=== PATIENT | female | born 1945 | race Caucasian/White ===

== ENCOUNTER 2017-05-01 15:21 | Observation (INO) | payer MEDICARE, OTHER ==
[2017-05-01] MEDS ORDERED: HYDROcodone/APAP 5-325MG 1 EACH TAB PO STA (15:45)
--- NOTE | 2017-05-01 15:50 | ED ---
Lower Extremity Injury HPI <Chito Hughes - Last Filed: 05/01/17 17:52> - General Source: patient, RN notes reviewed Mode of arrival: wheelchair Limitations: physical limitation <Breanna Kaur - Last Filed: 05/01/17 18:40> - General Chief Complaint: Extremity Injury, Lower Stated Complaint: Fall Time Seen by Provider: 05/01/17 15:36 - History of Present Illness Initial Comments: Patient is 72-year-old female presents to the emergency room for evaluation of bilateral ankle pain. Patient states yesterday she was walking outside and her knee gave out and she twisted her right ankle. Patient states he began having pain and swelling of her right ankle and foot. Patient states having 8 out of 10 constant pain. Patient states the pain is worse when she puts weight on her foot. Patient states today while getting ready to come to the emergency room for her right ankle pain, she fell over and twisted her left ankle x 2. Patient states she is now having 8 out of 10 pain in her left ankle as well. Patient states she's also having pain and swelling of her third toe. Patient states she can't walk because of pain in bilateral ankles and feet. Patient denies any numbness or tingling in her feet. Patient states she took a [place] was morning with slight relief of symptoms. Patient denies any other injuries during incident. Patient also states she's been experiencing dysuria for the past 2 days. Patient states she would like to be checked for urinary tract infection. Patient denies any blood in the urine. Denies abdominal pain. Patient denies flank pain. Patient denies nausea or vomiting. Patient denies fevers or chills. (Breanna Kaur) - Related Data Home Medications Medication Instructions Recorded Confirmed Baclofen 10 mg PO TID PRN 05/01/17 05/01/17 DULoxetine HCL [Cymbalta] 60 mg PO DAILY 05/01/17 05/01/17 Famotidine [Pepcid] 20 mg PO BID 05/01/17 05/01/17 Fesoterodine Fumarate [Toviaz] 4 mg PO HS 05/01/17 05/01/17 HYDROcodone/APAP 10-325MG [[place] 1 tab PO QID PRN 05/01/17 05/01/17 10-325] Insulin Aspart [NovoLOG] See Protocol SQ AC-TID 05/01/17 05/01/17 Insulin Detemir [Levemir Flextouch] 40 units SQ HS 05/01/17 05/01/17 Mirabegron [Myrbetriq] 25 mg PO HS 05/01/17 05/01/17 Quinapril HCl 40 mg PO DAILY 05/01/17 05/01/17 Simvastatin [Zocor] 20 mg PO HS 05/01/17 05/01/17 Allergies Allergy/AdvReac Type Severity Reaction Status Date / Time Penicillins Allergy Anaphylaxis Verified 05/01/17 16:00 prochlorperazine AdvReac Seizure Verified 05/01/17 16:00 [From Compazine] Sulfa (Sulfonamide AdvReac Systemic Verified 05/01/17 16:00 Antibiotics) Lupus Flare Review of Systems ROS Other: All systems not noted in ROS Statement are negative. <Chito Hughes - Last Filed: 05/01/17 17:52> ROS Other: All systems not noted in ROS Statement are negative. <Breanna Kaur - Last Filed: 05/01/17 18:40> ROS Statement: Those systems with pertinent positive or pertinent negative responses have been documented in the HPI. Past Medical History Past Medical History: Diabetes Mellitus, Hypertension Additional Past Medical History / Comment(s): Lupus History of Any Multi-Drug Resistant Organisms: None Reported Past Psychological History: No Psychological Hx Reported Smoking Status: Never smoker Past Alcohol Use History: None Reported Past Drug Use History: None Reported <Breanna Kaur - Last Filed: 05/01/17 18:40> General Exam <Chito Hughes - Last Filed: 05/01/17 17:52> Limitations: physical limitation General appearance: alert, in no apparent distress Head exam: Present: atraumatic, normocephalic, normal inspection Eye exam: Present: normal appearance ENT exam: Present: normal exam Neck exam: Present: normal inspection Respiratory exam: Present: normal lung sounds bilaterally. Absent: respiratory distress Cardiovascular Exam: Present: regular rate, normal rhythm, normal heart sounds GI/Abdominal exam: Present: soft, normal bowel sounds. Absent: distended, tenderness, guarding, rebound, rigid Right Lower Leg exam: Present: normal inspection, full ROM. Absent: tenderness Ankle exam: Present: tenderness (Lateral malleolus), swelling. Absent: normal inspection, full ROM Foot/Toe exam: Present: tenderness (Fourth and fifth metatarsal bones), swelling , ecchymosis. Absent: normal inspection Neurovascular tendon exam: Present: no vascular compromise. Absent: pulse deficit (2+ dorsal pedal and posterior tibial pulses), abnormal cap refill ( Capillary refill less than 2 seconds) Left Ankle exam: Present: full ROM, tenderness (Lateral malleolus), swelling ( Lateral malleolus). Absent: normal inspection Foot/Toe exam: Present: tenderness (Third digit), swelling (Third digit) Neurovascular tendon exam: Present: no vascular compromise. Absent: pulse deficit (2+ dorsal pedal and posterior tibial pulses), abnormal cap refill ( Capillary refill less than 2 seconds) Back exam: Present: normal inspection Neurological exam: Present: alert, oriented X3, CN II-XII intact Psychiatric exam: Present: normal affect, normal mood Skin exam: Present: warm, dry, intact, normal color. Absent: rash <Breanna Kaur - Last Filed: 05/01/17 18:40> - General Exam Comments Initial Comments: Laying in exam room, no acute distress. (Breanna Kaur) Procedures - Orthopedic Splinting/Casting Injury #1 Side: left Lower Extremity Injury Location: ankle Lower Extremity Immobilizer: posterior splint (Short leg OCL posterior splint placed. 3 x 35". Neurovascular function assessed and intact.) Injury #2 Side: right Lower Extremity Injury Location: ankle Lower Extremity Immobilizer: posterior splint (Short leg OCL posterior splint placed. 3 x 35". Neurovascular function assessed and intact.) <Breanna Kaur - Last Filed: 05/01/17 18:40> Disposition <Chito Hughes - Last Filed: 05/01/17 17:52> Decision Date: 05/01/17 <Breanna Kaur - Last Filed: 05/01/17 18:40> Clinical Impression: Fracture of right ankle, lateral malleolus, Fracture of left ankle, lateral malleolus, Urinary tract infection Disposition: ADMITTED IP TO THIS [facility] Condition: Stable Referrals: Jordan Tyler MD [STAFF PHYSICIAN] - 1-2 days
--- NOTE | 2017-05-01 16:38 | XR ---
EXAMINATION TYPE: XR ankle complete bilateral DATE OF EXAM: 05/01/2017 COMPARISON: NONE HISTORY: 72-year-old female bilateral pain after fall today TECHNIQUE: 3 views each ankle. FINDINGS: There are oblique fractures of the bilateral distal fibula is. The fracture line at the left lateral malleolus is slightly higher and there is minimal posterior displacement of the distal fracture fragm ent. Associated soft tissue swelling especially laterally on both sides. Talar domes appear intact an d the syndesmoses appear intact. Moderate-sized plantar calcaneal spurs. IMPRESSION: Soft tissue swelling with oblique lateral malleolar fractures on both sides. The fracture on the left is slightly higher and with slight posterior displacement.
--- NOTE | 2017-05-01 16:40 | XR ---
EXAMINATION TYPE: XR foot complete bilateral DATE OF EXAM: 05/01/2017 COMPARISON: NONE HISTORY: 72-year-old female with pain after fall today TECHNIQUE: 3 views each foot FINDINGS: Mild degenerative changes of first MTP joints. Lateral malleolar fractures are redemonstrated on both sides along with moderate-sized plantar calcaneal spurs. No additional acute fracture or dislocation seen. IMPRESSION: Lateral malleolar fractures described in separate report. No additional acute osseous abnormality see n.
[2017-05-01 17:34] LABS: Appearance,Urine Turbid (Clear); Bacteria,Urine Moderate /hpf; Bilirubin,Urine Negative (Negative); Glucose,Urine (UA) 3+ (Negative); Ketones,Urine Negative (Negative); Leukocyte Esterase,Urine Large (Negative); Nitrite,Urine Positive (Negative); Particle Count 62591; Protein,Urine Trace (Negative); RBC,Urine 28 /hpf (0-5); Specific Gravity,Urine 1.016 (1.001-1.035); Squamous Epithelial Cell,Urine 1 /hpf (0-4); UA Billing (MACRO vs. MICRO) MICRO; Urobilinogen,Urine <2.0 mg/dL (<2.0); WBC,Urine >182 /hpf (0-5)
[2017-05-01] MEDS ORDERED: NALOXONE 0.4 MG/ML 1 ML VIAL IV PRN (17:53)
[2017-05-01] MEDS ORDERED: HYDROcodone/APAP 5-325MG 1 EACH TAB PO PRN (17:53)
[2017-05-01] MEDS ORDERED: NITROFURANTOIN MONOHYD/M-CRYST 100 MG CAP PO STA (17:58)
[2017-05-01 18:35] LABS: Glucose,Whole Blood 178 mg/dL (75-99)
[2017-05-01 20:17] VITALS: BMI 30.4
[2017-05-01 20:35] LABS: Glucose,Whole Blood 253 mg/dL (75-99)
[2017-05-01] MEDS ORDERED: NON-FORMULARY DRUG (Mirabegron [Myrbetriq] 25 MG) PO SCH (21:00)
[2017-05-01] MEDS: FAMOTIDINE 20 MG TAB PO SCH (21:47)
[2017-05-01] MEDS: ATORVASTATIN 10 MG TAB PO SCH (21:47)
[2017-05-01] MEDS: DULoxetine HCL 60 MG CAPSULE.DR PO SCH (21:47)
[2017-05-01] MEDS: INSULIN DETEMIR 100 UNIT/ML 10 ML VIAL SQ SCH (21:48)
[2017-05-01] MEDS: INSULIN LISPRO (humaLOG) 300 UNIT/3 ML VIAL SQ SCH (21:49)
[2017-05-01] MEDS: BACLOFEN 10 MG TAB PO PRN (21:51)
[2017-05-01] MEDS: OXYBUTYNIN 10 MG TAB.ER.24 PO SCH (21:51)
[2017-05-01] MEDS: HYDROcodone/APAP 10-325MG 1 EACH TAB PO PRN (21:55)
[2017-05-02 06:55] LABS: Basophils % (A) 0 %; CH 31.6; CHCM 33.8; Eosinophils # (A) 0.2 k/uL (0-0.7); Eosinophils % (A) 2 %; HCT 33.4 % (34.0-46.0); HDW 2.29; HGB 11.1 gm/dL (11.4-16.0); Luc # (Auto) 0.16; Luc % (Auto) 2; Lymphocytes # (A) 1.3 k/uL (1.0-4.8); Lymphocytes % (A) 18 %; MCH 31.1 pg (25.0-35.0); MCHC 33.1 g/dL (31.0-37.0); MCV 93.9 fL (80.0-100.0); Mean Platelet Volume 7.4; Monocytes # (A) 0.6 k/uL (0-1.0); Monocytes % (A) 8 %; Neutrophils # (A) 4.9 k/uL (1.3-7.7); Neutrophils % (A) 70 %; RBC 3.56 m/uL (3.80-5.40); RDW 13.5 % (11.5-15.5); WBC 7.1 k/uL (3.8-10.6); WBC (Perox) 7.88
[2017-05-02 07:15] LABS: Anion Gap 10 mmol/L; Blood Urea Nitrogen 15 mg/dL (7-17); Calcium 9.1 mg/dL (8.4-10.2); Carbon Dioxide 27 mmol/L (22-30); Chloride 102 mmol/L (98-107); Glucose 133 mg/dL (74-99); Non-African American GFR(MDRD) >60 (>60 ml/min/1.73 sqM); Potassium 4.1 mmol/L (3.5-5.1); Sodium 139 mmol/L (137-145)
[2017-05-02 07:19] LABS: Glucose,Whole Blood 134 mg/dL (75-99)
[2017-05-02] MEDS: FAMOTIDINE 20 MG TAB PO SCH ×2 (08:12→21:48)
[2017-05-02] MEDS: HYDROcodone/APAP 10-325MG 1 EACH TAB PO PRN ×2 (08:12→15:03)
[2017-05-02] MEDS: NITROFURANTOIN MONOHYD/M-CRYST 100 MG CAP PO SCH ×2 (08:13→21:43)
[2017-05-02] MEDS: LISINOPRIL 20 MG TAB PO SCH (08:13)
[2017-05-02] MEDS: INSULIN LISPRO (humaLOG) 300 UNIT/3 ML VIAL SQ SCH ×4 (08:14→21:46)
[2017-05-02] MEDS ORDERED: DULoxetine HCL 60 MG CAPSULE.DR PO SCH (09:00)
[2017-05-02 09:52] LABS: Hemoglobin A1C 7.4 % (4.2-6.1)
--- NOTE | 2017-05-02 10:58 | P.HPOR ---
History of Present Illness H&P Date: 05/02/17 Chief Complaint: Bilateral ankle fractures Patient is a 72-year-old female seen at bedside this morning. She was admitted through the ER yesterday 05/01/2017 after x-rays showed bilateral ankle fractures. She states that on Monday, April 29, 2017 she had slipped underneath her daughter's truck and subsequently injured her right ankle with pain and difficulty weightbearing afterwards. She did not present to have it evaluated but was using an old walker for assisting with ambulation. She then again yesterday 05/01/2017 fell and injured her left ankle. After the second ankle injury she then presented to the emergency department where x-rays showed bilateral lateral malleolus fractures. She continues to have bilateral ankle pain this morning. She has no new complaints. She is denying constant numbness or tingling. She has no calf pain. Review of systems is negative for fever, chills, chest pain, shortness breath, nausea, vomiting, dizziness, headaches, slurred speech, facial weakness or other. Review of Systems All systems: negative Constitutional: Denies chills, Denies fever Eyes: denies blurred vision, denies pain Ears, nose, mouth and throat: Denies headache, Denies sore throat Cardiovascular: Denies chest pain, Denies shortness of breath Respiratory: Denies cough Gastrointestinal: Denies abdominal pain, Denies diarrhea, Denies nausea, Denies vomiting Genitourinary: Denies dysuria, Denies hematuria Musculoskeletal: Denies myalgias Integumentary: Denies pruritus, Denies rash Neurological: Denies numbness, Denies weakness Psychiatric: Denies anxiety, Denies depression Endocrine: Denies fatigue, Denies weight change Past Medical History Past Medical History: Diabetes Mellitus, Hypertension Additional Past Medical History / Comment(s): Lupus History of Any Multi-Drug Resistant Organisms: None Reported Past Surgical History: Adenoidectomy, Appendectomy, Back Surgery, Cholecystectomy, Heart Catheterization, Hysterectomy, Tonsillectomy Additional Past Surgical History / Comment(s): 3 left humerous surgery, ryder heal surgery, partial knee right, 7 back surgery, c4-c7 fusion, Lumbar fusion. Past Anesthesia/Blood Transfusion Reactions: No Reported Reaction Past Psychological History: Anxiety, Depression Smoking Status: Never smoker Past Alcohol Use History: None Reported Past Drug Use History: None Reported - Past Family History Father Family Medical History: AICD/Pacemaker, Coronary Artery Disease (CAD) Brother(s) Additional Family Medical History / Comment(s): brain surgery Son(s) Family Medical History: Cancer Additional Family Medical History / Comment(s): brain ca Medications and Allergies Home Medications Medication Instructions Recorded Confirmed Type Baclofen 10 mg PO TID PRN 05/01/17 05/01/17 History DULoxetine HCL [Cymbalta] 60 mg PO DAILY 05/01/17 05/01/17 History Famotidine [Pepcid] 20 mg PO BID 05/01/17 05/01/17 History Fesoterodine Fumarate [Toviaz] 4 mg PO HS 05/01/17 05/01/17 History HYDROcodone/APAP 10-325MG [[place] 1 tab PO QID PRN 05/01/17 05/01/17 History 10-325] Insulin Aspart [NovoLOG] See Protocol SQ AC-TID 05/01/17 05/01/17 History Insulin Detemir [Levemir Flextouch] 40 units SQ HS 05/01/17 05/01/17 History Mirabegron [Myrbetriq] 25 mg PO HS 05/01/17 05/01/17 History Quinapril HCl 40 mg PO DAILY 05/01/17 05/01/17 History Simvastatin [Zocor] 20 mg PO HS 05/01/17 05/01/17 History Allergies Allergy/AdvReac Type Severity Reaction Status Date / Time latex Allergy Anaphylaxis Verified 05/01/17 20:25 Penicillins Allergy Anaphylaxis Verified 05/01/17 20:25 prochlorperazine AdvReac Seizure Verified 05/01/17 20:25 [From Compazine] Sulfa (Sulfonamide AdvReac Systemic Verified 05/01/17 20:25 Antibiotics) Lupus Flare Physical Examination Inspection of the bilateral lower extremities show posterior short leg splints in place. There are no wounds or lacerations to the lower extremities. There is no erythema. There is mild swelling at bilateral ankles. There is tenderness directly over the lateral malleoli. There is no medial malleolus tenderness. There is adequate perfusion with skin warm to touch, 2+ dorsalis pedis pulses and less than 2 second capillary refill. Sensation to light touch is intact throughout the lower extremities. She has active motor at the hip, knee, ankle, foot and toes. Calves are soft and nontender. Results - Labs Labs: Abnormal Lab Results - Last 24 Hours (Table) 05/01/17 05/01/17 05/01/17 Range/Units 16:46 18:33 20:33 RBC (3.80-5.40) m/uL Hgb (11.4-16.0) gm/dL Hct (34.0-46.0) % Glucose (74-99) mg/dL POC Glucose (mg/dL) 178 H 253 H (75-99) mg/dL Hemoglobin A1c (4.2-6.1) % Urine Appearance Turbid H (Clear) Urine Protein Trace H (Negative) Urine Glucose (UA) 3+ H (Negative) Urine Nitrite Positive H (Negative) Ur Leukocyte Esterase Large H (Negative) Urine RBC 28 H (0-5) /hpf Urine WBC >182 H (0-5) /hpf Urine WBC Clumps Few H (None) /hpf Urine Bacteria Moderate H (None) /hpf Urine Yeast (Budding) Many H (None) /hpf 05/02/17 05/02/17 05/02/17 Range/Units 06:26 06:26 06:26 RBC 3.56 L (3.80-5.40) m/uL Hgb 11.1 L (11.4-16.0) gm/dL Hct 33.4 L (34.0-46.0) % Glucose 133 H (74-99) mg/dL POC Glucose (mg/dL) (75-99) mg/dL Hemoglobin A1c 7.4 H (4.2-6.1) % Urine Appearance (Clear) Urine Protein (Negative) Urine Glucose (UA) (Negative) Urine Nitrite (Negative) Ur Leukocyte Esterase (Negative) Urine RBC (0-5) /hpf Urine WBC (0-5) /hpf Urine WBC Clumps (None) /hpf Urine Bacteria (None) /hpf Urine Yeast (Budding) (None) /hpf 05/02/17 Range/Units 07:12 RBC (3.80-5.40) m/uL Hgb (11.4-16.0) gm/dL Hct (34.0-46.0) % Glucose (74-99) mg/dL POC Glucose (mg/dL) 134 H (75-99) mg/dL Hemoglobin A1c (4.2-6.1) % Urine Appearance (Clear) Urine Protein (Negative) Urine Glucose (UA) (Negative) Urine Nitrite (Negative) Ur Leukocyte Esterase (Negative) Urine RBC (0-5) /hpf Urine WBC (0-5) /hpf Urine WBC Clumps (None) /hpf Urine Bacteria (None) /hpf Urine Yeast (Budding) (None) /hpf Microbiology - Last 24 Hours (Table) 05/01/17 16:46 Urine Culture - Preliminary Urine,Voided H & H 05/02/17 Range/Units 06:26 Hgb 11.1 L (11.4-16.0) gm/dL Hct 33.4 L (34.0-46.0) % Result Diagrams: 05/02/17 06:26 05/02/17 06:26 - Diagnostic results Ankle/Foot x-ray: report reviewed, image reviewed (X-rays of bilateral ankles show minimally displaced oblique distal fibula fractures more evident on the left than the right. Both ankle mortises are intact.) Assessment and Plan (1) Fracture of left ankle, lateral malleolus Narrative/Plan: I do not believe the patient require surgical intervention at this time. We will per have her ankles immobilized with either walking boots or casts. She may need placement for extended care and rehab due to an inability or difficulty ambulating. We'll further review with Dr. Tyler and make further recommendations as appropriate. Status: Acute (2) Fracture of right ankle, lateral malleolus Status: Acute Time with Patient: Less than 30
[2017-05-02 11:24] LABS: Glucose,Whole Blood 218 mg/dL (75-99)
[2017-05-02] MEDS: IBUPROFEN 400 MG TAB PO PRN ×2 (12:09→21:45)
[2017-05-02 16:12] LABS: Glucose,Whole Blood 162 mg/dL (75-99)
[2017-05-02 19:58] LABS: Glucose,Whole Blood 254 mg/dL (75-99)
[2017-05-02] MEDS: DULoxetine HCL 60 MG CAPSULE.DR PO SCH (21:42)
[2017-05-02] MEDS: ATORVASTATIN 10 MG TAB PO SCH (21:42)
[2017-05-02] MEDS: OXYBUTYNIN 10 MG TAB.ER.24 PO SCH (21:43)
[2017-05-02] MEDS: INSULIN DETEMIR 100 UNIT/ML 10 ML VIAL SQ SCH (21:43)
[2017-05-03] MEDS: BACLOFEN 10 MG TAB PO PRN (03:51)
[2017-05-03 07:00] LABS: Glucose,Whole Blood 120 mg/dL (75-99)
[2017-05-03 07:18] VITALS: BP 115/70; PULSE 72; RESP 14; TEMP 97.9
[2017-05-03] MEDS: INSULIN LISPRO (humaLOG) 300 UNIT/3 ML VIAL SQ SCH ×2 (07:19→13:13)
[2017-05-03] MEDS: HYDROcodone/APAP 10-325MG 1 EACH TAB PO PRN ×2 (08:11→14:31)
[2017-05-03] MEDS: NITROFURANTOIN MONOHYD/M-CRYST 100 MG CAP PO SCH (08:13)
[2017-05-03] MEDS: FAMOTIDINE 20 MG TAB PO SCH (08:13)
[2017-05-03] MEDS: LISINOPRIL 20 MG TAB PO SCH (08:13)
[2017-05-03] MEDS: IBUPROFEN 400 MG TAB PO PRN (11:30)
[2017-05-03 11:44] LABS: Glucose,Whole Blood 220 mg/dL (75-99)
[2017-05-03] MEDS ORDERED: PANTOPRAZOLE 40 MG TABLET PO SCH (17:30)
[2017-05-03] MEDS ORDERED: ASPIRIN 325 MG TAB PO SCH (21:00)
--- NOTE | 2017-05-04 12:13 | P.DS ---
Providers Date of admission: 05/01/17 18:23 Expected date of discharge: 05/03/17 Attending physician: Jordan Tyler Consults: 05/01/17 17:54 Consult Physician Urgent Consulting Provider: Joel Vasquez Consult Reason/Comments: bilateral lateral malleolus fractures, urinary tract infection Do you want consulting provider notified?: Yes Primary care physician: Physician Nonstaff - Discharge Diagnosis(es) (1) Fracture of left ankle, lateral malleolus Patient is a 72-year-old female that was admitted through the ER 05/01/2017 after x-rays showed bilateral ankle fractures. She states that on Monday, April 29, 2017 she had slipped underneath her daughter's truck and subsequently injured her right ankle with pain and difficulty weightbearing afterwards. She did not present to have it evaluated but was using an old walker for assisting with ambulation. She then again on 05/01/2017 fell and injured her left ankle. After the second ankle injury she then presented to the emergency department where x-rays showed bilateral lateral malleolus fractures. She was admitted for further care and placement. She was fitted for bilateral walking boots and surgical intervention is not required. Her hospital course was without complication. On day of discharge her pain is controlled with oral pain medication, tolerating by mouth meds and diet, denying new complaints, neurovascular status intact, calves soft and nontender, abdomen soft and nontender, afebrile, vital signs stable, labs within acceptable ranges. She is denying constant numbness or tingling. She has no calf pain. Review of systems is negative for fever, chills, chest pain, new numbness or tingling, shortness breath, nausea, vomiting, dizziness, headaches, slurred speech, facial weakness or other. Status: Acute Priority: Medium (2) Fracture of right ankle, lateral malleolus Status: Acute Priority: Medium Patient Condition at Discharge: Good Plan - Discharge Summary New Discharge Prescriptions: New Aspirin 325 mg PO BID #60 tab Continue Simvastatin [Zocor] 20 mg PO HS Quinapril HCl 40 mg PO DAILY Mirabegron [Myrbetriq] 25 mg PO HS Fesoterodine Fumarate [Toviaz] 4 mg PO HS Insulin Detemir [Levemir Flextouch] 40 units SQ HS HYDROcodone/APAP 10-325MG [[place] 10-325] 1 tab PO QID PRN PRN Reason: Pain Famotidine [Pepcid] 20 mg PO BID DULoxetine HCL [Cymbalta] 60 mg PO DAILY Baclofen 10 mg PO TID PRN PRN Reason: Muscle Spasm/Pain Insulin Aspart [NovoLOG] See Protocol SQ AC-TID Discharge Medication List Baclofen 10 mg PO TID PRN 05/01/17 [History] DULoxetine HCL [Cymbalta] 60 mg PO DAILY 05/01/17 [History] Famotidine [Pepcid] 20 mg PO BID 05/01/17 [History] Fesoterodine Fumarate [Toviaz] 4 mg PO HS 05/01/17 [History] HYDROcodone/APAP 10-325MG [[place] 10-325] 1 tab PO QID PRN 05/01/17 [History] Insulin Aspart [NovoLOG] See Protocol SQ AC-TID 05/01/17 [History] Insulin Detemir [Levemir Flextouch] 40 units SQ HS 05/01/17 [History] Mirabegron [Myrbetriq] 25 mg PO HS 05/01/17 [History] Quinapril HCl 40 mg PO DAILY 05/01/17 [History] Simvastatin [Zocor] 20 mg PO HS 05/01/17 [History] Aspirin 325 mg PO BID #60 tab 05/03/17 [Rx] Follow up Appointment(s)/Referral(s): [facility], [NON-STAFF] - 1 Week Jordan Tyler MD [STAFF PHYSICIAN] - 05/04/17 8:30 am Patient Instructions/Handouts: Ankle Fracture (DC) Activity/Diet/Wound Care/Special Instructions: Pivot weightbearing right lower extremity. Weight-bear as tolerated while in walking boots Maintain walking boots while up and ambulating Follow-up with Dr. Tyler in office, [facility]: [phone]. Will deliver walking boots to your room. [facility] : [phone]. Will deliver wheel chair to your home. Discharge Disposition: HOME SELF-CARE
--- NOTE | 2017-05-04 20:14 | CONS ---
REASON FOR CONSULTATION: Advice regarding diabetes mellitus, type 2, and other medical issues, requested by Orthopedic Surgery. HISTORY OF PRESENT ILLNESS: This 72-year-old woman with a past medical history of diabetes mellitus, hypertension, history of lupus, history of adenoidectomy, history of back surgery, history of DJD, cardiac catheterization, being followed by Dr. Faith in the outpatient setting, was admitted with bilateral ankle fractures, which was apparently being treated conservatively. The boot has been provided by Orthopedic Surgery. There is no history of any fever, rigor , chills, no history of headache, loss of consciousness, seizures. PAST MEDICAL HISTORY: 1. Diabetes mellitus, type 2. 2. Hypertension. 3. Lupus. 4. Adenoidectomy. 5. History of appendectomy. 6. History of back surgery. 7. Cholecystectomy. HOME MEDICATIONS: 1. Zocor 20 mg at bedtime. 2. Quinapril 40 mg p.o. daily. 3. Myrbetriq 25 mg at bedtime. 4. Levemir 40 units subcutaneously at bedtime. 5. NovoLog before meals t.i.d. 6. [place] 10 mg q.i.d. p.r.n. 7. Toviaz 4 mg p.o. at bedtime. 8. Pepcid 20 mg p.o. b.i.d. 9. Cymbalta 60 mg p.o. daily. 10. Baclofen 10 mg q.i.d. p.r.n. ALLERGIES: 1. LATEX. 2. PENICILLIN. 3. COMPAZINE. 4. SULFA. FAMILY HISTORY: History of AICD, CAD, brain surgery in the family. SOCIAL HISTORY: No history of smoking. No history of alcohol intake. REVIEW OF SYSTEMS: ENT: No diminished vision. No diminished hearing. CARDIOVASCULAR SYSTEM: No angina, palpitations. RESPIRATORY SYSTEM: As mentioned earlier. GI: No nausea, vomiting. : No dysuria, retention. NERVOUS SYSTEM: No numbness, weakness. ALLERGY/IMMUNOLOGY: No asthma, hayfever. MUSCULOSKELETAL: As mentioned earlier. HEMATOLOGY/ONCOLOGY: No history of anemia. ENDOCRINE: Diabetes mellitus. No hypothyroidism. CONSTITUTIONAL: As mentioned earlier. DERMATOLOGY: Negative. RHEUMATOLOGY: Negative. PSYCHIATRY: As mentioned earlier. PHYSICAL EXAMINATION: Patient is alert and oriented x3. Pulse is 90, blood pressure 143/77, respiratory rate 16, temperature 98.4, pulse ox 94% on room air. HEENT: Conjunctivae normal. NECK: No jugular venous distention. CARDIOVASCULAR: S1, S2 muffled. RESPIRATORY: Breath sounds diminished at the bases. No rhonchi. No crackles. ABDOMEN: Soft, non-tender. LEGS: Status post bilateral ankle fractures. NERVOUS SYSTEM: Higher functions as mentioned earlier. Moves all 4 limbs. No focal motor or sensory deficits. LYMPHATICS: No lymph node palpable in neck, axillae or groin. SKIN: No ulcer, rash, bleeding. LABS: WBC 7.5, hemoglobin 11.1. Glucose 133. ASSESSMENT: 1. Bilateral ankle fractures. 2. Anemia, normocytic; anemia of chronic disease. 3. Diabetes mellitus, type 2. 4. History of hypertension. 5. History of lupus. 6. Appendectomy. 7. History of back surgery. 8. Degenerative joint disease. 9. History of cardiac catheterization. 10. History of tonsillectomy. 11. History of anxiety, depression not otherwise specified. RECOMMENDATIONS AND DISCUSSION: In this 72-year-old woman who presented with multiple complex medical issues, we will monitor the patient closely, continue the current medications, continue symptomatic treatment. Resume the home medications. Monitor blood sugars closely. DVT prophylaxis. Incentive spirometry. Repeat labs. We will follow the patient closely with you. Patient may be asked to follow up with a primary physician in the outpatient setting. Thank you, Dr. Tyler, for letting us participate in the care of this patient. DAE
--- NOTE | 2017-05-06 11:05 | PN ---
DATE OF SERVICE: 05/03/17 This 72 year old woman who was admitted with a fracture bilaterally has got walking boots. No chest pain. No palpitations. No fever. On exam, alert and oriented times three. Pulse 72. Blood pressure 115/77. Respiratory rate 14. Temperature 97.9. Pulse ox 94% on room air. HEENT: Conjunctivae normal. Neck: No JVD. Cardiovascular: S1, S2 muffled. Respiratory: Breath sounds diminished at the bases. No rhonchi. No crackles. ABDOMEN: Soft, nontender. LEGS: Status post ankle fracture. Nervous system: No focal deficits. LABS: Glucose ntd, hemoglobin 11.1. ASSESSMENT: 1. Status post bilateral ankle fractures and walking boot conservative line of treatment. 2. Anemia, normocytic anemia, chronic disease. 3. Diabetes mellitus, type 2. 4. Gait dysfunction. 5. History of hypertension. 7. History of appendectomy. 8. History of cardiac catheterization. 9. History of anxiety, depression. RECOMMENDATIONS AND DISCUSSION: Recommend to continue the current medications. Continue with monitoring, symptomatic treatment. otherwise, closely follow with orthopedic surgery. Follow up with primary care physician in the outpatient setting. DAE
== END 2017-05-03 15:14 | disposition home or self-care (01) ==
LOC: EC 15:21 → INTOOBSV 18:23 → 3SUR 18:23
PROVIDERS: ADMIT Orthopaedic Surgery Sports Medicine; ATTEND Orthopaedic Surgery Sports Medicine
DX: S82.891A Other fracture of right lower leg, initial encounter for closed fracture (principal); S82.892A Other fracture of left lower leg, initial encounter for closed fracture; D63.8 Anemia in other chronic diseases classified elsewhere; R26.9 Unspecified abnormalities of gait and mobility; E11.9 Type 2 diabetes mellitus without complications; I10 Essential (primary) hypertension; F32.9 Major depressive disorder, single episode, unspecified; F41.9 Anxiety disorder, unspecified; M25.571 Pain in right ankle and joints of right foot; M25.572 Pain in left ankle and joints of left foot; M25.471 Effusion, right ankle; R30.0 Dysuria; M19.90 Unspecified osteoarthritis, unspecified site; W10.1XXA Fall (on)(from) sidewalk curb, initial encounter; Y93.01 Activity, walking, marching and hiking; Y92.480 Sidewalk as the place of occurrence of the external cause; Z79.4 Long term (current) use of insulin; Z79.899 Other long term (current) drug therapy; Z90.49 Acquired absence of other specified parts of digestive tract; Z82.49 Family history of ischemic heart disease and other diseases of the circulatory system; Z80.8 Family history of malignant neoplasm of other organs or systems; Z88.0 Allergy status to penicillin; Z88.2 Allergy status to sulfonamides; Z88.8 Allergy status to other drugs, medicaments and biological substances; Z91.040 Latex allergy status
CPT/HCPCS: 29515 ×2; 99284 ×2; 36415; 97161; 80048; 83036; 85025; 81001; 87086; 87077; 87186; 73610; 73630; G0378 ×3

== ENCOUNTER 2017-05-20 20:44 | Emergency (ER) | payer MEDICARE, OTHER ==
[2017-05-20] MEDS ORDERED: ACETAMINOPHEN TAB 325 MG TAB PO STA (20:57)
[2017-05-20 21:20] LABS: Basophils # (A) 0.1 k/uL (0-0.2); Basophils % (A) 2 %; CHCM 33.9; Eosinophils # (A) 0.2 k/uL (0-0.7); Eosinophils % (A) 2 %; HCT 38.9 % (34.0-46.0); HDW 2.57; HGB 13.4 gm/dL (11.4-16.0); Luc # (Auto) 0.16; Luc % (Auto) 2; Lymphocytes # (A) 1.7 k/uL (1.0-4.8); Lymphocytes % (A) 24 %; MCH 31.6 pg (25.0-35.0); MCHC 34.3 g/dL (31.0-37.0); Mean Platelet Volume 8.3; Monocytes # (A) 0.5 k/uL (0-1.0); Monocytes % (A) 8 %; Neutrophils # (A) 4.4 k/uL (1.3-7.7); Neutrophils % (A) 63 %; RBC 4.23 m/uL (3.80-5.40); RDW 13.4 % (11.5-15.5); WBC 7.1 k/uL (3.8-10.6); WBC (Perox) 7.21
[2017-05-20] MEDS ORDERED: ONDANSETRON 4 MG/2 ML VIAL IVP STA (21:20)
--- NOTE | 2017-05-20 21:22 | ED ---
Fever HPI - General Chief Complaint: Fever Stated Complaint: fever,NVD Time Seen by Provider: 05/20/17 20:55 Source: patient Mode of arrival: ambulatory Limitations: no limitations - History of Present Illness Initial Comments: This patient is a 72-year-old woman who states that around noon she started having a number of symptoms which included having a fever, having generalized weakness, noting that her blood sugar has been running high (up to 170s). She also had nausea and has had about 3-4 loose bowel movements today. The patient does note that she had just completed a course of Macrobid. Today she noted she was having urinary frequency and urgency. She denies dysuria. Patient is not having headache or neck stiffness. She is not having chest pain cough, or dyspnea. She denies abdominal pain. She has not noted any blood or dark tarry stools. Patient denies any joint pain or swelling. She denies rash or skin lesions. MD Complaint: fever, weakness Onset/Timin -: hour(s) Temperature Source: subjective Context: recent antibiotic use (Macrobid) Associated Symptoms: chills, nausea, diarrhea Treatments Prior to Arrival: none - Related Data Home Medications Medication Instructions Recorded Confirmed Baclofen 10 mg PO TID PRN 05/01/17 05/20/17 DULoxetine HCL [Cymbalta] 60 mg PO DAILY 05/01/17 05/20/17 Famotidine [Pepcid] 20 mg PO BID 05/01/17 05/20/17 Fesoterodine Fumarate [Toviaz] 4 mg PO HS 05/01/17 05/20/17 HYDROcodone/APAP 10-325MG [[place] 1 tab PO QID PRN 05/01/17 05/20/17 10-325] Insulin Aspart [NovoLOG] See Protocol SQ AC-TID 05/01/17 05/20/17 Insulin Detemir [Levemir Flextouch] 40 units SQ HS 05/01/17 05/20/17 Mirabegron [Myrbetriq] 25 mg PO HS 05/01/17 05/20/17 Quinapril HCl 40 mg PO DAILY 05/01/17 05/20/17 Simvastatin [Zocor] 20 mg PO HS 05/01/17 05/20/17 Previous Rx's Medication Instructions Recorded Aspirin 325 mg PO BID #60 tab 05/03/17 Azithromycin [Zithromax Z-pack] 250 mg PO DIRECTED #6 tab 05/21/17 Ondansetron Odt [Zofran ODT] 4 mg PO Q8HR PRN #10 tab 05/21/17 Allergies Allergy/AdvReac Type Severity Reaction Status Date / Time latex Allergy Anaphylaxis Verified 05/20/17 20:51 Penicillins Allergy Anaphylaxis Verified 05/20/17 20:51 prochlorperazine AdvReac Seizure Verified 05/20/17 20:51 [From Compazine] Sulfa (Sulfonamide AdvReac Systemic Verified 05/20/17 20:51 Antibiotics) Lupus Flare Review of Systems ROS Statement: Those systems with pertinent positive or pertinent negative responses have been documented in the HPI. ROS Other: All systems not noted in ROS Statement are negative. Constitutional: Reports: fever, weakness (Generalized) Eyes: Denies: eye pain, vision change ENT: Denies: throat pain, congestion Respiratory: Denies: cough, dyspnea, wheezes Cardiovascular: Denies: chest pain, palpitations, edema, syncope Gastrointestinal: Reports: nausea, vomiting (Dry heaves), diarrhea. Denies: abdominal pain, melena, hematochezia Genitourinary: Reports: urgency, frequency. Denies: dysuria, hematuria Skin: Denies: rash Neurological: Denies: headache, weakness, numbness, paresthesias Past Medical History Past Medical History: Diabetes Mellitus, Hypertension Additional Past Medical History / Comment(s): Lupus History of Any Multi-Drug Resistant Organisms: None Reported Past Surgical History: Adenoidectomy, Appendectomy, Back Surgery, Cholecystectomy, Heart Catheterization, Hysterectomy, Tonsillectomy Additional Past Surgical History / Comment(s): 3 left humerous surgery, ryder heal surgery, partial knee right, 7 back surgery, c4-c7 fusion, Lumbar fusion. Past Anesthesia/Blood Transfusion Reactions: No Reported Reaction Past Psychological History: Anxiety, Depression Smoking Status: Never smoker Past Alcohol Use History: None Reported Past Drug Use History: None Reported - Past Family History Father Family Medical History: AICD/Pacemaker, Coronary Artery Disease (CAD) Brother(s) Additional Family Medical History / Comment(s): brain surgery Son(s) Family Medical History: Cancer Additional Family Medical History / Comment(s): brain ca General Exam Limitations: no limitations General appearance: alert, in no apparent distress Head exam: Present: atraumatic, normocephalic Eye exam: Present: normal appearance. Absent: scleral icterus, conjunctival injection ENT exam: Present: mucous membranes dry Neck exam: Present: normal inspection, full ROM. Absent: meningismus Respiratory exam: Present: normal lung sounds bilaterally. Absent: respiratory distress, wheezes, rales, rhonchi, stridor Cardiovascular Exam: Present: regular rate, normal rhythm, normal heart sounds. Absent: systolic murmur, diastolic murmur, rubs, gallop GI/Abdominal exam: Present: soft. Absent: distended, tenderness, guarding, rebound, rigid, mass Extremities exam: Present: normal capillary refill, other (Patient is wearing a cast boots bilaterally on the lower extremities.). Absent: pedal edema, calf tenderness Back exam: Present: normal inspection. Absent: CVA tenderness (R), CVA tenderness (L) Neurological exam: Present: alert Skin exam: Present: warm, dry, intact, normal color. Absent: rash Course Vital Signs 05/20/17 05/20/17 05/20/17 20:47 21:17 21:51 Temperature 97.0 F L Pulse Rate 66 Respiratory 18 Rate Blood Pressure 222/105 194/88 191/79 O2 Sat by Pulse 98 Oximetry 05/20/17 05/20/17 05/21/17 22:16 23:38 00:00 Temperature 97.9 F Pulse Rate 88 78 Respiratory 16 20 Rate Blood Pressure 155/108 155/89 184/85 O2 Sat by Pulse 96 Oximetry Medical Decision Making - Lab Data Result diagrams: 05/20/17 21:00 05/20/17 21:00 Lab Results 05/20/17 05/20/17 05/20/17 Range/Units 21:00 21:00 21:00 WBC 7.1 (3.8-10.6) k/uL RBC 4.23 (3.80-5.40) m/uL Hgb 13.4 (11.4-16.0) gm/dL Hct 38.9 (34.0-46.0) % MCV 92.0 (80.0-100.0) fL MCH 31.6 (25.0-35.0) pg MCHC 34.3 (31.0-37.0) g/dL RDW 13.4 (11.5-15.5) % Plt Count 291 (150-450) k/uL Neutrophils % 63 % Lymphocytes % 24 % Monocytes % 8 % Eosinophils % 2 % Basophils % 2 % Neutrophils # 4.4 (1.3-7.7) k/uL Lymphocytes # 1.7 (1.0-4.8) k/uL Monocytes # 0.5 (0-1.0) k/uL Eosinophils # 0.2 (0-0.7) k/uL Basophils # 0.1 (0-0.2) k/uL Sodium 140 (137-145) mmol/L Potassium 4.3 (3.5-5.1) mmol/L Chloride 105 (98-107) mmol/L Carbon Dioxide 24 (22-30) mmol/L Anion Gap 11 mmol/L BUN 19 H (7-17) mg/dL Creatinine 0.87 (0.52-1.04) mg/dL Est GFR (MDRD) Af Amer >60 (>60 ml/min/1.73 sqM) Est GFR (MDRD) Non-Af >60 (>60 ml/min/1.73 sqM) Glucose 160 H (74-99) mg/dL Plasma Lactic Acid Solitario 1.5 (0.7-2.0) mmol/L Calcium 9.8 (8.4-10.2) mg/dL Total Bilirubin 0.6 (0.2-1.3) mg/dL AST 20 (14-36) U/L ALT 35 (9-52) U/L Alkaline Phosphatase 99 (38-126) U/L Total Protein 7.0 (6.3-8.2) g/dL Albumin 4.1 (3.5-5.0) g/dL Urine Color Urine Appearance (Clear) Urine pH (5.0-8.0) Ur Specific [place] (1.001-1.035) Urine Protein (Negative) Urine Glucose (UA) (Negative) Urine Ketones (Negative) Urine Blood (Negative) Urine Nitrite (Negative) Urine Bilirubin (Negative) Urine Urobilinogen (<2.0) mg/dL Ur Leukocyte Esterase (Negative) 05/20/17 Range/Units 22:10 WBC (3.8-10.6) k/uL RBC (3.80-5.40) m/uL Hgb (11.4-16.0) gm/dL Hct (34.0-46.0) % MCV (80.0-100.0) fL MCH (25.0-35.0) pg MCHC (31.0-37.0) g/dL RDW (11.5-15.5) % Plt Count (150-450) k/uL Neutrophils % % Lymphocytes % % Monocytes % % Eosinophils % % Basophils % % Neutrophils # (1.3-7.7) k/uL Lymphocytes # (1.0-4.8) k/uL Monocytes # (0-1.0) k/uL Eosinophils # (0-0.7) k/uL Basophils # (0-0.2) k/uL Sodium (137-145) mmol/L Potassium (3.5-5.1) mmol/L Chloride (98-107) mmol/L Carbon Dioxide (22-30) mmol/L Anion Gap mmol/L BUN (7-17) mg/dL Creatinine (0.52-1.04) mg/dL Est GFR (MDRD) Af Amer (>60 ml/min/1.73 sqM) Est GFR (MDRD) Non-Af (>60 ml/min/1.73 sqM) Glucose (74-99) mg/dL Plasma Lactic Acid Solitario (0.7-2.0) mmol/L Calcium (8.4-10.2) mg/dL Total Bilirubin (0.2-1.3) mg/dL AST (14-36) U/L ALT (9-52) U/L Alkaline Phosphatase (38-126) U/L Total Protein (6.3-8.2) g/dL Albumin (3.5-5.0) g/dL Urine Color Yellow Urine Appearance Clear (Clear) Urine pH 7.0 (5.0-8.0) Ur Specific [place] 1.011 (1.001-1.035) Urine Protein Negative (Negative) Urine Glucose (UA) Negative (Negative) Urine Ketones 2+ H (Negative) Urine Blood Negative (Negative) Urine Nitrite Negative (Negative) Urine Bilirubin Negative (Negative) Urine Urobilinogen <2.0 (<2.0) mg/dL Ur Leukocyte Esterase Negative (Negative) Disposition Clinical Impression: Pneumonia Disposition: HOME SELF-CARE Condition: Good Instructions: Fever in Adults (ED), Pneumonia (ED) Prescriptions: Azithromycin [Zithromax Z-pack] 250 mg PO DIRECTED #6 tab Ondansetron Odt [Zofran ODT] 4 mg PO Q8HR PRN #10 tab PRN Reason: Nausea Referrals: Nonstaff,Physician [Primary Care Provider] - 1-2 days Cb Toribio MD [REFERRING] - 1-2 days
[2017-05-20 21:32] LABS: ALT 35 U/L (9-52); AST 20 U/L (14-36); Alkaline Phosphatase 99 U/L (38-126); Anion Gap 11 mmol/L; Blood Urea Nitrogen 19 mg/dL (7-17); Calcium 9.8 mg/dL (8.4-10.2); Carbon Dioxide 24 mmol/L (22-30); Chloride 105 mmol/L (98-107); Glucose 160 mg/dL (74-99); Non-African American GFR(MDRD) >60 (>60 ml/min/1.73 sqM); Potassium 4.3 mmol/L (3.5-5.1); Sodium 140 mmol/L (137-145); Total Bilirubin 0.6 mg/dL (0.2-1.3)
--- NOTE | 2017-05-20 22:29 | XR ---
EXAM: XR Chest, 2 Views CLINICAL HISTORY: Reason: fever TECHNIQUE: Frontal and lateral views of the chest. COMPARISON: None. FINDINGS: Lungs: Retrocardiac atelectasis and/or infiltrates are noted. Mild hazy prominence of the pulmonary vascular/interstitium, which may represent mild pulmonary interstitial edema. Pleural space: Unremarkable. No pneumothorax. Heart: Unremarkable. No cardiomegaly. Mediastinum: Unremarkable. Bones/joints: Multilevel degenerative changes seen throughout the thoracic spine with evidence suggestive of mild anterior partial compression fractures involving the mid thoracic vertebral bodies. Patient is status post cervical spine surgery. IMPRESSION: 1. Retrocardiac atelectasis and/or infiltrates. Clinical correlation recommended. 2. Suspected mild pulmonary interstitial edema. 3. Osseous findings, as above
[2017-05-20 22:48] LABS: Appearance,Urine Clear (Clear); Bilirubin,Urine Negative (Negative); Glucose,Urine (UA) Negative (Negative); Ketones,Urine 2+ (Negative); Leukocyte Esterase,Urine Negative (Negative); Nitrite,Urine Negative (Negative); Protein,Urine Negative (Negative); Specific Gravity,Urine 1.011 (1.001-1.035); UA Billing (MACRO vs. MICRO) CHEM; Urobilinogen,Urine <2.0 mg/dL (<2.0)
[2017-05-20] MEDS ORDERED: AZITHROMYCIN 500 MG TAB PO STA (23:39)
[2017-05-20 23:40] VITALS: TEMP 97.9
[2017-05-21] MEDS ORDERED: ONDANSETRON 4 MG/2 ML VIAL IVP STA (01:13)
[2017-05-21 01:28] VITALS: BP 184/85; PULSE 78; RESP 20
== END 2017-05-21 01:54 | disposition home or self-care (01) ==
LOC: EC 20:44
DX: J18.9 Pneumonia, unspecified organism (principal); R11.2 Nausea with vomiting, unspecified; R19.7 Diarrhea, unspecified; E11.9 Type 2 diabetes mellitus without complications; I10 Essential (primary) hypertension; Z90.49 Acquired absence of other specified parts of digestive tract; Z88.0 Allergy status to penicillin; Z88.2 Allergy status to sulfonamides; Z88.8 Allergy status to other drugs, medicaments and biological substances; Z91.040 Latex allergy status; Z79.4 Long term (current) use of insulin; Z79.899 Other long term (current) drug therapy
CPT/HCPCS: 99283; 96374; 96376; 36415; 80053; 83605; 85025; 81003; 87040; 87086; 71020; J2405 ×2

== ENCOUNTER 2017-05-21 14:50 | Inpatient (IN) | payer MEDICARE, OTHER ==
[2017-05-21] MEDS ORDERED: METOCLOPRAMIDE 5 MG/ML 2 ML VIAL IVP STA (15:11)
[2017-05-21] MEDS ORDERED: SODIUM CHLORIDE 0.9% 1,000 ML IV ONE (15:11)
--- NOTE | 2017-05-21 15:17 | ED ---
General Adult HPI <Siva Stearns - Last Filed: 05/21/17 18:17> - General Source: patient, EMS, RN notes reviewed Mode of arrival: EMS Limitations: no limitations <Breanna Kaur - Last Filed: 05/21/17 18:59> - General Chief complaint: Shortness of Breath Stated complaint: Difficulty Breathing Time Seen by Provider: 05/21/17 14:54 - History of Present Illness Initial comments: Patient is 72-year-old female presents to the emergency room for evaluation. Patient states yesterday she began with nausea, vomiting, diarrhea and cough. Patient states she came to the emergency room was diagnosed with pneumonia. Patient states she's given a dose of antibiotics and was offered admission. Patient states that she wanted to go home. Patient states she has bilateral ankle fractures. Patient states from diarrhea she is unable to make it to the bathroom at times. Patient states she has not been able to fill her prescriptions today. Patient states today, she is having worsening shortness of breath with cough. Patient denies any fevers. Patient denies smoking. Patient states she is having lower abdominal cramping from diarrhea. Patient states she is still nauseous. Patient denies headache or dizziness. Patient denies chest pain. Patient denies any other symptoms or complaints at this time. (Brenana Kaur) - Related Data Home Medications Medication Instructions Recorded Confirmed Baclofen 10 mg PO TID PRN 05/01/17 05/21/17 DULoxetine HCL [Cymbalta] 60 mg PO DAILY 05/01/17 05/21/17 Famotidine [Pepcid] 20 mg PO BID 05/01/17 05/21/17 Fesoterodine Fumarate [Toviaz] 4 mg PO HS 05/01/17 05/21/17 HYDROcodone/APAP 10-325MG [[place] 1 tab PO QID PRN 05/01/17 05/21/17 10-325] Insulin Aspart [NovoLOG] See Protocol SQ AC-TID 05/01/17 05/21/17 Insulin Detemir [Levemir Flextouch] 40 units SQ HS 05/01/17 05/21/17 Mirabegron [Myrbetriq] 25 mg PO HS 05/01/17 05/21/17 Quinapril HCl 40 mg PO DAILY 05/01/17 05/21/17 Simvastatin [Zocor] 20 mg PO HS 05/01/17 05/21/17 Aspirin 325 mg PO DAILY 05/21/17 05/21/17 Azithromycin [Zithromax Z-pack] See Taper PO DAILY 05/21/17 05/21/17 Previous Rx's Medication Instructions Recorded Ondansetron Odt [Zofran ODT] 4 mg PO Q8HR PRN #10 tab 05/21/17 Allergies Allergy/AdvReac Type Severity Reaction Status Date / Time Iodinated Contrast Media - Allergy Rash/Hives Verified 05/21/17 17:16 Oral and latex Allergy Anaphylaxis Verified 05/21/17 15:19 morphine Allergy Anaphylaxis Verified 05/21/17 15:19 Penicillins Allergy Anaphylaxis Verified 05/21/17 15:19 prochlorperazine AdvReac Seizure Verified 05/21/17 15:19 [From Compazine] Sulfa (Sulfonamide AdvReac Systemic Verified 05/21/17 15:19 Antibiotics) Lupus Flare Review of Systems ROS Other: All systems not noted in ROS Statement are negative. <Siva Stearns - Last Filed: 05/21/17 18:17> ROS Other: All systems not noted in ROS Statement are negative. <Breanna Kaur - Last Filed: 05/21/17 18:59> ROS Statement: Those systems with pertinent positive or pertinent negative responses have been documented in the HPI. Past Medical History Past Medical History: Diabetes Mellitus, Hypertension Additional Past Medical History / Comment(s): Lupus History of Any Multi-Drug Resistant Organisms: None Reported Past Surgical History: Adenoidectomy, Appendectomy, Back Surgery, Cholecystectomy, Heart Catheterization, Hysterectomy, Tonsillectomy Additional Past Surgical History / Comment(s): 3 left humerous surgery, ryder heal surgery, partial knee right, 7 back surgery, c4-c7 fusion, Lumbar fusion. Past Anesthesia/Blood Transfusion Reactions: No Reported Reaction Past Psychological History: Anxiety, Depression Smoking Status: Never smoker Past Alcohol Use History: None Reported Past Drug Use History: None Reported - Past Family History Father Family Medical History: AICD/Pacemaker, Coronary Artery Disease (CAD) Brother(s) Additional Family Medical History / Comment(s): brain surgery Son(s) Family Medical History: Cancer Additional Family Medical History / Comment(s): brain ca <Breanna Kaur - Last Filed: 05/21/17 18:59> General Exam <Siva Stearns - Last Filed: 05/21/17 18:17> Limitations: no limitations General appearance: alert, in no apparent distress Head exam: Present: atraumatic, normocephalic, normal inspection Eye exam: Present: normal appearance ENT exam: Present: normal exam Neck exam: Present: normal inspection Respiratory exam: Present: normal lung sounds bilaterally. Absent: respiratory distress Cardiovascular Exam: Present: regular rate, normal rhythm, normal heart sounds GI/Abdominal exam: Present: soft, normal bowel sounds. Absent: distended, tenderness, guarding, rebound, rigid Extremities exam: Present: normal inspection Back exam: Present: normal inspection Neurological exam: Present: alert, oriented X3, CN II-XII intact, normal gait Psychiatric exam: Present: normal affect, normal mood Skin exam: Present: warm, dry, intact, normal color. Absent: rash <Breanna Kaur - Last Filed: 05/21/17 18:59> - General Exam Comments Initial Comments: Sitting in exam room, no acute distress. (Breanna Kaur) Medical Decision Making - Lab Data Result diagrams: 05/21/17 15:25 05/21/17 15:25 <Siva Stearsn - Last Filed: 05/21/17 18:17> - Lab Data Result diagrams: 05/21/17 15:25 05/21/17 15:25 - Radiology Data Radiology results: report reviewed, image reviewed <Breanna Kaur - Last Filed: 05/21/17 18:59> - Medical Decision Making Patient reevaluated by myself, Dr. Stearns. Patient updated. Case discussed with practitioner Cassy elliott, who will admit for Dr. Garrett. (Siva Stearns) The patient is a 72 female since emergency room for evaluation of worsening shortness of breath. Patient diagnosed with pneumonia yesterday. Patient also vomiting is unable to get her prescriptions filled. D-dimer elevated. CT negative for PE. Patient has bilateral ankle fractures. Patient is in bilateral walking boot. Patient will be admitted and treated with IV antibiotics and nausea control. Case discussed with Dr. Stearns. Dr. Stearns discussed case with Cassy elliott, [facility] who agreed to admit for Dr. Garrett. Breanna Conner) - Lab Data Lab Results 05/21/17 05/21/17 05/21/17 Range/Units 15:25 15:25 15:25 WBC 6.9 (3.8-10.6) k/uL RBC 4.24 (3.80-5.40) m/uL Hgb 13.2 (11.4-16.0) gm/dL Hct 39.6 (34.0-46.0) % MCV 93.4 (80.0-100.0) fL MCH 31.2 (25.0-35.0) pg MCHC 33.4 (31.0-37.0) g/dL RDW 13.4 (11.5-15.5) % Plt Count 302 (150-450) k/uL Neutrophils % 65 % Lymphocytes % 24 % Monocytes % 7 % Eosinophils % 1 % Basophils % 1 % Neutrophils # 4.5 (1.3-7.7) k/uL Lymphocytes # 1.7 (1.0-4.8) k/uL Monocytes # 0.5 (0-1.0) k/uL Eosinophils # 0.1 (0-0.7) k/uL Basophils # 0.1 (0-0.2) k/uL PT (9.0-12.0) sec INR (<1.2) APTT (22.0-30.0) sec D-Dimer 0.80 H (<0.60) mg/L FEU Sodium 142 (137-145) mmol/L Potassium 4.1 (3.5-5.1) mmol/L Chloride 107 (98-107) mmol/L Carbon Dioxide 22 (22-30) mmol/L Anion Gap 13 mmol/L BUN 15 (7-17) mg/dL Creatinine 0.80 (0.52-1.04) mg/dL Est GFR (MDRD) Af Amer >60 (>60 ml/min/1.73 sqM) Est GFR (MDRD) Non-Af >60 (>60 ml/min/1.73 sqM) Glucose 205 H (74-99) mg/dL Calcium 10.1 (8.4-10.2) mg/dL Magnesium 1.9 (1.6-2.3) mg/dL Total Bilirubin 0.8 (0.2-1.3) mg/dL AST 17 (14-36) U/L ALT 25 (9-52) U/L Alkaline Phosphatase 104 (38-126) U/L Total Creatine Kinase (30-135) U/L CK-MB (CK-2) (0.0-2.4) ng/mL CK-MB (CK-2) Rel Index Troponin I (0.000-0.034) ng/mL Total Protein 6.9 (6.3-8.2) g/dL Albumin 4.0 (3.5-5.0) g/dL Urine Color Urine Appearance (Clear) Urine pH (5.0-8.0) Ur Specific [place] (1.001-1.035) Urine Protein (Negative) Urine Glucose (UA) (Negative) Urine Ketones (Negative) Urine Blood (Negative) Urine Nitrite (Negative) Urine Bilirubin (Negative) Urine Urobilinogen (<2.0) mg/dL Ur Leukocyte Esterase (Negative) 05/21/17 05/21/17 05/21/17 Range/Units 15:25 15:25 15:53 WBC (3.8-10.6) k/uL RBC (3.80-5.40) m/uL Hgb (11.4-16.0) gm/dL Hct (34.0-46.0) % MCV (80.0-100.0) fL MCH (25.0-35.0) pg MCHC (31.0-37.0) g/dL RDW (11.5-15.5) % Plt Count (150-450) k/uL Neutrophils % % Lymphocytes % % Monocytes % % Eosinophils % % Basophils % % Neutrophils # (1.3-7.7) k/uL Lymphocytes # (1.0-4.8) k/uL Monocytes # (0-1.0) k/uL Eosinophils # (0-0.7) k/uL Basophils # (0-0.2) k/uL PT 10.7 (9.0-12.0) sec INR 1.1 (<1.2) APTT 22.1 (22.0-30.0) sec D-Dimer (<0.60) mg/L FEU Sodium (137-145) mmol/L Potassium (3.5-5.1) mmol/L Chloride (98-107) mmol/L Carbon Dioxide (22-30) mmol/L Anion Gap mmol/L BUN (7-17) mg/dL Creatinine (0.52-1.04) mg/dL Est GFR (MDRD) Af Amer (>60 ml/min/1.73 sqM) Est GFR (MDRD) Non-Af (>60 ml/min/1.73 sqM) Glucose (74-99) mg/dL Calcium (8.4-10.2) mg/dL Magnesium (1.6-2.3) mg/dL Total Bilirubin (0.2-1.3) mg/dL AST (14-36) U/L ALT (9-52) U/L Alkaline Phosphatase (38-126) U/L Total Creatine Kinase 41 (30-135) U/L CK-MB (CK-2) 0.8 (0.0-2.4) ng/mL CK-MB (CK-2) Rel Index 2.0 Troponin I <0.012 (0.000-0.034) ng/mL Total Protein (6.3-8.2) g/dL Albumin (3.5-5.0) g/dL Urine Color Light Yellow Urine Appearance Clear (Clear) Urine pH 7.5 (5.0-8.0) Ur Specific [place] 1.010 (1.001-1.035) Urine Protein Negative (Negative) Urine Glucose (UA) Negative (Negative) Urine Ketones 3+ H (Negative) Urine Blood Negative (Negative) Urine Nitrite Negative (Negative) Urine Bilirubin Negative (Negative) Urine Urobilinogen <2.0 (<2.0) mg/dL Ur Leukocyte Esterase Negative (Negative) Disposition <Siva Stearns - Last Filed: 05/21/17 18:17> Decision Date: 05/21/17 <Breanna Kaur - Last Filed: 05/21/17 18:59> Clinical Impression: Pneumonia, Vomiting Disposition: ADMITTED IP TO THIS [facility] Condition: Stable
[2017-05-21 15:37] LABS: Basophils # (A) 0.1 k/uL (0-0.2); Basophils % (A) 1 %; CH 31.6; Eosinophils # (A) 0.1 k/uL (0-0.7); Eosinophils % (A) 1 %; HCT 39.6 % (34.0-46.0); HGB 13.2 gm/dL (11.4-16.0); Luc # (Auto) 0.11; Luc % (Auto) 2; Lymphocytes # (A) 1.7 k/uL (1.0-4.8); Lymphocytes % (A) 24 %; MCH 31.2 pg (25.0-35.0); MCHC 33.4 g/dL (31.0-37.0); MCV 93.4 fL (80.0-100.0); Mean Platelet Volume 7.7; Monocytes # (A) 0.5 k/uL (0-1.0); Monocytes % (A) 7 %; Neutrophils # (A) 4.5 k/uL (1.3-7.7); Neutrophils % (A) 65 %; RBC 4.24 m/uL (3.80-5.40); RDW 13.4 % (11.5-15.5); WBC 6.9 k/uL (3.8-10.6); WBC (Perox) 6.74
[2017-05-21 15:47] LABS: ALT 25 U/L (9-52); AST 17 U/L (14-36); Alkaline Phosphatase 104 U/L (38-126); Anion Gap 13 mmol/L; Blood Urea Nitrogen 15 mg/dL (7-17); Calcium 10.1 mg/dL (8.4-10.2); Carbon Dioxide 22 mmol/L (22-30); Chloride 107 mmol/L (98-107); Glucose 205 mg/dL (74-99); Magnesium 1.9 mg/dL (1.6-2.3); Non-African American GFR(MDRD) >60 (>60 ml/min/1.73 sqM); Potassium 4.1 mmol/L (3.5-5.1); Sodium 142 mmol/L (137-145); Total Bilirubin 0.8 mg/dL (0.2-1.3); Total Protein 6.9 g/dL (6.3-8.2)
--- NOTE | 2017-05-21 15:48 | XR ---
EXAMINATION TYPE: XR chest 2V DATE OF EXAM: 05/21/2017 COMPARISON: 05/20/2017 HISTORY: Fever TECHNIQUE: Frontal and lateral views of the chest are obtained. FINDINGS: There is no heart failure nor confluent pneumonic infiltrate. Cervical spine fusion surger y is noted. There is spurring in the thoracic spine. Costophrenic angles are clear. IMPRESSION: No active cardiopulmonary disease. No change.
[2017-05-21 16:06] LABS: Appearance,Urine Clear (Clear); Bilirubin,Urine Negative (Negative); Glucose,Urine (UA) Negative (Negative); Ketones,Urine 3+ (Negative); Leukocyte Esterase,Urine Negative (Negative); Nitrite,Urine Negative (Negative); PH, Urine 7.5 (5.0-8.0); Protein,Urine Negative (Negative); UA Billing (MACRO vs. MICRO) CHEM; Urobilinogen,Urine <2.0 mg/dL (<2.0)
[2017-05-21 16:08] LABS: INR 1.1 (<1.2); Partial Thromboplastin Time 22.1 sec (22.0-30.0); Prothrombin Time 10.7 sec (9.0-12.0)
[2017-05-21] MEDS ORDERED: RX INFO: IV CONTRAST WAS GIVEN 1 EACH MISC MISCELLANE PRN (16:16)
[2017-05-21 16:18] LABS: Creatine Kinase 41 U/L (30-135)
[2017-05-21 16:31] LABS: Creatine Kinase MB 0.8 ng/mL (0.0-2.4); Troponin I <0.012 ng/mL (0.000-0.034)
[2017-05-21] MEDS ORDERED: methylPREDNISolone SOD SUCCI 125 MG/2 ML VIAL IV ONE (16:54)
[2017-05-21] MEDS ORDERED: diphenhydrAMINE 50 MG/ML 1 ML VIAL IVP ONE (16:54)
[2017-05-21] MEDS ORDERED: FAMOTIDINE 20 MG/2 ML VIAL IV ONE (16:54)
[2017-05-21] MEDS ORDERED: LISINOPRIL 20 MG TAB PO STA (17:15)
--- NOTE | 2017-05-21 17:48 | CT ---
EXAMINATION TYPE: CT angio chest DATE OF EXAM: 05/21/2017 5:35 PM COMPARISON: 04/12/2011 HISTORY: Chest pain and SOB. CT DLP: 470.6 mGycm Automated exposure control for dose reduction was used. CONTRAST: CTA scan of the thorax is performed with IV Contrast, patient injected with 50 mL of Omnipaque 350, p ulmonary embolism protocol. There are 3-D post processed images.. FINDINGS: There is some patchy fibrosis and atelectasis at the lung bases. There is no sign of a pulmonary mass . There is no evidence of a pneumothorax. There is no evidence of aortic aneurysm or dissection. Ther e is no pericardial effusion. I see no filling defects in the pulmonary arteries. There is spurring i n the thoracic spine. IMPRESSION: NO EVIDENCE OF PULMONARY EMBOLISM. PATCHY INTERSTITIAL INFILTRATE AND ATELECTASIS AT THE LUNG BASES. THIS APPEARS NEW COMPARED TO OLD CT SCAN.
[2017-05-21] MEDS ORDERED: PNEUMONIA PROTOCOL UTILIZED 1 EACH MISC PO PRN (18:19)
[2017-05-21] MEDS ORDERED: LEVOFLOXACIN 750MG-D5W PMX 750 MG in DEXTROSE/WATER 1 150ML.BAG IVPB STA (18:19)
[2017-05-21] MEDS ORDERED: IPRATROPIUM-ALBUTEROL 3 ML NEB INHALATION PRN (18:19)
[2017-05-21] MEDS: SODIUM CHLORIDE 0.9% 1,000 ML IV SCH (19:06)
[2017-05-21 19:54] LABS: Glucose,Whole Blood 239 mg/dL (75-99)
[2017-05-21] MEDS ORDERED: hydrALAZINE HCL 20 MG/ML 1 ML VIAL IVP PRN (20:12)
[2017-05-21] MEDS: amLODIPine 5 MG TAB PO SCH (20:32)
[2017-05-21] MEDS: BACLOFEN 10 MG TAB PO PRN (20:47)
[2017-05-21] MEDS: INSULIN LISPRO (humaLOG) 300 UNIT/3 ML VIAL SQ SCH (20:57)
[2017-05-21] MEDS: HYDROcodone/APAP 10-325MG 1 EACH TAB PO PRN (20:58)
[2017-05-21] MEDS ORDERED: NON-FORMULARY DRUG (Mirabegron [Myrbetriq] 25 MG) PO SCH (21:00)
[2017-05-21] MEDS ORDERED: ATORVASTATIN 10 MG TAB PO SCH (21:00)
[2017-05-21] MEDS ORDERED: OXYBUTYNIN XL 5 MG TAB.ER.24 PO SCH (21:00)
[2017-05-21] MEDS ORDERED: INSULIN DETEMIR 100 UNIT/ML 10 ML VIAL SQ SCH (21:00)
[2017-05-21] MEDS ORDERED: DULoxetine HCL 60 MG CAPSULE.DR PO SCH (21:00)
[2017-05-21 22:22] VITALS: BMI 30.4
[2017-05-21] MEDS: ACETAMINOPHEN TAB 325 MG TAB PO PRN (22:26)
[2017-05-22] MEDS: ONDANSETRON 4 MG/2 ML VIAL IVP SCH ×4 (01:42→16:33)
[2017-05-22] MEDS: HYDROcodone/APAP 10-325MG 1 EACH TAB PO PRN ×3 (02:37→14:15)
[2017-05-22] MEDS: ACETAMINOPHEN TAB 325 MG TAB PO PRN (05:39)
[2017-05-22] MEDS: SODIUM CHLORIDE 0.9% 1,000 ML IV SCH ×2 (05:40→15:12)
[2017-05-22] MEDS: amLODIPine 5 MG TAB PO SCH (07:46)
[2017-05-22 07:47] LABS: Glucose,Whole Blood 287 mg/dL (75-99)
--- NOTE | 2017-05-22 07:49 | XR ---
EXAMINATION TYPE: XR chest 2V DATE OF EXAM: 05/22/2017 COMPARISON: Chest x-ray and CTA chest from yesterday. HISTORY: Shortness of breath for a few days. TECHNIQUE: Frontal and lateral views of the chest are obtained. FINDINGS: There is background chronic emphysematous change. There is no focal air space opacity, pleu ral effusion, or pneumothorax seen. The cardiac silhouette size remains enlarged. The osseous stru ctures are demineralized. Surgical changes left humerus are partially imaged. Long segment fixating p late cervical spine is partially imaged IMPRESSION: Chronic emphysematous change and cardiomegaly without acute pulmonary process. No signif icant change from one day earlier
[2017-05-22] MEDS: INSULIN LISPRO (humaLOG) 300 UNIT/3 ML VIAL SQ SCH ×2 (07:50→12:51)
[2017-05-22 08:00] VITALS: RESP 16
[2017-05-22] MEDS ORDERED: LISINOPRIL 20 MG TAB PO SCH (09:00)
[2017-05-22] MEDS ORDERED: FAMOTIDINE 20 MG TAB PO SCH (09:00)
[2017-05-22 12:05] LABS: Glucose,Whole Blood 245 mg/dL (75-99)
[2017-05-22] MEDS: BACLOFEN 10 MG TAB PO PRN (12:51)
--- NOTE | 2017-05-22 15:42 | P.HPIM ---
History of Present Illness Patient is 72-year-old female presents to the emergency room for evaluation. Patient states yesterday she began with nausea, vomiting, diarrhea and cough. Patient states she came to the emergency room was diagnosed with pneumonia. He had a CT of the chest here which is not significant for any pneumonia, images were reviewed by me. Patient states she's given a dose of antibiotics and was offered admission. Patient states that she wanted to go home. Patient states she has bilateral ankle fractures. Has a home care. Patient was evaluated by PT and OT and they cleared her for discharge. She is very nausea vomiting resolved. Patient states she has not been able to fill her prescriptions today. Patient states today, she is having worsening shortness of breath with cough. Patient denies any fevers. Patient denies smoking. Patient states she is having lower abdominal cramping from diarrhea. Patient states she is still nauseous. Patient denies headache or dizziness. Patient denies chest pain. Patient denies any other symptoms or complaints at this time. She was complaining of generalized body aches but denied any fever or chills. Patient does not have any leukocytosis. Review of Systems REVIEW OF SYSTEMS: CONSTITUTIONAL: No fever, no malaise, no fatigue. HEENT: No recent visual problems or hearing problems. Denied any sore throat. CARDIOVASCULAR: No chest pain, orthopnea, PND, no palpitations, no syncope. PULMONARY: No shortness of breath, no cough, no hemoptysis. GASTROINTESTINAL: As per HPI NEUROLOGICAL: No headaches, no weakness, no numbness. HEMATOLOGICAL: Denies any bleeding or petechiae. GENITOURINARY: Denies any burning micturition, frequency, or urgency. MUSCULOSKELETAL/RHEUMATOLOGICAL: Denies any joint pain, swelling, or any muscle pain. ENDOCRINE: Denies any polyuria or polydipsia. The rest of the 14-point review of systems is negative. Past Medical History Past Medical History: Diabetes Mellitus, Hypertension Additional Past Medical History / Comment(s): Lupus History of Any Multi-Drug Resistant Organisms: None Reported Past Surgical History: Adenoidectomy, Appendectomy, Back Surgery, Cholecystectomy, Heart Catheterization, Hysterectomy, Tonsillectomy Additional Past Surgical History / Comment(s): 3 left humerous surgery, ryder heal surgery, partial knee right, 7 back surgery, c4-c7 fusion, Lumbar fusion. Past Anesthesia/Blood Transfusion Reactions: No Reported Reaction Past Psychological History: Anxiety, Depression Smoking Status: Never smoker Past Alcohol Use History: None Reported Past Drug Use History: None Reported - Past Family History Father Family Medical History: AICD/Pacemaker, Coronary Artery Disease (CAD) Brother(s) Additional Family Medical History / Comment(s): brain surgery Son(s) Family Medical History: Cancer Additional Family Medical History / Comment(s): brain ca Medications and Allergies Home Medications Medication Instructions Recorded Confirmed Type Baclofen 10 mg PO TID PRN 05/01/17 05/21/17 History DULoxetine HCL [Cymbalta] 60 mg PO DAILY 05/01/17 05/21/17 History Famotidine [Pepcid] 20 mg PO BID 05/01/17 05/21/17 History Fesoterodine Fumarate [Toviaz] 4 mg PO HS 05/01/17 05/21/17 History HYDROcodone/APAP 10-325MG [[place] 1 tab PO QID PRN 05/01/17 05/21/17 History 10-325] Insulin Aspart [NovoLOG] See Protocol SQ AC-TID 05/01/17 05/21/17 History Insulin Detemir [Levemir Flextouch] 40 units SQ HS 05/01/17 05/21/17 History Mirabegron [Myrbetriq] 25 mg PO HS 05/01/17 05/21/17 History Quinapril HCl 40 mg PO DAILY 05/01/17 05/21/17 History Simvastatin [Zocor] 20 mg PO HS 05/01/17 05/21/17 History Aspirin 325 mg PO DAILY 05/21/17 05/21/17 History Azithromycin [Zithromax Z-pack] See Taper PO DAILY 05/21/17 05/21/17 History Allergies Allergy/AdvReac Type Severity Reaction Status Date / Time Iodinated Contrast- Oral and Allergy Rash/Hives Verified 05/21/17 17:16 IV Dye latex Allergy Anaphylaxis Verified 05/21/17 15:19 morphine Allergy Anaphylaxis Verified 05/21/17 15:19 Penicillins Allergy Anaphylaxis Verified 05/21/17 15:19 prochlorperazine AdvReac Seizure Verified 05/21/17 15:19 [From Compazine] Sulfa (Sulfonamide AdvReac Systemic Verified 05/21/17 15:19 Antibiotics) Lupus Flare Physical Exam Vitals: Vital Signs Temp Pulse Pulse Resp BP BP BP 05/22/17 11:56 84 05/22/17 11:45 76 05/22/17 07:53 05/22/17 07:00 97.7 F 75 16 125/66 05/21/17 21:35 84 151/83 05/21/17 20:15 98.8 F 181/92 05/21/17 19:11 99.3 F 93 18 185/85 05/21/17 18:34 97.7 F 95 17 180/77 05/21/17 16:26 71 189/81 Pulse Ox 05/22/17 11:56 05/22/17 11:45 05/22/17 07:53 98 05/22/17 07:00 97 05/21/17 21:35 05/21/17 20:15 98 05/21/17 19:11 95 05/21/17 18:34 96 05/21/17 16:26 96 Intake and Output 05/22/17 05/22/17 05/22/17 06:59 14:59 22:59 Other: Voiding Method Toilet Bedside Commode Diaper # Voids 1 1 PHYSICAL EXAMINATION: GENERAL: The patient is alert and oriented x3, not in any acute distress. Well developed, well nourished. HEENT: Pupils are round and equally reacting to light. EOMI. No scleral icterus. No conjunctival pallor. Normocephalic, atraumatic. No pharyngeal erythema. No thyromegaly. CARDIOVASCULAR: S1 and S2 present. No murmurs, rubs, or gallops. PULMONARY: Chest is clear to auscultation, no wheezing or crackles. ABDOMEN: Soft, nontender, nondistended, normoactive bowel sounds. No palpable organomegaly. MUSCULOSKELETAL: No joint swelling or deformity. EXTREMITIES: No cyanosis, clubbing, or pedal edema. NEUROLOGICAL: Gross neurological examination did not reveal any focal deficits. SKIN: No rashes. Results CBC & Chem 7: 05/21/17 15:25 05/21/17 15:25 Labs: Abnormal Lab Results - Last 24 Hours (Table) 05/21/17 05/21/17 05/21/17 Range/Units 15:25 15:25 15:53 D-Dimer 0.80 H (<0.60) mg/L FEU Glucose 205 H (74-99) mg/dL POC Glucose (mg/dL) (75-99) mg/dL Urine Ketones 3+ H (Negative) 05/21/17 05/22/17 05/22/17 Range/Units 19:52 07:28 12:04 D-Dimer (<0.60) mg/L FEU Glucose (74-99) mg/dL POC Glucose (mg/dL) 239 H 287 H 245 H (75-99) mg/dL Urine Ketones (Negative) Thrombosis Risk Factor Assmnt - Choose All That Apply Each Factor Represents 1 point: Obesity (BMI >25) Other Risk Factors: Yes Each Risk Factor Represents 2 Points: Age 61-74 years Each Risk Factor Represents 3 Points: Positive Lupus Anticoagulant Other congenital or acquired thrombophilia - If yes, enter type in comment: No Thrombosis Risk Factor Assessment Total Risk Factor Score: 6 Thrombosis Risk Factor Assessment Level: High Risk Assessment and Plan Plan: #1 nausea vomiting diarrhea probably related to antibiotic use R while gastroenteritis symptoms improved. Patient will be discharged today. I do not believe patient has pneumonia at this point of time. #2 type 2 diabetes mellitus fairly controlled blood sugars: Patient will continue her home regimen and follow with primary care physician. 3 hypertension 4 lupus 5 depression 6 bilateral ankle fractures which was evaluated by arthritic surgery as an outpatient and patient has [facility] for that and home care upon discharge.
--- NOTE | 2017-05-22 15:43 | P.DS ---
Providers Date of admission: 05/21/17 18:43 Attending physician: Meghann Garrett Primary care physician: Physician Nonsta Hospital Course: Please refer to HPI Patient Condition at Discharge: Stable Plan - Discharge Summary New Discharge Prescriptions: Discontinued Azithromycin [Zithromax Z-pack] See Taper PO DAILY No Action Simvastatin [Zocor] 20 mg PO HS Quinapril HCl 40 mg PO DAILY Mirabegron [Myrbetriq] 25 mg PO HS Fesoterodine Fumarate [Toviaz] 4 mg PO HS Insulin Detemir [Levemir Flextouch] 40 units SQ HS HYDROcodone/APAP 10-325MG [[place] 10-325] 1 tab PO QID PRN PRN Reason: Pain Famotidine [Pepcid] 20 mg PO BID DULoxetine HCL [Cymbalta] 60 mg PO DAILY Baclofen 10 mg PO TID PRN PRN Reason: Muscle Spasm/Pain Insulin Aspart [NovoLOG] See Protocol SQ AC-TID Ondansetron Odt [Zofran ODT] 4 mg PO Q8HR PRN #10 tab PRN Reason: Nausea Aspirin 325 mg PO DAILY Discharge Medication List Baclofen 10 mg PO TID PRN 05/01/17 [History] DULoxetine HCL [Cymbalta] 60 mg PO DAILY 05/01/17 [History] Famotidine [Pepcid] 20 mg PO BID 05/01/17 [History] Fesoterodine Fumarate [Toviaz] 4 mg PO HS 05/01/17 [History] HYDROcodone/APAP 10-325MG [[place] 10-325] 1 tab PO QID PRN 05/01/17 [History] Insulin Aspart [NovoLOG] See Protocol SQ AC-TID 05/01/17 [History] Insulin Detemir [Levemir Flextouch] 40 units SQ HS 05/01/17 [History] Mirabegron [Myrbetriq] 25 mg PO HS 05/01/17 [History] Quinapril HCl 40 mg PO DAILY 05/01/17 [History] Simvastatin [Zocor] 20 mg PO HS 05/01/17 [History] Aspirin 325 mg PO DAILY 05/21/17 [History] Ondansetron Odt [Zofran ODT] 4 mg PO Q8HR PRN #10 tab 05/21/17 [Rx] Follow up Appointment(s)/Referral(s): Nonstaff,Physician [Primary Care Provider] - 1-2 days
[2017-05-22 16:08] VITALS: BP 107/54; PULSE 81; TEMP 98.4
== END 2017-05-22 17:00 | disposition home or self-care (01) | DRG 392 ==
LOC: EC 14:50 → 5MS5E 18:43
PROVIDERS: ADMIT Hospitalist; ATTEND Hospitalist
DX: R11.2 Nausea with vomiting, unspecified (principal); K52.1 Toxic gastroenteritis and colitis; E11.9 Type 2 diabetes mellitus without complications; I10 Essential (primary) hypertension; F41.9 Anxiety disorder, unspecified; T36.95XA Adverse effect of unspecified systemic antibiotic, initial encounter; F32.9 Major depressive disorder, single episode, unspecified; Z79.82 Long term (current) use of aspirin; Z79.4 Long term (current) use of insulin; Z79.899 Other long term (current) drug therapy; Y92.009 Unspecified place in unspecified non-institutional (private) residence as the place of occurrence of the external cause; Z90.49 Acquired absence of other specified parts of digestive tract; Z90.710 Acquired absence of both cervix and uterus
CPT/HCPCS: 36415; 71020; 71275; 80053; 81003; 82550; 82553; 83735; 84484; 85025; 85379; 85610; 85730; 87040; 94640; 94760; 96361; 96374; 96375; 99285

== ENCOUNTER 2017-07-14 10:06 | Inpatient (IN) | payer MEDICARE, OTHER ==
[2017-07-14] MEDS ORDERED: SODIUM CHLORIDE 0.9% 500 ML IV STA (10:32)
[2017-07-14] MEDS ORDERED: SODIUM CHLORIDE 0.9% 1,000 ML IV STA (10:32)
[2017-07-14] MEDS ORDERED: KETOROLAC 30 MG/ML 1 ML VIAL IVP STA (10:33)
[2017-07-14 11:06] LABS: Appearance,Urine Clear (Clear); Bacteria,Urine Many /hpf; Bilirubin,Urine Negative (Negative); Glucose,Urine (UA) Negative (Negative); Ketones,Urine Negative (Negative); Leukocyte Esterase,Urine Large (Negative); Nitrite,Urine Positive (Negative); PH, Urine 6.5 (5.0-8.0); Particle Count 40120; Protein,Urine Trace (Negative); RBC,Urine 2 /hpf (0-5); Specific Gravity,Urine 1.007 (1.001-1.035); Squamous Epithelial Cell,Urine <1 /hpf (0-4); UA Billing (MACRO vs. MICRO) MICRO; Urobilinogen,Urine <2.0 mg/dL (<2.0); WBC,Urine 55 /hpf (0-5)
[2017-07-14 11:40] LABS: ALT 35 U/L (9-52); AST 22 U/L (14-36); Alkaline Phosphatase 91 U/L (38-126); Anion Gap 9 mmol/L; Blood Urea Nitrogen 16 mg/dL (7-17); Calcium 9.7 mg/dL (8.4-10.2); Carbon Dioxide 28 mmol/L (22-30); Chloride 104 mmol/L (98-107); Glucose 170 mg/dL (74-99); Magnesium 1.9 mg/dL (1.6-2.3); Non-African American GFR(MDRD) >60 (>60 ml/min/1.73 sqM); Phosphorus 3.6 mg/dL (2.5-4.5); Potassium 4.4 mmol/L (3.5-5.1); Sodium 141 mmol/L (137-145); Total Bilirubin 0.6 mg/dL (0.2-1.3); Total Protein 6.9 g/dL (6.3-8.2)
[2017-07-14 11:41] LABS: Partial Thromboplastin Time 22.5 sec (22.0-30.0); Prothrombin Time 10.1 sec (9.0-12.0)
[2017-07-14 11:42] LABS: Basophils % (A) 0 %; CH 32.6; CHCM 35.1; Eosinophils # (A) 0.2 k/uL (0-0.7); Eosinophils % (A) 2 %; HCT 39.7 % (34.0-46.0); HDW 2.29; HGB 13.4 gm/dL (11.4-16.0); Luc # (Auto) 0.15; Luc % (Auto) 2; Lymphocytes # (A) 1.2 k/uL (1.0-4.8); Lymphocytes % (A) 15 %; MCH 31.3 pg (25.0-35.0); MCHC 33.6 g/dL (31.0-37.0); MCV 93.1 fL (80.0-100.0); Mean Platelet Volume 8.1; Monocytes # (A) 0.4 k/uL (0-1.0); Monocytes % (A) 5 %; Neutrophils # (A) 5.9 k/uL (1.3-7.7); Neutrophils % (A) 75 %; RBC 4.26 m/uL (3.80-5.40); RDW 13.3 % (11.5-15.5); WBC 7.9 k/uL (3.8-10.6)
[2017-07-14] MEDS ORDERED: LEVOFLOXACIN 750MG-D5W PMX 750 MG in DEXTROSE/WATER 1 150ML.BAG IVPB STA (12:25)
--- NOTE | 2017-07-14 12:34 | ED ---
General Adult HPI - General Chief complaint: Fall Stated complaint: Fall Time Seen by Provider: 07/14/17 10:20 Source: patient, EMS Mode of arrival: EMS Limitations: no limitations - History of Present Illness Initial comments: This 72-year-old white female presents with the complaint of weakness. She states that she was feeling very weak and her legs early this morning. She then tried to walk when she woke up and she fell to the ground. She denies any actual injuries with this fall. She does have chronic pain and 8 previous back surgeries. She is having some pain in her right lower back that radiates down her right leg which is unchanged. She also has a history of recent ankle fractures in April of this year but these apparently have been healing well and she has been ambulatory since without difficulties. She complains of some pain to her lower extremities which are unchanged from previous. She apparently may have slightly hit her head but she states that it was very minimal. She is not on any blood thinners and did not have any loss of consciousness nausea or vomiting. She also complains of some frequency, urgency and dysuria. She denies any fevers. She is prone to urinary tract infections. No other complaints or modifying factors. - Related Data Home Medications Medication Instructions Recorded Confirmed Baclofen 10 mg PO TID PRN 05/01/17 07/14/17 DULoxetine HCL [Cymbalta] 60 mg PO DAILY 05/01/17 07/14/17 Famotidine [Pepcid] 20 mg PO BID 05/01/17 07/14/17 Fesoterodine Fumarate [Toviaz] 4 mg PO HS 05/01/17 07/14/17 HYDROcodone/APAP 10-325MG [[place] 1 tab PO QID PRN 05/01/17 07/14/17 10-325] Insulin Aspart [NovoLOG] See Protocol SQ AC-TID 05/01/17 07/14/17 Insulin Detemir [Levemir Flextouch] 40 units SQ HS 05/01/17 07/14/17 Mirabegron [Myrbetriq] 25 mg PO HS 05/01/17 07/14/17 Quinapril HCl 40 mg PO DAILY 05/01/17 07/14/17 Simvastatin [Zocor] 20 mg PO HS 05/01/17 07/14/17 Aspirin 325 mg PO DAILY 05/21/17 07/14/17 Allergies Allergy/AdvReac Type Severity Reaction Status Date / Time Iodinated Contrast- Oral and Allergy Rash/Hives Verified 07/14/17 10:39 IV Dye latex Allergy Anaphylaxis Verified 07/14/17 10:39 morphine Allergy Anaphylaxis Verified 07/14/17 10:39 Penicillins Allergy Anaphylaxis Verified 07/14/17 10:39 prochlorperazine AdvReac Seizure Verified 07/14/17 10:39 [From Compazine] Sulfa (Sulfonamide AdvReac Systemic Verified 07/14/17 10:39 Antibiotics) Lupus Flare Review of Systems ROS Statement: Those systems with pertinent positive or pertinent negative responses have been documented in the HPI. ROS Other: All systems not noted in ROS Statement are negative. Past Medical History Past Medical History: Diabetes Mellitus, Hypertension Additional Past Medical History / Comment(s): Lupus, History of Any Multi-Drug Resistant Organisms: None Reported Past Surgical History: Adenoidectomy, Appendectomy, Back Surgery, Cholecystectomy, Heart Catheterization, Hysterectomy, Tonsillectomy Additional Past Surgical History / Comment(s): 3 left humerous surgery, ryder heal surgery, partial knee right, 7 back surgery, c4-c7 fusion, Lumbar fusion. Past Anesthesia/Blood Transfusion Reactions: No Reported Reaction Past Psychological History: Anxiety, Depression Smoking Status: Never smoker Past Alcohol Use History: None Reported Past Drug Use History: None Reported - Past Family History Father Family Medical History: AICD/Pacemaker, Coronary Artery Disease (CAD) Brother(s) Additional Family Medical History / Comment(s): brain surgery Son(s) Family Medical History: Cancer Additional Family Medical History / Comment(s): brain ca General Exam - General Exam Comments Initial Comments: GENERAL: The patient is well nourished and well hydrated. VITAL SIGNS: Heart rate, blood pressure, respiratory rate reviewed as recorded in nurse's notes. EYES: Pupils are round and reactive. Extraocular movements are intact. No conjunctival / lid redness or swelling. ENT: No external evidence of injury, swelling, or ecchymosis. Airway is patent. Throat is clear. NECK: Nontender. No swelling or evidence of injury. No subcutaneous emphysema. Trachea is midline. No thyroid mass. HEART: Regular rate and rhythm. Good peripheral pulses. LUNGS/CHEST: Breath sounds clear and equal bilaterally. No rales, rhonchi, or wheezes. No ecchymosis, subcutaneous emphysema, or tenderness. ABDOMEN: Abdomen soft without tenderness. No palpable masses or organomegaly. No peritoneal signs. No abdominal wall swelling or ecchymosis. EXTREMITIES: There is mild diffuse tenderness to the lumbar region as well as the lower extremities. There is no joint swelling or significant tenderness or evidence of fracture. Normal muscle tone and function. NEUROLOGIC: Sensation is grossly intact. Cranial nerve exam reveals face is symmetrical, tongue is midline, speech is clear. SKIN: No abrasions or ecchymosis is noted. No induration or masses noted. PSYCHIATRIC: Alert and oriented. Appropriate behavior and judgment. Limitations: no limitations Course Vital Signs 07/14/17 07/14/17 07/14/17 10:07 11:45 11:47 Temperature 98.6 F Pulse Rate 86 87 Respiratory 18 24 Rate Blood Pressure 177/86 161/73 Blood Pressure 161/73 [Right Arm Sitting] Blood Pressure 172/81 [Right Arm Supine] O2 Sat by Pulse 98 99 Oximetry Medical Decision Making - Medical Decision Making The patient was seen and examined. All diagnostics were reviewed. An IV was established and she is mildly hydrated. The EKG shows a normal sinus rhythm at a rate of 80. There is a left axis deviation. There is no acute ST-T wave changes other than some T-wave inversions in lead 1 and aVL. The OK interval is 144, the QRS duration is 102, and the QTc interval is 475. The urinalysis does show significant evidence of infection. The laboratory overall is unremarkable. There is no evidence of any significant traumatic injuries from her fall. Is not felt as though she needs a computed tomography scan of her brain. She appears to be weak and unable to ambulate due to her urinary tract infection. IV Levaquin is started. Orthostatics for lying and sitting are negative but she is unable to complete this standing orthostatics due to weakness. She is agreeable to admission. Case will be discussed with internal medicine shortly. - Lab Data Result diagrams: 07/14/17 11:15 07/14/17 11:15 Lab Results 07/14/17 07/14/17 07/14/17 Range/Units 10:27 11:15 11:15 WBC 7.9 (3.8-10.6) k/uL RBC 4.26 (3.80-5.40) m/uL Hgb 13.4 (11.4-16.0) gm/dL Hct 39.7 (34.0-46.0) % MCV 93.1 (80.0-100.0) fL MCH 31.3 (25.0-35.0) pg MCHC 33.6 (31.0-37.0) g/dL RDW 13.3 (11.5-15.5) % Plt Count 210 (150-450) k/uL Neutrophils % 75 % Lymphocytes % 15 % Monocytes % 5 % Eosinophils % 2 % Basophils % 0 % Neutrophils # 5.9 (1.3-7.7) k/uL Lymphocytes # 1.2 (1.0-4.8) k/uL Monocytes # 0.4 (0-1.0) k/uL Eosinophils # 0.2 (0-0.7) k/uL Basophils # 0.0 (0-0.2) k/uL PT (9.0-12.0) sec INR (<1.2) APTT (22.0-30.0) sec Sodium 141 (137-145) mmol/L Potassium 4.4 (3.5-5.1) mmol/L Chloride 104 (98-107) mmol/L Carbon Dioxide 28 (22-30) mmol/L Anion Gap 9 mmol/L BUN 16 (7-17) mg/dL Creatinine 0.84 (0.52-1.04) mg/dL Est GFR (MDRD) Af Amer >60 (>60 ml/min/1.73 sqM) Est GFR (MDRD) Non-Af >60 (>60 ml/min/1.73 sqM) Glucose 170 H (74-99) mg/dL Calcium 9.7 (8.4-10.2) mg/dL Phosphorus 3.6 (2.5-4.5) mg/dL Magnesium 1.9 (1.6-2.3) mg/dL Total Bilirubin 0.6 (0.2-1.3) mg/dL AST 22 (14-36) U/L ALT 35 (9-52) U/L Alkaline Phosphatase 91 (38-126) U/L Total Protein 6.9 (6.3-8.2) g/dL Albumin 4.1 (3.5-5.0) g/dL TSH 1.140 (0.465-4.680) mIU/L Urine Color Light Yellow Urine Appearance Clear (Clear) Urine pH 6.5 (5.0-8.0) Ur Specific [place] 1.007 (1.001-1.035) Urine Protein Trace H (Negative) Urine Glucose (UA) Negative (Negative) Urine Ketones Negative (Negative) Urine Blood Trace H (Negative) Urine Nitrite Positive H (Negative) Urine Bilirubin Negative (Negative) Urine Urobilinogen <2.0 (<2.0) mg/dL Ur Leukocyte Esterase Large H (Negative) Urine RBC 2 (0-5) /hpf Urine WBC 55 H (0-5) /hpf Ur Squamous Epith Cells <1 (0-4) /hpf Urine Bacteria Many H (None) /hpf 07/14/17 Range/Units 11:15 WBC (3.8-10.6) k/uL RBC (3.80-5.40) m/uL Hgb (11.4-16.0) gm/dL Hct (34.0-46.0) % MCV (80.0-100.0) fL MCH (25.0-35.0) pg MCHC (31.0-37.0) g/dL RDW (11.5-15.5) % Plt Count (150-450) k/uL Neutrophils % % Lymphocytes % % Monocytes % % Eosinophils % % Basophils % % Neutrophils # (1.3-7.7) k/uL Lymphocytes # (1.0-4.8) k/uL Monocytes # (0-1.0) k/uL Eosinophils # (0-0.7) k/uL Basophils # (0-0.2) k/uL PT 10.1 (9.0-12.0) sec INR 1.0 (<1.2) APTT 22.5 (22.0-30.0) sec Sodium (137-145) mmol/L Potassium (3.5-5.1) mmol/L Chloride (98-107) mmol/L Carbon Dioxide (22-30) mmol/L Anion Gap mmol/L BUN (7-17) mg/dL Creatinine (0.52-1.04) mg/dL Est GFR (MDRD) Af Amer (>60 ml/min/1.73 sqM) Est GFR (MDRD) Non-Af (>60 ml/min/1.73 sqM) Glucose (74-99) mg/dL Calcium (8.4-10.2) mg/dL Phosphorus (2.5-4.5) mg/dL Magnesium (1.6-2.3) mg/dL Total Bilirubin (0.2-1.3) mg/dL AST (14-36) U/L ALT (9-52) U/L Alkaline Phosphatase (38-126) U/L Total Protein (6.3-8.2) g/dL Albumin (3.5-5.0) g/dL TSH (0.465-4.680) mIU/L Urine Color Urine Appearance (Clear) Urine pH (5.0-8.0) Ur Specific [place] (1.001-1.035) Urine Protein (Negative) Urine Glucose (UA) (Negative) Urine Ketones (Negative) Urine Blood (Negative) Urine Nitrite (Negative) Urine Bilirubin (Negative) Urine Urobilinogen (<2.0) mg/dL Ur Leukocyte Esterase (Negative) Urine RBC (0-5) /hpf Urine WBC (0-5) /hpf Ur Squamous Epith Cells (0-4) /hpf Urine Bacteria (None) /hpf Disposition Clinical Impression: Weakness, Urinary tract infection, Hypertension Disposition: ADMITTED IP TO THIS [facility] Condition: Fair Referrals: Nonstaff,Physician [Primary Care Provider] - 1-2 days Time of Disposition: 12:36 Decision Date: 07/14/17 Decision Time: 12:36
[2017-07-14] MEDS ORDERED: NALOXONE 0.4 MG/ML 1 ML VIAL IV PRN (12:46)
[2017-07-14] MEDS ORDERED: ONDANSETRON 4 MG/2 ML VIAL IVP PRN (12:46)
[2017-07-14 14:05] LABS: Hemoglobin A1C 6.8 % (4.2-6.1)
[2017-07-14] MEDS: HYDROcodone/APAP 10-325MG 1 EACH TAB PO PRN ×2 (15:33→22:32)
[2017-07-14] MEDS ORDERED: LISINOPRIL 20 MG TAB PO STA (16:07)
[2017-07-14 16:59] LABS: Glucose,Whole Blood 137 mg/dL (75-99)
[2017-07-14] MEDS: INSULIN LISPRO (humaLOG) 300 UNIT/3 ML VIAL SQ SCH ×2 (18:45→21:16)
[2017-07-14] MEDS: amLODIPine 5 MG TAB PO SCH (18:57)
[2017-07-14] MEDS: OXYBUTYNIN XL 5 MG TAB.ER.24 PO SCH (19:48)
[2017-07-14] MEDS: FAMOTIDINE 20 MG TAB PO SCH (19:48)
[2017-07-14] MEDS: ATORVASTATIN 10 MG TAB PO SCH (19:48)
[2017-07-14 20:25] LABS: Glucose,Whole Blood 173 mg/dL (75-99)
[2017-07-14] MEDS ORDERED: NON-FORMULARY DRUG (Mirabegron [Myrbetriq] 25 MG) PO SCH (21:00)
[2017-07-14] MEDS: INSULIN DETEMIR 100 UNIT/ML 10 ML VIAL SQ SCH (21:11)
[2017-07-14] MEDS: BACLOFEN 10 MG TAB PO PRN (21:11)
[2017-07-14] MEDS: DULoxetine HCL 60 MG CAPSULE.DR PO SCH (21:11)
[2017-07-15] MEDS: ACETAMINOPHEN TAB 325 MG TAB PO PRN (03:26)
[2017-07-15 06:58] LABS: Glucose,Whole Blood 176 mg/dL (75-99)
[2017-07-15] MEDS: ENOXAPARIN 40 MG/0.4 ML SYRINGE SQ SCH (08:36)
[2017-07-15] MEDS: INSULIN LISPRO (humaLOG) 300 UNIT/3 ML VIAL SQ SCH ×4 (08:37→21:42)
[2017-07-15] MEDS: FAMOTIDINE 20 MG TAB PO SCH ×2 (08:37→21:50)
[2017-07-15] MEDS: ASPIRIN 325 MG TAB PO SCH (08:37)
[2017-07-15] MEDS: HYDROcodone/APAP 10-325MG 1 EACH TAB PO PRN ×3 (08:47→23:10)
[2017-07-15] MEDS ORDERED: DULoxetine HCL 60 MG CAPSULE.DR PO SCH (09:00)
--- NOTE | 2017-07-15 09:58 | P.CNOR ---
History of Present Illness - [facility] Consult date: 07/15/17 Consult reason: joint pain (Right knee pain, bilateral ankle pain) History of present illness: This is a 72-year-old female with history of bilateral distal fibular fractures which has been treated by Dr. Tyler. She states that her last visit was at the end of June and she was released from care with healed fractures. She states that she continues to have some soreness about both ankles. She also is having some pain and instability to the right knee. She has history of unicompartmental knee replacement in the past by a physician down near [place]. She also has low back problems. She states that most recently her right knee has been buckling on her when she ambulates. She has had no recent falls since the ankle fractures. We're consulted for orthopedic evaluation. Past Medical History Past Medical History: Diabetes Mellitus, GERD/Reflux, Hypertension, Pneumonia Additional Past Medical History / Comment(s): Lupus, HEARTBURN, ryder ankle fx-no sx wore medi boots. pt stated lt ankle and rt knee gives out on her at times-hx falls. uti-ecoli 04-29-17. pt stated takes cholesterol med as preventtive because of her diabetes", upper bridge. History of Any Multi-Drug Resistant Organisms: None Reported Past Surgical History: Adenoidectomy, Appendectomy, Back Surgery, Cholecystectomy, Heart Catheterization, Hysterectomy, Tonsillectomy Additional Past Surgical History / Comment(s): 3 left humerous surgery, ryder heal surgery, partial knee right, 7 back surgery, c4-c7 fusion, Lumbar fusion. Past Anesthesia/Blood Transfusion Reactions: No Reported Reaction Smoking Status: Never smoker - Past Family History Father Family Medical History: AICD/Pacemaker, Coronary Artery Disease (CAD) Brother(s) Additional Family Medical History / Comment(s): brain surgery Son(s) Family Medical History: Cancer Additional Family Medical History / Comment(s): brain ca Medications and Allergies Home Medications Medication Instructions Recorded Confirmed Type Baclofen 10 mg PO TID PRN 05/01/17 07/14/17 History DULoxetine HCL [Cymbalta] 60 mg PO DAILY 05/01/17 07/14/17 History Famotidine [Pepcid] 20 mg PO BID 05/01/17 07/14/17 History Fesoterodine Fumarate [Toviaz] 4 mg PO HS 05/01/17 07/14/17 History HYDROcodone/APAP 10-325MG [Sunflower 1 tab PO QID PRN 05/01/17 07/14/17 History 10-325] Insulin Aspart [NovoLOG] See Protocol SQ AC-TID 05/01/17 07/14/17 History Insulin Detemir [Levemir Flextouch] 40 units SQ HS 05/01/17 07/14/17 History Mirabegron [Myrbetriq] 25 mg PO HS 05/01/17 07/14/17 History Quinapril HCl 40 mg PO DAILY 05/01/17 07/14/17 History Simvastatin [Zocor] 20 mg PO HS 05/01/17 07/14/17 History Aspirin 325 mg PO DAILY 05/21/17 07/14/17 History Allergies Allergy/AdvReac Type Severity Reaction Status Date / Time Iodinated Contrast- Oral and Allergy Rash/Hives Verified 07/14/17 10:39 IV Dye latex Allergy Anaphylaxis Verified 07/14/17 10:39 morphine Allergy Anaphylaxis Verified 07/14/17 10:39 Penicillins Allergy Anaphylaxis Verified 07/14/17 10:39 prochlorperazine AdvReac Seizure Verified 07/14/17 10:39 [From Compazine] Sulfa (Sulfonamide AdvReac Systemic Verified 07/14/17 10:39 Antibiotics) Lupus Flare Physical Examination This is a pleasant 72-year-old female in no acute distress. She is alert and oriented 3. Exam of the lower extremities reveals a scar about the right knee. She has flexion to about 100 with hyperextension of the knee. There is no pain with palpation about the medial or lateral joint line. There is a +1 effusion noted. There is no erythema or ecchymosis. There is no ligament instability noted on exam Exam of bilateral ankles reveals minimal soft tissue swelling. There is no erythema or ecchymosis. There is no pain with palpation about the distal fibula bilaterally. She has full foot and ankle motion bilaterally without difficulty or pain. Neurovascular status to the lower extremities is intact. Results There are no current x-rays of the knee or ankles. X-rays of both ankles from 05/01/2017 reveal nondisplaced distal fibular fractures. - Labs Labs: Abnormal Lab Results - Last 24 Hours (Table) 07/14/17 07/14/17 07/14/17 Range/Units 10:27 11:15 11:15 Glucose 170 H (74-99) mg/dL POC Glucose (mg/dL) (75-99) mg/dL Hemoglobin A1c 6.8 H (4.2-6.1) % Urine Protein Trace H (Negative) Urine Blood Trace H (Negative) Urine Nitrite Positive H (Negative) Ur Leukocyte Esterase Large H (Negative) Urine WBC 55 H (0-5) /hpf Urine Bacteria Many H (None) /hpf 07/14/17 07/14/17 07/15/17 Range/Units 16:47 20:21 06:57 Glucose (74-99) mg/dL POC Glucose (mg/dL) 137 H 173 H 176 H (75-99) mg/dL Hemoglobin A1c (4.2-6.1) % Urine Protein (Negative) Urine Blood (Negative) Urine Nitrite (Negative) Ur Leukocyte Esterase (Negative) Urine WBC (0-5) /hpf Urine Bacteria (None) /hpf H & H 07/14/17 Range/Units 11:15 Hgb 13.4 (11.4-16.0) gm/dL Hct 39.7 (34.0-46.0) % Coagulation 07/14/17 Range/Units 11:15 INR 1.0 (<1.2) Result Diagrams: 07/14/17 11:15 07/14/17 11:15 Assessment and Plan (1) Fracture of distal end of right fibula with routine healing Status: Acute (2) Fracture of distal end of left fibula with routine healing Status: Acute (3) Right knee pain Status: Acute (4) Status post right partial knee replacement Status: Acute (5) Urinary tract infection Status: Acute Plan: The clinical findings are discussed with the patient. It is recommended that she continue with physical therapy for her ankle pain. I will order x-rays of the right knee and plan aspiration with cortisone injection tomorrow. I will order a hinged to wraparound knee brace for support with ambulation.
--- NOTE | 2017-07-15 11:09 | HP ---
HISTORY AND PHYSICAL DATE OF ADMISSION: 07/14/17 CHIEF COMPLAINT: Weakness and pain. HISTORY: 72-year-old woman with a past medical history of diabetes and hypertension, history of pneumonia, history of lupus, heartburn, being followed by Dr. Jimenez in [facility], has had bilateral ankle fractures a few weeks ago. Dr. Tyler is following the patient closely. Patient just of the boots according to her. The patient is complaining of weakness and difficulty walking and pain over both ankles and the right leg where the patient had a partial knee joint arthroplasty and the patient because of similar symptoms patient came to [facility] and was admitted for further evaluation and treatment. Patient was found to have evidence of UTI. Patient started on broad-spectrum IV antibiotics. There is no history of fever. No rigors or chills. There is no history of headache, loss of consciousness or seizures. PAST MEDICAL HISTORY: GERD, diabetes, hypertension, history of pneumonia, history of heartburn, history of recent fracture, anxiety and gait dysfunction. MEDICATIONS: Prior to admission: 1. Cosmos 10 mg q.i.d. p.r.n. 2. Baclofen 10 mg t.i.d. p.r.n. 3. Zocor 20 mg q.h.s. 4. Quinapril 40 mg p.o. daily. 5. Myrbetriq 25 mg q.h.s. 6. Levemir 40 mg subcu daily. 7. NovoLog a.c. t.i.d. 8. Toviaz 4 mg q.h.s. 9. Pepcid 20 mg b.i.d. 10.Cymbalta 60 mg daily. 11.Aspirin 320 mg daily. ALLERGIES: IODINATED CONTRAST, LATEX, MORPHINE, PENICILLIN, COMPAZINE AND SULFA. FAMILY HISTORY: History AICD, CAD and brain surgery in the family. SOCIAL HISTORY: No history of smoking, no history of alcohol. REVIEW OF SYSTEMS: ENT: No diminished vision. No diminished hearing. Cardiovascular system: No angina or palpitations. Otherwise as mentioned earlier. Respiration: No cough, no hemoptysis, GI no nausea. no dysuria. Nervous system: Mentioned earlier. Allergies/Immunology: No asthma or hayfever. Musculoskeletal as mentioned earlier. Hematology/Oncology: No history of anemia. Endocrine: Diabetes mellitus type 2. Rheumatology as mentioned earlier. Psychiatric as mentioned earlier. Dermatology: Negative. Neurology As mentioned earlier. PHYSICAL EXAMINATION: Alert and oriented times three. Pulse 82, blood pressure 160/81, respiration 18, temperature 98.3, pulse ox 98% on room air. HEENT: Conjunctivae normal. Neck no jugular venous distention. Cardiovascular is S1, S2. No S3, no S4. Respiratory: Breath sounds diminished at the bases. No rhonchi and no crackles. ABDOMEN: Soft, nontender. No mass palpable. Legs: No edema. No swelling. Status post right knee arthroplasty. Otherwise movements slightly painful in the ankles. Otherwise no edema, no swelling. Pulses felt normally. Nervous system: Higher functions as mentioned earlier. Moves all four limbs. No focal deficits. Lymphatics: No lymph nodes palpable in the neck, axillae or groin. Skin: No ulcer, rashes or bleeding. LAB: CBC within normal limits. Glucose 170. UA noted. ASSESSMENT: 1. Bilateral leg pain and weakness for evaluation. 2. Possible degenerative joint disease. 3. Recent bilateral ankle fracture. 4. Urinary tract infection present on admission. 5. Diabetes type 2. 6. Hypertension. 7. History of lupus. 8. History of gastroesophageal reflux disease. 9. Anxiety and depression. RECOMMENDATION AND DISCUSSION: In this 72-year-old woman who presented with multiple complex medical issues, we will monitor the patient closely. Continue the current management. Symptomatic treatment. We will initiate broad-spectrum IV antibiotics. Otherwise, pain medications. Resume the home medications. DVT prophylaxis. I would also recommend PT/OT evaluation and as well as evaluation by Orthopedic surgery Dr. Tyler also. The patient is on lisinopril 40 mg daily. We will continue to monitor blood pressure. We will add Norvasc to the current regimen. Further recommendations to follow. MMODL / IJN: [id number] /
[2017-07-15 12:02] LABS: Glucose,Whole Blood 124 mg/dL (75-99)
[2017-07-15] MEDS: LEVOFLOXACIN 750MG-D5W PMX 750 MG in DEXTROSE/WATER 1 150ML.BAG IVPB SCH (12:13)
[2017-07-15] MEDS: LISINOPRIL 20 MG TAB PO SCH (12:50)
[2017-07-15] MEDS: amLODIPine 5 MG TAB PO SCH (12:50)
[2017-07-15] MEDS: BACLOFEN 10 MG TAB PO PRN (14:40)
--- NOTE | 2017-07-15 15:52 | XR ---
Right knee HISTORY: Right knee pain and instability 3 views of the right knee correlated to prior exam 07/05/2012 Postop changes show a similar appearance at the distal right femur. Bone mineralization is reduced. J oint space loss with marginal spurring present especially in the lateral compartment greater than med ial compartment. Alignment is maintained. There is a joint effusion. The patella is mildly high ridin g as on prior. There are probable vascular calcifications present. IMPRESSION: Osteopenia, osteoarthritis, postop changes, some findings above
[2017-07-15 16:36] LABS: Glucose,Whole Blood 125 mg/dL (75-99)
[2017-07-15] MEDS: methylPREDNISolone SOD SUCCI 40 MG/ML 1 ML VIAL IV SCH ×2 (16:49→23:11)
[2017-07-15 21:03] LABS: Glucose,Whole Blood 350 mg/dL (75-99)
[2017-07-15] MEDS: INSULIN DETEMIR 100 UNIT/ML 10 ML VIAL SQ SCH (21:46)
[2017-07-15] MEDS: OXYBUTYNIN XL 5 MG TAB.ER.24 PO SCH (21:50)
[2017-07-15] MEDS: ATORVASTATIN 10 MG TAB PO SCH (21:51)
[2017-07-15] MEDS: DULoxetine HCL 60 MG CAPSULE.DR PO SCH (21:51)
[2017-07-16] MEDS: BACLOFEN 10 MG TAB PO PRN (00:30)
[2017-07-16] MEDS: methylPREDNISolone SOD SUCCI 40 MG/ML 1 ML VIAL IV SCH ×3 (05:33→18:02)
[2017-07-16] MEDS: HYDROcodone/APAP 10-325MG 1 EACH TAB PO PRN ×3 (05:38→18:20)
[2017-07-16 07:19] LABS: Glucose,Whole Blood 296 mg/dL (75-99)
[2017-07-16] MEDS: INSULIN LISPRO (humaLOG) 300 UNIT/3 ML VIAL SQ SCH ×3 (07:22→18:13)
[2017-07-16] MEDS: ASPIRIN 325 MG TAB PO SCH (07:25)
[2017-07-16] MEDS: ENOXAPARIN 40 MG/0.4 ML SYRINGE SQ SCH (07:25)
[2017-07-16] MEDS: FAMOTIDINE 20 MG TAB PO SCH ×2 (07:25→21:49)
[2017-07-16] MEDS: amLODIPine 5 MG TAB PO SCH (07:25)
[2017-07-16] MEDS: LISINOPRIL 20 MG TAB PO SCH (07:26)
--- NOTE | 2017-07-16 07:52 | PN ---
PROGRESS NOTE DATE OF SERVICE: 07/15/2017 This is a progress note. INTERVAL HISTORY: This is a 72-year-old woman who was admitted with bilateral leg pain and weakness is being closely monitored. The patient also had lupus also. Orthopedic surgery has seen the patient and recommended continued physical therapy for ankle pain. Fracture was thought to be routine healing. No fever. No cough. PHYSICAL EXAM: On exam, alert and oriented times three. Pulse 65, blood pressure 117/69, respirations 16, temperature 98.1, pulse ox 98% room air. HEENT: Conjunctivae normal. Neck no jugular venous distention. Cardiovascular S1, S2 muffled. Respiratory: Breath sounds diminished in the bases. A few rhonchi, no crackles. ABDOMEN: Soft, nontender, no mass palpable. Legs: No edema. No swelling. Central nervous system: No focal deficits. LABS: CBC within normal limits. Glucose 124. C-reactive protein 66.4, UA noted. ASSESSMENT: 1. Bilateral leg pain and weakness for evaluation. 2. Possible degenerative joint disease. 3. Recent bilateral ankle fractures. 4. Urinary tract infection present on admission. 5. Diabetes mellitus type 2. 6. Hypertension. 7. History of lupus. 8. History of gastroesophageal reflux disease. 9. Anxiety, depression. DISCUSSION AND RECOMMENDATIONS: Continue current medications, continue medical management, symptomatic treatment. Otherwise, continue antibiotics. Cultures are negative at this time. I also recommend sed rate, and uric acid also. Also would recommend a short course of Solu- Medrol, I would recommend Accu-Cheks a.c. and q.h.s. also. The prognosis is guarded. Further recommendations to follow. See orders for details. Right knee cortisone injection is being planned by Debbie from Orthopedics. MMODL / IJN: [id number] / MTDTequila
[2017-07-16] MEDS ORDERED: methylPREDNISolone ACETATE 40 MG/ML 1 ML VIAL INTRAARTIC ONE (08:00)
[2017-07-16] MEDS ORDERED: LIDOCAINE 2% INJ 20 MG/ML (20 ML MDV) SQ ONE (08:00)
--- NOTE | 2017-07-16 09:29 | P.PN ---
Subjective Principal diagnosis: History of Bilateral ankle fractures. Degenerative arthritis right knee. This is a 72-year-old female with complaint of right knee pain and instability. She has recent history of bilateral ankle fractures which have healed. She also has history of lumbar stenosis and radiculopathy. She complains of no new problems or concerns today. She consents to right knee aspiration and cortisone injection. X-rays of the right knee reveal a patellofemoral unicompartmental arthroplasty. There is mild to moderate degenerative arthritis noted to the medial and lateral compartments. No acute fracture identified. Objective - Vital Signs Vital signs: Vital Signs Temp 97.8 F 07/16/17 07:00 Pulse 79 07/16/17 07:00 Resp 16 07/16/17 07:00 BP 175/84 07/16/17 07:00 Pulse Ox 99 07/16/17 07:00 Intake & Output 07/15/17 07/16/17 07/16/17 18:59 06:59 18:59 Intake Total 100 1620 Output Total 200 Balance -100 1620 Intake: IV 120 .9 @ 20 (KVO) 120 Intake, IV Titration 100 Amount Levofloxacin 750Mg-D5w 100 Pmx 750 mg In Dextrose/ Water 1 150ml.bag @ 100 mls/hr IVPB Q24H [facility] Rx#: [id number] Oral 100 1400 Output: Urine 200 Other: Voiding Method Bedside Commode Bedside Commode Incontinent # Voids 1 4 - Exam This is a pleasant 72-year-old female in no acute distress. She is alert and oriented 3. Exam of the lower extremities reveals 1-2+ effusion of the right knee. There is no erythema or ecchymosis. She has mild pain with motion of the knee but can achieve flexion to 100 and full extension. She has full foot and ankle motion bilaterally. Minimal swelling to the ankles. Pedal pulses are +2/4. Capillary refill is less than 3 seconds. Neurovascular status of lower extremities is intact. - Labs CBC & Chem 7: 07/14/17 11:15 07/14/17 11:15 Labs: Abnormal Lab Results - Last 24 Hours (Table) 07/15/17 07/15/17 07/15/17 Range/Units 12:01 14:45 14:45 ESR 32 H (0-20) mm/hr POC Glucose (mg/dL) 124 H (75-99) mg/dL C-Reactive Protein 66.4 H (<10.0) mg/L 07/15/17 07/15/17 07/16/17 Range/Units 16:34 21:01 07:04 ESR (0-20) mm/hr POC Glucose (mg/dL) 125 H 350 H 296 H (75-99) mg/dL C-Reactive Protein (<10.0) mg/L Assessment and Plan (1) Fracture of distal end of right fibula with routine healing Status: Acute (2) Fracture of distal end of left fibula with routine healing Status: Acute (3) Right knee pain Status: Acute (4) Status post right partial knee replacement Status: Acute (5) Urinary tract infection Status: Acute Plan: The clinical and x-ray findings are discussed with the patient. It is recommended that she continue with physical therapy for her ankle pain. Procedure: The right knee is aspirated and injected with 40 mg of Depo-Medrol using sterile technique. I obtained approximately 30 mL of bright yellow/green, slightly cloudy fluid. The fluid is sent for crystal identification and cell count. There is very low suspicion that this is infectious in nature. The Depo -Medrol is injected. The patient tolerated the procedure well. We'll continue to follow throughout her stay. I have ordered a hinged knee brace.
[2017-07-16 10:50] LABS: RBC, Body Fluid 160 /uL
[2017-07-16 10:54] LABS: Synovial Crystal Source Right Knee
[2017-07-16 11:35] LABS: Glucose,Whole Blood 360 mg/dL (75-99)
[2017-07-16] MEDS: LEVOFLOXACIN 750MG-D5W PMX 750 MG in DEXTROSE/WATER 1 150ML.BAG IVPB SCH (12:48)
[2017-07-16] MEDS: ACETAMINOPHEN TAB 325 MG TAB PO PRN (14:41)
[2017-07-16 16:47] LABS: Glucose,Whole Blood 341 mg/dL (75-99)
[2017-07-16] MEDS ORDERED: INSULIN REGULAR BOLUS (FROM DRIP BAG) IV ONE (17:09)
[2017-07-16] MEDS: PANTOPRAZOLE 40 MG TABLET PO SCH (18:01)
[2017-07-16] MEDS: INSULIN REGULAR 100 UNIT in SODIUM CHLORIDE 0.9% 100 ML IV SCH (18:06)
[2017-07-16 18:18] LABS: Glucose,Whole Blood 306 mg/dL (75-99)
[2017-07-16 18:46] LABS: Glucose,Whole Blood 311 mg/dL (75-99)
[2017-07-16 19:13] LABS: Glucose,Whole Blood 271 mg/dL (75-99)
--- NOTE | 2017-07-16 19:21 | PN ---
PROGRESS NOTE DATE OF SERVICE: 07/16/2017 This is a progress note. INTERVAL HISTORY: This 72-year-old woman who was admitted with bilateral leg pain and weakness also had elevated ESR and CRP. Patient was treated with empiric steroids. Orthopedic surgery also had a right knee aspiration as well as steroid injection also. No chest pain. No palpitations. No fever. The patient was evaluated by Dr. Ferrer and by Dr. Schreiber in the outpatient setting. EXAM: Alert and oriented times three. Pulse 74, blood pressure 151/78, respiration 17, temperature 98.1, pulse ox 94% on room air. HEENT is conjunctivae normal. Neck no jugular venous distention. Cardiovascular: S1, S2 muffled. Respiratory: Breath sounds diminished in the bases. No rhonchi. No crackles. Abdomen is soft, nontender. Legs are no edema. No swelling. Joints are slightly painful. LABS: Noted. Accu-Cheks 341. ASSESSMENT: 1. Bilateral leg pain and weakness for evaluation possibly degenerative joint disease acute exacerbation on empiric IV steroids. 2. Right knee pain status post steroid injection. 3. Recent bilateral ankle fractures. 4. Urinary tract infection, present on admission. 5. Diabetes type 2. 6. Hypertension. 7. History of lupus. 8. History of gastroesophageal reflux disease. 9. Anxiety and depression. RECOMMENDATIONS AND DISCUSSION: 1. Recommend to continue current medications. 2. Continue with management and symptomatic treatment. 3. Continue to monitoring. 4. Otherwise at this time I recommend continue with the current medications. 5. Continue with IV steroids and taper the steroids. The sugars are persistently high, I would recommend insulin drip. Otherwise orthopedic recommendations noted. Increase ambulation. Guarded prognosis because of multiple complex medical issues. Further recommendations to follow. MMODL / IJN: [id number] /
[2017-07-16 19:53] LABS: Glucose,Whole Blood 238 mg/dL (75-99)
[2017-07-16 21:44] LABS: Glucose,Whole Blood 202 mg/dL (75-99)
[2017-07-16] MEDS: ATORVASTATIN 10 MG TAB PO SCH (21:49)
[2017-07-16] MEDS: OXYBUTYNIN XL 5 MG TAB.ER.24 PO SCH (21:49)
[2017-07-16] MEDS: DULoxetine HCL 60 MG CAPSULE.DR PO SCH (21:50)
[2017-07-16 22:33] VITALS: RESP 16
[2017-07-16 23:35] LABS: Glucose,Whole Blood 197 mg/dL (75-99)
[2017-07-17] MEDS: methylPREDNISolone SOD SUCCI 40 MG/ML 1 ML VIAL IV SCH ×3 (00:01→16:12)
[2017-07-17] MEDS: BACLOFEN 10 MG TAB PO PRN (00:23)
[2017-07-17 01:42] LABS: Glucose,Whole Blood 301 mg/dL (75-99)
[2017-07-17 03:39] LABS: Glucose,Whole Blood 175 mg/dL (75-99)
[2017-07-17 05:37] LABS: Glucose,Whole Blood 158 mg/dL (75-99)
[2017-07-17] MEDS: HYDROcodone/APAP 10-325MG 1 EACH TAB PO PRN ×3 (05:51→12:44)
[2017-07-17 07:35] LABS: Glucose,Whole Blood 188 mg/dL (75-99)
[2017-07-17] MEDS: INSULIN LISPRO (humaLOG) 300 UNIT/3 ML VIAL SQ SCH ×2 (07:46→12:45)
[2017-07-17] MEDS: LISINOPRIL 20 MG TAB PO SCH (07:47)
[2017-07-17] MEDS: ENOXAPARIN 40 MG/0.4 ML SYRINGE SQ SCH (07:47)
[2017-07-17] MEDS: ASPIRIN 325 MG TAB PO SCH (07:47)
[2017-07-17] MEDS: PANTOPRAZOLE 40 MG TABLET PO SCH (07:47)
[2017-07-17] MEDS: FAMOTIDINE 20 MG TAB PO SCH (07:49)
[2017-07-17] MEDS: amLODIPine 5 MG TAB PO SCH (07:50)
--- NOTE | 2017-07-17 08:03 | P.PN ---
Subjective Principal diagnosis: History of Bilateral ankle fractures. Degenerative arthritis right knee. This is a 72-year-old female with complaint of right knee pain and instability. She has recent history of bilateral ankle fractures which have healed. She also has history of lumbar stenosis and radiculopathy. She complains of no new problems or concerns today. She states that her knee is slightly improved from yesterday after the aspiration and injection. X-rays of the right knee reveal a patellofemoral unicompartmental arthroplasty. There is mild to moderate degenerative arthritis noted to the medial and lateral compartments. No acute fracture identified. Objective - Vital Signs Vital signs: Vital Signs Temp 97.3 F L 07/17/17 07:00 Pulse 83 07/17/17 07:00 Resp 16 07/17/17 07:00 BP 155/72 07/17/17 07:00 Pulse Ox 95 07/17/17 07:00 Intake & Output 07/16/17 07/17/17 07/17/17 18:59 06:59 18:59 Intake Total 410.767 262.358 5.167 Output Total 300 Balance 110.767 262.358 5.167 Intake: Intake, IV Titration 10.767 62.358 5.167 Amount Insulin Regular 100 unit 10.767 62.358 5.167 In Sodium Chloride 0.9% 100 ml @ Titrate IV .Q0M [facility] Rx#:[id number] Oral 400 200 Output: Urine 300 Other: # Voids 1 - Exam This is a pleasant 72-year-old female in no acute distress. She is alert and oriented 3. Exam of the lower extremities reveals minimal effusion of the right knee. There is no erythema or ecchymosis. She has mild pain with motion of the knee but can achieve flexion to 100 and full extension. She has full foot and ankle motion bilaterally. Minimal swelling to the ankles. Pedal pulses are +2/4. Capillary refill is less than 3 seconds. Neurovascular status of lower extremities is intact. - Labs CBC & Chem 7: 07/14/17 11:15 07/14/17 11:15 Labs: Abnormal Lab Results - Last 24 Hours (Table) 07/16/17 07/16/17 07/16/17 Range/Units 11:34 16:46 18:00 POC Glucose (mg/dL) 360 H 341 H 306 H (75-99) mg/dL 07/16/17 07/16/17 07/16/17 Range/Units 18:42 19:11 19:46 POC Glucose (mg/dL) 311 H 271 H 238 H (75-99) mg/dL 07/16/17 07/16/17 07/17/17 Range/Units 21:42 23:33 01:38 POC Glucose (mg/dL) 202 H 197 H 301 H (75-99) mg/dL 07/17/17 07/17/17 07/17/17 Range/Units 03:37 05:35 07:32 POC Glucose (mg/dL) 175 H 158 H 188 H (75-99) mg/dL Assessment and Plan (1) Fracture of distal end of right fibula with routine healing Status: Acute (2) Fracture of distal end of left fibula with routine healing Status: Acute (3) Right knee pain Status: Acute (4) Status post right partial knee replacement Status: Acute (5) Urinary tract infection Status: Acute Plan: The clinical findings are discussed with the patient. It is recommended that she continue with physical therapy for her knee and ankle pain. She may be discharged from an orthopedic standpoint. She is to follow-up with her back Dr. at [place] regarding her back pain. She is to follow-up with Dr. Tyler regarding her knee and ankle pain. I have ordered a hinged knee brace.
[2017-07-17 09:45] LABS: Glucose,Whole Blood 228 mg/dL (75-99)
[2017-07-17 11:39] LABS: Glucose,Whole Blood 155 mg/dL (75-99)
[2017-07-17] MEDS: INSULIN REGULAR 100 UNIT in SODIUM CHLORIDE 0.9% 100 ML IV SCH (11:59)
[2017-07-17] MEDS ORDERED: LEVOFLOXACIN 750 MG TAB PO SCH (12:00)
[2017-07-17 14:02] LABS: Glucose,Whole Blood 215 mg/dL (75-99)
[2017-07-17 15:15] VITALS: BP 139/76; PULSE 64; TEMP 98.1
[2017-07-17] MEDS ORDERED: INSULIN LISPRO (humaLOG) 300 UNIT/3 ML VIAL SQ ONE (15:30)
[2017-07-17 15:31] LABS: Glucose,Whole Blood 172 mg/dL (75-99)
--- NOTE | 2017-07-17 17:19 | P.DS ---
Providers Date of admission: 07/15/17 11:14 Attending physician: Joel Vasquez MD Consults: 07/14/17 17:27 Consult Physician Routine Consulting Provider: Jordan Tyler Consult Reason/Comments: bilateral heal fractures/pt known to him Do you want consulting provider notified?: Yes Primary care physician: Physician Nonstaff Hospital Course: This 72-year-old woman with a past medical history of multiple medical problems was admitted with a bilateral leg pain and weakness. Patient was treated symptomatically. Orthopedic surgery saw the patient. Right knee aspiration as well as steroid injection was done. Patient improved significantly. Patient had elevated ESR and CRP. Treated medically with IV steroids. Sugars are monitored. Patient improved significantly. 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 I will have recommended the patient to follow up closely with Dr. diaz as well as orthopedic surgery in the outpatient setting. On exam vitals stable. Cardio S1 and S2 normal. Abdomen soft nontender. Chest clear to auscultation. Joints minimal pain on movement. I recommended tapering dose of steroid and close monitoring of monitoring of the blood sugars with the primary physician. The patient understands and agrees. Final diagnosis 1. Bilateral leg pain and weakness and evaluation possibly secondary to DJD acute exacerbation status post empiric IV steroids. 2. Right knee pain status post steroid injection. 3. Recent bilateral ankle fractures. 4. UTI present on admission. 5. Diabetes was type II. 6. Hypertension. 7. History of lupus. 8. History of GERD. 9. Anxiety depression. Patient Condition at Discharge: Fair Plan - Discharge Summary New Discharge Prescriptions: New amLODIPine [Norvasc] 5 mg PO DAILY #30 tab Levofloxacin [Levaquin] 750 mg PO Q24H #5 tab predniSONE 10 mg PO DIRECTED #30 tab Continue Simvastatin [Zocor] 20 mg PO HS Quinapril HCl 40 mg PO DAILY Mirabegron [Myrbetriq] 25 mg PO HS Fesoterodine Fumarate [Toviaz] 4 mg PO HS HYDROcodone/APAP 10-325MG [Storden 10-325] 1 tab PO QID PRN PRN Reason: Pain Famotidine [Pepcid] 20 mg PO BID DULoxetine HCL [Cymbalta] 60 mg PO DAILY Baclofen 10 mg PO TID PRN PRN Reason: Muscle Spasm/Pain Insulin Aspart [NovoLOG] See Protocol SQ AC-TID Aspirin 325 mg PO DAILY Changed Insulin Detemir [Levemir Flextouch] 50 units SQ HS #0 Discharge Medication List Baclofen 10 mg PO TID PRN 05/01/17 [History] DULoxetine HCL [Cymbalta] 60 mg PO DAILY 05/01/17 [History] Famotidine [Pepcid] 20 mg PO BID 05/01/17 [History] Fesoterodine Fumarate [Toviaz] 4 mg PO HS 05/01/17 [History] HYDROcodone/APAP 10-325MG [Storden 10-325] 1 tab PO QID PRN 05/01/17 [History] Insulin Aspart [NovoLOG] See Protocol SQ AC-TID 05/01/17 [History] Mirabegron [Myrbetriq] 25 mg PO HS 05/01/17 [History] Quinapril HCl 40 mg PO DAILY 05/01/17 [History] Simvastatin [Zocor] 20 mg PO HS 05/01/17 [History] Aspirin 325 mg PO DAILY 05/21/17 [History] Insulin Detemir [Levemir Flextouch] 50 units SQ HS #0 07/17/17 [Rx] Levofloxacin [Levaquin] 750 mg PO Q24H #5 tab 07/17/17 [Rx] amLODIPine [Norvasc] 5 mg PO DAILY #30 tab 07/17/17 [Rx] predniSONE 10 mg PO DIRECTED #30 tab 07/17/17 [Rx] Follow up Appointment(s)/Referral(s): Dr. estella PCP Nabil Rai [Other] - 3 Days (Patient requesting to make own appt) [facility], [NON-STAFF] - Jordan Tyler MD [STAFF PHYSICIAN] - 07/31/17 2:05 pm (In order to see pt, pt must make a payment in order to be seen. ) Ambulatory/Diagnostic Orders: Complete Blood Count w/diff [LAB.AMB] Time Frame: 3 Days, Location: Determined By Patient Patient Instructions/Handouts: Swollen Knee Joint (GEN) Activity/Diet/Wound Care/Special Instructions: Diet: consist. Carb. accu cheks achs Discharge Disposition: HOME WITH HOME HEALTH SERVICES
== END 2017-07-17 17:45 | disposition home health service (06) | DRG 554 ==
LOC: EC 10:06 → 3OBS 12:46 → OBSVTOIN 07-15 11:14 → 3SUR 07-15 13:02
PROVIDERS: ADMIT Internal Medicine; ATTEND Internal Medicine
PROC: 0S9C3ZX Drainage of Right Knee Joint, Percutaneous Approach, Diagnostic (ICD-10-PCS; principal; 2017-07-16)
PROC: 3E0U33Z Introduction of Anti-inflammatory into Joints, Percutaneous Approach (ICD-10-PCS; 2017-07-16)
DX: M17.11 Unilateral primary osteoarthritis, right knee (principal); M32.9 Systemic lupus erythematosus, unspecified; N39.0 Urinary tract infection, site not specified; E11.9 Type 2 diabetes mellitus without complications; I10 Essential (primary) hypertension; K21.9 Gastro-esophageal reflux disease without esophagitis; F41.9 Anxiety disorder, unspecified; F32.9 Major depressive disorder, single episode, unspecified; M48.06 Spinal stenosis, lumbar region; M54.16 Radiculopathy, lumbar region; Z96.651 Presence of right artificial knee joint; Z79.4 Long term (current) use of insulin; Z79.82 Long term (current) use of aspirin; Z79.899 Other long term (current) drug therapy; Z82.49 Family history of ischemic heart disease and other diseases of the circulatory system; Z80.8 Family history of malignant neoplasm of other organs or systems; Z88.0 Allergy status to penicillin; Z88.2 Allergy status to sulfonamides; Z88.6 Allergy status to analgesic agent; Z91.041 Radiographic dye allergy status; Z91.040 Latex allergy status; Z87.01 Personal history of pneumonia (recurrent); Z79.891 Long term (current) use of opiate analgesic; S82.892D Other fracture of left lower leg, subsequent encounter for closed fracture with routine healing; S82.891D Other fracture of right lower leg, subsequent encounter for closed fracture with routine healing; Z91.81 History of falling; Z90.49 Acquired absence of other specified parts of digestive tract; Z90.710 Acquired absence of both cervix and uterus; Z98.1 Arthrodesis status
CPT/HCPCS: 36415; 80053; 81001; 83036; 83735; 84100; 84443; 84550; 85025; 85610; 85652; 85730; 86140; 89050; 89060; 93005; 96360; 96361; 96365; 96372; 96375; 99284

== ENCOUNTER 2017-08-01 18:28 | Inpatient (IN) | payer MEDICARE, OTHER ==
[2017-08-01] MEDS ORDERED: SODIUM CHLORIDE 0.9% 1,000 ML IV STA (18:52)
[2017-08-01] MEDS ORDERED: ONDANSETRON 4 MG/2 ML VIAL IM STA (18:52)
--- NOTE | 2017-08-01 19:01 | ED ---
General Adult HPI - General Chief complaint: Weakness Stated complaint: Weakness Time Seen by Provider: 08/01/17 18:51 Source: patient, EMS, RN notes reviewed Mode of arrival: EMS Limitations: no limitations - History of Present Illness Initial comments: 72-year-old female presents for evaluation of generalized weakness and states "she is unable to take care of herself any longer". Patient states she's had mild headache, nausea and abdominal pain. She's been unable to eat for the past 3 days. Denies vomiting. Denies diarrhea. States she's been constipated for the past several days. Patient was recently treated for a urinary tract infection. She completed antibiotics. She continues to have dysuria. Denies fever. Denies chest pain. States she has shortness of breath with ambulation. - Related Data Home Medications Medication Instructions Recorded Confirmed Baclofen 10 mg PO TID PRN 05/01/17 08/01/17 DULoxetine HCL [Cymbalta] 60 mg PO HS 05/01/17 08/01/17 Famotidine [Pepcid] 20 mg PO BID 05/01/17 08/01/17 Fesoterodine Fumarate [Toviaz] 4 mg PO HS 05/01/17 08/01/17 HYDROcodone/APAP 10-325MG [[place] 1 tab PO QID PRN 05/01/17 08/01/17 10-325] Insulin Aspart [NovoLOG] See Protocol SQ AC-TID 05/01/17 08/01/17 Mirabegron [Myrbetriq] 25 mg PO HS 05/01/17 08/01/17 Quinapril HCl 40 mg PO DAILY 05/01/17 08/01/17 Simvastatin [Zocor] 20 mg PO HS 05/01/17 08/01/17 Aspirin EC [Ecotrin] 325 mg PO HS 08/01/17 08/01/17 Insulin Detemir [Levemir Flextouch] 40 units SQ HS 08/01/17 08/01/17 Previous Rx's Medication Instructions Recorded amLODIPine [Norvasc] 5 mg PO DAILY #30 tab 07/17/17 Allergies Allergy/AdvReac Type Severity Reaction Status Date / Time Iodinated Contrast- Oral and Allergy Rash/Hives Verified 08/01/17 19:50 IV Dye latex Allergy Anaphylaxis Verified 08/01/17 19:50 morphine Allergy Anaphylaxis Verified 08/01/17 19:50 Penicillins Allergy Anaphylaxis Verified 08/01/17 19:50 prochlorperazine AdvReac Seizure Verified 08/01/17 19:50 [From Compazine] Sulfa (Sulfonamide AdvReac Systemic Verified 08/01/17 19:50 Antibiotics) Lupus Flare Review of Systems ROS Statement: Those systems with pertinent positive or pertinent negative responses have been documented in the HPI. ROS Other: All systems not noted in ROS Statement are negative. Past Medical History Past Medical History: Diabetes Mellitus, GERD/Reflux, Hypertension, Pneumonia Additional Past Medical History / Comment(s): Lupus, HEARTBURN, ryder ankle fx-no sx wore medi boots. pt stated lt ankle and rt knee gives out on her at times-hx falls. uti-ecoli 04-29-17. pt stated takes cholesterol med as preventtive because of her diabetes", upper bridge. History of Any Multi-Drug Resistant Organisms: None Reported Past Surgical History: Adenoidectomy, Appendectomy, Back Surgery, Cholecystectomy, Heart Catheterization, Hysterectomy, Tonsillectomy Additional Past Surgical History / Comment(s): 3 left humerous surgery, ryder heal surgery, partial knee right, 7 back surgery, c4-c7 fusion, Lumbar fusion. Past Anesthesia/Blood Transfusion Reactions: No Reported Reaction Past Psychological History: Anxiety, Depression Smoking Status: Never smoker Past Alcohol Use History: None Reported Past Drug Use History: None Reported - Past Family History Father Family Medical History: AICD/Pacemaker, Coronary Artery Disease (CAD) Brother(s) Additional Family Medical History / Comment(s): brain surgery Son(s) Family Medical History: Cancer Additional Family Medical History / Comment(s): brain ca General Exam Limitations: no limitations General appearance: alert, in no apparent distress Head exam: Present: atraumatic, normocephalic Eye exam: Present: normal appearance, PERRL ENT exam: Present: mucous membranes moist Neck exam: Present: normal inspection. Absent: tenderness, meningismus Respiratory exam: Present: normal lung sounds bilaterally. Absent: respiratory distress, wheezes Cardiovascular Exam: Present: regular rate, normal rhythm GI/Abdominal exam: Present: soft, tenderness (Mild generalized tenderness). Absent: distended, guarding, rebound External exam: Present: normal external exam Extremities exam: Present: normal inspection, full ROM. Absent: normal capillary refill, pedal edema Neurological exam: Present: alert, oriented X3, CN II-XII intact. Absent: motor sensory deficit Psychiatric exam: Present: normal affect, normal mood Skin exam: Present: warm, dry, intact. Absent: cyanosis, diaphoretic Course Vital Signs 08/01/17 08/01/17 18:51 20:39 Temperature 100.1 F H 99.1 F Pulse Rate 95 92 Respiratory 18 18 Rate Blood Pressure 141/69 103/60 O2 Sat by Pulse 97 97 Oximetry EKG Findings - EKG Comments: EKG Findings:: EKG shows sinus rhythm with ventricular rate 92, AK interval 126 , QRS ratio 80, QTc 447, there is T-wave inversion in the precordial leads V1 through V6 no ST segment elevation or depression Medical Decision Making - Medical Decision Making 72-year-old female presenting with generalized weakness, fatigue, poor appetite. On examination patient does appear dehydrated, dry mucous members, blood pressure on the low side of normal. Laboratory studies are obtained, significant for lactic acidosis to 0.8, urinalysis shows ketones and I Marlena consistent with dehydration. Chest x-ray shows no focal pneumonia, abdominal x- ray is negative for acute finding. 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 Patient has no focal weakness or focal neurological findings on examination. Patient will be admitted for rehydration and further evaluation. Diagnosis: Dehydration, lactic acidosis, generalized weakness - Lab Data Result diagrams: 08/01/17 18:55 08/01/17 18:55 Lab Results 08/01/17 08/01/17 08/01/17 Range/Units 18:55 18:55 18:55 WBC 10.4 (3.8-10.6) k/uL RBC 4.34 (3.80-5.40) m/uL Hgb 13.4 (11.4-16.0) gm/dL Hct 41.4 (34.0-46.0) % MCV 95.5 (80.0-100.0) fL MCH 30.9 (25.0-35.0) pg MCHC 32.3 (31.0-37.0) g/dL RDW 14.1 (11.5-15.5) % Plt Count 308 (150-450) k/uL Neutrophils % 69 % Lymphocytes % 16 % Monocytes % 12 % Eosinophils % 1 % Basophils % 1 % Neutrophils # 7.2 (1.3-7.7) k/uL Lymphocytes # 1.7 (1.0-4.8) k/uL Monocytes # 1.2 H (0-1.0) k/uL Eosinophils # 0.1 (0-0.7) k/uL Basophils # 0.1 (0-0.2) k/uL PT (9.0-12.0) sec INR (<1.2) APTT (22.0-30.0) sec Sodium 137 (137-145) mmol/L Potassium 4.3 (3.5-5.1) mmol/L Chloride 106 (98-107) mmol/L Carbon Dioxide 19 L (22-30) mmol/L Anion Gap 12 mmol/L BUN 19 H (7-17) mg/dL Creatinine 1.00 (0.52-1.04) mg/dL Est GFR (MDRD) Af Amer >60 (>60 ml/min/1.73 sqM) Est GFR (MDRD) Non-Af 54 (>60 ml/min/1.73 sqM) Glucose 113 H (74-99) mg/dL Plasma Lactic Acid Solitario (0.7-2.0) mmol/L Calcium 9.5 (8.4-10.2) mg/dL Magnesium 2.0 (1.6-2.3) mg/dL Total Bilirubin 1.1 (0.2-1.3) mg/dL AST 16 (14-36) U/L ALT 32 (9-52) U/L Alkaline Phosphatase 93 (38-126) U/L Total Creatine Kinase 37 (30-135) U/L CK-MB (CK-2) 0.7 (0.0-2.4) ng/mL CK-MB (CK-2) Rel Index 1.9 Troponin I <0.012 (0.000-0.034) ng/mL NT-Pro-B Natriuret Pep pg/mL Total Protein 6.1 L (6.3-8.2) g/dL Albumin 3.4 L (3.5-5.0) g/dL Lipase 87 (23-300) U/L TSH 1.590 (0.465-4.680) mIU/L Urine Color Urine Appearance (Clear) Urine pH (5.0-8.0) Ur Specific [place] (1.001-1.035) Urine Protein (Negative) Urine Glucose (UA) (Negative) Urine Ketones (Negative) Urine Blood (Negative) Urine Nitrite (Negative) Urine Bilirubin (Negative) Urine Urobilinogen (<2.0) mg/dL Ur Leukocyte Esterase (Negative) Urine RBC (0-5) /hpf Urine WBC (0-5) /hpf Ur Squamous Epith Cells (0-4) /hpf Hyaline Casts (0-2) /lpf Urine Mucus (None) /hpf Blood Type Blood Type Recheck Antibody Screen Spec Expiration Date 08/01/17 08/01/17 08/01/17 Range/Units 18:55 18:55 18:55 WBC (3.8-10.6) k/uL RBC (3.80-5.40) m/uL Hgb (11.4-16.0) gm/dL Hct (34.0-46.0) % MCV (80.0-100.0) fL MCH (25.0-35.0) pg MCHC (31.0-37.0) g/dL RDW (11.5-15.5) % Plt Count (150-450) k/uL Neutrophils % % Lymphocytes % % Monocytes % % Eosinophils % % Basophils % % Neutrophils # (1.3-7.7) k/uL Lymphocytes # (1.0-4.8) k/uL Monocytes # (0-1.0) k/uL Eosinophils # (0-0.7) k/uL Basophils # (0-0.2) k/uL PT 10.7 (9.0-12.0) sec INR 1.1 (<1.2) APTT 20.9 L (22.0-30.0) sec Sodium (137-145) mmol/L Potassium (3.5-5.1) mmol/L Chloride (98-107) mmol/L Carbon Dioxide (22-30) mmol/L Anion Gap mmol/L BUN (7-17) mg/dL Creatinine (0.52-1.04) mg/dL Est GFR (MDRD) Af Amer (>60 ml/min/1.73 sqM) Est GFR (MDRD) Non-Af (>60 ml/min/1.73 sqM) Glucose (74-99) mg/dL Plasma Lactic Acid Solitario 2.8 H* (0.7-2.0) mmol/L Calcium (8.4-10.2) mg/dL Magnesium (1.6-2.3) mg/dL Total Bilirubin (0.2-1.3) mg/dL AST (14-36) U/L ALT (9-52) U/L Alkaline Phosphatase (38-126) U/L Total Creatine Kinase (30-135) U/L CK-MB (CK-2) (0.0-2.4) ng/mL CK-MB (CK-2) Rel Index Troponin I (0.000-0.034) ng/mL NT-Pro-B Natriuret Pep 228 pg/mL Total Protein (6.3-8.2) g/dL Albumin (3.5-5.0) g/dL Lipase (23-300) U/L TSH (0.465-4.680) mIU/L Urine Color Urine Appearance (Clear) Urine pH (5.0-8.0) Ur Specific [place] (1.001-1.035) Urine Protein (Negative) Urine Glucose (UA) (Negative) Urine Ketones (Negative) Urine Blood (Negative) Urine Nitrite (Negative) Urine Bilirubin (Negative) Urine Urobilinogen (<2.0) mg/dL Ur Leukocyte Esterase (Negative) Urine RBC (0-5) /hpf Urine WBC (0-5) /hpf Ur Squamous Epith Cells (0-4) /hpf Hyaline Casts (0-2) /lpf Urine Mucus (None) /hpf Blood Type Blood Type Recheck Antibody Screen Spec Expiration Date 08/01/17 08/01/17 Range/Units 18:55 18:55 WBC (3.8-10.6) k/uL RBC (3.80-5.40) m/uL Hgb (11.4-16.0) gm/dL Hct (34.0-46.0) % MCV (80.0-100.0) fL MCH (25.0-35.0) pg MCHC (31.0-37.0) g/dL RDW (11.5-15.5) % Plt Count (150-450) k/uL Neutrophils % % Lymphocytes % % Monocytes % % Eosinophils % % Basophils % % Neutrophils # (1.3-7.7) k/uL Lymphocytes # (1.0-4.8) k/uL Monocytes # (0-1.0) k/uL Eosinophils # (0-0.7) k/uL Basophils # (0-0.2) k/uL PT (9.0-12.0) sec INR (<1.2) APTT (22.0-30.0) sec Sodium (137-145) mmol/L Potassium (3.5-5.1) mmol/L Chloride (98-107) mmol/L Carbon Dioxide (22-30) mmol/L Anion Gap mmol/L BUN (7-17) mg/dL Creatinine (0.52-1.04) mg/dL Est GFR (MDRD) Af Amer (>60 ml/min/1.73 sqM) Est GFR (MDRD) Non-Af (>60 ml/min/1.73 sqM) Glucose (74-99) mg/dL Plasma Lactic Acid Solitario (0.7-2.0) mmol/L Calcium (8.4-10.2) mg/dL Magnesium (1.6-2.3) mg/dL Total Bilirubin (0.2-1.3) mg/dL AST (14-36) U/L ALT (9-52) U/L Alkaline Phosphatase (38-126) U/L Total Creatine Kinase (30-135) U/L CK-MB (CK-2) (0.0-2.4) ng/mL CK-MB (CK-2) Rel Index Troponin I (0.000-0.034) ng/mL NT-Pro-B Natriuret Pep pg/mL Total Protein (6.3-8.2) g/dL Albumin (3.5-5.0) g/dL Lipase (23-300) U/L TSH (0.465-4.680) mIU/L Urine Color Yellow Urine Appearance Clear (Clear) Urine pH 7.0 (5.0-8.0) Ur Specific [place] 1.011 (1.001-1.035) Urine Protein 1+ H (Negative) Urine Glucose (UA) 2+ H (Negative) Urine Ketones 1+ H (Negative) Urine Blood Negative (Negative) Urine Nitrite Negative (Negative) Urine Bilirubin Negative (Negative) Urine Urobilinogen <2.0 (<2.0) mg/dL Ur Leukocyte Esterase Negative (Negative) Urine RBC <1 (0-5) /hpf Urine WBC <1 (0-5) /hpf Ur Squamous Epith Cells <1 (0-4) /hpf Hyaline Casts 6 H (0-2) /lpf Urine Mucus Rare H (None) /hpf Blood Type O Positive Blood Type Recheck No Antibody Screen NEGATIVE Spec Expiration Date 08/04/2017 - 2352 Disposition Clinical Impression: Dehydration, Lactic acidosis Disposition: ADMITTED IP TO THIS [facility] Condition: Stable Referrals: Nonstaff,Physician [Primary Care Provider] - 1-2 days Decision to Admit Reason: Admit from EC Decision Date: 08/01/17 Decision Time: 21:04
[2017-08-01] MEDS ORDERED: ONDANSETRON 4 MG/2 ML VIAL IVP STA (19:13)
[2017-08-01 19:19] LABS: Appearance,Urine Clear (Clear); Bilirubin,Urine Negative (Negative); Glucose,Urine (UA) 2+ (Negative); Ketones,Urine 1+ (Negative); Leukocyte Esterase,Urine Negative (Negative); Mucus,Urine Rare /hpf; Nitrite,Urine Negative (Negative); Particle Count 4028; Protein,Urine 1+ (Negative); RBC,Urine <1 /hpf (0-5); Specific Gravity,Urine 1.011 (1.001-1.035); Squamous Epithelial Cell,Urine <1 /hpf (0-4); UA Billing (MACRO vs. MICRO) MICRO; Urobilinogen,Urine <2.0 mg/dL (<2.0); WBC,Urine <1 /hpf (0-5)
[2017-08-01 19:20] LABS: Basophils # (A) 0.1 k/uL (0-0.2); Basophils % (A) 1 %; CH 32.3; CHCM 33.9; Eosinophils # (A) 0.1 k/uL (0-0.7); Eosinophils % (A) 1 %; HCT 41.4 % (34.0-46.0); HDW 2.02; HGB 13.4 gm/dL (11.4-16.0); Luc # (Auto) 0.16; Luc % (Auto) 2; Lymphocytes # (A) 1.7 k/uL (1.0-4.8); Lymphocytes % (A) 16 %; MCH 30.9 pg (25.0-35.0); MCHC 32.3 g/dL (31.0-37.0); MCV 95.5 fL (80.0-100.0); Mean Platelet Volume 8.2; Monocytes # (A) 1.2 k/uL (0-1.0); Monocytes % (A) 12 %; Neutrophils # (A) 7.2 k/uL (1.3-7.7); Neutrophils % (A) 69 %; RBC 4.34 m/uL (3.80-5.40); RDW 14.1 % (11.5-15.5); WBC 10.4 k/uL (3.8-10.6); WBC (Perox) 10.79
[2017-08-01 19:28] LABS: ALT 32 U/L (9-52); AST 16 U/L (14-36); Alkaline Phosphatase 93 U/L (38-126); Anion Gap 12 mmol/L; Blood Urea Nitrogen 19 mg/dL (7-17); Calcium 9.5 mg/dL (8.4-10.2); Carbon Dioxide 19 mmol/L (22-30); Chloride 106 mmol/L (98-107); Glucose 113 mg/dL (74-99); Non-African American GFR(MDRD) 54 (>60 ml/min/1.73 sqM); Potassium 4.3 mmol/L (3.5-5.1); Sodium 137 mmol/L (137-145); Total Bilirubin 1.1 mg/dL (0.2-1.3); Total Protein 6.1 g/dL (6.3-8.2)
[2017-08-01 19:33] LABS: INR 1.1 (<1.2); Prothrombin Time 10.7 sec (9.0-12.0)
[2017-08-01 19:41] LABS: Partial Thromboplastin Time 20.9 sec (22.0-30.0)
--- NOTE | 2017-08-01 19:44 | XR ---
EXAMINATION TYPE: XR abdomen complete w decub DATE OF EXAM: 08/01/2017 COMPARISON: NONE HISTORY: Weakness TECHNIQUE: Supine, upright, and left side down lateral decubitus views of the abdomen are obtained. FINDINGS: There is no sign of intestinal obstruction or pneumoperitoneum. Fecal pattern is normal. There are no pathologic calcifications over the kidneys. There are clips probably from cholecystectomy. There is probably some fibrosis or calcified pleural plaque in the left lower lobe. CONCLUSION: Nonacute abdomen.
--- NOTE | 2017-08-01 19:45 | XR ---
EXAMINATION TYPE: XR chest 2V DATE OF EXAM: 08/01/2017 COMPARISON: 05/22/2017 HISTORY: Weakness TECHNIQUE: Frontal and lateral views of the chest are obtained. FINDINGS: There is no heart failure nor confluent pneumonic infiltrate. There is mild calcified pleu ral plaque in the left lower lobe. There is no pleural effusion. Cervical spine fusion surgery is not ed. There are chest leads. There is spurring in thoracic spine. IMPRESSION: No active cardiopulmonary disease. No change.
[2017-08-01 19:52] LABS: Creatine Kinase 37 U/L (30-135)
--- NOTE | 2017-08-01 19:56 | CT ---
EXAMINATION TYPE: CT brain wo con DATE OF EXAM: 08/01/2017 COMPARISON: NONE HISTORY: Weakness and headaches. No known injury CT DLP: 995.5 mGycm Automated exposure control for dose reduction was used. FINDINGS: There is cerebral cortical atrophy. There is no mass effect nor midline shift. There is no sign of in tracranial hemorrhage. There is a rounded 1 cm area of fluid density in the left posterior parietal l obe white matter adjacent to the lateral ventricle. The calvarium is intact. 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 NO ACUTE INTRACRANIAL ABNORMALITY.
[2017-08-01 20:05] LABS: Creatine Kinase MB 0.7 ng/mL (0.0-2.4); Troponin I <0.012 ng/mL (0.000-0.034)
[2017-08-01] MEDS ORDERED: NALOXONE 0.4 MG/ML 1 ML VIAL IV PRN (20:59)
[2017-08-01] MEDS ORDERED: ACETAMINOPHEN TAB 325 MG TAB PO PRN (21:23)
[2017-08-01] MEDS ORDERED: SODIUM CHLORIDE 0.45% 1,000 ML IV SCH (21:30)
[2017-08-01] MEDS ORDERED: OXYBUTYNIN 10 MG TAB.ER.24 PO SCH (22:00)
[2017-08-01] MEDS: FAMOTIDINE 20 MG TAB PO SCH (23:20)
[2017-08-01] MEDS: ASPIRIN 325 MG TAB PO SCH (23:20)
[2017-08-01] MEDS: ATORVASTATIN 10 MG TAB PO SCH (23:20)
[2017-08-01] MEDS: SODIUM CHLORIDE 0.9% 1,000 ML IV SCH (23:21)
[2017-08-01] MEDS: OXYBUTYNIN 10 MG TAB.ER.24 PO SCH (23:21)
[2017-08-01] MEDS: DULoxetine HCL 60 MG CAPSULE.DR PO SCH (23:21)
[2017-08-01 23:30] LABS: Glucose,Whole Blood 177 mg/dL (75-99)
[2017-08-01] MEDS: INSULIN GLARGINE 100 UNIT/ML 10 ML VIAL SQ SCH (23:30)
[2017-08-01] MEDS ORDERED: ONDANSETRON 4 MG/2 ML VIAL IVP PRN (23:37)
[2017-08-02] MEDS: POLYETHYLENE GLYCOL 3350 17 GM POWD.PACK PO SCH ×2 (00:25→21:22)
[2017-08-02] MEDS: BACLOFEN 10 MG TAB PO PRN (02:20)
[2017-08-02 07:44] LABS: Glucose,Whole Blood 139 mg/dL (75-99)
--- NOTE | 2017-08-02 08:23 | CT ---
EXAMINATION TYPE: CT abdomen pelvis wo con DATE OF EXAM: 08/02/2017 COMPARISON: NONE HISTORY: Abdominal pain, dehydration CT DLP: 982 mGycm Examination of the solid and hollow viscera is limited given the lack of contrast. FINDINGS: LUNG BASES: No evidence for nodule. No evidence for infiltrate. Mild basilar subpleural fibrosis. LIVER/GB: Cholecystectomy clips are in place. No space-occupying hepatic lesion. PANCREAS: No pancreatic mass identified. No inflammatory process seen. SPLEEN: No evidence for splenomegaly. No intrasplenic lesions seen. ADRENALS: No adrenal nodules identified. No evidence for thickening. KIDNEYS: No evidence for renal mass. No nephrolithiasis. No hydronephrosis. BOWEL: Appendix has a normal appearance. No evidence of bowel obstruction. No inflammatory process. S igmoid diverticulosis without diverticulitis. Lymph nodes: No evidence for adenopathy greater than 1 cm. Abdominal aorta: Atheromatous changes seen. No evidence for aneurysm. Genital organs: No significant abnormality. Other: Small fat-containing umbilical hernia. Postoperative changes of lumbar laminectomy. Degenerati ve changes noted. IMPRESSION: 1. NO SIGNIFICANT ABNORMALITY TO ACCOUNT FOR THE PATIENT'S SYMPTOMS.
[2017-08-02 09:25] LABS: Basophils # (A) 0.1 k/uL (0-0.2); Basophils % (A) 1 %; CHCM 32.9; Eosinophils # (A) 0.2 k/uL (0-0.7); Eosinophils % (A) 3 %; HCT 42.9 % (34.0-46.0); HDW 2.04; HGB 13.5 gm/dL (11.4-16.0); Luc # (Auto) 0.16; Luc % (Auto) 3; Lymphocytes # (A) 1.5 k/uL (1.0-4.8); Lymphocytes % (A) 25 %; MCH 30.9 pg (25.0-35.0); MCHC 31.5 g/dL (31.0-37.0); MCV 97.9 fL (80.0-100.0); Monocytes # (A) 0.8 k/uL (0-1.0); Monocytes % (A) 14 %; Neutrophils # (A) 3.1 k/uL (1.3-7.7); Neutrophils % (A) 54 %; RBC 4.38 m/uL (3.80-5.40); WBC 5.8 k/uL (3.8-10.6); WBC (Perox) 5.58
[2017-08-02] MEDS: FAMOTIDINE 20 MG TAB PO SCH ×2 (10:02→21:22)
[2017-08-02] MEDS: SODIUM CHLORIDE 0.9% 1,000 ML IV SCH ×2 (10:02→17:08)
[2017-08-02] MEDS: ENOXAPARIN 40 MG/0.4 ML SYRINGE SQ SCH (10:02)
[2017-08-02] MEDS: amLODIPine 5 MG TAB PO SCH (10:02)
[2017-08-02] MEDS: LISINOPRIL 20 MG TAB PO SCH (10:02)
[2017-08-02 10:05] LABS: ALT 26 U/L (9-52); AST 14 U/L (14-36); Alkaline Phosphatase 80 U/L (38-126); Anion Gap 9 mmol/L; Blood Urea Nitrogen 18 mg/dL (7-17); Calcium 9.3 mg/dL (8.4-10.2); Carbon Dioxide 22 mmol/L (22-30); Chloride 108 mmol/L (98-107); Glucose 178 mg/dL (74-99); Non-African American GFR(MDRD) 54 (>60 ml/min/1.73 sqM); Potassium 4.4 mmol/L (3.5-5.1); Sodium 139 mmol/L (137-145); Total Bilirubin 0.6 mg/dL (0.2-1.3); Total Protein 6.1 g/dL (6.3-8.2)
[2017-08-02 12:16] LABS: Glucose,Whole Blood 191 mg/dL (75-99)
[2017-08-02] MEDS: HYDROcodone/APAP 10-325MG 1 EACH TAB PO PRN ×2 (16:24→21:37)
[2017-08-02 17:05] LABS: Glucose,Whole Blood 164 mg/dL (75-99)
--- NOTE | 2017-08-02 19:57 | P.PN ---
Subjective Principal diagnosis: dehydration, weakness and UTI 72-year-old white female who was readmitted 10 days ago she was treated for UTI. The patient presented with severe dehydration and generalized weakness and lactic acidosis with poor oral intake abdominal pain diffusely and nausea urinalysis showed UTI urine culture still pending patient complained of constipation and weight loss and abdominal pain and will consult GI doctor for ruling out any chronic pathology or malignancy further GI workup. Urine and urine culture still pending blood culture is positive for gram-positive cocci and I started him on Rocephin chest were ordered to assure there is no contamination of other complaints offered today in general she's feeling better we'll continue IV fluid hydration. Objective - Vital Signs Vital signs: Vital Signs Temp 97.4 F L 08/02/17 15:00 Pulse 79 08/02/17 15:00 Resp 16 08/02/17 15:00 BP 100/59 08/02/17 15:00 Pulse Ox 95 08/02/17 15:00 Intake & Output 08/02/17 08/02/17 08/03/17 06:59 18:59 06:59 Intake Total 200 Balance 200 Weight 79.379 kg Intake: Oral 200 Other: # Voids 1 3 # Bowel Movements 0 - Constitutional General appearance: Present: cooperative, no acute distress - EENT Eyes: Present: anicteric sclerae, EOMI, PERRLA. Absent: abnormal pupil, disc margins sharp, edentulous, fundus normal, photophobia, dentition normal, poor dentition, ptosis, scleral icterus, normal appearance ENT: Present: NA/AT, normal oropharynx Ears: bilateral: normal - Neck Neck: Present: normal ROM. Absent: lymphadenopathy, rigidity, stridor, thyromegaly Carotids: bilateral: upstroke normal, bruit absent Thyroid: negative: normal size, enlarged, firm, nodule - Respiratory Respiratory: bilateral: CTA, negative: diminished, dullness, rales, rhonchi, wheezing, prolonged expiration - Cardiovascular Rhythm: regular Heart sounds: normal: S1, S2 Abnormal Heart Sounds: Absent: systolic murmur, diastolic murmur, rub, S3 Gallop , S4 Gallop, click, other - Gastrointestinal General gastrointestinal: Present: normal bowel sounds, soft. Absent: absent bowel sounds, decreased bowel sounds, distended, hepatomegaly, hyperactive bowel sounds, organomegaly, rigid, scaphoid, splenomegaly, tenderness, umbilical hernia, ventral hernia - Integumentary Integumentary: Absent: calor, cellulitis, cyanotic, decreased turgor, flushed, jaundiced, normal, normal turgor, pale, rash, ulcer - Neurologic Neurologic: Present: CNII-XII intact, focal deficits - Musculoskeletal Musculoskeletal: Present: gait normal, strength equal bilaterally. Absent: generalized weakness, right sided weakness, left sided weakness - Psychiatric Psychiatric: Present: A&O x's 3, appropriate affect, intact judgment & insight - Allied health notes Allied health notes reviewed: case management - Labs CBC & Chem 7: 08/02/17 08:33 08/02/17 08:33 Labs: Abnormal Lab Results - Last 24 Hours (Table) 08/01/17 08/02/17 08/02/17 Range/Units 23:28 07:29 08:33 Chloride 108 H (98-107) mmol/L BUN 18 H (7-17) mg/dL Glucose 178 H (74-99) mg/dL POC Glucose (mg/dL) 177 H 139 H (75-99) mg/dL Total Protein 6.1 L (6.3-8.2) g/dL Albumin 3.2 L (3.5-5.0) g/dL Vitamin D 25-Hydroxy (30.0-100.0) ng/mL 08/02/17 08/02/17 08/02/17 Range/Units 08:33 12:06 16:52 Chloride (98-107) mmol/L BUN (7-17) mg/dL Glucose (74-99) mg/dL POC Glucose (mg/dL) 191 H 164 H (75-99) mg/dL Total Protein (6.3-8.2) g/dL Albumin (3.5-5.0) g/dL Vitamin D 25-Hydroxy 16.2 L (30.0-100.0) ng/mL Microbiology - Last 24 Hours (Table) 08/01/17 19:05 Blood Culture Gram Stain - Preliminary Blood 08/01/17 19:05 Blood Culture - Final Blood 08/01/17 18:55 Urine Culture - Preliminary Urine,Catheterized Assessment and Plan (1) Constipation Narrative/Plan: GI consult With abd pain and wt loss , need gi malignancy w/u Status: Chronic (2) Dehydration Status: Acute (3) Lactic acidosis Status: Resolved (4) Weakness Status: Acute (5) Urinary tract infection Narrative/Plan: f/u urine c/s Blood culture was positive for G +ve satrt Rocephin Repeat c/s Status: Acute Plan: Gi Consult f/u blood and urine c/s Lactate normalized Time with Patient: Less than 30
[2017-08-02 20:59] LABS: Glucose,Whole Blood 187 mg/dL (75-99)
[2017-08-02] MEDS ORDERED: NON-FORMULARY DRUG (Mirabegron [Myrbetriq] 25 MG) PO SCH (21:00)
[2017-08-02] MEDS: DULoxetine HCL 60 MG CAPSULE.DR PO SCH (21:22)
[2017-08-02] MEDS: ASPIRIN 325 MG TAB PO SCH (21:22)
[2017-08-02] MEDS: ATORVASTATIN 10 MG TAB PO SCH (21:22)
[2017-08-02] MEDS: OXYBUTYNIN 10 MG TAB.ER.24 PO SCH (21:22)
[2017-08-02] MEDS: INSULIN GLARGINE 100 UNIT/ML 10 ML VIAL SQ SCH (21:37)
[2017-08-03] MEDS: SODIUM CHLORIDE 0.9% 1,000 ML IV SCH ×2 (00:13→14:42)
[2017-08-03] MEDS: HYDROcodone/APAP 10-325MG 1 EACH TAB PO PRN ×4 (03:44→23:03)
[2017-08-03 07:01] LABS: Glucose,Whole Blood 67 mg/dL (75-99)
[2017-08-03 07:24] LABS: Glucose,Whole Blood 85 mg/dL (75-99)
[2017-08-03] MEDS: FAMOTIDINE 20 MG TAB PO SCH (08:44)
[2017-08-03] MEDS: ENOXAPARIN 40 MG/0.4 ML SYRINGE SQ SCH (08:44)
[2017-08-03] MEDS: LISINOPRIL 20 MG TAB PO SCH (09:08)
[2017-08-03] MEDS: amLODIPine 5 MG TAB PO SCH (09:08)
[2017-08-03] MEDS: BACLOFEN 10 MG TAB PO PRN (09:09)
[2017-08-03 09:12] LABS: Anion Gap 9 mmol/L; Blood Urea Nitrogen 15 mg/dL (7-17); Calcium 9.1 mg/dL (8.4-10.2); Carbon Dioxide 24 mmol/L (22-30); Chloride 110 mmol/L (98-107); Glucose 140 mg/dL (74-99); Non-African American GFR(MDRD) 55 (>60 ml/min/1.73 sqM); Potassium 4.1 mmol/L (3.5-5.1); Sodium 143 mmol/L (137-145)
--- NOTE | 2017-08-03 11:02 | P.CONS ---
History of Present Illness - Reason for Consult Consult date: 08/03/17 Abdominal pain constipation weight loss Requesting physician: Chris Clark - History of Present Illness 72-year-old female history of lupus admitted with generalized weakness with reports of unable to take care of herself. Decreased appetite mild headache nausea. Denies hematemesis hematochezia melena vomiting diarrhea. Constipated for several days prior to admission took a laxative with good response followed by looser bowel movements. Consultation requested for constipation and abdominal pain and weight loss. Patient fractured both her ankles at the end of April since then she has been on pain medications and has had difficulty with ambulating. Her overall experience with her bilateral fractured ankles has changed her appetite and because of limited mobility she's noticed more constipation. She has no history of chronic constipation. Last colonoscopy to her memory was about 7 years ago and considered normal with recommendations at that time to have a repeat exam in 10 years. She takes Colace on as needed for constipation usually has a bowel movement within 24 hours. Denies hematemesis hematochezia melena. Her weight loss is somewhat intentional as well as with decreased appetite secondary to the pain medications and generalized weakness since the end of April. Denies abdominal pain. Presently reporting right lower extremity numbness from chronic back pain and disc issues. Upon review of medical records 4 kg weight change since April 2017. CT abdomen and pelvis unremarkable. CT of brain cerebral atrophy left parietal lobe lacunar infarct no acute intracranial abnormality. Review of Systems Constitutional: Denies fever, chills, sweats, weight gain, or loss. HEENT: Negative for migraines, blurred vision or loss, earaches, drainage, tinnitus, oral mucosal lesions, dysphagia, or odynophagia. CARDIAC: Hypertension. Negative for chest pain, arrhythmias, or palpitation. RESPIRATORY: Negative for shortness of breath, hemoptysis, cough, or sputum production. GI: See HPI for pertinent findings. : Negative for hematuria, urgency, frequency, polyuria, or dysuria. GYNc: Denies possibility of . Negative vaginal discharge. MUSCULOSKELETAL: Lupus. Negative for muscle aches, swelling, arthritis, and arthralgias. NEUROLOGIC: Negative for stroke or TIA. ENDOCRINE: Diabetes. Negative for thyroid problems. SKIN: Negative for rash or itching. PSYCHIATRIC: Anxiety. Depression. All systems: negative (See HPI) Past Medical History Past Medical History: Diabetes Mellitus, GERD/Reflux, Hypertension, Pneumonia Additional Past Medical History / Comment(s): Lupus, HEARTBURN, ryder ankle fx-no sx wore medi boots. pt stated lt ankle and rt knee gives out on her at times-hx falls. uti-ecoli 04-29-17. pt stated takes cholesterol med as preventtive because of her diabetes", upper bridge. History of Any Multi-Drug Resistant Organisms: None Reported Past Surgical History: Adenoidectomy, Appendectomy, Back Surgery, Cholecystectomy, Heart Catheterization, Hysterectomy, Tonsillectomy Additional Past Surgical History / Comment(s): 3 left humerous surgery, ryder heal surgery, partial knee right, 7 back surgery, c4-c7 fusion, Lumbar fusion. Past Anesthesia/Blood Transfusion Reactions: No Reported Reaction Past Psychological History: Anxiety, Depression Smoking Status: Never smoker Past Alcohol Use History: None Reported Past Drug Use History: None Reported - Past Family History Father Family Medical History: AICD/Pacemaker, Coronary Artery Disease (CAD) Brother(s) Additional Family Medical History / Comment(s): brain surgery Son(s) Family Medical History: Cancer Additional Family Medical History / Comment(s): brain ca Medications and Allergies Home Medications Medication Instructions Recorded Confirmed Type Baclofen 10 mg PO TID PRN 05/01/17 08/01/17 History DULoxetine HCL [Cymbalta] 60 mg PO HS 05/01/17 08/01/17 History Famotidine [Pepcid] 20 mg PO BID 05/01/17 08/01/17 History Fesoterodine Fumarate [Toviaz] 4 mg PO HS 05/01/17 08/01/17 History HYDROcodone/APAP 10-325MG [Tigrett 1 tab PO QID PRN 05/01/17 08/01/17 History 10-325] Insulin Aspart [NovoLOG] See Protocol SQ AC-TID 05/01/17 08/01/17 History Mirabegron [Myrbetriq] 25 mg PO HS 05/01/17 08/01/17 History Quinapril HCl 40 mg PO DAILY 05/01/17 08/01/17 History Simvastatin [Zocor] 20 mg PO HS 05/01/17 08/01/17 History amLODIPine [Norvasc] 5 mg PO DAILY #30 tab 07/17/17 08/01/17 Rx Aspirin EC [Ecotrin] 325 mg PO HS 08/01/17 08/01/17 History Insulin Detemir [Levemir Flextouch] 40 units SQ HS 08/01/17 08/01/17 History Allergies Allergy/AdvReac Type Severity Reaction Status Date / Time Iodinated Contrast- Oral and Allergy Rash/Hives Verified 08/01/17 19:50 IV Dye latex Allergy Anaphylaxis Verified 08/01/17 19:50 morphine Allergy Anaphylaxis Verified 08/01/17 19:50 Penicillins Allergy Anaphylaxis Verified 08/01/17 19:50 prochlorperazine AdvReac Seizure Verified 08/01/17 19:50 [From Compazine] Sulfa (Sulfonamide AdvReac Systemic Verified 08/01/17 19:50 Antibiotics) Lupus Flare Physical Exam Vitals: Vital Signs Temp Pulse Resp BP Pulse Ox 08/03/17 07:00 96.8 F L 68 16 95/49 97 08/02/17 23:00 97.8 F 67 16 96/56 96 08/02/17 15:00 97.4 F L 79 16 100/59 95 Intake and Output 08/02/17 08/03/17 08/03/17 22:59 06:59 14:59 Other: # Voids 1 3 Weight 79.9 kg General appearance: The patient is alert, oriented, in no acute distress. HET: Head is normocephalic and atraumatic. Pupils are equal and reactive. Oropharynx is clear without lesions. Neck: Supple without lymphadenopathy. Trachea midline. Heart: S1 S2. Regular rate and rhythm. Lungs: No crackles or wheezes are heard. Abdomen: Soft, nontender, nondistended with bowel sounds. No peritoneal signs. No palpable organomegaly or masses. Extremities: Normal skin color and turgor. No cyanosis, rash, ulceration, clubbing, or edema. Radial and pedal pulses are 2/4 bilaterally. Neurological: No focal deficits. Strength and sensation are grossly intact. Results CBC & Chem 7: 08/02/17 08:33 08/03/17 08:15 Labs: Abnormal Lab Results - Last 24 Hours (Table) 08/02/17 08/02/17 08/02/17 Range/Units 08:33 08:33 12:06 Chloride 108 H (98-107) mmol/L BUN 18 H (7-17) mg/dL Glucose 178 H (74-99) mg/dL POC Glucose (mg/dL) 191 H (75-99) mg/dL Total Protein 6.1 L (6.3-8.2) g/dL Albumin 3.2 L (3.5-5.0) g/dL Vitamin D 25-Hydroxy 16.2 L (30.0-100.0) ng/mL 08/02/17 08/02/17 08/03/17 Range/Units 16:52 20:45 06:59 Chloride (98-107) mmol/L BUN (7-17) mg/dL Glucose (74-99) mg/dL POC Glucose (mg/dL) 164 H 187 H 67 L (75-99) mg/dL Total Protein (6.3-8.2) g/dL Albumin (3.5-5.0) g/dL Vitamin D 25-Hydroxy (30.0-100.0) ng/mL Microbiology - Last 24 Hours (Table) 08/01/17 18:55 Urine Culture - Final Urine,Catheterized 08/01/17 19:05 Blood Culture Gram Stain - Preliminary Blood 08/01/17 19:05 Blood Culture - Final Blood CT scan - abdomen: report reviewed (Dr. Coffman) Assessment and Plan (1) Constipation Narrative/Plan: Suspect exacerbated by opioid usage secondary to her bilateral ankle fracture limited mobility April 2017 improves with [id number] stool softeners. Colonoscopy screening 7 years ago reported as normal with repeat exam in 10 years. Status: Chronic Plan: 1. Presently without constipation or abdominal complaints. Daily/twice daily [id number] stool softeners were discussed. As long as she continues with opioid usage she should be on a daily stool softener. Follow up in GI office in 2-3 weeks for reevaluation and discussion of timing outpatient colonoscopy. Thank you for this kind referral and the opportunity to participate in the care of your patient. This consultation was discussed with Dr. Coffman. The impression and plan of care have been directed as dictated.
[2017-08-03 11:56] LABS: Glucose,Whole Blood 112 mg/dL (75-99)
[2017-08-03 17:24] LABS: Glucose,Whole Blood 124 mg/dL (75-99)
--- NOTE | 2017-08-03 19:21 | P.PN ---
Subjective Principal diagnosis: dehydration, weakness and UTI 72-year-old white female who was readmitted 10 days ago she was treated for UTI. The patient presented with severe dehydration and generalized weakness and lactic acidosis with poor oral intake abdominal pain diffusely and nausea urinalysis showed UTI urine culture still pending patient complained of constipation and weight loss and abdominal pain and will consult GI doctor for ruling out any chronic pathology or malignancy further GI workup. Urine and urine culture still pending blood culture is positive for gram-positive cocci and I started him on Rocephin chest were ordered to assure there is no contamination of other complaints offered today in general she's feeling better we'll continue IV fluid hydration. she feels better today Blood c/s was positive for staph epidermidis ? contamination Repeat c/s : Pending , started on rocephin planned for ip rehab tomorrow Objective - Vital Signs Vital signs: Vital Signs Temp 97.6 F 08/03/17 14:59 Pulse 67 08/03/17 14:59 Resp 16 08/03/17 14:59 BP 104/52 08/03/17 14:59 Pulse Ox 96 08/03/17 14:59 Intake & Output 08/03/17 08/03/17 08/04/17 06:59 18:59 06:59 Weight 79.9 kg Other: Voiding Method Bedside Commode # Voids 3 3 - Constitutional General appearance: Present: cooperative - EENT Eyes: Present: anicteric sclerae, EOMI, PERRLA ENT: Present: NA/AT, normal oropharynx Ears: bilateral: normal - Neck Neck: Present: normal ROM. Absent: lymphadenopathy, other, rigidity, stridor, thyromegaly Carotids: bilateral: upstroke normal, bruit absent Thyroid: negative: normal size, enlarged, firm, nodule - Respiratory Respiratory: bilateral: CTA, negative: diminished, dullness, rales, rhonchi, wheezing, prolonged expiration - Cardiovascular Rhythm: regular Heart sounds: normal: S1, S2 Abnormal Heart Sounds: Absent: systolic murmur, diastolic murmur, rub, S3 Gallop , S4 Gallop, click, other - Gastrointestinal General gastrointestinal: Present: normal bowel sounds, scaphoid, soft. Absent : absent bowel sounds, decreased bowel sounds, distended, hepatomegaly, hyperactive bowel sounds, organomegaly, rigid, splenomegaly, tenderness, umbilical hernia, ventral hernia - Integumentary Integumentary: Absent: calor, cellulitis, cyanotic, decreased turgor, flushed, jaundiced, normal, normal turgor, pale, rash, ulcer - Neurologic Neurologic: Present: CNII-XII intact, focal deficits - Musculoskeletal Musculoskeletal: Present: gait normal, strength equal bilaterally - Psychiatric Psychiatric: Present: A&O x's 3, appropriate affect, intact judgment & insight - Allied health notes Allied health notes reviewed: PT - Labs CBC & Chem 7: 08/02/17 08:33 08/03/17 08:15 Labs: Abnormal Lab Results - Last 24 Hours (Table) 08/02/17 08/03/17 08/03/17 Range/Units 20:45 06:59 08:15 Chloride 110 H (98-107) mmol/L Glucose 140 H (74-99) mg/dL POC Glucose (mg/dL) 187 H 67 L (75-99) mg/dL 08/03/17 08/03/17 Range/Units 11:51 17:16 Chloride (98-107) mmol/L Glucose (74-99) mg/dL POC Glucose (mg/dL) 112 H 124 H (75-99) mg/dL Microbiology - Last 24 Hours (Table) 08/02/17 15:40 Blood Culture - Preliminary Blood No Growth after 24 hours 08/01/17 19:05 Blood Culture Gram Stain - Preliminary Blood Blood Culture - Preliminary Coagulase Negative Staph 08/01/17 18:55 Urine Culture - Final Urine,Catheterized Assessment and Plan (1) Constipation Narrative/Plan: GI consult With abd pain and wt loss , need gi malignancy w/u gi consult : no scopes needed f/u as op Status: Chronic (2) Dehydration Narrative/Plan: resolved Status: Acute (3) Lactic acidosis Narrative/Plan: resolved Status: Resolved (4) Weakness Narrative/Plan: improved but chr LBP limits her ambulation for IP{ rehab plan d/c in am, Status: Acute (5) Urinary tract infection Narrative/Plan: f/u urine c/s Blood culture was positive for G +ve satrt Rocephin Repeat c/s Status: Acute Plan: Gi Consult appreciated and cleared to d/c home f/u blood and urine c/s Lactate normalized continue antibiotics plan d/c in am Time with Patient: Less than 30
[2017-08-03] MEDS: ASPIRIN 325 MG TAB PO SCH (20:21)
[2017-08-03] MEDS: DULoxetine HCL 60 MG CAPSULE.DR PO SCH (20:22)
[2017-08-03] MEDS: OXYBUTYNIN 10 MG TAB.ER.24 PO SCH (20:22)
[2017-08-03] MEDS: POLYETHYLENE GLYCOL 3350 17 GM POWD.PACK PO SCH (20:22)
[2017-08-03] MEDS: ATORVASTATIN 10 MG TAB PO SCH (20:22)
[2017-08-03 20:49] LABS: Glucose,Whole Blood 200 mg/dL (75-99)
[2017-08-03] MEDS: INSULIN GLARGINE 100 UNIT/ML 10 ML VIAL SQ SCH (21:35)
[2017-08-04 06:18] VITALS: TEMP 97
[2017-08-04] MEDS: HYDROcodone/APAP 10-325MG 1 EACH TAB PO PRN ×2 (06:21→12:27)
[2017-08-04 07:03] LABS: Glucose,Whole Blood 52 mg/dL (75-99)
[2017-08-04 07:30] LABS: Glucose,Whole Blood 74 mg/dL (75-99)
[2017-08-04] MEDS: ENOXAPARIN 40 MG/0.4 ML SYRINGE SQ SCH (08:11)
[2017-08-04] MEDS: amLODIPine 5 MG TAB PO SCH (08:11)
[2017-08-04] MEDS: LISINOPRIL 20 MG TAB PO SCH (08:11)
[2017-08-04] MEDS ORDERED: FAMOTIDINE 20 MG TAB PO SCH (09:00)
[2017-08-04 09:18] LABS: CH 31.8; CHCM 32.8; HCT 33.5 % (34.0-46.0); HDW 2.22; MCH 31.9 pg (25.0-35.0); MCHC 32.8 g/dL (31.0-37.0); MCV 97.3 fL (80.0-100.0); Mean Platelet Volume 7.8; RBC 3.44 m/uL (3.80-5.40); RDW 13.8 % (11.5-15.5)
[2017-08-04 09:52] LABS: Anion Gap 7 mmol/L; Blood Urea Nitrogen 11 mg/dL (7-17); Calcium 8.9 mg/dL (8.4-10.2); Carbon Dioxide 23 mmol/L (22-30); Chloride 111 mmol/L (98-107); Glucose 130 mg/dL (74-99); Non-African American GFR(MDRD) >60 (>60 ml/min/1.73 sqM); Potassium 4.2 mmol/L (3.5-5.1); Sodium 141 mmol/L (137-145)
[2017-08-04] MEDS: BACLOFEN 10 MG TAB PO PRN ×2 (11:02)
[2017-08-04] MEDS: SODIUM CHLORIDE 0.9% 1,000 ML IV SCH ×2 (11:02)
[2017-08-04 12:33] LABS: Glucose,Whole Blood 72 mg/dL (75-99)
[2017-08-04 14:55] VITALS: BP 114/70; PULSE 73; RESP 20
--- NOTE | 2017-08-04 15:38 | P.DS ---
Providers Date of admission: 08/01/17 20:59 Expected date of discharge: 08/04/17 Attending physician: Arnaldo Boyle MD Consults: 08/02/17 14:38 Consult Physician Routine Consulting Provider: Josi Trammell Consult Reason/Comments: abd pain , constipation , wt loss, nausea Do you want consulting provider notified?: Yes Primary care physician: Physician Nonstaff - Discharge Diagnosis(es) (1) Weakness Current Visit: Yes Status: Acute Priority: High Onset Date: ~07/29/17 (2) Hypoglycemia Current Visit: Yes Status: Acute (3) Dehydration Current Visit: Yes Status: Acute Priority: High Onset Date: ~07/31/17 (4) Metabolic acidosis Current Visit: Yes Status: Acute (5) Type 2 diabetes mellitus Current Visit: Yes Status: Acute (6) Constipation Current Visit: Yes Status: Chronic Priority: Medium Onset Date: Unknown (7) Lactic acidosis Current Visit: Yes Status: Resolved Priority: High Onset Date: ~07/31/17 Hospital Course: Patient is a 72-year-old female with a past medical history of chronic low back pain requiring 7 surgeries, GERD, and diabetes mellitus who presented with recurrent falls and inability to care for herself. She had a multiple falls at home. She developed nausea, vomiting, abdominal pain, and constipation. She had been unable to eat at home for the last 3 days. She was admitted for further evaluation of her abdominal pain and dehydration. She was found to have an elevated lactic acid. She was started on IV fluids, antibiotics for possible urinary tract infection, and pain control. She was seen by physical therapy who recommended [facility]. Her urine culture ultimately came back negative and antibiotics were discontinued. She was seen by GI who felt that she needed daily stool softener. They also recommended outpatient evaluation in 2-3 weeks with possible need for colonoscopy. She continued do well throughout her hospitalization. She was having daily bowel movements. She was eating. She did have some low blood sugars and she states she normally takes 36 units of Levemir when she is not eating much. She was determined stable for discharge. She was also having some abnormal muscle movements in her legs at sleep. She is concerned this might be related to her prior back surgeries. We will try a muscle relaxer at night for the next 1 week if she does not have improvement in her abnormal muscle movements then she will seek consultation with her neurosurgeon. Patient seen and examined at bedside. Pain is better today. Feeling better than yesterday. Having bowel movements. Is concerned about having movement of her leg and knee when laying to sleep or rest at night. She has no history of restless leg syndrome. She does have a history of prior back surgeries. Willing to try a benzodiazepine for the next week if no improvement I had suggested that she will need to follow with her neurosurgeon for possible EMG and further evaluation with MRI. Vital signs reviewed and stable. General: non toxic, no distress, appears at stated age Derm: no rashes, no lesions Head: atraumatic, normocephalic, symmetric Eyes: EOMI, no lid lag, anicteric sclera ENT: no post nasal drip, no thrush Mouth: no lip lesion, mucus membranes moist Cardiovascular: S1S2 reg, no murmur, positive posterior tibial pulse bilateral, Lungs: CTA bilateral, no rhonchi, no rales , no accessory muscle use Abdominal: soft, nontender to palpation, no guarding, no appreciable organomegaly Ext: no gross muscle atrophy, no edema, no contractures Neuro: CN II-XI grossly intact, no focal neuro deficits Psych: Alert, oriented, appropriate affect A total of 35 minutes of time were spent preparing this complex discharge summary . Pertinent Studies: CT abdomen and pelvis no acute process CT brain cerebral atrophy, left parietal lobe lacunar infarct, no acute intracranial abnormality Procedures: None Patient Condition at Discharge: Stable Plan - Discharge Summary New Discharge Prescriptions: New Acetaminophen Tab [Tylenol] 650 mg PO Q6HR PRN tab PRN Reason: Mild Pain Or Fever > 100.5 Diazepam [Valium] 5 mg PO HS #30 tab Polyethylene Glycol 3350 [Miralax] 17 gm PO HS PRN #30 pack PRN Reason: Constipation Continue Simvastatin [Zocor] 20 mg PO HS Quinapril HCl 40 mg PO DAILY Mirabegron [Myrbetriq] 25 mg PO HS Fesoterodine Fumarate [Toviaz] 4 mg PO HS Famotidine [Pepcid] 20 mg PO BID DULoxetine HCL [Cymbalta] 60 mg PO HS Baclofen 10 mg PO TID PRN PRN Reason: Muscle Spasm/Pain Insulin Aspart [NovoLOG] See Protocol SQ AC-TID amLODIPine [Norvasc] 5 mg PO DAILY #30 tab Aspirin EC [Ecotrin] 325 mg PO HS HYDROcodone/APAP 10-325MG [Crockett 10-325] 1 tab PO QID PRN #30 PRN Reason: Pain Changed Insulin Detemir [Levemir Flextouch] 34 units SQ HS #0 Discharge Medication List Baclofen 10 mg PO TID PRN 05/01/17 [History] DULoxetine HCL [Cymbalta] 60 mg PO HS 05/01/17 [History] Famotidine [Pepcid] 20 mg PO BID 05/01/17 [History] Fesoterodine Fumarate [Toviaz] 4 mg PO HS 05/01/17 [History] Insulin Aspart [NovoLOG] See Protocol SQ AC-TID 05/01/17 [History] Mirabegron [Myrbetriq] 25 mg PO HS 05/01/17 [History] Quinapril HCl 40 mg PO DAILY 05/01/17 [History] Simvastatin [Zocor] 20 mg PO HS 05/01/17 [History] amLODIPine [Norvasc] 5 mg PO DAILY #30 tab 07/17/17 [Rx] Aspirin EC [Ecotrin] 325 mg PO HS 08/01/17 [History] Acetaminophen Tab [Tylenol] 650 mg PO Q6HR PRN tab 08/04/17 [Rx] Diazepam [Valium] 5 mg PO HS #30 tab 08/04/17 [Rx] HYDROcodone/APAP 10-325MG [Crockett 10-325] 1 tab PO QID PRN #30 08/04/17 [Rx] Insulin Detemir [Levemir Flextouch] 34 units SQ HS #0 08/04/17 [Rx] Polyethylene Glycol 3350 [Miralax] 17 gm PO HS PRN #30 pack 08/04/17 [Rx] Follow up Appointment(s)/Referral(s): Chauncey Coffman MD [STAFF PHYSICIAN] - 2 Weeks Nonstaff,Physician [Primary Care Provider] - 1-2 days Activity/Diet/Wound Care/Special Instructions: Up with walker, fall precautions. Must wear hinged knee brace when ambulating. Cardiac, diabetic diet. If the movement in your legs does not get better in the next 1-2 weeks then make an appointment with your neuro surgeon Discharge Disposition: TRANSFER TO SNF/ECF
[2017-08-04 17:00] LABS: Glucose,Whole Blood 75 mg/dL (75-99)
--- NOTE | 2017-08-14 12:01 | P.HPIM ---
History of Present Illness H&P Date: 08/01/17 Chief Complaint: Weakness and fatigue The patient is a 72-year-old obese female with a past medical history of SLE, type 2 diabetes which she reports is steroid-induced, essential hypertension and chronic pain presents to the ER via EMS with chief complaint of generalized weakness and fatigue progressive over the last several weeks but worsening over the last 2 days, the patient reports that she is unable to care for herself and is unable to prepare her meals secondary to profound weakness and decreased ability to ambulate. She reports some nausea and decreased oral intake over the last 2 days, with some associated vague abdominal pain she does report some issues with constipation during this time, describes impaction and having to dig out stool. She denies any bright blood per rectum or dark melanotic stools or diarrhea. She denies any focal weakness slurred speech or facial droop. She reports that her diabetes is relatively well controlled and reports her last A1c is 6.5. She denies any chest pain she does report some shortness of air with ambulation but denies any lower extremity swelling. The patient denies any cognitive impairment and is awake alert and oriented 3, she does report a family history of Alzheimer's dementia and she denies any history of stroke. She reports a history of chronic pain and has had several lumbar back surgeries In the ER as part of her walk workup she received a CT of the head which was negative for any acute intracranial pathology did show old parietal lacunar infarct and cerebral atrophy. X-rays of the abdomen are otherwise negative for an acute abdomen. Patient was noted to have lactated acidosis, and urine ketones And the serum bicarb of 19 Review of Systems All other 14 point review of systems are negative except per HPI Past Medical History Past Medical History: Diabetes Mellitus, GERD/Reflux, Hypertension, Pneumonia Additional Past Medical History / Comment(s): Lupus, HEARTBURN, ryder ankle fx-no sx wore medi boots. pt stated lt ankle and rt knee gives out on her at times-hx falls. uti-ecoli 04-29-17. pt stated takes cholesterol med as preventtive because of her diabetes", upper bridge. History of Any Multi-Drug Resistant Organisms: None Reported Past Surgical History: Adenoidectomy, Appendectomy, Back Surgery, Cholecystectomy, Heart Catheterization, Hysterectomy, Tonsillectomy Additional Past Surgical History / Comment(s): 3 left humerous surgery, ryder heal surgery, partial knee right, 7 back surgery, c4-c7 fusion, Lumbar fusion. Past Anesthesia/Blood Transfusion Reactions: No Reported Reaction Past Psychological History: Anxiety, Depression Smoking Status: Never smoker Past Alcohol Use History: None Reported Past Drug Use History: None Reported - Past Family History Father Family Medical History: AICD/Pacemaker, Coronary Artery Disease (CAD) Brother(s) Additional Family Medical History / Comment(s): brain surgery Son(s) Family Medical History: Cancer Additional Family Medical History / Comment(s): brain ca Medications and Allergies Home Medications Medication Instructions Recorded Confirmed Type Baclofen 10 mg PO TID PRN 05/01/17 08/01/17 History DULoxetine HCL [Cymbalta] 60 mg PO HS 05/01/17 08/01/17 History Famotidine [Pepcid] 20 mg PO BID 05/01/17 08/01/17 History Fesoterodine Fumarate [Toviaz] 4 mg PO HS 05/01/17 08/01/17 History Insulin Aspart [NovoLOG] See Protocol SQ AC-TID 05/01/17 08/01/17 History Mirabegron [Myrbetriq] 25 mg PO HS 05/01/17 08/01/17 History Quinapril HCl 40 mg PO DAILY 05/01/17 08/01/17 History Simvastatin [Zocor] 20 mg PO HS 05/01/17 08/01/17 History amLODIPine [Norvasc] 5 mg PO DAILY #30 tab 07/17/17 08/01/17 Rx Aspirin EC [Ecotrin] 325 mg PO HS 08/01/17 08/01/17 History Acetaminophen Tab [Tylenol] 650 mg PO Q6HR PRN tab 08/04/17 Rx Diazepam [Valium] 5 mg PO HS #30 tab 08/04/17 Rx Docusate [Colace] 100 mg PO DAILY #30 capsule 08/04/17 Rx HYDROcodone/APAP 10-325MG [Nancy 1 tab PO QID PRN #30 08/04/17 Rx 10-325] Insulin Detemir [Levemir Flextouch] 34 units SQ HS #0 08/04/17 08/01/17 Rx Polyethylene Glycol 3350 [Miralax] 17 gm PO HS PRN #30 pack 08/04/17 Rx Allergies Allergy/AdvReac Type Severity Reaction Status Date / Time Iodinated Contrast- Oral and Allergy Rash/Hives Verified 08/01/17 19:50 IV Dye latex Allergy Anaphylaxis Verified 08/01/17 19:50 morphine Allergy Anaphylaxis Verified 08/01/17 19:50 Penicillins Allergy Anaphylaxis Verified 08/01/17 19:50 prochlorperazine AdvReac Seizure Verified 08/01/17 19:50 [From Compazine] Sulfa (Sulfonamide AdvReac Systemic Verified 08/01/17 19:50 Antibiotics) Lupus Flare Physical Exam Vitals: Vital Signs Temp Pulse Resp BP Pulse Ox 08/01/17 21:23 98.7 F 92 16 118/59 96 08/01/17 20:39 99.1 F 92 18 103/60 97 08/01/17 18:51 100.1 F H 95 18 141/69 97 Intake and Output 08/01/17 08/01/17 08/01/17 06:59 14:59 22:59 Other: Weight 79.379 kg Patient Weight 08/02/17 06:59 Weight 79.379 kg Constitutional: No acute distress, conversant, pleasant Eyes: Anicteric sclerae, moist conjunctiva, no lid-lag, PERRLA ENMT: NC/AT,Oropharynx clear, no erythema, exudates Neck:Supple, FROM, no masses, or JVD, No carotid bruits; No thyromegaly Lungs: Clear to auscultation, Clear to percussion, Normal respiratory effort, no accessory muscle use Cardiovascular: Heart regular in rate and rhythm, No murmurs, gallops, or rubs no peripheral edema Abdominal: Soft Nontender, nom distended, no guarding, no rebound or rigidity, Normoactive bowel sounds No hepatomegaly, No splenomegaly, No palpable mass No abdominal wall hernia noted Skin: Normal temperature, tone, texture, turgor, No induration No subcutaneous nodules, No rash, lesions, No ulcers Extremities:No digital cyanosis No clubbing, Pedal pulses intact and symmetrical Radial pulses intact and symmetrical Normal gait and station, No calf tenderness Psychiatric: Alert and oriented to person, place and time, Appropriate affect Intact judgement Neuro: Muscles Strength 5/5 in all 4 extremities, Sensation to light touch grossly present throughout, Cranial nerves II-XII grossly intact. No focal sensory deficits Results CBC & Chem 7: 08/04/17 08:04 08/04/17 08:04 Labs: Abnormal Lab Results - Last 24 Hours (Table) 08/01/17 08/01/17 08/01/17 Range/Units 18:55 18:55 18:55 Monocytes # 1.2 H (0-1.0) k/uL APTT (22.0-30.0) sec Carbon Dioxide 19 L (22-30) mmol/L BUN 19 H (7-17) mg/dL Glucose 113 H (74-99) mg/dL Plasma Lactic Acid Solitario 2.8 H* (0.7-2.0) mmol/L Total Protein 6.1 L (6.3-8.2) g/dL Albumin 3.4 L (3.5-5.0) g/dL Urine Protein (Negative) Urine Glucose (UA) (Negative) Urine Ketones (Negative) Hyaline Casts (0-2) /lpf Urine Mucus (None) /hpf 08/01/17 08/01/17 Range/Units 18:55 18:55 Monocytes # (0-1.0) k/uL APTT 20.9 L (22.0-30.0) sec Carbon Dioxide (22-30) mmol/L BUN (7-17) mg/dL Glucose (74-99) mg/dL Plasma Lactic Acid Solitario (0.7-2.0) mmol/L Total Protein (6.3-8.2) g/dL Albumin (3.5-5.0) g/dL Urine Protein 1+ H (Negative) Urine Glucose (UA) 2+ H (Negative) Urine Ketones 1+ H (Negative) Hyaline Casts 6 H (0-2) /lpf Urine Mucus Rare H (None) /hpf Assessment and Plan (1) Weakness Status: Acute (2) Constipation Status: Chronic (3) Metabolic acidosis Status: Acute (4) Dehydration Status: Acute (5) Lactic acidosis Status: Resolved (6) Hypertension Status: Acute (7) Type 2 diabetes mellitus Status: Acute Plan: The patient is placed on observation anticipated less than 2 midnights stay after presenting with weakness and dehydration with a metabolic acidosis and lactic acidemia presumably secondary to dehydration. She was started on IV fluids we'll recheck her labs in the morning. The patient's CT of the head was consistent with some cerebral atrophy and old parietal lacunar infarct, complain of memory impairment and family history of Alzheimer's will order vitamin B12 and folate. TSH is normal. check CT abdomen /pelvis re :abdominal pain and constipation. Consult PT consider placement in rehab for debility. Continue to follow her clinical course
== END 2017-08-04 17:19 | DRG 641 ==
LOC: EC 18:28 → 4MS4W 20:59
PROVIDERS: ADMIT Family Medicine; ATTEND Family Medicine
DX: E86.0 Dehydration (principal); G25.9 Extrapyramidal and movement disorder, unspecified; E87.2 Acidosis; R53.1 Weakness; K59.00 Constipation, unspecified; E11.649 Type 2 diabetes mellitus with hypoglycemia without coma; G89.29 Other chronic pain; I10 Essential (primary) hypertension; K21.9 Gastro-esophageal reflux disease without esophagitis; R29.6 Repeated falls; F32.9 Major depressive disorder, single episode, unspecified; F41.9 Anxiety disorder, unspecified; M54.5 Low back pain; Z79.4 Long term (current) use of insulin; Z79.82 Long term (current) use of aspirin; Z79.899 Other long term (current) drug therapy; Z88.5 Allergy status to narcotic agent; Z88.0 Allergy status to penicillin; Z88.2 Allergy status to sulfonamides; Z88.8 Allergy status to other drugs, medicaments and biological substances; Z91.040 Latex allergy status
CPT/HCPCS: 36415; 70450; 71020; 74020; 74176; 80048; 80053; 81001; 82306; 82550; 82553; 82607; 82746; 83605; 83690; 83735; 83880; 84443; 84484; 85025; 85027; 85610; 85730; 86850; 86900; 86901; 87040; 87077; 87086; 87186; 93005; 96361; 96374; 99285

== ENCOUNTER → 2017-09-13 | Outpatient (CLI) | payer MEDICARE, OTHER ==
--- NOTE | 2017-09-13 21:40 | MR ---
EXAMINATION TYPE: MR rolanda/lspine wo/w con DATE OF EXAM: 09/13/2017 COMPARISON: MRI cervical spine July 21, 2010. CT abdomen and pelvis August 02, 2017 HISTORY: Paraplegia, unspecified, per order. Headaches with difficulty walking and neck pain increasi ng in severity over last year with pain or weakness in both arms and fingers per patient. Low back pa in radiating into bilateral buttocks and right thigh per patient. History of prior neck surgery and l ow back surgery 6 times last being 2 years ago. TECHNIQUE: Multiplanar, multisequence images of the cervical and lumbar spine are performed without and with IV contrast, utilizing 7.5 mL intravenous Gadavist FINDINGS: C-SPINE: FINDINGS: Sagittal images of the cervical spine show the craniocervical junction to appear within nor mal limits. The cervical and upper thoracic spinal cord is normal in course, caliber, and signal. V ertebral alignment is stable and satisfactory. There is artifact from anterior fusion plate C4-C7 lev els. There is mild disc space narrowing with mild to moderate spurring C3-C4 level. Posterior disc he rniation is present on sagittal images. There are small posterior disc herniation C7-T1 and T1-T2 lev els on sagittal images effacing anterior thecal sac The bone marrow signal intensity is within normal limits above and below surgical levels. No suspicious enhancement is seen. Axial images show the C2-C3 level to remain within normal limits. Axial images at C3-C4 level show uncovertebral facet degenerative changes bilaterally. There is broad -based posterior disc protrusion effacing anterior thecal sac up to ventral surface of spinal cord. T here is moderate to severe bilateral neural foraminal narrowing at this level identified. Axial images at C4-C5, C5-C6, C6-C7, and C7-T1 levels are degraded by artifact from surgical change. There is some effacement of the spinal canal due to posterior bone formation or osteophytes at severa l levels, most prominent near inferior C5 level on axial image 28 left paracentral location. There is mild to moderate left greater than right neural foraminal narrowing C4-C5 level on axial image 36. T here is mild bilateral neural foraminal narrowing C6-C7 level on axial image 24. Some exaggerated cer vical curvature is redemonstrated. No suspicious enhancement is seen. IMPRESSION: Long segment anterior fusion C4-C7 levels. Stable and satisfactory alignment noted. New significant degenerative change C3-C4 level is seen as detailed above. L-SPINE: Sagittal images of the lumbar spine show vertebral body heights to remain satisfactory. There is exte nsive postsurgical change L3-L5 levels with ossific fusion or arthrodesis redemonstrated. Posterior s car tissue is seen as there are bilateral laminectomy defects and spinous process resection L5 level. There is multilevel disc desiccation. There is advanced disc space narrowing L1-L2 level with large spur disc complex effacing anterior thecal sac. There is mild to moderate disc space narrowing with m oderate to severe spurring in the posterior disc herniation effacing anterior thecal sac at L2-L3 lev el. There is mild to moderate disc space narrowing with vacuum disc phenomenon and heterogeneous incr eased T1 and T2 signal consistent with Modic type I degenerative change at L5-S1 level. Posterior dis c herniation is present at this level. The conus medullaris is somewhat low in positioning ending at mid L2 level. There is no suspicious suspicious abnormal signal or clumping of lumbosacral nerve iris ts. No suspicious enhancement is seen. There is some heterogeneous spurring and endplate changes with enhancement anterior T11-T12 level noted. Axial images at the T12-L1 level shows mild broad disc bulge mildly effacing anterior sac. There are mild facet degenerative changes bilaterally. Bilateral neural foramina are patent. Axial images at L1-L2 level show prominent posterior spur disc complex effacing anterior thecal sac o n axial image 33. There are bilateral laminectomy defects and spinous process resection. Bilateral ne ural foramina are patent. Axial images at L2-L3 level show moderate to severe broad disc bulge effacing anterior thecal sac. Th ere is spinous process resection. There is moderate facet degenerative change effacing bilateral post erior lateral thecal sac. There is mild to moderate bilateral anterior inferior neural foraminal narr owing at this level identified. Axial images at L3-L4 level show ossific fusion. There is spinous process resection. There is heterot opic ossification at facet joints. There is moderate left and mild right-sided neural foraminal narro wing due to bony reformation. Axial images at L4-L5 level show bilateral laminectomy defects and spinous process resection. There i s moderate facet degenerative changes and heterotopic ossification. Spinal canal is grossly preserved . Scar tissue is present posteriorly. There is mild left greater than right neural foraminal narrowin g noted at this level. Axial images at L5-S1 level show spinal canal to appear preserved. There is moderate to severe right greater than left facet degenerative changes. There is posterior disc protrusion seen but spinal veronica l is preserved. There is moderate right-sided neural foraminal narrowing due to foraminal disc hernia tion component. Left-sided neural foramen is patent. No suspicious retroperitoneal findings are seen. No suspicious postcontrast enhancement is noted. IMPRESSION: Extensive postsurgical and multilevel degenerative changes in the lumbar spine as detaile d above.
== END | disposition home or self-care (01) ==
LOC: RADMRIMAIN 16:51
PROVIDERS: ATTEND Family Medicine
DX: M47.812 Spondylosis without myelopathy or radiculopathy, cervical region (principal); M47.816 Spondylosis without myelopathy or radiculopathy, lumbar region; Z98.1 Arthrodesis status; G82.20 Paraplegia, unspecified
CPT/HCPCS: 72156; 72158; A9581

== ENCOUNTER → 2017-09-14 | Outpatient (CLI) | payer MEDICARE, OTHER ==
--- NOTE | 2017-09-14 18:15 | MR ---
MR thoracic spine with and without contrast HISTORY: Paraplegia, back pain Multiplanar multisequence and postcontrast images obtained through the thoracic spine following 7.5 c c Gadavist IV. Correlation to cervical and lumbar spine MRI 09/13/2017 There is a scoliotic curvature to the thoracic spine. There is multilevel spondylosis, there is loss of disc height at the intervertebral levels, kyphosis centered at T6. Multilevel facet arthropathy is present. Thoracic vertebral bodies show preserved height. There is endplate discogenic marrow signal change, multilevel spondylosis. Multilevel facet arthropathy is noted. Posterior extension of endpla te disc complex causes mild multilevel anterior mass effect on the thecal sac. Probable hemangioma pr esent at the posterior aspect of the T8 vertebral body. T11-12 shows posterior extension of endplate disc complex, there is marked facet arthropathy present. There is resulting moderate to severe central canal stenosis. Disc material extends posterior to the T11 vertebral body. Bilateral foraminal encroachment is present. T10-11: Posterior extension of endplate disc complex results in mild central canal stenosis, there is facet arthropathy. Circumferential extension of endplate disc complex results in foraminal encroachm ent greater on the left than on the right. T9-T10, T8-9 show mild anterior mass effect on the thecal sac due to circumferential posterior extens ion of endplate disc complex, associated facet arthropathy. Cystic foci associated with the right kidney. Peripheral enhancement present at the level of the sequ estered disc or extension of disc from the disc space posterior to the T11 vertebral body. IMPRESSION: Marked spinal stenosis T11-12. Multilevel degenerative disc disease, facet arthropathy, f oraminal encroachment. Scoliosis.
== END | disposition home or self-care (01) ==
LOC: RADMRIMAIN 16:08
PROVIDERS: ATTEND Family Medicine
DX: M48.04 Spinal stenosis, thoracic region (principal); M51.34 Other intervertebral disc degeneration, thoracic region; M41.87 Other forms of scoliosis, lumbosacral region; M12.88 Other specific arthropathies, not elsewhere classified, other specified site; G82.20 Paraplegia, unspecified; Z01.812 Encounter for preprocedural laboratory examination
CPT/HCPCS: 72157; A9581; 80053; 82607; 83880; 85025; 85610

== ENCOUNTER → 2017-11-07 | Outpatient (CLI) | payer MEDICARE, OTHER ==
--- NOTE | 2017-11-07 09:08 | CT ---
EXAMINATION TYPE: CT ankle RT wo con DATE OF EXAM: 11/07/2017 COMPARISON: NONE HISTORY: Right ankle pain CT DLP: 194.[address] of the right ankle with reconstruction imaging. TECHNIQUE: Unenhanced CT of the right ankle was performed with bone and soft tissue window settings s ubmitted in the axial coronal and sagittal planes. At a separate workstation [id number] TR imaging was obta ined. FINDINGS: There is mildly comminuted mildly displaced lateral malleolar fracture. Displacement estima haider at 2 mm. Surrounding soft tissue swelling identified. Small avulsion fractures noted to involve t he anterior aspect of the medial malleolus with surrounding soft tissue swelling. No additional fract ures appreciated. The ankle mortise is intact. Talus, calcaneus and visualized osseous structures of the midfoot are all intact. Mild vascular calcifications noted. No bony destructive process identifie d. IMPRESSION: 1. Lateral and medial malleolar fractures as noted with surrounding soft tissue edema.
== END ==
LOC: RADCTMAIN 07:57
PROVIDERS: ATTEND Family Medicine
DX: S82.61XA Displaced fracture of lateral malleolus of right fibula, initial encounter for closed fracture (principal); S82.51XA Displaced fracture of medial malleolus of right tibia, initial encounter for closed fracture

== ENCOUNTER 2018-04-10 00:45 | Inpatient (IN) | payer MEDICARE, OTHER ==
[2018-04-10] MEDS ORDERED: ACETAMINOPHEN TAB 325 MG TAB PO STA (01:26)
--- NOTE | 2018-04-10 01:31 | ED ---
Fever HPI - General Chief Complaint: Fever Stated Complaint: Possible Sepsis Time Seen by Provider: 04/10/18 00:51 Source: patient Mode of arrival: EMS Limitations: no limitations - History of Present Illness Initial Comments: This patient is a 73-year-old woman who comes in to be evaluated for what she suspects his urinary tract infection. The patient states that for the past 2 days or so she has been having some low back discomfort, all across the low back , that she states she has previously had when she is had urinary tract infection. She also was having a fever earlier today. The patient also had 2 episodes of vomiting prior to coming in. She denies seeing any blood or coffee- ground material she denies any change in bowel movements. She has not noted any hematuria, but does state she has a little bit of discomfort with urination. MD Complaint: fever, other (Low back pain) Onset/Timin -: days(s) Temperature Source: subjective Associated Symptoms: nausea, vomiting Treatments Prior to Arrival: Acetaminophen - Related Data Home Medications Medication Instructions Recorded Confirmed Baclofen 10 mg PO TID PRN 05/01/17 04/10/18 DULoxetine HCL [Cymbalta] 60 mg PO HS 05/01/17 04/10/18 Famotidine [Pepcid] 20 mg PO BID 05/01/17 04/10/18 Insulin Aspart [NovoLOG See Protocol SQ AC-TID 05/01/17 04/10/18 (formulary)] Mirabegron [Myrbetriq] 25 mg PO HS 05/01/17 04/10/18 Artificial Tears-Hypromellose 1 drops LEFT EYE Q6H 04/10/18 04/10/18 [Artificial Tear Drops] Atorvastatin [Lipitor] 10 mg PO HS 04/10/18 04/10/18 Dextran/Hypromellose/Glycerin 1 drop BOTH EYES Q8H PRN 04/10/18 04/10/18 [Genteal Tears 0.1%-0.2%-0.3%] Docusate [Colace] 200 mg PO DAILY 04/10/18 04/10/18 Erythromycin Ophth Oint [Romycin 0.25 inch OPHTHALMIC Q6HR 04/10/18 04/10/18 Ophth Oint] Heparin Sodium,Porcine [Heparin 5,000 unit SQ Q12H 04/10/18 04/10/18 Sodium] Insulin Detemir [Levemir Flextouch] 40 units SQ HS 04/10/18 04/10/18 Lisinopril [Lisinopril] 40 mg PO DAILY 04/10/18 04/10/18 Magnesium Hydroxide [Milk of 30 ml PO DAILY PRN 04/10/18 04/10/18 Magnesia] Magnesium Oxide [Mag-Ox] 400 mg PO BID 04/10/18 04/10/18 Metoprolol Tartrate 12.5 mg PO Q12H 04/10/18 04/10/18 Gresham-3 Fatty Acids [Gresham-3] 1 tab PO DAILY 04/10/18 04/10/18 Pregabalin [Lyrica] 1 cap PO BID 04/10/18 04/10/18 oxyCODONE-APAP 10-325MG [Percocet 1 tab PO Q6HR PRN 04/10/18 04/10/18 10-325 mg] Previous Rx's Medication Instructions Recorded amLODIPine [Norvasc] 5 mg PO DAILY #30 tab 07/17/17 Polyethylene Glycol 3350 [Miralax] 17 gm PO HS PRN #30 pack 08/04/17 Allergies Allergy/AdvReac Type Severity Reaction Status Date / Time Iodinated Contrast- Oral and Allergy Rash/Hives Verified 04/10/18 01:01 IV Dye latex Allergy Anaphylaxis Verified 04/10/18 01:01 morphine Allergy Anaphylaxis Verified 04/10/18 01:01 Penicillins Allergy Anaphylaxis Verified 04/10/18 01:01 prochlorperazine AdvReac Seizure Verified 04/10/18 01:01 [From Compazine] Sulfa (Sulfonamide AdvReac Systemic Verified 04/10/18 01:01 Antibiotics) Lupus Flare Review of Systems ROS Statement: Those systems with pertinent positive or pertinent negative responses have been documented in the HPI. ROS Other: All systems not noted in ROS Statement are negative. Constitutional: Reports: fever. Denies: chills, weakness Respiratory: Denies: cough, dyspnea Cardiovascular: Denies: chest pain, palpitations, edema, syncope Gastrointestinal: Reports: nausea, vomiting. Denies: abdominal pain, diarrhea, constipation, hematemesis, melena, hematochezia Genitourinary: Reports: as per HPI, dysuria, frequency. Denies: hematuria Musculoskeletal: Reports: as per HPI, back pain Skin: Denies: rash Neurological: Denies: headache, weakness, numbness Past Medical History Past Medical History: Diabetes Mellitus, GERD/Reflux, Hypertension, Pneumonia Additional Past Medical History / Comment(s): Lupus, HEARTBURN, ryder ankle fx-no sx wore medi boots. pt stated lt ankle and rt knee gives out on her at times-hx falls. uti-ecoli 04-29-17. pt stated takes cholesterol med as preventtive because of her diabetes", upper bridge. History of Any Multi-Drug Resistant Organisms: None Reported Past Surgical History: Adenoidectomy, Appendectomy, Back Surgery, Cholecystectomy, Heart Catheterization, Hysterectomy, Tonsillectomy Additional Past Surgical History / Comment(s): 3 left humerous surgery, ryder heal surgery, partial knee right, 7 back surgery, c4-c7 fusion, Lumbar fusion. Past Anesthesia/Blood Transfusion Reactions: No Reported Reaction Past Psychological History: Anxiety, Depression Smoking Status: Never smoker Past Alcohol Use History: None Reported Past Drug Use History: None Reported - Past Family History Father Family Medical History: AICD/Pacemaker, Coronary Artery Disease (CAD) Brother(s) Additional Family Medical History / Comment(s): brain surgery Son(s) Family Medical History: Cancer Additional Family Medical History / Comment(s): brain ca General Exam Limitations: no limitations General appearance: alert, in no apparent distress Head exam: Present: atraumatic, normocephalic ENT exam: Present: normal oropharynx Neck exam: Present: normal inspection Respiratory exam: Present: normal lung sounds bilaterally. Absent: respiratory distress, wheezes, rales, rhonchi, stridor Cardiovascular Exam: Present: regular rate, normal rhythm, normal heart sounds. Absent: systolic murmur, diastolic murmur, rubs, gallop GI/Abdominal exam: Present: soft. Absent: distended, tenderness, guarding, rebound, mass Extremities exam: Present: normal inspection, normal capillary refill. Absent: pedal edema, calf tenderness Back exam: Present: normal inspection, paraspinal tenderness. Absent: CVA tenderness (R), CVA tenderness (L) Neurological exam: Present: alert Skin exam: Present: warm, dry, intact, normal color. Absent: rash Course Vital Signs 04/10/18 04/10/18 04/10/18 00:51 02:40 03:46 Temperature 99.4 F 99.1 F Pulse Rate 79 62 69 Respiratory 18 18 16 Rate Blood Pressure 125/64 127/59 128/63 O2 Sat by Pulse 94 L 94 L 99 Oximetry Medical Decision Making - Lab Data Result diagrams: 04/10/18 02:00 04/10/18 02:00 Lab Results 04/10/18 04/10/18 04/10/18 Range/Units 02:00 02:00 02:00 WBC 11.0 H (3.8-10.6) k/uL RBC 3.70 L (3.80-5.40) m/uL Hgb 12.0 (11.4-16.0) gm/dL Hct 35.3 (34.0-46.0) % MCV 95.5 (80.0-100.0) fL MCH 32.3 (25.0-35.0) pg MCHC 33.9 (31.0-37.0) g/dL RDW 12.8 (11.5-15.5) % Plt Count 143 L (150-450) k/uL Neutrophils % 81 % Lymphocytes % 8 % Monocytes % 8 % Eosinophils % 1 % Basophils % 0 % Neutrophils # 8.9 H (1.3-7.7) k/uL Lymphocytes # 0.9 L (1.0-4.8) k/uL Monocytes # 0.9 (0-1.0) k/uL Eosinophils # 0.1 (0-0.7) k/uL Basophils # 0.0 (0-0.2) k/uL PT (9.0-12.0) sec INR (<1.2) APTT (22.0-30.0) sec Sodium 138 (137-145) mmol/L Potassium 5.0 (3.5-5.1) mmol/L Chloride 103 (98-107) mmol/L Carbon Dioxide 24 (22-30) mmol/L Anion Gap 11 mmol/L BUN 22 H (7-17) mg/dL Creatinine 0.90 (0.52-1.04) mg/dL Est GFR (CKD-EPI)AfAm 73 (>60 ml/min/1.73 sqM) Est GFR (CKD-EPI)NonAf 63 (>60 ml/min/1.73 sqM) Glucose 308 H (74-99) mg/dL POC Glucose (mg/dL) (75-99) mg/dL POC Glu Stringed Instrument Repairer ID Plasma Lactic Acid Solitario 1.5 (0.7-2.0) mmol/L Calcium 9.3 (8.4-10.2) mg/dL Total Bilirubin 0.6 (0.2-1.3) mg/dL AST 29 (14-36) U/L ALT 49 (9-52) U/L Alkaline Phosphatase 116 (38-126) U/L Troponin I (0.000-0.034) ng/mL Total Protein 6.1 L (6.3-8.2) g/dL Albumin 3.6 (3.5-5.0) g/dL Urine Color Urine Appearance (Clear) Urine pH (5.0-8.0) Ur Specific [place] (1.001-1.035) Urine Protein (Negative) Urine Glucose (UA) (Negative) Urine Ketones (Negative) Urine Blood (Negative) Urine Nitrite (Negative) Urine Bilirubin (Negative) Urine Urobilinogen (<2.0) mg/dL Ur Leukocyte Esterase (Negative) Urine RBC (0-5) /hpf Urine WBC (0-5) /hpf Urine WBC Clumps (None) /hpf Ur Squamous Epith Cells (0-4) /hpf Urine Bacteria (None) /hpf Urine Mucus (None) /hpf 04/10/18 04/10/18 04/10/18 Range/Units 02:00 02:00 02:00 WBC (3.8-10.6) k/uL RBC (3.80-5.40) m/uL Hgb (11.4-16.0) gm/dL Hct (34.0-46.0) % MCV (80.0-100.0) fL MCH (25.0-35.0) pg MCHC (31.0-37.0) g/dL RDW (11.5-15.5) % Plt Count (150-450) k/uL Neutrophils % % Lymphocytes % % Monocytes % % Eosinophils % % Basophils % % Neutrophils # (1.3-7.7) k/uL Lymphocytes # (1.0-4.8) k/uL Monocytes # (0-1.0) k/uL Eosinophils # (0-0.7) k/uL Basophils # (0-0.2) k/uL PT 9.6 (9.0-12.0) sec INR 1.0 (<1.2) APTT 22.4 (22.0-30.0) sec Sodium (137-145) mmol/L Potassium (3.5-5.1) mmol/L Chloride (98-107) mmol/L Carbon Dioxide (22-30) mmol/L Anion Gap mmol/L BUN (7-17) mg/dL Creatinine (0.52-1.04) mg/dL Est GFR (CKD-EPI)AfAm (>60 ml/min/1.73 sqM) Est GFR (CKD-EPI)NonAf (>60 ml/min/1.73 sqM) Glucose (74-99) mg/dL POC Glucose (mg/dL) (75-99) mg/dL POC Glu Stringed Instrument Repairer ID Plasma Lactic Acid Solitario (0.7-2.0) mmol/L Calcium (8.4-10.2) mg/dL Total Bilirubin (0.2-1.3) mg/dL AST (14-36) U/L ALT (9-52) U/L Alkaline Phosphatase (38-126) U/L Troponin I 0.112 H* (0.000-0.034) ng/mL Total Protein (6.3-8.2) g/dL Albumin (3.5-5.0) g/dL Urine Color Light Yellow Urine Appearance Clear (Clear) Urine pH 6.5 (5.0-8.0) Ur Specific [place] 1.009 (1.001-1.035) Urine Protein Trace H (Negative) Urine Glucose (UA) 1+ H (Negative) Urine Ketones Negative (Negative) Urine Blood Negative (Negative) Urine Nitrite Positive H (Negative) Urine Bilirubin Negative (Negative) Urine Urobilinogen <2.0 (<2.0) mg/dL Ur Leukocyte Esterase Large H (Negative) Urine RBC 6 H (0-5) /hpf Urine WBC 110 H (0-5) /hpf Urine WBC Clumps Few H (None) /hpf Ur Squamous Epith Cells 1 (0-4) /hpf Urine Bacteria Rare H (None) /hpf Urine Mucus Rare H (None) /hpf 04/10/ Range/Units 03:39 WBC (3.8-10.6) k/uL RBC (3.80-5.40) m/uL Hgb (11.4-16.0) gm/dL Hct (34.0-46.0) % MCV (80.0-100.0) fL MCH (25.0-35.0) pg MCHC (31.0-37.0) g/dL RDW (11.5-15.5) % Plt Count (150-450) k/uL Neutrophils % % Lymphocytes % % Monocytes % % Eosinophils % % Basophils % % Neutrophils # (1.3-7.7) k/uL Lymphocytes # (1.0-4.8) k/uL Monocytes # (0-1.0) k/uL Eosinophils # (0-0.7) k/uL Basophils # (0-0.2) k/uL PT (9.0-12.0) sec INR (<1.2) APTT (22.0-30.0) sec Sodium (137-145) mmol/L Potassium (3.5-5.1) mmol/L Chloride (98-107) mmol/L Carbon Dioxide (22-30) mmol/L Anion Gap mmol/L BUN (7-17) mg/dL Creatinine (0.52-1.04) mg/dL Est GFR (CKD-EPI)AfAm (>60 ml/min/1.73 sqM) Est GFR (CKD-EPI)NonAf (>60 ml/min/1.73 sqM) Glucose (74-99) mg/dL POC Glucose (mg/dL) 343 H (75-99) mg/dL POC Glu Stringed Instrument Repairer ID Mil Arriaga Plasma Lactic Acid Solitario (0.7-2.0) mmol/L Calcium (8.4-10.2) mg/dL Total Bilirubin (0.2-1.3) mg/dL AST (14-36) U/L ALT (9-52) U/L Alkaline Phosphatase (38-126) U/L Troponin I (0.000-0.034) ng/mL Total Protein (6.3-8.2) g/dL Albumin (3.5-5.0) g/dL Urine Color Urine Appearance (Clear) Urine pH (5.0-8.0) Ur Specific [place] (1.001-1.035) Urine Protein (Negative) Urine Glucose (UA) (Negative) Urine Ketones (Negative) Urine Blood (Negative) Urine Nitrite (Negative) Urine Bilirubin (Negative) Urine Urobilinogen (<2.0) mg/dL Ur Leukocyte Esterase (Negative) Urine RBC (0-5) /hpf Urine WBC (0-5) /hpf Urine WBC Clumps (None) /hpf Ur Squamous Epith Cells (0-4) /hpf Urine Bacteria (None) /hpf Urine Mucus (None) /hpf - EKG Data -: EKG Interpreted by Me EKG shows normal: sinus rhythm, axis (Normal), intervals (Normal), QRS complexes (Low-voltage QRS complexes), ST-T waves (Normal) Rate: normal (Rate approximate 66 bpm) Disposition Clinical Impression: Urinary tract infection, Elevated troponin I level Disposition: ADMITTED IP TO THIS HOSP Condition: Fair Is patient prescribed a controlled substance at d/c from ED?: No Referrals: Kelsy Silver MD [Primary Care Provider] - 1-2 days
--- NOTE | 2018-04-10 02:00 | XR ---
EXAMINATION TYPE: XR chest 1V portable DATE OF EXAM: 04/10/2018 COMPARISON: 08/01/2017 HISTORY: Fever TECHNIQUE: Single frontal view of the chest is obtained. FINDINGS: There is no heart failure nor confluent pneumonic infiltrate. Costophrenic angles are radha r. There are chest leads. There is cervical spine fusion surgery. IMPRESSION: No active cardiopulmonary disease. No change.
[2018-04-10 02:19] LABS: Basophils % (A) 0 %; Eosinophils # (A) 0.1 k/uL (0-0.7); Eosinophils % (A) 1 %; HCT 35.3 % (34.0-46.0); Lymphocytes # (A) 0.9 k/uL (1.0-4.8); Lymphocytes % (A) 8 %; MCH 32.3 pg (25.0-35.0); MCHC 33.9 g/dL (31.0-37.0); MCV 95.5 fL (80.0-100.0); Mean Platelet Volume 8.4; Monocytes # (A) 0.9 k/uL (0-1.0); Monocytes % (A) 8 %; Neutrophils # (A) 8.9 k/uL (1.3-7.7); Neutrophils % (A) 81 %; Platelet Count 143 k/uL (150-450); RDW 12.8 % (11.5-15.5)
[2018-04-10 02:37] LABS: Albumin 3.6 g/dL (3.5-5.0); Calcium 9.3 mg/dL (8.4-10.2); Total Bilirubin 0.6 mg/dL (0.2-1.3); Total Protein 6.1 g/dL (6.3-8.2)
[2018-04-10 02:41] LABS: Partial Thromboplastin Time 22.4 sec (22.0-30.0); Prothrombin Time 9.6 sec (9.0-12.0)
[2018-04-10 02:43] LABS: Appearance,Urine Clear (Clear); Bacteria,Urine Rare /hpf; Bilirubin,Urine Negative (Negative); Blood,Urine Negative (Negative); Color,Urine Light Yellow; Glucose,Urine (UA) 1+ (Negative); Ketones,Urine Negative (Negative); Leukocyte Esterase,Urine Large (Negative); Mucus,Urine Rare /hpf; Nitrite,Urine Positive (Negative); PH, Urine 6.5 (5.0-8.0); Protein,Urine Trace (Negative); RBC,Urine 6 /hpf (0-5); Specific Gravity,Urine 1.009 (1.001-1.035); Squamous Epithelial Cell,Urine 1 /hpf (0-4); Urobilinogen,Urine <2.0 mg/dL (<2.0); WBC,Urine 110 /hpf (0-5)
[2018-04-10] MEDS ORDERED: LEVOFLOXACIN 750MG-D5W PMX 750 MG in DEXTROSE/WATER 1 150ML.BAG IVPB STA (03:05)
[2018-04-10] MEDS ORDERED: INSULIN REGULAR 100 UNIT/ML VIAL SQ STA (03:06)
[2018-04-10] MEDS ORDERED: NALOXONE 0.4 MG/ML 1 ML VIAL IV PRN (03:51)
[2018-04-10] MEDS ORDERED: ACETAMINOPHEN TAB 325 MG TAB PO PRN ×2 (03:51→14:21)
[2018-04-10] MEDS ORDERED: POLYETHYLENE GLYCOL 3350 17 GM POWD.PACK PO PRN (03:55)
[2018-04-10] MEDS ORDERED: BACLOFEN 10 MG TAB PO PRN (03:55)
[2018-04-10] MEDS ORDERED: oxyCODONE-APAP 10-325MG 1 EACH TAB PO PRN (03:55)
[2018-04-10] MEDS ORDERED: MAGNESIUM HYDROXIDE 2,400 MG/10 ML CUP PO PRN (03:55)
[2018-04-10 03:59] LABS: Glucose,Whole Blood 343 mg/dL (75-99)
[2018-04-10 05:02] VITALS: BMI 33.7
[2018-04-10 06:07] LABS: Glucose,Whole Blood 285 mg/dL (75-99)
[2018-04-10] MEDS: INSULIN ASPART 100 UNIT/ML 1 ML 10 ML VIAL SQ SCH ×5 (06:29→21:51)
[2018-04-10] MEDS: SODIUM CHLORIDE 0.9% 1,000 ML IV SCH (06:30)
[2018-04-10] MEDS: DOCUSATE 100 MG CAP PO SCH (08:39)
[2018-04-10] MEDS: LISINOPRIL 20 MG TAB PO SCH (08:41)
[2018-04-10] MEDS: MAGNESIUM OXIDE 400 MG TAB PO SCH ×2 (08:42→20:44)
[2018-04-10] MEDS: METOPROLOL TARTRATE 12.5 MG TAB PO SCH ×2 (08:42→20:42)
[2018-04-10] MEDS: amLODIPine 5 MG TAB PO SCH (08:42)
[2018-04-10] MEDS: PREGABALIN 100 MG CAP PO SCH ×2 (08:45→20:44)
[2018-04-10] MEDS: ONDANSETRON 4 MG/2 ML VIAL IVP PRN (08:46)
[2018-04-10] MEDS ORDERED: FAMOTIDINE 20 MG TAB PO SCH (09:00)
[2018-04-10] MEDS ORDERED: HEPARIN SODIUM,PORCINE 5,000 UNIT/ML 1 ML VIAL SQ SCH ×2 (09:00→14:30)
[2018-04-10 12:02] LABS: Glucose,Whole Blood 234 mg/dL (75-99)
--- NOTE | 2018-04-10 13:34 | US ---
EXAMINATION TYPE: US kidneys/renal and bladder DATE OF EXAM: 04/10/2018 COMPARISON: CT 08/02/2017, ultrasound 07/01/2011 CLINICAL HISTORY: pyelonephritis. UTI per patient. History of bladder suspension "a while ago" EXAM MEASUREMENTS: Right Kidney: 10.3 x 4.6 x 4.3 cm Left Kidney: 10.0 x 4.2 x 4.1 cm Right Kidney: No hydronephrosis or masses seen Left Kidney: No hydronephrosis or masses seen Bladder: wnl Bilateral Jets seen: No IMPRESSION: Unremarkable retroperitoneal ultrasound as visualized.
[2018-04-10] MEDS ORDERED: GLYCERIN BOTH EYES PRN (14:21)
[2018-04-10] MEDS ORDERED: DEXTRAN BOTH EYES PRN (14:21)
[2018-04-10] MEDS ORDERED: [UNRECOGNIZED DRUG - OTHER] BOTH EYES PRN (14:21)
[2018-04-10] MEDS ORDERED: HYPROMELLOSE BOTH EYES PRN (14:21)
--- NOTE | 2018-04-10 14:42 | P.HPIM ---
History of Present Illness H&P Date: 04/10/18 Chief Complaint: pyuria back pain fever this 73-year-old pleasant lady who I follow at [facility] [place]. She has underlying history of hypertension, diabetes mellitus type 2, hyperlipidemia, lumbar disc disease, HSV ophthalmicus left side, lumbar disc disease with thoracic spinal stenosis, admitted to the hospital secondary to fever a few R duration 104, as well as low back pain of 2 days' duration, and chills. She has a history of recurrent falls for which she stays at [facility] in the [place], anticipating her thoracic spine surgery by on 05/17/2018. She recent had dental surgeryuprequiring dental extraction with no implants, Dr. Levin, chronic herpetic neuralgia at the ophthalmic, left side location. The emergency room she was evaluated for the fever and was found to haveurinary tract infection suspicious of pyelonephritis,, nitrite positive, troponin also was elevated at 0.112, and 0.103., patient would be seen by cardiology, to elevated troponin,blood cultures and urine cultures will be sent, ER labs include WBC count of 11.0, creatinine of0.9, blood sugar of 308patient was started on IV Levaquin, Review of Systems Constitutional: Reports as per HPI, Reports chills, Reports fever, Reports malaise Cardiovascular: Reports as per HPI, Denies chest pain, Denies claudication, Denies decreased exercise tolerance, Denies dyspnea on exertion, Denies edema, Denies high blood pressure, Denies irregular heart beat, Denies leg edema, Denies lightheadedness, Denies orthopnea, Denies palpitations, Denies paroxysmal nocturnal dyspnea, Denies phlebitis, Denies rapid heart beat, Denies shortness of breath, Denies syncope Respiratory: Reports as per HPI, Denies congestion, Denies cough, Denies cough with sputum, Denies dyspnea, Denies excessive sputum, Denies hemoptysis, Denies home oxygen, Denies pain, Denies pain on inspiration, Denies pleurisy, Denies respiratory infections, Denies sleep apnea, Denies snoring, Denies wheezing Gastrointestinal: Reports as per HPI, Reports nausea, Reports vomiting, Denies abdominal pain, Denies belching, Denies bloating, Denies BRBPR, Denies change in bowel habits, Denies coffee ground emesis, Denies constipation, Denies diarrhea, Denies dyspepsia, Denies early satiety, Denies excessive gas, Denies heartburn, Denies hematemesis, Denies hematochezia, Denies indigestion, Denies jaundice, Denies lactose intolerance, Denies loss of appetite, Denies melena Genitourinary: Reports as per HPI, Reports dysuria, Reports urge incontinence, Denies abnormal vaginal bleeding, Denies decreased libido, Denies difficulty conceiving, Denies difficulty voiding, Denies dysmenorrhea, Denies dyspareunia, Denies flank pain, Denies genital sores, Denies hematuria, Denies hot flashes, Denies incomplete emptying, Denies kidney stones, Denies menorrhagia, Denies mixed incontinence, Denies nocturia, Denies pelvic pain, Denies post void dribbling, Denies , Denies prolapse symptoms, Denies stress incontinence , Denies urgency, Denies urinary frequency, Denies vaginal discharge, Denies vaginal dryness, Denies vaginal itching, Denies vaginal odor Menstruation: Reports as per HPI, Denies amenorrhea, Denies amenorrhea on BC, Denies currently menstrual, Denies cycle < 21 days, Denies cycle > 35 days, Denies cycle variable, Denies menses 1-7 days, Denies menses 8 or > days, Denies menses variable, Denies period heavy, Denies period light, Denies period normal, Denies period spotting, Denies post hysterectomy, Denies postmenopausal , Denies premenarcheal Musculoskeletal: Reports as per HPI, Denies arm numbness/tingling, Denies atrophy, Denies fractures, Denies frequent falls, Denies gait dysfunction, Denies hot joints, Denies leg numbness/tingling, Denies limitation of motion, Denies loss of height, Denies low back pain, Denies morning stiffness, Denies muscle cramps, Denies muscle weakness, Denies myalgias, Denies neck pain, Denies neck stiffness, Denies prior amputations, Denies redness of joints, Denies shooting arm pain, Denies shooting leg pain Integumentary: Reports as per HPI, Denies acne, Denies boils, Denies brittle nails, Denies change in hair/nails, Denies color changes, Denies darkening of skin, Denies depigmentation, Denies dryness, Denies foot/leg ulcers, Denies growths, Denies hirsutism, Denies lesions, Denies onychomycosis, Denies pruritus , Denies rash, Denies sores, Denies striae, Denies unusual bruising, Denies wounds Neurological: Reports as per HPI, Reports gait dysfunction, Denies aphasia, Denies ataxia, Denies balance difficulties, Denies burning pain, Denies change in mentation, Denies change in smell/taste, Denies change in speech, Denies confusion, Denies convulsions, Denies double vision, Denies head injury, Denies headaches, Denies hearing difficulties, Denies lack of coordination, Denies loss of vision, Denies memory loss, Denies migraines, Denies motor disturbance, Denies numbness, Denies paralysis, Denies paresthesias, Denies seizures, Denies sensory deficit, Denies spasticity, Denies syncope, Denies tic, Denies tingling , Denies transient paralysis, Denies tremors, Denies vertigo, Denies weakness, Denies visual changes Psychiatric: Reports as per HPI, Reports sleep disturbances Endocrine: Reports as per HPI, Denies cold intolerance, Denies deepening of the voice, Denies excessive sweating, Denies excessive thirst, Denies fatigue, Denies flushing, Denies heat intolerance, Denies high blood sugars, Denies increase in ring/shoe/hat size, Denies low blood sugars, Denies nocturia, Denies palpitations, Denies polydipsia, Denies polyphagia, Denies polyuria, Denies proptosis, Denies recent glucocorticoid use, Denies thyroid mass, Denies weight change Hematologic/Lymphatic: Reports as per HPI Allergic/Immunologic: Reports as per HPI, Denies allergic rhinitis, Denies anaphylaxis, Denies angioedema, Denies gluten intolerance, Denies persistent infections, Denies seasonal allergies, Denies urticaria, Denies wheezing Past Medical History Past Medical History: Diabetes Mellitus, GERD/Reflux, Hypertension, Pneumonia Additional Past Medical History / Comment(s): Lupus, HEARTBURN, ryder ankle fx-no sx wore medi boots. pt stated lt ankle and rt knee gives out on her at times-hx falls. uti-ecoli 04-29-17. pt stated takes cholesterol med as preventtive because of her diabetes", upper bridge. History of Any Multi-Drug Resistant Organisms: None Reported Past Surgical History: Adenoidectomy, Appendectomy, Back Surgery, Cholecystectomy, Heart Catheterization, Hysterectomy, Tonsillectomy Additional Past Surgical History / Comment(s): 3 left humerous surgery, ryder heal surgery, partial knee right, 7 back surgery, c4-c7 fusion, Lumbar fusion. Past Anesthesia/Blood Transfusion Reactions: No Reported Reaction Past Psychological History: Anxiety, Depression Smoking Status: Never smoker Past Alcohol Use History: None Reported Past Drug Use History: None Reported - Past Family History Father Family Medical History: AICD/Pacemaker, Coronary Artery Disease (CAD) Brother(s) Additional Family Medical History / Comment(s): brain surgery Son(s) Family Medical History: Cancer Additional Family Medical History / Comment(s): brain ca Daughter(s) Family Medical History: No Reported History Mother Family Medical History: AICD/Pacemaker Medications and Allergies Home Medications Medication Instructions Recorded Confirmed Type Baclofen 10 mg PO Q8H PRN 05/01/17 04/10/18 History DULoxetine HCL [Cymbalta] 60 mg PO HS 05/01/17 04/10/18 History Famotidine [Pepcid] 20 mg PO BID@0900,1700 05/01/17 04/10/18 History Insulin Aspart [NovoLOG 12 unit SQ AC-LUNCH@1100 05/01/17 04/10/18 History (formulary)] Mirabegron [Myrbetriq] 25 mg PO HS 05/01/17 04/10/18 History amLODIPine [Norvasc] 5 mg PO DAILY #30 tab 07/17/17 04/10/18 Rx Acetaminophen Tab [Tylenol Tab] 650 mg PO Q6H PRN 04/10/18 04/10/18 History Artificial Tears-Hypromellose 1 drops LEFT EYE QID@09,13,17,21 04/10/18 History [Artificial Tear Drops] Atorvastatin [Lipitor] 10 mg PO HS 04/10/18 04/10/18 History Dextran/Hypromellose/Glycerin 1 drop BOTH EYES Q8H PRN 04/10/18 04/10/18 History [Genteal Tears 0.1%-0.2%-0.3%] Dimethicone/Zinc Oxide [Inzo Zinc 1 applic TOPICAL BID 04/10/18 04/10/18 History Oxide Barrier Cream] Docusate [Colace] 200 mg PO DAILY 04/10/18 04/10/18 History Erythromycin Ophth Oint [Romycin 0.25 inch OPHTHALMIC 04/10/18 04/10/18 History Ophth Oint] QID@00,,, Heparin Sodium,Porcine [Heparin 5,000 unit SQ Q12H 04/10/18 04/10/18 History Sodium] Insulin Aspart [NovoLOG 8 unit SQ AC-BID@0800,1730 04/10/18 04/10/18 History (formulary)] Insulin Detemir [Levemir Flextouch] 40 units SQ HS 04/10/18 04/10/18 History Lidocaine Hcl 2% Injection 1 injection IM DAILY PRN 04/10/18 04/10/18 History Lisinopril [Lisinopril] 40 mg PO DAILY 04/10/18 04/10/18 History Lysine [l-Lysine] 500 mg PO DAILY 04/10/18 04/10/18 History Magnesium Hydroxide [Milk of 2,400 mg PO DAILY PRN 04/10/18 04/10/18 History Magnesia] Magnesium Oxide [Mag-Ox] 400 mg PO BID@0900,1700 04/10/18 04/10/18 History Metoprolol Tartrate 12.5 mg PO Q12H 04/10/18 04/10/18 History Mercer-3 Fatty Acids [Mercer-3] 1 tab PO DAILY 04/10/18 04/10/18 History Polyethylene Glycol 3350 [Miralax] 17 gm PO DAILY PRN 04/10/18 04/10/18 History Pregabalin [Lyrica] 100 mg PO BID 04/10/18 04/10/18 History oxyCODONE HCL/ACETAMINOPHEN 1 tab PO QID@00,,,18 04/10/18 04/10/18 History [Percocet 10-325 mg] oxyCODONE-APAP 10-325MG [Percocet 1 tab PO Q4H PRN MDD 5 TABS 04/10/18 04/10/18 History 10-325 mg] Allergies Allergy/AdvReac Type Severity Reaction Status Date / Time Iodinated Contrast- Oral and Allergy Rash/Hives Verified 04/10/18 08:10 IV Dye latex Allergy Anaphylaxis Verified 04/10/18 08:10 morphine Allergy Anaphylaxis Verified 04/10/18 08:10 Penicillins Allergy Anaphylaxis Verified 04/10/18 08:10 prochlorperazine AdvReac Seizure Verified 04/10/18 08:10 [From Compazine] Sulfa (Sulfonamide AdvReac Systemic Verified 04/10/18 08:10 Antibiotics) Lupus Flare Physical Exam Vitals: Vital Signs Temp Pulse Pulse Resp BP BP Pulse Ox 04/10/18 12:00 100.9 F H 90 18 131/58 95 04/10/18 08:00 99.8 F H 87 18 147/70 97 04/10/18 04:40 99.1 F 75 16 123/72 99 04/10/18 04:30 75 18 04/10/18 04:09 98.2 F 72 19 148/69 95 04/10/18 03:46 99.1 F 69 16 128/63 99 04/10/18 02:40 62 18 127/59 94 L 04/10/18 00:51 99.4 F 79 18 125/64 94 L Intake and Output 04/09/18 04/10/18 04/10/18 22:59 06:59 14:59 Intake Total 190 Output Total 75 Balance 115 Intake: Intake, IV Titration 190 Amount Levofloxacin 750Mg-D5w 150 Pmx 750 mg In Dextrose/ Water 1 150ml.bag @ 100 mls/hr IVPB ONCE STA Rx#: [id number] Sodium Chloride 0.9% 1, 40 000 ml @ 20 mls/hr IV . Q24H [facility] Rx#:[id number] Output: Urine 75 Other: Voiding Method Bedpan Bedpan Diaper Diaper Incontinent Incontinent # Voids 2 1 Weight 92 kg - Constitutional General appearance: cooperative, no acute distress - EENT Eyes: anicteric sclerae, EOMI, PERRLA, dentition normal ENT: NA/AT, normal oropharynx - Neck Neck: normal ROM - Respiratory Respiratory: bilateral: CTA, negative: diminished, dullness - Cardiovascular Rhythm: regular Heart sounds: normal: S1, S2 Abnormal Heart Sounds: no systolic murmur, no diastolic murmur, no rub, no S3 Gallop, no S4 Gallop, no click, no other - Gastrointestinal General gastrointestinal: normal bowel sounds, soft - Integumentary Integumentary: decreased turgor, normal - Neurologic Neurologic: CNII-XII intact - Musculoskeletal Musculoskeletal: strength equal bilaterally - Psychiatric Psychiatric: A&O x's 3, appropriate affect, intact judgment & insight Results CBC & Chem 7: 04/10/18 02:00 04/10/18 02:00 Labs: Abnormal Lab Results - Last 24 Hours (Table) 04/10/18 04/10/18 04/10/18 Range/Units 02:00 02:00 02:00 WBC 11.0 H (3.8-10.6) k/uL RBC 3.70 L (3.80-5.40) m/uL Plt Count 143 L (150-450) k/uL Neutrophils # 8.9 H (1.3-7.7) k/uL Lymphocytes # 0.9 L (1.0-4.8) k/uL BUN 22 H (7-17) mg/dL Glucose 308 H (74-99) mg/dL POC Glucose (mg/dL) (75-99) mg/dL Troponin I 0.112 H* (0.000-0.034) ng/mL Total Protein 6.1 L (6.3-8.2) g/dL Urine Protein (Negative) Urine Glucose (UA) (Negative) Urine Nitrite (Negative) Ur Leukocyte Esterase (Negative) Urine RBC (0-5) /hpf Urine WBC (0-5) /hpf Urine WBC Clumps (None) /hpf Urine Bacteria (None) /hpf Urine Mucus (None) /hpf 04/10/18 04/10/18 04/10/18 Range/Units 02:00 03:39 06:05 WBC (3.8-10.6) k/uL RBC (3.80-5.40) m/uL Plt Count (150-450) k/uL Neutrophils # (1.3-7.7) k/uL Lymphocytes # (1.0-4.8) k/uL BUN (7-17) mg/dL Glucose (74-99) mg/dL POC Glucose (mg/dL) 343 H 285 H (75-99) mg/dL Troponin I (0.000-0.034) ng/mL Total Protein (6.3-8.2) g/dL Urine Protein Trace H (Negative) Urine Glucose (UA) 1+ H (Negative) Urine Nitrite Positive H (Negative) Ur Leukocyte Esterase Large H (Negative) Urine RBC 6 H (0-5) /hpf Urine WBC 110 H (0-5) /hpf Urine WBC Clumps Few H (None) /hpf Urine Bacteria Rare H (None) /hpf Urine Mucus Rare H (None) /hpf 04/10/18 04/10/18 Range/Units 07:32 11:51 WBC (3.8-10.6) k/uL RBC (3.80-5.40) m/uL Plt Count (150-450) k/uL Neutrophils # (1.3-7.7) k/uL Lymphocytes # (1.0-4.8) k/uL BUN (7-17) mg/dL Glucose (74-99) mg/dL POC Glucose (mg/dL) 234 H (75-99) mg/dL Troponin I 0.103 H* (0.000-0.034) ng/mL Total Protein (6.3-8.2) g/dL Urine Protein (Negative) Urine Glucose (UA) (Negative) Urine Nitrite (Negative) Ur Leukocyte Esterase (Negative) Urine RBC (0-5) /hpf Urine WBC (0-5) /hpf Urine WBC Clumps (None) /hpf Urine Bacteria (None) /hpf Urine Mucus (None) /hpf Microbiology - Last 24 Hours (Table) 04/10/18 02:00 Urine Culture - Preliminary Urine,Voided Laboratory Results WBC 11.0 k/uL (3.8-10.6) H 04/10/18 02:00 RBC 3.70 m/uL (3.80-5.40) L 04/10/18 02:00 Hgb 12.0 gm/dL (11.4-16.0) 04/10/18 02:00 Hct 35.3 % (34.0-46.0) 04/10/18 02:00 MCV 95.5 fL (80.0-100.0) 04/10/18 02:00 MCH 32.3 pg (25.0-35.0) 04/10/18 02:00 MCHC 33.9 g/dL (31.0-37.0) 04/10/18 02:00 RDW 12.8 % (11.5-15.5) 04/10/18 02:00 Plt Count 143 k/uL (150-450) L 04/10/18 02:00 Neutrophils % 81 % 04/10/18 02:00 Lymphocytes % 8 % 04/10/18 02:00 Monocytes % 8 % 04/10/18 02:00 Eosinophils % 1 % 04/10/18 02:00 Basophils % 0 % 04/10/18 02:00 Neutrophils # 8.9 k/uL (1.3-7.7) H 04/10/18 02:00 Lymphocytes # 0.9 k/uL (1.0-4.8) L 04/10/18 02:00 Monocytes # 0.9 k/uL (0-1.0) 04/10/18 02:00 Eosinophils # 0.1 k/uL (0-0.7) 04/10/18 02:00 Basophils # 0.0 k/uL (0-0.2) 04/10/18 02:00 PT 9.6 sec (9.0-12.0) 04/10/18 02:00 INR 1.0 (<1.2) 04/10/18 02:00 APTT 22.4 sec (22.0-30.0) 04/10/18 02:00 Sodium 138 mmol/L (137-145) 04/10/18 02:00 Potassium 5.0 mmol/L (3.5-5.1) 04/10/18 02:00 Chloride 103 mmol/L (98-107) 04/10/18 02:00 Carbon Dioxide 24 mmol/L (22-30) 04/10/18 02:00 Anion Gap 11 mmol/L 04/10/18 02:00 BUN 22 mg/dL (7-17) H 04/10/18 02:00 Creatinine 0.90 mg/dL (0.52-1.04) 04/10/18 02:00 Est GFR (CKD-EPI)AfAm 73 (>60 ml/min/1.73 sqM) 04/10/18 02:00 Est GFR (CKD-EPI)NonAf 63 (>60 ml/min/1.73 sqM) 04/10/18 02:00 Glucose 308 mg/dL (74-99) H 04/10/18 02:00 POC Glucose (mg/dL) 234 mg/dL (75-99) H 04/10/18 11:51 POC Glu Animal Keeper Venita Pepe 04/10/18 11:51 Plasma Lactic Acid Solitario 1.5 mmol/L (0.7-2.0) 04/10/18 02:00 Calcium 9.3 mg/dL (8.4-10.2) 04/10/18 02:00 Total Bilirubin 0.6 mg/dL (0.2-1.3) 04/10/18 02:00 AST 29 U/L (14-36) 04/10/18 02:00 ALT 49 U/L (9-52) 04/10/18 02:00 Alkaline Phosphatase 116 U/L (38-126) 04/10/18 02:00 Troponin I 0.103 ng/mL (0.000-0.034) H* 04/10/18 07:32 Total Protein 6.1 g/dL (6.3-8.2) L 04/10/18 02:00 Albumin 3.6 g/dL (3.5-5.0) 04/10/18 02:00 Urine Color Light Yellow 04/10/18 02:00 Urine Appearance Clear (Clear) 04/10/18 02:00 Urine pH 6.5 (5.0-8.0) 04/10/18 02:00 Ur Specific [place] 1.009 (1.001-1.035) 04/10/18 02:00 Urine Protein Trace (Negative) H 04/10/18 02:00 Urine Glucose (UA) 1+ (Negative) H 04/10/18 02:00 Urine Ketones Negative (Negative) 04/10/18 02:00 Urine Blood Negative (Negative) 04/10/18 02:00 Urine Nitrite Positive (Negative) H 04/10/18 02:00 Urine Bilirubin Negative (Negative) 04/10/18 02:00 Urine Urobilinogen <2.0 mg/dL (<2.0) 04/10/18 02:00 Ur Leukocyte Esterase Large (Negative) H 04/10/18 02:00 Urine RBC 6 /hpf (0-5) H 04/10/18 02:00 Urine WBC 110 /hpf (0-5) H 04/10/18 02:00 Urine WBC Clumps Few /hpf (None) H 04/10/18 02:00 Ur Squamous Epith Cells 1 /hpf (0-4) 04/10/18 02:00 Urine Bacteria Rare /hpf (None) H 04/10/18 02:00 Urine Mucus Rare /hpf (None) H 04/10/18 02:00 Influenza Type A RNA Not Detected (Not Detectd) 04/10/18 09:00 Influenza Type B (PCR) Not Detected (Not Detectd) 04/10/18 09:00 Thrombosis Risk Factor Assmnt - DVT/VTE Prophylaxis DVT/VTE Prophylaxis: Pharmacologic Prophylaxis ordered - Choose All That Apply Any of the Below Risk Factors Present?: Yes Each Factor Represents 1 point: Obesity (BMI >25) Other Risk Factors: Yes Each Risk Factor Represents 3 Points: Age 75 years or older Other congenital or acquired thrombophilia - If yes, enter type in comment: No Thrombosis Risk Factor Assessment Total Risk Factor Score: 4 Thrombosis Risk Factor Assessment Level: Moderate Risk Assessment and Plan Plan: 1. Acute urinary tract infection withpyelonephritis suspected, right side patient would be on Levaquin IV, and cultures are pending for blood in urine, clean ultrasound to be done to evaluate for any loculated fluid nd stones, 2. Diabetes mellitus type 2, hemoglobin A1c will be seen, on Levemir 14 units every daily along with NovoLogbreakfast and dinner, and 12 units at lunch, 3. Herpetic neuralgia left eye, no active lesions, on maintenance pericolic, Dr. Sheppard ophthalmology, has eyedrops 4 Chronic pain, chronic opiate use awaiting thoracic spine surgery on 2017 for spinal stenosison Percocet 10and [id number] mg twice a dayand baclofenin Cymbalta 60 mg at bedtime 5.hypertensive cardiovascular disease, on Norvasc 5 mg daily, lisinopril 40 mg daily [id number] mg daily 6. Elevated troponin most likely secondary to sepsis, however cardiac event cannot be ruled out, consult cardiology 6. Overactive bladder, diabetic would be on hold secondary to UTI 7. Impaired balance and gait, ongoing physical therapy at [facility] 8. GI prophylaxis with PPI 9 DVT prophylaxis heparin subcu 10discharge planing, expected length of stay 2 night pending cultures and cardiac consultations .
[2018-04-10] MEDS: ARTIFICIAL TEARS-HYPROMELLOSE DROPS 15 ML BTL LEFT EYE SCH ×2 (15:43→20:44)
[2018-04-10 16:32] LABS: Glucose,Whole Blood 251 mg/dL (75-99)
[2018-04-10] MEDS: oxyCODONE-APAP 10-325MG 1 EACH TAB PO SCH ×2 (17:50→23:39)
--- NOTE | 2018-04-10 20:00 | CONS ---
CONSULTATION Bradford Condon is a 73-year-old lady who came into the hospital because she felt she had a urinary tract infection. She was having difficulty voiding, having burning sensation and also had some feverish feeling, nausea and vomiting prior to arrival. After coming into the hospital while she was here, she also complained of nondescript sharp pains in the left upper extremity and troponins were ordered which were abnormal; therefore I was asked to see her. Her main complaint appears to be only feverishness, feeling weak and also having some burning when she urinates. PAST MEDICAL HISTORY: 1. Hypertension. 2. Type 2 diabetes. 3. Hyperlipidemia. 4. Gastroesophageal reflux disease. 5. She is status post appendectomy. 6. Back surgery. 7. Cholecystectomy. MEDICATIONS AT HOME: 1. Oxycodone. 2. Metoprolol tartrate 12.5 mg b.i.d. 3. Magnesium oxide. 4. Lisinopril 40 mg daily. 5. Levemir and NovoLog insulin. 6. Pepcid. 7. Atorvastatin 10 mg at bedtime. ALLERGIES: 1. PENICILLIN. 2. MORPHINE. 3. COMPAZINE. 4. SULFA. PHYSICAL EXAMINATION: Blood pressure is 130/70, pulse rate about 80 per minute, regular. HEENT: Unremarkable. Fundus was not examined by me. Neck is supple. There is JVD of 1 cm. No carotid bruit. Heart exam reveals S1, S2 heard normally with a short systolic murmur along left sternal border. Lungs reveal diminished air entry, both bases. Overall air entry is okay. Abdomen is soft, nontender. Lower extremities reveal diminished pulses. Central nervous system is grossly within normal limits with generalized weakness but no focal deficits. LABORATORY DATA: Initial troponin on arrival point was 1.112. Subsequently it was 0.10 and then it is 0.4. Patient does not voice any complaints and EKG revealed sinus mechanism with poor R-wave progression. Her white count is slightly elevated. Her urinalysis suggests that leukocyte esterase is positive. She is negative for influenza serology testing. IMPRESSION: 1. Elevated troponin, probably not related to cardiac etiology. The patient has underlying UTI and sepsis and this could be a contributing factor. 2. Hypertension. 3. Type 2 diabetes mellitus. 4. History of hypertensive cardiovascular disease. RECOMMENDATIONS: I will recommend an echocardiogram to be performed. We will review the echo and until then I will give 80 mg of Lovenox, and based on how she does I will make further recommendations. I will also recommend an additional troponin level as well. She is already on antibiotics for her UTI, which is being addressed by Dr. Silver. Based on the findings on echocardiogram and her clinical course, I will make further recommendations but will check an additional troponin as well. Thank you very much for the consult. CAROLYNE / SANTYN: [id number] /
[2018-04-10] MEDS: DULoxetine HCL 60 MG CAPSULE.DR PO SCH (20:44)
[2018-04-10] MEDS: ATORVASTATIN 10 MG TAB PO SCH (20:44)
[2018-04-10] MEDS: Mirabegron [Myrbetriq] 25 MG PO SCH (20:44)
[2018-04-10] MEDS: ENOXAPARIN 80 MG/0.8 ML SYRINGE SQ SCH (20:45)
[2018-04-10] MEDS ORDERED: INSULIN DETEMIR 100 UNIT/ML 10 ML VIAL SQ SCH (21:00)
[2018-04-10 21:39] LABS: Glucose,Whole Blood 157 mg/dL (75-99)
[2018-04-11 05:57] LABS: Glucose,Whole Blood 138 mg/dL (75-99)
[2018-04-11] MEDS: SODIUM CHLORIDE 0.9% 1,000 ML IV SCH (06:05)
[2018-04-11] MEDS: oxyCODONE-APAP 10-325MG 1 EACH TAB PO SCH ×3 (06:05→21:23)
[2018-04-11] MEDS: INSULIN ASPART 100 UNIT/ML 1 ML 10 ML VIAL SQ SCH ×7 (06:06→21:21)
[2018-04-11 06:47] LABS: Basophils % (A) 0 %; Eosinophils # (A) 0.1 k/uL (0-0.7); Eosinophils % (A) 1 %; HCT 32.4 % (34.0-46.0); HGB 10.7 gm/dL (11.4-16.0); Lymphocytes # (A) 1.1 k/uL (1.0-4.8); Lymphocytes % (A) 16 %; MCH 31.5 pg (25.0-35.0); MCHC 33.1 g/dL (31.0-37.0); MCV 95.2 fL (80.0-100.0); Mean Platelet Volume 7.9; Monocytes # (A) 0.8 k/uL (0-1.0); Monocytes % (A) 11 %; Neutrophils % (A) 69 %; Platelet Count 131 k/uL (150-450); WBC 7.4 k/uL (3.8-10.6)
[2018-04-11 07:05] LABS: Calcium 9.3 mg/dL (8.4-10.2); Potassium 4.2 mmol/L (3.5-5.1)
[2018-04-11] MEDS: ARTIFICIAL TEARS-HYPROMELLOSE DROPS 15 ML BTL LEFT EYE SCH ×4 (08:10→20:12)
--- NOTE | 2018-04-11 08:10 | ECHOF ---
Referral Reason:elevated troponin. back pain MEASUREMENTS -------- HEIGHT: 165.1 cm WEIGHT: 91.6 kg BP: 131/58 RVIDd: 3.4 cm (< 3.3) IVSd: 1.3 cm (0.6 - 1.1) LVIDd: 3.5 cm (3.9 - 5.3) LVPWd: 1.2 cm (0.6 - 1.1) IVSs: 1.2 cm LVIDs: 2.3 cm LVPWs: 1.2 cm LAESV Index (A-L): 27.84 ml/m Ao Diam: 3.2 cm (2.0 - 3.7) AV Cusp: 2.0 cm (1.5 - 2.6) LA Diam: 3.5 cm (2.7 - 3.8) MV E Félix: 0.98 m/s MV DecT: 240 ms MV A Félix: 0.82 m/s MV E/A Ratio: 1.19 AV maxP.07 mmHg AV meanP.91 mmHg RAP: 5.00 mmHg RVSP: 39.30 mmHg FINDINGS -------- Sinus rhythm. This was a technically adequate study. The left ventricular size is normal. There is mild concentric left ventricular hypertrophy. Overa ll left ventricular systolic function is normal with, an EF between 55 - 60 %. The right ventricle is mildly enlarged. Normal LA size by volume 22+/-6 ml/m2. The right atrium is normal in size. Aortic valve is trileaflet and is mildly thickened. The mitral valve leaflets are mildly thickened. Mild mitral regurgitation is present. [id number] tricuspid regurgitation present. There is mild pulmonary hypertension. The right ventricular systolic pressure, as measured by Doppler, is 39.30mmHg. The pulmonic valve was not well visualized. There is no pulmonic regurgitation present. The aortic root size is normal. Normal inferior vena cava with normal inspiratory collapse consistent with estimated right atrial pre ssure of 5 mmHg. There is no pericardial effusion. CONCLUSIONS -------- 1. Sinus rhythm. 2. This was a technically adequate study. 3. The left ventricular size is normal. 4. There is mild concentric left ventricular hypertrophy. 5. Overall left ventricular systolic function is normal with, an EF between 55 - 60 %. 6. The right ventricle is mildly enlarged. 7. Normal LA size by volume 22+/-6 ml/m2. 8. Aortic valve is trileaflet and is mildly thickened. 9. The mitral valve leaflets are mildly thickened. 10. Mild mitral regurgitation is present. 11. [id number] tricuspid regurgitation present. 12. There is mild pulmonary hypertension. 13. The pulmonic valve was not well visualized. 14. There is no pulmonic regurgitation present. 15. The aortic root size is normal. 16. There is no pericardial effusion. CONDUCTOR/ENGINEER: Grayson Jenkins RDCS
[2018-04-11] MEDS: LEVOFLOXACIN 500MG-D5W PMX 500 MG in DEXTROSE/WATER 1 100ML.BAG IVPB SCH (08:11)
[2018-04-11] MEDS: LISINOPRIL 20 MG TAB PO SCH (08:11)
[2018-04-11] MEDS: amLODIPine 5 MG TAB PO SCH (08:12)
[2018-04-11] MEDS: ENOXAPARIN 80 MG/0.8 ML SYRINGE SQ SCH ×2 (08:12→20:13)
[2018-04-11] MEDS: MAGNESIUM OXIDE 400 MG TAB PO SCH ×2 (08:12→21:23)
[2018-04-11] MEDS: FAMOTIDINE 20 MG TAB PO SCH (08:12)
[2018-04-11] MEDS: DOCUSATE 100 MG CAP PO SCH (08:12)
[2018-04-11] MEDS: METOPROLOL TARTRATE 12.5 MG TAB PO SCH ×2 (08:13→21:23)
[2018-04-11] MEDS: PREGABALIN 100 MG CAP PO SCH ×2 (08:15→21:23)
[2018-04-11 11:06] LABS: Hemoglobin A1C 7.5 % (4.0-6.0)
[2018-04-11 11:44] LABS: Glucose,Whole Blood 110 mg/dL (75-99)
--- NOTE | 2018-04-11 13:08 | P.PN ---
Subjective Progress Note Date: 04/11/18 This 73-year-old pleasant lady who I follow at [facility] [place]. She has underlying history of hypertension, diabetes mellitus type 2, hyperlipidemia, lumbar disc disease, HSV ophthalmicus left side, lumbar disc disease with thoracic spinal stenosis, admitted to the hospital secondary to fever a few R duration 104, as well as low back pain of 2 days' duration, and chills. She has a history of recurrent falls for which she stays at [facility] in the [place], anticipating her thoracic spine surgery by on 05/17/2018. She recent had dental surgeryuprequiring dental extraction with no implants, Dr. Levin, chronic herpetic neuralgia at the ophthalmic, left side location. The emergency room she was evaluated for the fever and was found to haveurinary tract infection suspicious of pyelonephritis,, nitrite positive, troponin also was elevated at 0.112, and 0.103., patient would be seen by cardiology, to elevated troponin,blood cultures and urine cultures will be sent, ER labs include WBC count of 11.0, creatinine of0.9, blood sugar of 308patient was started on IV Levaquin, 04/11: Patient states that she is feeling better today. Breathing status is improving. Echocardiogram reveals EF of 55-60%, mild concentric left ventricle hypertrophy, mild mitral regurgitation, moderate tricuspid regurgitation, mild pulmonary hypertension. Recommended to patient that she needs to have an outpatient sleep study done sooner than her scheduled appointment on May 17. Retroperitoneal ultrasound was unremarkable. Patient has been seen by cardiology. She does continue to have chest pain on the left mid area. Urine culture is in progress and blood cultures showing no growth after 24 hours. Objective - Vital Signs Vital signs: Vital Signs Temp 98.4 F 04/11/18 08:00 Pulse 78 04/11/18 08:00 Resp 16 04/11/18 08:00 BP 113/56 04/11/18 08:00 Pulse Ox 94 L 04/11/18 08:00 Intake & Output 04/10/18 04/11/18 04/11/18 18:59 06:59 18:59 Intake Total 600 160 360 Output Total 450 Balance 600 -290 360 Weight 90 kg Intake: Intake, IV Titration 160 Amount Sodium Chloride 0.9% 1, 160 000 ml @ 20 mls/hr IV . Q24H [facility] Rx#:[id number] Oral 600 360 Output: Urine 450 Other: Voiding Method Bedpan Bedpan Bedpan Diaper Diaper Diaper Incontinent Incontinent Incontinent # Voids 2 1 # Bowel Movements 1 - Exam General appearance: cooperative, no acute distress - EENT Eyes: anicteric sclerae, EOMI, PERRLA, dentition normal ENT: NA/AT, normal oropharynx - Neck Neck: normal ROM - Respiratory Respiratory: bilateral: CTA, negative: diminished, dullness - Cardiovascular Rhythm: regular Heart sounds: normal: S1, S2 Abnormal Heart Sounds: no systolic murmur, no diastolic murmur, no rub, no S3 Gallop, no S4 Gallop, no click, no other - Gastrointestinal General gastrointestinal: normal bowel sounds, soft - Integumentary Integumentary: decreased turgor, normal - Neurologic Neurologic: CNII-XII intact - Musculoskeletal Musculoskeletal: strength equal bilaterally - Psychiatric Psychiatric: A&O x's 3, appropriate affect, intact judgment & insight - Labs CBC & Chem 7: 04/11/18 05:46 04/11/18 05:46 Labs: Abnormal Lab Results - Last 24 Hours (Table) 04/10/18 04/10/18 04/10/18 Range/Units 11:51 14:07 16:11 RBC (3.80-5.40) m/uL Hgb (11.4-16.0) gm/dL Hct (34.0-46.0) % Plt Count (150-450) k/uL BUN (7-17) mg/dL Glucose (74-99) mg/dL POC Glucose (mg/dL) 234 H 251 H (75-99) mg/dL Troponin I 0.459 H* (0.000-0.034) ng/mL 04/10/18 04/11/18 04/11/18 Range/Units 21:38 05:46 05:46 RBC 3.40 L (3.80-5.40) m/uL Hgb 10.7 L (11.4-16.0) gm/dL Hct 32.4 L (34.0-46.0) % Plt Count 131 L (150-450) k/uL BUN 22 H (7-17) mg/dL Glucose 138 H (74-99) mg/dL POC Glucose (mg/dL) 157 H (75-99) mg/dL Troponin I (0.000-0.034) ng/mL 04/11/18 04/11/18 Range/Units 05:46 05:56 RBC (3.80-5.40) m/uL Hgb (11.4-16.0) gm/dL Hct (34.0-46.0) % Plt Count (150-450) k/uL BUN (7-17) mg/dL Glucose (74-99) mg/dL POC Glucose (mg/dL) 138 H (75-99) mg/dL Troponin I 0.140 H* (0.000-0.034) ng/mL Microbiology - Last 24 Hours (Table) 04/10/18 02:00 Blood Culture - Preliminary Blood No Growth after 24 hours 04/10/18 02:00 Urine Culture - Preliminary Urine,Voided Assessment and Plan Plan: 1. Acute urinary tract infection with pyelonephritis suspected, right side patient would be on Levaquin IV, and cultures are pending for blood in urine, ultrasound as above. 2. Diabetes mellitus type 2, hemoglobin A1c 7.5, on Levemir 40 units every daily along with NovoLog 8 units withbreakfast and dinner, and 12 units at lunch , 3. Herpetic neuralgia left eye, no active lesions, on maintenance pericolic, Dr. Sheppard ophthalmology, has eyedrops 4 Chronic pain, chronic opiate use awaiting thoracic spine surgery on 2017 for spinal stenosison Percocet 10and [id number] mg twice a dayand baclofenin Cymbalta 60 mg at bedtime 5. Hypertensive cardiovascular disease, on Norvasc 5 mg daily, lisinopril 40 mg daily [id number] mg daily 6. Elevated troponin most likely secondary to sepsis, however cardiac event cannot be ruled out, cardiology consult is appreciated. Echocardiogram as above. 7. Overactive bladder, diabetic would be on hold secondary to UTI 8. Impaired balance and gait, ongoing physical therapy at [facility] [place] 9. GI prophylaxis with PPI 10. DVT prophylaxis lovenox 11. Possible obstructive sleep apnea. Patient to have sleep study currently scheduled for May 17. Discharge plan: Return to [facility] Impression and plan of care have been directed as dictated by the signing physician. Beatriz Barrera nurse practitioner acting as scribe for signing physician.
[2018-04-11 16:30] LABS: Glucose,Whole Blood 75 mg/dL (75-99)
--- NOTE | 2018-04-11 18:13 | PN ---
PROGRESS NOTE Mrs. Condon is doing well today. Her troponin profile does not suggest any myocardial injury. Her UTI is also improving. Vital signs are stable. S1, S2 heard normally. Lungs are clear. Abdomen and lower extremity exam unchanged. Plan is to continue current medications, and I will see her as needed. LV function is normal by echocardiogram. MMODL / IJN: [id number] /
[2018-04-11] MEDS: ONDANSETRON 4 MG/2 ML VIAL IVP PRN (20:08)
[2018-04-11 20:25] LABS: Glucose,Whole Blood 213 mg/dL (75-99)
[2018-04-11] MEDS: DULoxetine HCL 60 MG CAPSULE.DR PO SCH (21:23)
[2018-04-11] MEDS: ATORVASTATIN 10 MG TAB PO SCH (21:23)
[2018-04-11] MEDS: INSULIN DETEMIR 100 UNIT/ML 10 ML VIAL SQ SCH (21:23)
[2018-04-11] MEDS: Mirabegron [Myrbetriq] 25 MG PO SCH (21:35)
[2018-04-12 06:01] LABS: Glucose,Whole Blood 154 mg/dL (75-99)
[2018-04-12 06:32] LABS: Calcium 8.8 mg/dL (8.4-10.2); Potassium 4.3 mmol/L (3.5-5.1)
[2018-04-12] MEDS: oxyCODONE-APAP 10-325MG 1 EACH TAB PO SCH ×5 (06:41→23:29)
[2018-04-12] MEDS: SODIUM CHLORIDE 0.9% 1,000 ML IV SCH (07:01)
[2018-04-12] MEDS: INSULIN ASPART 100 UNIT/ML 1 ML 10 ML VIAL SQ SCH ×7 (08:05→21:20)
[2018-04-12] MEDS: ARTIFICIAL TEARS-HYPROMELLOSE DROPS 15 ML BTL LEFT EYE SCH ×4 (08:06→21:19)
[2018-04-12] MEDS: DOCUSATE 100 MG CAP PO SCH (08:07)
[2018-04-12] MEDS: amLODIPine 5 MG TAB PO SCH (08:07)
[2018-04-12] MEDS: FAMOTIDINE 20 MG TAB PO SCH (08:07)
[2018-04-12] MEDS: MAGNESIUM OXIDE 400 MG TAB PO SCH ×2 (08:07→21:21)
[2018-04-12] MEDS: LISINOPRIL 20 MG TAB PO SCH (08:07)
[2018-04-12] MEDS: ENOXAPARIN 80 MG/0.8 ML SYRINGE SQ SCH ×2 (08:07→21:20)
[2018-04-12] MEDS: PREGABALIN 100 MG CAP PO SCH ×2 (08:08→21:21)
[2018-04-12] MEDS: METOPROLOL TARTRATE 12.5 MG TAB PO SCH ×2 (08:08→21:21)
[2018-04-12] MEDS: LEVOFLOXACIN 500MG-D5W PMX 500 MG in DEXTROSE/WATER 1 100ML.BAG IVPB SCH (08:11)
[2018-04-12 09:45] LABS: Glucose,Whole Blood 228 mg/dL (75-99)
[2018-04-12 11:37] LABS: Glucose,Whole Blood 141 mg/dL (75-99)
[2018-04-12 17:07] LABS: Glucose,Whole Blood 73 mg/dL (75-99)
[2018-04-12 20:48] LABS: Glucose,Whole Blood 157 mg/dL (75-99)
[2018-04-12] MEDS: Mirabegron [Myrbetriq] 25 MG PO SCH (21:18)
[2018-04-12] MEDS: ATORVASTATIN 10 MG TAB PO SCH (21:20)
[2018-04-12] MEDS: DULoxetine HCL 60 MG CAPSULE.DR PO SCH (21:20)
[2018-04-12] MEDS: INSULIN DETEMIR 100 UNIT/ML 10 ML VIAL SQ SCH (21:21)
[2018-04-12 23:13] VITALS: RESP 18
[2018-04-13 06:02] VITALS: BP 127/79; PULSE 80; TEMP 98.4
[2018-04-13] MEDS: oxyCODONE-APAP 10-325MG 1 EACH TAB PO SCH (06:18)
[2018-04-13] MEDS: SODIUM CHLORIDE 0.9% 1,000 ML IV SCH (06:20)
[2018-04-13] MEDS: INSULIN ASPART 100 UNIT/ML 1 ML 10 ML VIAL SQ SCH ×2 (07:17→07:44)
[2018-04-13 07:20] LABS: Glucose,Whole Blood 113 mg/dL (75-99)
[2018-04-13] MEDS: ENOXAPARIN 80 MG/0.8 ML SYRINGE SQ SCH (07:44)
[2018-04-13] MEDS: METOPROLOL TARTRATE 12.5 MG TAB PO SCH (07:45)
[2018-04-13] MEDS: ARTIFICIAL TEARS-HYPROMELLOSE DROPS 15 ML BTL LEFT EYE SCH (07:45)
[2018-04-13] MEDS: LISINOPRIL 20 MG TAB PO SCH (07:45)
[2018-04-13] MEDS: DOCUSATE 100 MG CAP PO SCH (07:45)
[2018-04-13] MEDS: amLODIPine 5 MG TAB PO SCH (07:45)
[2018-04-13] MEDS: FAMOTIDINE 20 MG TAB PO SCH (07:45)
[2018-04-13] MEDS: MAGNESIUM OXIDE 400 MG TAB PO SCH (07:46)
[2018-04-13] MEDS: PREGABALIN 100 MG CAP PO SCH (07:46)
[2018-04-13] MEDS ORDERED: LEVOFLOXACIN 250 MG TAB PO SCH (09:00)
--- NOTE | 2018-04-13 10:18 | P.DS ---
Providers Date of admission: 04/10/18 03:51 Expected date of discharge: 04/12/18 Attending physician: Kelsy Silver Consults: 04/10/18 03:52 Consult Physician Routine Consulting Provider: Keesha Hammer Consult Reason/Comments: Elevated troponin. Do you want consulting provider notified?: Yes 04/10/18 18:53 Consult Physician Routine Consulting Provider: Keesha Hammer Consult Reason/Comments: ELEVATED TROP Do you want consulting provider notified?: Already Contacted Primary care physician: [facility] Course: This 73-year-old pleasant lady who I follow at [facility]. She has underlying history of hypertension, diabetes mellitus type 2, hyperlipidemia, lumbar disc disease, HSV ophthalmicus left side, lumbar disc disease with thoracic spinal stenosis, admitted to the hospital secondary to fever a few R duration 104, as well as low back pain of 2 days' duration, and chills. She has a history of recurrent falls for which she stays at [facility] in [facility], anticipating her thoracic spine surgery by on 05/17/2018. She recent had dental surgeryuprequiring dental extraction with no implants, Dr. Levin, chronic herpetic neuralgia at the ophthalmic, left side location. The emergency room she was evaluated for the fever and was found to haveurinary tract infection suspicious of pyelonephritis,, nitrite positive, troponin also was elevated at 0.112, and 0.103., patient would be seen by cardiology, to elevated troponin,blood cultures and urine cultures will be sent, ER labs include WBC count of 11.0, creatinine of0.9, blood sugar of 308patient was started on IV Levaquin, 04/11: Patient states that she is feeling better today. Breathing status is improving. Echocardiogram reveals EF of 55-60%, mild concentric left ventricle hypertrophy, mild mitral regurgitation, moderate tricuspid regurgitation, mild pulmonary hypertension. Recommended to patient that she needs to have an outpatient sleep study done sooner than her scheduled appointment on May 17. Retroperitoneal ultrasound was unremarkable. Patient has been seen by cardiology. She does continue to have chest pain on the left mid area. Urine culture is in progress and blood cultures showing no growth after 24 hours. 04/12: Urine culture is E. coli only resistant to ampicillin and Unasyn. Patient is currently on Levaquin 500 mg daily. Cardiology has ruled out acute coronary syndrome. Plan is to monitor patient overnight and plan for discharge tomorrow morning. 04/13: Patient will be discharged back to [facility] once all arrangements are completed. Discharge diagnoses: 1. Acute E. coli urinary tract infection with pyelonephritis suspected, right side 2. Diabetes mellitus type 2, hemoglobin A1c 7.5 3. Herpetic neuralgia left eye, no active lesions 4 Chronic pain, chronic opiate use awaiting thoracic spine surgery on 2017 for spinal stenosis 5. Hypertensive cardiovascular disease 6. Elevated troponin most likely secondary to sepsis 7. Overactive bladder 8. Impaired balance and gait 9. Possible obstructive sleep apnea. Patient to have sleep study currently scheduled for May 17. Discharge plan: Return to [facility] Impression and plan of care have been directed as dictated by the signing physician. Beatriz Barrera nurse practitioner acting as scribe for signing physician. Patient Condition at Discharge: Good Plan - Discharge Summary Discharge Rx Participant: No New Discharge Prescriptions: New Cefuroxime Axetil [Cefuroxime] 500 mg PO BID #14 tab Polyethylene Glycol 3350 [Miralax] 17 gm PO HS PRN powd.pack PRN Reason: Constipation Continue Mirabegron [Myrbetriq] 25 mg PO HS Famotidine [Pepcid] 20 mg PO BID@0900,1700 DULoxetine HCL [Cymbalta] 60 mg PO HS Baclofen 10 mg PO Q8H PRN PRN Reason: Muscle Spasm Insulin Aspart [NovoLOG (formulary)] 12 unit SQ AC-LUNCH@1100 amLODIPine [Norvasc] 5 mg PO DAILY #30 tab Dextran/Hypromellose/Glycerin [Genteal Tears 0.1%-0.2%-0.3%] 1 drop BOTH EYES Q8H PRN PRN Reason: Pain Erythromycin Ophth Oint [Romycin Ophth Oint] 0.25 inch OPHTHALMIC QID@00,06, 12,18 Artificial Tears-Hypromellose [Artificial Tear Drops] 1 drops LEFT EYE QID@09 ,13,17,21 Metoprolol Tartrate 12.5 mg PO Q12H Pregabalin [Lyrica] 100 mg PO BID Magnesium Oxide [Mag-Ox] 400 mg PO BID@0900,1700 [place]-3 Fatty Acids [[place]-3] 1 tab PO DAILY Lisinopril 40 mg PO DAILY Insulin Detemir [Levemir Flextouch] 40 units SQ HS Docusate [Colace] 200 mg PO DAILY Atorvastatin [Lipitor] 10 mg PO HS Magnesium Hydroxide [Milk of Magnesia] 2,400 mg PO DAILY PRN PRN Reason: Constipation Polyethylene Glycol 3350 [Miralax] 17 gm PO DAILY PRN PRN Reason: Constipation Lysine [l-Lysine] 500 mg PO DAILY Lidocaine Hcl 2% Injection 1 injection IM DAILY PRN PRN Reason: Pain Insulin Aspart [NovoLOG (formulary)] 8 unit SQ AC-BID@0800,1730 Dimethicone/Zinc Oxide [Inzo Zinc Oxide Barrier Cream] 1 applic TOPICAL BID Acetaminophen Tab [Tylenol] 650 mg PO Q6H PRN PRN Reason: Fever And/ Or Pain oxyCODONE HCL/ACETAMINOPHEN [Percocet 10-325 mg] 1 tab PO QID@00,06,12,18 # 12 tablet oxyCODONE-APAP 10-325MG [Percocet 10-325 mg] 1 tab PO Q4H PRN #3 tab MDD 5 TABS PRN Reason: Pain Discontinued Heparin Sodium,Porcine [Heparin Sodium] 5,000 unit SQ Q12H Discharge Medication List Baclofen 10 mg PO Q8H PRN 05/01/17 [History] DULoxetine HCL [Cymbalta] 60 mg PO HS 05/01/17 [History] Famotidine [Pepcid] 20 mg PO BID@0900,1700 05/01/17 [History] Insulin Aspart [NovoLOG (formulary)] 12 unit SQ AC-LUNCH@1100 05/01/17 [History] Mirabegron [Myrbetriq] 25 mg PO HS 05/01/17 [History] amLODIPine [Norvasc] 5 mg PO DAILY #30 tab 07/17/17 [Rx] Acetaminophen Tab [Tylenol] 650 mg PO Q6H PRN 04/10/18 [History] Artificial Tears-Hypromellose [Artificial Tear Drops] 1 drops LEFT EYE QID@09,13 ,17,21 04/10/18 [History] Atorvastatin [Lipitor] 10 mg PO HS 04/10/18 [History] Dextran/Hypromellose/Glycerin [Genteal Tears 0.1%-0.2%-0.3%] 1 drop BOTH EYES Q8H PRN 04/10/18 [History] Dimethicone/Zinc Oxide [Inzo Zinc Oxide Barrier Cream] 1 applic TOPICAL BID 03/23 [History] Docusate [Colace] 200 mg PO DAILY 04/10/18 [History] Erythromycin Ophth Oint [Romycin Ophth Oint] 0.25 inch OPHTHALMIC QID@00,06,, 18 04/10/18 [History] Insulin Aspart [NovoLOG (formulary)] 8 unit SQ AC-BID@0800,1730 04/10/18 [ History] Insulin Detemir [Levemir Flextouch] 40 units SQ HS 04/10/18 [History] Lidocaine Hcl 2% Injection 1 injection IM DAILY PRN 04/10/18 [History] Lisinopril 40 mg PO DAILY 04/10/18 [History] Lysine [l-Lysine] 500 mg PO DAILY 04/10/18 [History] Magnesium Hydroxide [Milk of Magnesia] 2,400 mg PO DAILY PRN 04/10/18 [History] Magnesium Oxide [Mag-Ox] 400 mg PO BID@0900,1700 04/10/18 [History] Metoprolol Tartrate 12.5 mg PO Q12H 04/10/18 [History] [place]-3 Fatty Acids [[place]-3] 1 tab PO DAILY 04/10/18 [History] Polyethylene Glycol 3350 [Miralax] 17 gm PO DAILY PRN 04/10/18 [History] Pregabalin [Lyrica] 100 mg PO BID 04/10/18 [History] Cefuroxime Axetil [Cefuroxime] 500 mg PO BID #14 tab 04/12/18 [Rx] Polyethylene Glycol 3350 [Miralax] 17 gm PO HS PRN powd.pack 04/12/18 [Rx] oxyCODONE HCL/ACETAMINOPHEN [Percocet 10-325 mg] 1 tab PO QID@00,,,18 #12 tablet 04/12/18 [Rx] oxyCODONE-APAP 10-325MG [Percocet 10-325 mg] 1 tab PO Q4H PRN #3 tab MDD 5 TABS 04/12/18 [Rx] Follow up Appointment(s)/Referral(s): Kelsy Silver MD [Primary Care Provider] - 1 Week (at [facility]) Discharge Disposition: TRANSFER TO SNF/ECF
--- NOTE | 2018-04-13 14:57 | P.PN ---
Subjective Progress Note Date: 04/12/18 This 73-year-old pleasant lady who I follow at [facility] [place]. She has underlying history of hypertension, diabetes mellitus type 2, hyperlipidemia, lumbar disc disease, HSV ophthalmicus left side, lumbar disc disease with thoracic spinal stenosis, admitted to the hospital secondary to fever a few R duration 104, as well as low back pain of 2 days' duration, and chills. She has a history of recurrent falls for which she stays at [facility] in the [place], anticipating her thoracic spine surgery by on 05/17/2018. She recent had dental surgeryuprequiring dental extraction with no implants, Dr. Levin, chronic herpetic neuralgia at the ophthalmic, left side location. The emergency room she was evaluated for the fever and was found to haveurinary tract infection suspicious of pyelonephritis,, nitrite positive, troponin also was elevated at 0.112, and 0.103., patient would be seen by cardiology, to elevated troponin,blood cultures and urine cultures will be sent, ER labs include WBC count of 11.0, creatinine of0.9, blood sugar of 308patient was started on IV Levaquin, 04/11: Patient states that she is feeling better today. Breathing status is improving. Echocardiogram reveals EF of 55-60%, mild concentric left ventricle hypertrophy, mild mitral regurgitation, moderate tricuspid regurgitation, mild pulmonary hypertension. Recommended to patient that she needs to have an outpatient sleep study done sooner than her scheduled appointment on May 17. Retroperitoneal ultrasound was unremarkable. Patient has been seen by cardiology. She does continue to have chest pain on the left mid area. Urine culture is in progress and blood cultures showing no growth after 24 hours. 04/12: Urine culture is E. coli only resistant to ampicillin and Unasyn. Patient is currently on Levaquin 500 mg daily which will be switched to cefuroxime. Cardiology has ruled out acute coronary syndrome. Plan is to monitor patient overnight and plan for discharge tomorrow morning. Patient will be transferred to [facility] floor. Hemoglobin A1c is 7.5. Objective - Vital Signs Vital signs: Vital Signs Temp 97.2 F L 04/12/18 11:17 Pulse 60 04/12/18 11:17 Resp 16 04/12/18 11:17 BP 107/56 04/12/18 11:17 Pulse Ox 98 04/12/18 11:17 Intake & Output 04/11/18 04/12/18 04/12/18 18:59 06:59 18:59 Intake Total 1040 960 298 Balance 1040 960 298 Weight 91.9 kg Intake: IV 100 240 Sodium Chloride 0.9% 1, 100 240 000 ml @ 20 mls/hr IV . Q24H [facility] Rx#:[id number] Intake, IV Titration 100 Amount Levofloxacin 500Mg-D5w 100 Pmx 500 mg In Dextrose/ Water 1 100ml.bag @ 100 mls/hr IVPB Q24HR [facility] Rx# :[id number] Oral 840 720 298 Other: Voiding Method Bedpan Bedside Commode Bedside Commode Diaper Diaper Diaper Incontinent Incontinent Incontinent # Voids 4 - Exam General appearance: cooperative, no acute distress - EENT Eyes: anicteric sclerae, EOMI, PERRLA, dentition normal ENT: NA/AT, normal oropharynx - Neck Neck: normal ROM - Respiratory Respiratory: bilateral: CTA, negative: diminished, dullness - Cardiovascular Rhythm: regular Heart sounds: normal: S1, S2 Abnormal Heart Sounds: no systolic murmur, no diastolic murmur, no rub, no S3 Gallop, no S4 Gallop, no click, no other - Gastrointestinal General gastrointestinal: normal bowel sounds, soft - Integumentary Integumentary: decreased turgor, normal - Neurologic Neurologic: CNII-XII intact - Musculoskeletal Musculoskeletal: strength equal bilaterally - Psychiatric Psychiatric: A&O x's 3, appropriate affect, intact judgment & insight - Labs CBC & Chem 7: 04/11/18 05:46 04/12/18 05:57 Labs: Abnormal Lab Results - Last 24 Hours (Table) 04/11/18 04/11/18 04/12/18 Range/Units 11:41 20:24 05:57 BUN 25 H (7-17) mg/dL Glucose 142 H (74-99) mg/dL POC Glucose (mg/dL) 110 H 213 H (75-99) mg/dL 04/12/18 04/12/18 Range/Units 06:00 09:35 BUN (7-17) mg/dL Glucose (74-99) mg/dL POC Glucose (mg/dL) 154 H 228 H (75-99) mg/dL Microbiology - Last 24 Hours (Table) 04/10/18 02:00 Urine Culture - Final Urine,Voided Escherichia coli 04/10/18 02:00 Blood Culture - Preliminary Blood No Growth after 48 hours Assessment and Plan Plan: 1. Acute E. coli urinary tract infection with pyelonephritis suspected, right side patient would be on Levaquin IV. Transitioned to cefuroxime. 2. Diabetes mellitus type 2, hemoglobin A1c 7.5, on Levemir 40 units every daily along with NovoLog 8 units withbreakfast and dinner, and 12 units at lunch , 3. Herpetic neuralgia left eye, no active lesions, on maintenance pericolic, Dr. Sheppard ophthalmology, has eyedrops 4 Chronic pain, chronic opiate use awaiting thoracic spine surgery on 2017 for spinal stenosison Percocet 10and [id number] mg twice a dayand baclofenin Cymbalta 60 mg at bedtime 5. Hypertensive cardiovascular disease, on Norvasc 5 mg daily, lisinopril 40 mg daily [id number] mg daily 6. Elevated troponin most likely secondary to sepsis, however cardiac event cannot be ruled out, cardiology consult is appreciated. Echocardiogram as above. 7. Overactive bladder, diabetic would be on hold secondary to UTI 8. Impaired balance and gait, ongoing physical therapy at [facility] [place] 9. GI prophylaxis with PPI 10. DVT prophylaxis lovenox 11. Possible obstructive sleep apnea. Patient to have sleep study currently scheduled for May 17. Discharge plan: Return to [facility] on Monday Impression and plan of care have been directed as dictated by the signing physician. Beatriz Barrera nurse practitioner acting as scribe for signing physician.
== END 2018-04-13 12:33 | DRG 872 ==
LOC: EC 00:45 → 6SEL 03:51 → 4MS4W 04-12 17:19
PROVIDERS: ADMIT Family Medicine; ATTEND Family Medicine
DX: A41.9 Sepsis, unspecified organism (principal); B02.29 Other postherpetic nervous system involvement; N10 Acute pyelonephritis; N39.0 Urinary tract infection, site not specified; B96.20 Unspecified Escherichia coli [E. coli] as the cause of diseases classified elsewhere; E11.9 Type 2 diabetes mellitus without complications; E78.5 Hyperlipidemia, unspecified; F32.9 Major depressive disorder, single episode, unspecified; F41.9 Anxiety disorder, unspecified; I08.1 Rheumatic disorders of both mitral and tricuspid valves; I11.9 Hypertensive heart disease without heart failure; I27.20 Pulmonary hypertension, unspecified; K21.9 Gastro-esophageal reflux disease without esophagitis; M79.2 Neuralgia and neuritis, unspecified; N32.81 Overactive bladder; Z16.11 Resistance to penicillins; Z79.4 Long term (current) use of insulin; Z79.891 Long term (current) use of opiate analgesic; Z79.899 Other long term (current) drug therapy; Z80.8 Family history of malignant neoplasm of other organs or systems; Z82.49 Family history of ischemic heart disease and other diseases of the circulatory system; Z90.49 Acquired absence of other specified parts of digestive tract; Z90.710 Acquired absence of both cervix and uterus; Z88.5 Allergy status to narcotic agent; Z88.0 Allergy status to penicillin; Z88.2 Allergy status to sulfonamides; Z91.041 Radiographic dye allergy status; Z91.040 Latex allergy status; Z98.1 Arthrodesis status; G47.33 Obstructive sleep apnea (adult) (pediatric); M48.04 Spinal stenosis, thoracic region; G89.29 Other chronic pain
CPT/HCPCS: 36415; 71045; 76770; 80048; 80053; 81001; 82550; 83036; 83605; 83690; 84443; 84484; 85025; 85610; 85730; 87040; 87077; 87086; 87186; 87502; 93005; 93306; 96365; 99285

== ENCOUNTER → 2019-01-17 | Outpatient (CLI) | payer MEDICARE, OTHER ==
--- NOTE | 2019-01-18 14:01 | MR ---
EXAMINATION TYPE: MR brain/cspine wo/w DATE OF EXAM: 01/17/2019 COMPARISON: Prior MR 09/13/2017 HISTORY: r/O ms / Radiculopathy TECHNIQUE: Multiplanar, multisequence images of the brain and brainstem, cervical spine is performed without and with IV contrast, utilizing 10 mL intravenous Gadavist . FINDINGS: Cervical spine MRI: There is motion on the exam. Postop changes are stable. Posterior extension endpl ate disc complex at C3-4 again shows resulting spinal stenosis, anterior mass effect on the thecal sa c with possible cord contact, there is bilateral foraminal encroachment. Multilevel foraminal encroachment present at the C4-5, C5-6 and C6-7 levels. Mild anterior mass effec t on the thecal sac at multiple levels due to the bony osteophytes as noted on prior exam. No abnorma l enhancement following contrast administration. IMPRESSION: Stable cervical spine MRI. Exam is limited by artifact, motion. Brain MRI: Diffusion weighted images demonstrate no evidence of a recent infarct or other diffusion a bnormality. There is no extra-axial fluid collection. Focal encephalomalacia present within the lef t parietal periventricular white matter measuring approximately 13 mm. Periventricular, subcortical, juxtacortical scattered and confluent hyperintensities are present on inversion recovery T2-weighted sequences, approximately 30 lesions are present. Largest lesion in the right frontal lobe on axial im age 15 measures 4 to 5 mm. The ventricular system and cisternal spaces are normal in size and appeara nce. The brain volume is age appropriate. Midline structures demonstrate normal morphology. The craniocervical junction appears within normal limits. Post contrast images demonstrate no abnormal enhancement. The dural venous sinuses appear pa tent. The visualized sinuses are clear and the globes are intact. IMPRESSION: Nonspecific white matter demyelination, differential includes chronic small vessel ischem ia, hypertension, multiple sclerosis felt to be unlikely.
== END | disposition home or self-care (01) ==
LOC: RADMRIMAIN 07:08
PROVIDERS: ATTEND Family Medicine
DX: R90.89 Other abnormal findings on diagnostic imaging of central nervous system (principal); M54.12 Radiculopathy, cervical region
CPT/HCPCS: 70553; 72156; A9585

== ENCOUNTER → 2019-06-03 | Outpatient (CLI) | payer MEDICARE, OTHER ==
--- NOTE | 2019-06-03 23:52 | MR ---
EXAMINATION TYPE: MR ankle RT wo con DATE OF EXAM: 06/03/2019 COMPARISON: None HISTORY: Pain and swelling, rt ankle Standard multiplanar, multisequence MRI departmental protocol Multiplanar, multisequence images of the right ankle were acquired. FINDINGS: The Achilles tendon appears intact. There is some edema in the soft tissues anterior to the Achilles tendon. There is mild ankle joint effusion. There is mild subtalar joint effusion. The medi al and lateral flexor tendons of the ankle appear intact. The plantar fascia appears intact. There is plantar calcaneal spurring. There is some soft tissue edema on the plantar aspect of the forefoot. T here is hypertrophic spurring of the posterior malleolus. There is narrowing of the ankle joint space. There is some sclerosis and cartilage loss involving the medial dome of the talus. The collateral ligaments appear intact. 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 Calcaneal spurring. No evidence of ligament tear. Soft tissue edema noted in the f orefoot and also around the lower leg. Ankle joint effusion.
== END | disposition home or self-care (01) ==
LOC: RADMRIMAIN 09:59
PROVIDERS: ATTEND Family Medicine
DX: M19.071 Primary osteoarthritis, right ankle and foot (principal)

== ENCOUNTER 2020-09-24 17:35 | Inpatient (IN) | payer MEDICARE, OTHER ==
[2020-09-24 18:33] LABS: Albumin 3.8 g/dL (3.5-5.0); Potassium 4.6 mmol/L (3.5-5.1); Total Bilirubin 0.6 mg/dL (0.2-1.3); Total Protein 7.1 g/dL (6.3-8.2)
[2020-09-24 18:34] LABS: Basophils # (A) 0.1 k/uL (0-0.2); Basophils % (A) 1 %; Eosinophils % (A) 1 %; HCT 42.4 % (34.0-46.0); Lymphocytes # (A) 0.8 k/uL (1.0-4.8); Lymphocytes % (A) 14 %; MCH 29.8 pg (25.0-35.0); Mean Platelet Volume 9.2; Monocytes # (A) 0.5 k/uL (0-1.0); Monocytes % (A) 8 %; Neutrophils # (A) 4.5 k/uL (1.3-7.7); Neutrophils % (A) 75 %; Platelet Count 183 k/uL (150-450); RBC 4.68 m/uL (3.80-5.40); RDW 14.3 % (11.5-15.5); WBC 6.1 k/uL (3.8-10.6)
--- NOTE | 2020-09-24 18:36 | ED ---
General Adult HPI - General Stated complaint: Poss CVA Source: patient, EMS, RN notes reviewed, old records reviewed Mode of arrival: EMS Limitations: no limitations - History of Present Illness Initial comments: This is a 75-year-old female comes from [facility]. They stated that at the [facility] the patient started having expressive aphasia which started approximately an hour prior to arrival. Patient in route started to improve according to EMS. Currently patient has no symptoms she is speaking clearly and in complete sentences. Patient has no slurred speech. Patient has no facial droop patient has no weakness or numbness according to her. Patient denies any chest pain difficult breathing shortness of breath. Patient denies any recent fever chills or cough however the patient does have a low-grade fever in the emergency department. - Related Data Home Medications Medication Instructions Recorded Confirmed Baclofen 10 mg PO TID@0900,1300,209905/01/17 09/24/20 DULoxetine HCL [Cymbalta] 60 mg PO BID@899,209905/01/17 09/24/20 Famotidine [Pepcid] 20 mg PO DAILY@89905/01/17 09/24/20 Acetaminophen Tab [Tylenol] 650 mg PO Q6H PRN 04/10/18 09/24/20 Atorvastatin [Lipitor] 10 mg PO HS@209904/10/18 09/24/20 Docusate [Colace] 200 mg PO DAILY@89904/10/18 09/24/20 Insulin Detemir [Levemir Flextouch] 12 units SQ HS@209904/10/18 09/24/20 Magnesium Oxide [Mag-Ox] 400 mg PO DAILY@89904/10/18 09/24/20 Metoprolol Tartrate 25 mg PO DAILY@89904/10/18 09/24/20 Butalb/APAP/Caff 50-325-40Mg 1 tab PO Q6H PRN 09/24/20 09/24/20 [Fioricet 50-325-40] Diclofenac Sodium Gel [Voltaren 1 applic TOPICAL TID@0900,1300,209909/24/20 09/24/20 Gel] Difluprednate [Durezol] 1 drop RIGHT EYE HS@209909/24/20 09/24/20 Docusate [Colace] 100 mg PO BID PRN 09/24/20 09/24/20 Ergocalciferol [Vitamin D2 50,000 unit PO Q14D@0909/24/20 09/24/20 (DRISDOL)] Fluticasone Nasal [place] [Flonase 1 spray EA NOSTRIL DAILY PRN 09/24/20 09/24/20 Nasal [place]] Furosemide [Lasix] 40 mg PO DAILY@0600 09/24/20 09/24/20 Insulin Aspart [NovoLOG Flexpen] 5 unit SQ AC-BRKFST@0800 09/24/20 09/24/20 Insulin Aspart [NovoLOG Flexpen] 6 unit SQ AC-LUNCH@1200 09/24/20 09/24/20 Insulin Aspart [NovoLOG Flexpen] 8 unit SQ AC-SUPPER@1800 09/24/20 09/24/20 Loperamide [Imodium] 2 mg PO QID PRN 09/24/20 09/24/20 Melatonin 6 mg PO HS@209909/24/20 09/24/20 Mirabegron [Myrbetriq] 25 mg PO HS@209909/24/20 09/24/20 Mirabegron [Myrbetriq] 50 mg PO DAILY@0609/24/20 09/24/20 Oxymetazoline 0.05% Nasl [place] 1 spray EA NOSTRIL Q12HR PRN 09/24/20 09/24/20 [Afrin 0.05% Nasal [place]] Potassium Citrate [Potassium 10 meq PO HS@209909/24/20 09/24/20 Citrate ER] Pregabalin [Lyrica] 100 mg PO BID@0900,209909/24/20 09/24/20 Semaglutide [Ozempic] 1 mg SQ WE@0900 09/24/20 09/24/20 hydrALAZINE HCL [Apresoline] 50 mg PO TID@0600,1300,209909/24/20 09/24/20 oxyCODONE HCL 5 mg PO Q4H PRN 09/24/20 09/24/20 oxyCODONE HCL [OxyCONTIN] 20 mg PO Q12HR@0900,209909/24/20 09/24/20 prednisoLONE ACETATE [Pred Forte 1 drop LEFT EYE DAILY@0900 09/24/20 09/24/20 1%] Allergies Allergy/AdvReac Type Severity Reaction Status Date / Time Iodinated Contrast Media Allergy Rash/Hives Verified 09/24/20 18:19 latex Allergy Anaphylaxis Verified 09/24/20 18:19 morphine Allergy Anaphylaxis Verified 09/24/20 18:19 Penicillins Allergy Anaphylaxis Verified 09/24/20 18:19 prochlorperazine AdvReac Seizure Verified 09/24/20 18:19 [From Compazine] Sulfa (Sulfonamide AdvReac Systemic Verified 09/24/20 18:19 Antibiotics) Lupus Flare Review of Systems ROS Statement: Those systems with pertinent positive or pertinent negative responses have been documented in the HPI. ROS Other: All systems not noted in ROS Statement are negative. Past Medical History Past Medical History: Diabetes Mellitus, GERD/Reflux, Hypertension, Pneumonia Additional Past Medical History / Comment(s): Lupus, HEARTBURN, ryder ankle fx-no sx wore medi boots. pt stated lt ankle and rt knee gives out on her at times-hx falls. uti-ecoli 04-29-17. pt stated takes cholesterol med as preventtive because of her diabetes", [place]. History of Any Multi-Drug Resistant Organisms: ESBL Date of last positivie culture/infection: 08/07/20 ESBL-E.coli MDRO Source:: URINE ESBL Past Surgical History: Adenoidectomy, Appendectomy, Back Surgery, Cholecystec brianna, Heart Catheterization, Hysterectomy, Tonsillectomy Additional Past Surgical History / Comment(s): 3 left humerous surgery, ryder heal surgery, partial knee right, 7 back surgery, c4-c7 fusion, Lumbar fusion. Past Anesthesia/Blood Transfusion Reactions: No Reported Reaction Past Psychological History: Anxiety, Depression Past Alcohol Use History: None Reported Past Drug Use History: None Reported - Past Family History Father Family Medical History: AICD/Pacemaker, Coronary Artery Disease (CAD) Brother(s) Additional Family Medical History / Comment(s): brain surgery Son(s) Family Medical History: Cancer Additional Family Medical History / Comment(s): brain ca Daughter(s) Family Medical History: No Reported History Mother Family Medical History: AICD/Pacemaker General Exam - General Exam Comments Initial Comments: GENERAL: Patient is well-developed and well-nourished. Patient is nontoxic and well- hydrated and is in no acute distress. ENT: Neck is soft and supple. No significant lymphadenopathy is noted. Oropharynx is clear. Moist mucous membranes. Neck has full range of motion without eliciting any pain. EYES: The sclera were anicteric and conjunctiva were pink and moist. Extraocular movements were intact and pupils were equal round and reactive to light. Eyelids were unremarkable. PULMONARY: Unlabored respirations. Good breath sounds bilaterally. No audible rales r honchi or wheezing was noted. CARDIOVASCULAR: There is a regular rate and rhythm without any murmurs gallops or rubs. ABDOMEN: Soft and nontender with normal bowel sounds. SKIN: Skin is clear with no lesions or rashes and otherwise unremarkable. NEUROLOGIC: Patient is alert and oriented 2. Cranial nerves II through XII are grossly intact. Motor and sensory are also intact. Normal speech, volume and content. Symmetrical smile. MUSCULOSKELETAL: Normal extremities with adequate strength and full range of motion. No lower extremity swelling or edema. No calf tenderness. LYMPHATICS: No significant lymphadenopathy is noted PSYCHIATRIC: Normal psychiatric evaluation. Limitations: no limitations Course Vital Signs 09/24/20 09/24/20 18:10 20:30 Temperature 100.4 F H 98.7 F Pulse Rate 96 88 Respiratory 18 18 Rate Blood Pressure 148/70 122/75 O2 Sat by Pulse 94 L 95 Oximetry Medical Decision Making - Medical Decision Making EKG shows normal sinus rhythm at 90 bpm IN interval 150 QRS 104 QT interval 370 QTC is 452. Patient's EKG shows inverted T waves in precordial leads V3 through V6 as well as leads [address] of the brain shows no acute abnormality. X-ray of the chest shows no acute abnormality. Patient was COVID Positive. I spoke with Dr. Silver he agreed to admit the patient admitted the patient wrote admitting orders - Lab Data Result diagrams: 09/24/20 18:15 09/24/20 18:15 Lab Results 09/24/20 09/24/20 09/24/20 Range/Units 18:15 18:15 18:15 WBC 6.1 (3.8-10.6) k/uL RBC 4.68 (3.80-5.40) m/uL Hgb 14.0 (11.4-16.0) gm/dL Hct 42.4 (34.0-46.0) % MCV 90.5 D (80.0-100.0) fL MCH 29.8 (25.0-35.0) pg MCHC 33.0 (31.0-37.0) g/dL RDW 14.3 (11.5-15.5) % Plt Count 183 (150-450) k/uL MPV 9.2 Neutrophils % 75 % Lymphocytes % 14 % Monocytes % 8 % Eosinophils % 1 % Basophils % 1 % Neutrophils # 4.5 (1.3-7.7) k/uL Lymphocytes # 0.8 L (1.0-4.8) k/uL Monocytes # 0.5 (0-1.0) k/uL Eosinophils # 0.0 (0-0.7) k/uL Basophils # 0.1 (0-0.2) k/uL PT 9.6 (9.0-12.0) sec INR 0.9 (<1.2) APTT 21.1 L (22.0-30.0) sec Sodium (137-145) mmol/L Potassium (3.5-5.1) mmol/L Chloride (98-107) mmol/L Carbon Dioxide (22-30) mmol/L Anion Gap mmol/L BUN (7-17) mg/dL Creatinine (0.52-1.04) mg/dL Est GFR (CKD-EPI)AfAm (>60 ml/min/1.73 sqM) Est GFR (CKD-EPI)NonAf (>60 ml/min/1.73 sqM) Glucose (74-99) mg/dL Calcium (8.4-10.2) mg/dL Total Bilirubin (0.2-1.3) mg/dL AST (14-36) U/L ALT (4-34) U/L Alkaline Phosphatase (38-126) U/L Troponin I (0.000-0.034) ng/mL Total Protein (6.3-8.2) g/dL Albumin (3.5-5.0) g/dL Urine Color Yellow Urine Appearance Clear (Clear) Urine pH 5.5 (5.0-8.0) Ur Specific [place] 1.017 (1.001-1.035) Urine Protein 1+ H (Negative) Urine Glucose (UA) Negative (Negative) Urine Ketones 1+ H (Negative) Urine Blood Negative (Negative) Urine Nitrite Negative (Negative) Urine Bilirubin Negative (Negative) Urine Urobilinogen <2.0 (<2.0) mg/dL Ur Leukocyte Esterase Negative (Negative) Urine RBC <1 (0-5) /hpf Urine WBC <1 (0-5) /hpf Hyaline Casts 1 (0-2) /lpf Urine Mucus Rare H (None) /hpf Coronavirus (PCR) (Not Detectd) 09/24/20 09/24/20 09/24/20 Range/Units 18:15 18:15 18:15 WBC (3.8-10.6) k/uL RBC (3.80-5.40) m/uL Hgb (11.4-16.0) gm/dL Hct (34.0-46.0) % MCV (80.0-100.0) fL MCH (25.0-35.0) pg MCHC (31.0-37.0) g/dL RDW (11.5-15.5) % Plt Count (150-450) k/uL MPV Neutrophils % % Lymphocytes % % Monocytes % % Eosinophils % % Basophils % % Neutrophils # (1.3-7.7) k/uL Lymphocytes # (1.0-4.8) k/uL Monocytes # (0-1.0) k/uL Eosinophils # (0-0.7) k/uL Basophils # (0-0.2) k/uL PT (9.0-12.0) sec INR (<1.2) APTT (22.0-30.0) sec Sodium 135 L (137-145) mmol/L Potassium 4.6 (3.5-5.1) mmol/L Chloride 98 (98-107) mmol/L Carbon Dioxide 27 (22-30) mmol/L Anion Gap 10 mmol/L BUN 18 H (7-17) mg/dL Creatinine 0.93 (0.52-1.04) mg/dL Est GFR (CKD-EPI)AfAm 69 (>60 ml/min/1.73 sqM) Est GFR (CKD-EPI)NonAf 60 (>60 ml/min/1.73 sqM) Glucose 183 H (74-99) mg/dL Calcium 9.0 (8.4-10.2) mg/dL Total Bilirubin 0.6 (0.2-1.3) mg/dL AST 37 H (14-36) U/L ALT 30 (4-34) U/L Alkaline Phosphatase 85 (38-126) U/L Troponin I <0.012 (0.000-0.034) ng/mL Total Protein 7.1 (6.3-8.2) g/dL Albumin 3.8 (3.5-5.0) g/dL Urine Color Urine Appearance (Clear) Urine pH (5.0-8.0) Ur Specific [place] (1.001-1.035) Urine Protein (Negative) Urine Glucose (UA) (Negative) Urine Ketones (Negative) Urine Blood (Negative) Urine Nitrite (Negative) Urine Bilirubin (Negative) Urine Urobilinogen (<2.0) mg/dL Ur Leukocyte Esterase (Negative) Urine RBC (0-5) /hpf Urine WBC (0-5) /hpf Hyaline Casts (0-2) /lpf Urine Mucus (None) /hpf Coronavirus (PCR) Detected A (Not Detectd) Disposition Clinical Impression: COVID-19, TIA (transient ischemic attack) Disposition: ADMITTED IP TO THIS HOSP Referrals: Kelsy Silver MD [Primary Care Provider] - 1-2 days Time of Disposition: 20:45
[2020-09-24 18:39] LABS: MCV 90.5 fL (80.0-100.0)
[2020-09-24 18:45] LABS: INR 0.9 (<1.2); Prothrombin Time 9.6 sec (9.0-12.0)
[2020-09-24 18:46] LABS: Partial Thromboplastin Time 21.1 sec (22.0-30.0)
--- NOTE | 2020-09-24 19:02 | CT ---
EXAMINATION TYPE: CT brain wo con for TPA DATE OF EXAM: 09/24/2020 COMPARISON: None HISTORY: Altered mental status. CT DLP: 1099.4 mGycm Automated exposure control for dose reduction was used. There is cerebral cortical atrophy. There is no mass effect nor midline shift. There is no sign of in tracranial hemorrhage. There is 1.4 cm rounded fluid density in the left posterior parietal lobe whit e matter consistent with old lacunar infarct. The calvarium is intact. New graft impression Cerebral atrophy. Old lacunar infarct left parietal lobe. No acute intracranial abnormality.
--- NOTE | 2020-09-24 19:21 | XR ---
EXAMINATION TYPE: XR chest 2V DATE OF EXAM: 09/24/2020 COMPARISON: 04/10/2018 HISTORY: Fever and weakness TECHNIQUE: 2 views FINDINGS: There is no heart failure nor confluent pneumonic infiltrate. Costophrenic angles are fairl y clear. There is some small linear density right lung base. There are no hilar masses. Bony thorax i s intact. IMPRESSION: Mild subsegmental atelectasis right lung base is new compared to old exam. No heart failu re.
[2020-09-24 20:12] LABS: Appearance,Urine Clear (Clear); Bilirubin,Urine Negative (Negative); Blood,Urine Negative (Negative); Color,Urine Yellow; Glucose,Urine (UA) Negative (Negative); Hyaline Casts,Urine 1 /lpf (0-2); Ketones,Urine 1+ (Negative); Leukocyte Esterase,Urine Negative (Negative); Mucus,Urine Rare /hpf; Nitrite,Urine Negative (Negative); PH, Urine 5.5 (5.0-8.0); Protein,Urine 1+ (Negative); RBC,Urine <1 /hpf (0-5); Specific Gravity,Urine 1.017 (1.001-1.035); Urobilinogen,Urine <2.0 mg/dL (<2.0); WBC,Urine <1 /hpf (0-5)
[2020-09-24] MEDS ORDERED: ACETAMINOPHEN TAB 500 MG TAB PO STA (20:43)
[2020-09-24] MEDS ORDERED: ASPIRIN 325 MG TAB PO STA (20:46)
[2020-09-24 21:31] LABS: C Reactive Protein 84.9 mg/L (<10.0)
[2020-09-24] MEDS ORDERED: DOCUSATE 100 MG CAP PO PRN (22:25)
[2020-09-24] MEDS ORDERED: FLUTICASONE 50MCG/SPRAY NASAL 16GM EA NOSTRIL PRN (22:25)
[2020-09-24] MEDS ORDERED: LOPERAMIDE 2 MG CAP PO PRN (22:25)
[2020-09-24 22:34] LABS: Glucose,Whole Blood 137 mg/dL (75-99)
[2020-09-24] MEDS: INSULIN DETEMIR (LEVEMIR) 100 UNIT/ML SYR SQ SCH (22:41)
[2020-09-24] MEDS: DULoxetine HCL 60 MG CAPSULE.DR PO SCH (23:47)
[2020-09-24] MEDS: BACLOFEN 10 MG TAB PO SCH (23:47)
[2020-09-25] MEDS ORDERED: hydrALAZINE HCL 50 MG TAB PO SCH (06:00)
[2020-09-25] MEDS: Mirabegron [Myrbetriq] 50 MG Tab.Er.24h PO SCH (06:22)
[2020-09-25] MEDS: FUROSEMIDE 40 MG TAB PO SCH (06:23)
[2020-09-25 07:46] LABS: Glucose,Whole Blood 135 mg/dL (75-99)
[2020-09-25] MEDS ORDERED: ASPIRIN 325 MG TAB PO SCH (09:00)
[2020-09-25] MEDS: METOPROLOL TARTRATE 25 MG TAB PO SCH (09:10)
[2020-09-25] MEDS: PREGABALIN 100 MG CAP PO SCH ×2 (09:10→20:42)
[2020-09-25] MEDS: FAMOTIDINE 20 MG TAB PO SCH (09:10)
[2020-09-25] MEDS: BACLOFEN 10 MG TAB PO SCH ×3 (09:10→20:42)
[2020-09-25] MEDS: MAGNESIUM OXIDE 400 MG TAB PO SCH (09:10)
[2020-09-25] MEDS: oxyCODONE ER 20 MG TAB.ER.12H PO SCH (09:10)
[2020-09-25] MEDS: DULoxetine HCL 60 MG CAPSULE.DR PO SCH ×2 (09:12→20:41)
[2020-09-25] MEDS: DOCUSATE 100 MG CAP PO SCH (09:12)
[2020-09-25] MEDS: DICLOFENAC SODIUM GEL 100 GM TUBE TOPICAL SCH ×3 (09:13→20:43)
[2020-09-25] MEDS: INSULIN ASPART (NovoLOG) 100 UNIT/ML VIAL SQ SCH ×3 (09:14→17:47)
[2020-09-25] MEDS: prednisoLONE ACETATE 1% OPHTH DROPS 5 ML BTL LEFT EYE SCH (09:14)
[2020-09-25 10:36] LABS: Basophils % (A) 1 %; Eosinophils % (A) 0 %; HCT 42.7 % (34.0-46.0); HGB 13.4 gm/dL (11.4-16.0); Lymphocytes # (A) 0.5 k/uL (1.0-4.8); Lymphocytes % (A) 14 %; MCH 29.4 pg (25.0-35.0); MCHC 31.4 g/dL (31.0-37.0); MCV 93.6 fL (80.0-100.0); Monocytes # (A) 0.4 k/uL (0-1.0); Monocytes % (A) 10 %; Neutrophils # (A) 2.7 k/uL (1.3-7.7); Neutrophils % (A) 72 %; Platelet Count 142 k/uL (150-450); RBC 4.57 m/uL (3.80-5.40); RDW 14.2 % (11.5-15.5); WBC 3.8 k/uL (3.8-10.6)
[2020-09-25 10:38] LABS: Albumin 3.5 g/dL (3.5-5.0); Calcium 8.5 mg/dL (8.4-10.2); Potassium 3.8 mmol/L (3.5-5.1); Total Bilirubin 0.7 mg/dL (0.2-1.3); Total Protein 6.5 g/dL (6.3-8.2)
--- NOTE | 2020-09-25 11:00 | ECHOF ---
Referral Reason:TIA MEASUREMENTS -------- HEIGHT: 165.1 cm WEIGHT: 86.2 kg BP: 119/68 IVSd: 1.5 cm (0.6 - 1.1) LVIDd: 2.7 cm (3.9 - 5.3) LVPWd: 1.2 cm (0.6 - 1.1) IVSs: 1.9 cm LVIDs: 1.6 cm LVPWs: 1.5 cm Ao Diam: 3.1 cm (2.0 - 3.7) AV Cusp: 2.1 cm (1.5 - 2.6) LA Diam: 3.7 cm (2.7 - 3.8) MV EXCURSION: 12.777 mm (> 18.000) MV EF SLOPE: 122 mm/s (70 - 150) EPSS: 0.9 cm MV E Félix: 0.77 m/s MV DecT: 279 ms MV A Félix: 0.88 m/s MV E/A Ratio: 0.88 RAP: 5.00 mmHg RVSP: 23.81 mmHg FINDINGS -------- This was a technically difficult study with suboptimal views. The left ventricular size is normal. There is mild concentric left ventricular hypertrophy. Overa ll left ventricular systolic function is normal with, an EF between 55 - 60 %. The RV was not well visualized. The left atrial size is normal. The right atrium was not well visualized. Lumason used The aortic valve was not well visualized. The mitral valve is normal. Mild mitral regurgitation is present. The tricuspid valve was not well visualized. Mild tricuspid regurgitation present. Right ventricu lar systolic pressure is normal at < 35 mmHg. There is no pulmonic regurgitation present. The aortic root size is normal. IVC Not well visulized. There is no pericardial effusion. CONCLUSIONS -------- 1. The left ventricular size is normal. 2. There is mild concentric left ventricular hypertrophy. 3. Overall left ventricular systolic function is normal with, an EF between 55 - 60 %. 4. Mild mitral regurgitation is present. 5. Mild tricuspid regurgitation present. 6. There is no pulmonic regurgitation present. 7. There is no pericardial effusion. [employer] REPLACER: Debbie Ramos RDCS
--- NOTE | 2020-09-25 11:34 | US ---
EXAMINATION TYPE: US carotid duplex BILAT DATE OF EXAM: 09/25/2020 COMPARISON: NONE CLINICAL HISTORY: TIA. EXAM MEASUREMENTS: RIGHT: Peak Systolic Velocity (PSV) cm/sec ----- Right CCA: 76.2 ----- Right ICA: 104.1 ----- Right ECA: 91.9 ICA/CCA ratio: 1.4 RIGHT: End Diastole cm/sec ----- Right CCA: 15.9 ----- Right ICA: 30.5 ----- Right ECA: 14.4 LEFT: Peak Systolic Velocity (PSV) cm/sec ----- Left CCA: 55.7 ----- Left ICA: 143.0 ----- Left ECA: 117.6 ICA/CCA ratio: 2.6 LEFT: End Diastole cm/sec ----- Left CCA: 21.6 ----- Left ICA: 42.6 ----- Left ECA: 12.1 VERTEBRALS (direction of flow): Right Vertebral: Antegrade Left Vertebral: Antegrade Rhythm: Normal IMPRESSION: Technically difficult, patient unable to move her neck. Velocity increase seen on right ICA, moderate plaque. Criteria for Assigning % of Stenosis / Diameter reduction (Estimation based on the indirect measurements of the internal carotid artery velocities (ICA PSV). 1. Normal (no stenosis)=ICA PSV < 125 cm/s: ratio < 2.0: ICA EDV<40 cm/s. 2. Less than 50% stenosis=ICA PSV < 125 cm/s: ratio < 2.0: ICA EDV<40 cm/s. 3. 50 to 69% stenosis=ICA PSV of 125 to 230 cm/s: ration 2.0 ? 4.0: ICA EDV 40-100 cm/s. 4. Greater than 70% stenosis to near occlusion= ICA PSV > 230 cm/s: ratio > 4.0: ICA EDV > 100 cm/s. 5. Near occlusion= ICA PSV velocities may be low or undetectable: variable ratio and ICA EDV. 6. Total occlusion=unable to detect flow.
[2020-09-25] MEDS: hydrALAZINE HCL 25 MG TAB PO SCH ×2 (11:49→20:42)
[2020-09-25] MEDS: APIXABAN 5 MG TAB PO SCH ×2 (11:50→20:41)
[2020-09-25 11:54] LABS: Glucose,Whole Blood 103 mg/dL (75-99)
--- NOTE | 2020-09-25 12:39 | P.CRDCN ---
History of Present Illness Consult date: 09/25/20 History of present illness: CHIEF COMPLAINT: History of A. fib HISTORY OF PRESENT ILLNESS: This is a 75 -year old female with a past medical history significant for diabetes mellitus, hypertension, hyperlipidemia, GERD, and paroxysmal atrial fibrillation. Patient states she does not follow with a rn home health. We have been asked to see the patient in consultation for history of A. fib. Patient examined at the bedside. Patient lives at [facility] and yesterday she began having some expressive aphasia and was transferred to the hospital for further evaluation. Patient states her expressive aphasia resolved within an hour. She denies any weakness of her extremities. It is noted that the patient underwent surgery on 09/16/2020 at [place], and had a revision of anterior cervical discectomy C3-C7 and removal of hardware. She is currently wearing a c-collar. Patient was previously taking Eliquis but this was placed on hold secondary to her surgery. She denies chest pain or pressure. Denies shortness of breath. Denies dizziness or lightheadedness. Denies palpitations. No episodes of atrial fibrillation seen on telemetry. DIAGNOSTICS: EKG reveals sinus rhythm with T-wave inversions in precordial leads and lead 1 and aVL. These were not present on her EKG in 2018 however they were present on her EKG on 08/01/2017. Chest xray negative for an acute process Laboratory data: WBC 3.8. Hemoglobin 13.4. Platelet count 142. Sodium 137. Potassium 3.8. BUN 20. Creatinine 0.98. Magnesium 2.0. Lactic acid 1.2. Troponin negative 1. Current home cardiac medications include metoprolol 25 mg daily, hydralazine 50 mg 3 times a day, Lasix 40 mg daily, and Lipitor 10 mg daily REVIEW OF SYSTEMS: At the time of my exam: CONSTITUTIONAL: Denies fever or chills. HEENT: Denies blurred vision, vision changes, or eye pain. Denies hemoptysis CARDIOVASCULAR: Denies chest pain, orthopnea, PND or palpitations RESPIRATORY: No shortness of breath. GASTROINTESTINAL: Denies abdominal pain. Denies nausea or vomiting. HEMATOLOGIC: Denies bleeding disorders. GENITOURINARY: Denies any blood in urine. SKIN: Denies pruitis. Denies rash. PHYSICAL EXAM: VITAL SIGNS: Reviewed. GENERAL: Well-developed in no acute distress. HEENT: Head is normocephalic. Pupils are equal, round. Sclerae anicteric. Mucous membranes of the mouth are moist. Neck supple. No JVD or thyromegaly. Cervical collar noted. LUNGS: Respirations even and unlabored. Lungs essentially clear to auscultation bilaterally. HEART: Regular rate and rhythm. S1 and S2 heard. ABDOMEN: Soft. Nondistended. Nontender. EXTREMITIES: Normal range of motion. No clubbing or cyanosis. Peripheral pulses intact. No lower extremity edema NEUROLOGIC: Awake and alert. Oriented x 3. ASSESSMENT: Acute covid 19 Expressive aphasia, possible TIA Recent revision of anterior cervical discectomy C3-C7 and removal of hardware, 09/16/2020 Paroxysmal atrial fibrillation, on long-term anticoagulation with Eliquis Hypertension Hyperlipidemia Diabetes mellitus, type II PLAN: Obtain 2-D echo to assess cardiac structure and function Resume Eliquis 5 mg twice a day. Discontinue aspirin Increase Lipitor to 40 mg daily Decrease hydralazine to 25 mg 3 times a day Further recommendations pending patient's course Nurse practitioner note has been reviewed by physician. Signing provider agrees with the documented findings, assessment, and plan of care. Past Medical History Past Medical History: Diabetes Mellitus, GERD/Reflux, Hypertension, Pneumonia Additional Past Medical History / Comment(s): Lupus, HEARTBURN, ryder ankle fx-no sx wore medi boots. pt stated lt ankle and rt knee gives out on her at times-hx falls. uti-ecoli 04-29-17. pt stated takes cholesterol med as preventtive because of her diabetes", upper bridge. History of Any Multi-Drug Resistant Organisms: ESBL Date of last positivie culture/infection: 08/07/20 ESBL-E.coli MDRO Source:: URINE ESBL Past Surgical History: Adenoidectomy, Appendectomy, Back Surgery, Cholecystectomy, Heart Catheterization, Hysterectomy, Tonsillectomy Additional Past Surgical History / Comment(s): 3 left humerous surgery, ryder heal surgery, partial knee right, 7 back surgery, c4-c7 fusion, Lumbar fusion. Past Anesthesia/Blood Transfusion Reactions: No Reported Reaction Past Psychological History: Anxiety, Depression Smoking Status: Never smoker Past Alcohol Use History: None Reported Past Drug Use History: None Reported - Past Family History Father Family Medical History: AICD/Pacemaker, Coronary Artery Disease (CAD) Brother(s) Additional Family Medical History / Comment(s): brain surgery Son(s) Family Medical History: Cancer Additional Family Medical History / Comment(s): brain ca Daughter(s) Family Medical History: No Reported History Mother Family Medical History: AICD/Pacemaker Medications and Allergies Home Medications Medication Instructions Recorded Confirmed Type Baclofen 10 mg PO TID@0900,1300,209905/01/17 09/24/20 History DULoxetine HCL [Cymbalta] 60 mg PO BID@0900,209905/01/17 09/24/20 History Famotidine [Pepcid] 20 mg PO DAILY@89905/01/17 09/24/20 History Acetaminophen Tab [Tylenol] 650 mg PO Q6H PRN 04/10/18 09/24/20 History Atorvastatin [Lipitor] 10 mg PO HS@209904/10/18 09/24/20 History Docusate [Colace] 200 mg PO DAILY@89904/10/18 09/24/20 History Insulin Detemir [Levemir Flextouch] 12 units SQ HS@209904/10/18 09/24/20 History Magnesium Oxide [Mag-Ox] 400 mg PO DAILY@89904/10/18 09/24/20 History Metoprolol Tartrate 25 mg PO DAILY@89904/10/18 09/24/20 History Butalb/APAP/Caff 50-325-40Mg 1 tab PO Q6H PRN 09/24/20 09/24/20 History [Fioricet 50-325-40] Diclofenac Sodium Gel [Voltaren 1 applic TOPICAL TID@0900,1300,209909/24/20 09/24/20 History Gel] Difluprednate [Durezol] 1 drop RIGHT EYE HS@209909/24/20 09/24/20 History Docusate [Colace] 100 mg PO BID PRN 09/24/20 09/24/20 History Ergocalciferol [Vitamin D2 50,000 unit PO Q14D@89909/24/20 09/24/20 History (DRISDOL)] Fluticasone Nasal [place] [Flonase 1 spray EA NOSTRIL DAILY PRN 09/24/20 09/24/20 History Nasal [place]] Furosemide [Lasix] 40 mg PO DAILY@0600 09/24/20 09/24/20 History Insulin Aspart [NovoLOG Flexpen] 5 unit SQ AC-BRKFST@0800 09/24/20 09/24/20 History Insulin Aspart [NovoLOG Flexpen] 6 unit SQ AC-LUNCH@1200 09/24/20 09/24/20 Hist ory Insulin Aspart [NovoLOG Flexpen] 8 unit SQ AC-SUPPER@1800 09/24/20 09/24/20 History Loperamide [Imodium] 2 mg PO QID PRN 09/24/20 09/24/20 History Melatonin 6 mg PO HS@209909/24/20 09/24/20 History Mirabegron [Myrbetriq] 25 mg PO HS@209909/24/20 09/24/20 History Mirabegron [Myrbetriq] 50 mg PO DAILY@0600 09/24/20 09/24/20 History Oxymetazoline 0.05% Nasl [place] 1 spray EA NOSTRIL Q12HR PRN 09/24/20 09/24/20 History [Afrin 0.05% Nasal [place]] Potassium Citrate [Potassium 10 meq PO HS@209909/24/20 09/24/20 History Citrate ER] Pregabalin [Lyrica] 100 mg PO BID@0900,209909/24/20 09/24/20 History Semaglutide [Ozempic] 1 mg SQ WE@0900 09/24/20 09/24/20 History hydrALAZINE HCL [Apresoline] 50 mg PO TID@0600,1300,209909/24/20 09/24/20 History oxyCODONE HCL 5 mg PO Q4H PRN 09/24/20 09/24/20 History oxyCODONE HCL [OxyCONTIN] 20 mg PO Q12HR@0900,209909/24/20 09/24/20 History prednisoLONE ACETATE [Pred Forte 1 drop LEFT EYE DAILY@0900 09/24/20 09/24/20 H istory 1%] Allergies Allergy/AdvReac Type Severity Reaction Status Date / Time Iodinated Contrast Media Allergy Rash/Hives Verified 09/24/20 18:19 latex Allergy Anaphylaxis Verified 09/24/20 18:19 morphine Allergy Anaphylaxis Verified 09/24/20 18:19 Penicillins Allergy Anaphylaxis Verified 09/24/20 18:19 prochlorperazine AdvReac Seizure Verified 09/24/20 18:19 [From Compazine] Sulfa (Sulfonamide AdvReac Systemic Verified 09/24/20 18:19 Antibiotics) Lupus Flare Physical Exam Vitals: Vital Signs Temp Pulse Pulse Resp BP BP Pulse Ox 09/25/20 08:00 98.5 F 85 16 154/60 95 09/25/20 03:26 73 18 09/25/20 03:22 97.8 F 73 18 119/68 97 09/25/20 02:31 97.7 F 75 18 133/63 99 09/25/20 02:20 73 18 09/25/20 02:00 65 14 97/48 97 09/25/20 01:00 67 16 96/54 97 09/25/20 00:00 69 16 119/59 95 09/24/20 20:30 98.7 F 88 18 122/75 95 09/24/20 18:10 100.4 F H 96 18 148/70 94 L Intake and Output 09/24/20 09/25/20 09/25/20 22:59 06:59 14:59 Intake Total 10 Balance 10 Intake: IV 10 0.9 10 Other: Voiding Method Bedpan Bedpan # Voids 1 1 Weight 86.183 kg 81.5 kg Results 09/25/20 09:45 09/25/20 09:45 Cardiac Enzymes 09/24/20 09/24/20 09/24/20 Range/Units 18:15 18:15 20:49 AST 37 H (14-36) U/L Lactate Dehydrogenase 702 H (313-618) U/L Troponin I <0.012 (0.000-0.034) ng/mL 09/25/20 Range/Units 09:45 AST 36 (14-36) U/L Lactate Dehydrogenase (313-618) U/L Troponin I (0.000-0.034) ng/mL Coagulation 09/24/20 Range/Units 18:15 PT 9.6 (9.0-12.0) sec APTT 21.1 L (22.0-30.0) sec Lipids 09/25/20 Range/Units 09:45 Triglycerides 103 (<150) mg/dL Cholesterol 121 (<200) mg/dL HDL Cholesterol 36 L (40-60) mg/dL CBC 09/24/20 09/25/20 Range/Units 18:15 09:45 WBC 6.1 3.8 (3.8-10.6) k/uL RBC 4.68 4.57 (3.80-5.40) m/uL Hgb 14.0 13.4 (11.4-16.0) gm/dL Hct 42.4 42.7 (34.0-46.0) % Plt Count 183 142 L (150-450) k/uL Comprehensive Metabolic Panel 09/24/20 09/25/20 Range/Units 18:15 09:45 Sodium 135 L 137 (137-145) mmol/L Potassium 4.6 3.8 (3.5-5.1) mmol/L Chloride 98 98 (98-107) mmol/L Carbon Dioxide 27 29 (22-30) mmol/L BUN 18 H 20 H (7-17) mg/dL Creatinine 0.93 0.98 (0.52-1.04) mg/dL Glucose 183 H 159 H (74-99) mg/dL Calcium 9.0 8.5 (8.4-10.2) mg/dL AST 37 H 36 (14-36) U/L ALT 30 26 (4-34) U/L Alkaline Phosphatase 85 78 (38-126) U/L Total Protein 7.1 6.5 (6.3-8.2) g/dL Albumin 3.8 3.5 (3.5-5.0) g/dL Current Medications Generic Name Dose Route Start Last Admin Trade Name Freq PRN Reason Stop Dose Admin Acetaminophen 650 mg 09/24/20 22:25 Acetaminophen Tab 325 Mg Tab PO Q6H PRN Fever and/ or Pain Apixaban 5 mg 09/25/20 10:00 09/25/20 11:50 Apixaban 5 Mg Tab PO 5 mg BID REENA Administration Atorvastatin Calcium 40 mg 09/25/20 21:00 Atorvastatin 40 Mg Tab PO HS@2100 REENA Baclofen 10 mg 09/24/20 22:30 09/25/20 11:50 Baclofen 10 Mg Tab PO 10 mg TID@0900,1300,2100 REENA Administration Diclofenac Sodium 2 gm 09/25/20 09:00 09/25/20 11:54 Diclofenac Sodium Gel 100 Gm Tube TOPICAL Not Given TID@0900,1300,2099 [facility] Docusate Sodium 100 mg 09/24/20 22:25 Docusate 100 Mg Cap PO BID PRN Constipation Docusate Sodium 200 mg 09/25/20 09:00 09/25/20 09:12 Docusate 100 Mg Cap PO 200 mg DAILY@09 [facility] Administration Duloxetine HCl 60 mg 09/24/20 22:31 09/25/20 09:12 Duloxetine Hcl 60 Mg Capsule.Dr PO 60 mg BID@899,2099 [facility] Administration Famotidine 20 mg 09/25/20 09:00 09/25/20 09:10 Famotidine 20 Mg Tab PO 20 mg DAILY@09 [facility] Administration Fluticasone Propionate 1 spray 09/24/20 22:25 Fluticasone 50mcg/[place] Nasal 16gm EA NOSTRIL DAILY PRN seasonal allergies Furosemide 40 mg 09/25/20 06:00 09/25/20 06:23 Furosemide 40 Mg Tab PO 40 mg DAILY@0600 [facility] Administration Hydralazine HCl 25 mg 09/25/20 13:00 09/25/20 11:49 Hydralazine Hcl 25 Mg Tab PO 25 mg TID@0600,1299,2099 [facility] Administration Insulin Aspart 5 unit 09/25/20 08:00 09/25/20 09:14 Insulin Aspart (Novolog) 100 Unit/Ml Vial SQ 5 unit AC-BRKFST@0800 [facility] Administration Insulin Aspart 6 unit 09/25/20 12:00 09/25/20 11:54 Insulin Aspart (Novolog) 100 Unit/Ml Vial SQ Not Given AC-LUNCH@1200 [facility] Insulin Aspart 8 unit 09/25/20 18:00 Insulin Aspart (Novolog) 100 Unit/Ml Vial SQ AC-SUPPER@1800 [facility] Insulin Detemir 12 unit 09/24/20 22:32 09/24/20 22:41 Insulin Detemir (Levemir) 100 Unit/Ml Syr SQ Not Given HS@2099 [facility] Loperamide HCl 2 mg 09/24/20 22:25 Loperamide 2 Mg Cap PO QID PRN Diarrhea Magnesium Oxide 400 mg 09/25/20 09:00 09/25/20 09:10 Magnesium Oxide 400 Mg Tab PO 400 mg DAILY@0900 [facility] Administration Melatonin 6 mg 09/25/20 21:00 Melatonin 3 Mg Tablet PO HS@2099 [facility] Metoprolol Tartrate 25 mg 09/25/20 09:00 09/25/20 09:10 Metoprolol Tartrate 25 Mg Tab PO 25 mg DAILY@0900 [facility] Administration Difluprednate [ 1 drop 09/25/20 21:00 Durezol] 5 Ml Drops RIGHT EYE HS@2100 [facility] Mirabegron [ 25 mg 09/25/20 21:00 Myrbetriq] 25 Mg Tab PO .Er.24h HS@2100 [facility] Mirabegron [ 50 mg 09/25/20 06:00 09/25/20 06:22 Myrbetriq] 50 Mg Tab PO Not Given .Er.24h DAILY@0600 [facility] Semaglutide [Ozempic 1 mg 09/30/20 09:00 ] 1 Mg/0.75 Ml Pen. SQ Injctr WE@0900 [facility] Oxycodone HCl 5 mg 09/24/20 22:25 Oxycodone Hcl 5 Mg Tab PO Q4H PRN Severe Pain Oxycodone HCl 20 mg 09/25/20 09:00 09/25/20 09:10 Oxycodone Er 20 Mg Tab.Er.12h PO 20 mg Q12HR@0900,2099 [facility] Administration Potassium Citrate 10 meq 09/25/20 21:00 Potassium Citrate 10 Meq Tablet.Er PO HS@2100 [facility] Prednisolone Acetate 1 drops 09/25/20 09:00 09/25/20 09:14 Prednisolone Acetate 1% Ophth Drops 5 Ml Btl LEFT EYE Not Given DAILY@0900 [facility] Pregabalin 100 mg 09/25/20 09:00 09/25/20 09:10 Pregabalin 100 Mg Cap PO 100 mg BID@0900,2099 [facility] Administration Intake and Output 09/24/20 09/25/20 09/25/20 22:59 06:59 14:59 Intake Total 10 Balance 10 Intake: IV 10 0.9 10 Other: Voiding Method Bedpan Bedpan # Voids 1 1 Weight 86.183 kg 81.5 kg 09/25/20 09:45 09/25/20 09:45
--- NOTE | 2020-09-25 13:11 | P.HPIM ---
History of Present Illness H&P Date: 09/25/20 HISTORY OF PRESENT ILLNESS This is a 75-year-old female patient of Dr. Silver residing at [facility] for subacute rehab with past medical history of diabetes mellitus type 2, hype rtension, gastroesophageal reflux disease, lupus, revision of anterior cervical discectomy C3 through C7 with removal of hardware, exploration of fusion, neural lysis at [facility] on September 16. Patient is maintained in a hard cervical collar. She also has history of paroxysmal atrial fibrillation and eliquis has been on hold for surgical intervention but at this point is cl eared to resume eliquis. Patient had episode of expressive aphasia 1 hour before she arrived and resolved with EMS. Upon arrival to the emergency center, patient did not have any slurred speech, no facial droop him and no weakness or numbness. No recent fever or chills, no cough. Temperature 100.4, heart rate 96, blood pressure 140/70, pulse ox 94% on 2 L nasal cannula. Chest x-ray revealed mild subsegmental atelectasis right lung base is new. No heart failure.. Carotid ultrasound was difficult to test as patient was unable to move her neck. Velocity increasing and right ICA, moderate plaque. CAT scan of the brain revealed cerebral atrophy. Old lacunar infarct left parietal lobe. N o acute intracranial abnormality. CBC were unremarkable except for repeat platelet count 142. Electrolytes normal, creatinine 0.98. Blood sugar 137. LDH 702. Liver function tests are normal. Pro-calcitonin 0.15. Triglycerides 103, cholesterol 121, LDL 64, HDL 36. Coronavirus is positive. Urinalysis negative for infection. Echocardiogram reveals EF of 55-60% with mild concentric left ventricle hypertrophy, mild mitral regurgitation, mild tricuspid regurgitation. Patient admitted to the cardiac stepdown unit and cardiology and neurology consults requested. EKG is a sinus rhythm. PT, OT, speech therapy consults. Patient has been seen by cardiology and resumed on eliquis. REVIEW OF SYSTEMS Constitutional: No fever, no chills, no night sweats. No weight change. No weakness, fatigue or lethargy. No daytime sleepiness. EENT: No headache. No blurred vision or double vision, no loss of vision. No loss of Hearing, no ringing in the ears, no dizziness. No nasal drainage or congestion. No epistaxis. No sore throat. Lungs: No shortness of breath, cough, no sputum production. No wheezing. Cardiovascular: No chest pain, no lower extremity edema. No palpitations. No paroxysmal nocturnal dyspnea. No orthopnea. No lightheadedness or dizziness. No syncopal episodes. Abdominal: No abdominal pain. No nausea, vomiting. No diarrhea. No constipa tion. No bloody or tarry stools.. No loss of appetite. Genitourinary: No dysuria, increased frequency, urgency. No urinary retention. Musculoskeletal: No myalgias. No muscle weakness, no gait dysfunction, no frequent falls. No back pain. No neck pain. Integumentary: No wounds, no lesions. No rash or pruritus. No unusual bruising. No change in hair or nails. Neurologic: Reports expressive aphasia, resolved. No facial droop. No change in mentation. No head injury. No headache. No paralysis. No paresthesia. Psychiatric: No depression. No anxiety. No mood swings. Endocrine: No abnormal blood sugars. No weight change. No excessive sweating or thirst. No cold intolerance. SOCIAL HISTORY Patient is a lifelong nonsmoker, no alcohol use, marijuana use or street drug use. She is currently residing at [facility]. FAMILY HISTORY Father had history of coronary artery disease, AICD. Mother had history of AICD and pacemaker. Patient has a brother status post brain surgery. Patient has a son with brain cancer. Daughter with no major medical problems.. PHYSICAL EXAMINATION Gen: This is a 75-year-old female. She is resting in bed and appears to be comfortable and in no acute distress. HEENT: Head is atraumatic, normocephalic. Pupils equal, round. Sclerae is anicteric. Surgical scar left anterior neck area. Hard cervical collar in place. NECK: Supple. No JVD. No lymphadenopathy. No thyromegaly. LUNGS: Clear to auscultation. No wheezes or rhonchi. No intercostal retractions. HEART: Regular rate and rhythm. No murmur. ABDOMEN: Soft. Bowel sounds are present. No masses. No tenderness. EXTREMITIES: No pedal edema. No calf tenderness. NEUROLOGICAL: Patient is awake, alert and oriented x3. Cranial nerves 2 through 12 are grossly intact. ASSESSMENT AND PLAN 1. Expressive aphasia most likely due to TIA with resolution of symptoms. Consult with neurology, PT, OT, speech therapy. Patient will be resumed on eliquis. Continue Lipitor 40 mg daily 2. Diabetes mellitus type 2. Continue Levemir 12 units at bedtime, NovoLog 5 units with breakfast, 6 units with lunch, 8 units with supper, NovoLog scale. 3. Hypertension. Continue Lasix 40 mg daily, hydralazine 25 mg 3 times daily. 4. Paroxysmal atrial fibrillation. Cardiology consult appreciated. Patient has been resumed on eliquis, continue Lopressor 25 mg daily. 5. Recent cervical discectomy. Maintain hard cervical collar. Continue baclofen 10 mg 3 times daily, Voltaren gel times daily, Lyrica 100 mg twice daily. 6. Recurrent depression. Continue Cymbalta 60 mg twice daily. 7. Gastroesophageal reflux disease. Continue Pepcid. 8. COVID-19 infection. Consult with infectious disease. Patient is currently hemodynamically stable and Patient will be admitted to the hospital for a minimum of 2 night stay. DISCHARGE PLAN To be determined. Patient will be unable to return to the [facility].. Impression and plan of care have been directed as dictated by the signing physician. Beatriz Barrera nurse practitioner acting as scribe for signing physician. Past Medical History Past Medical History: Diabetes Mellitus, GERD/Reflux, Hypertension, Pneumonia Additional Past Medical History / Comment(s): Lupus, HEARTBURN, ryder ankle fx-no sx wore medi boots. pt stated lt ankle and rt knee gives out on her at times-hx falls. uti-ecoli 04-29-17. pt stated takes cholesterol med as preventtive because of her diabetes", upper bridge. History of Any Multi-Drug Resistant Organisms: ESBL Date of last positivie culture/infection: 08/07/20 ESBL-E.coli MDRO Source:: URINE ESBL Past Surgical History: Adenoidectomy, Appendectomy, Back Surgery, Cholecystectomy, Heart Catheterization, Hysterectomy, Tonsillectomy Additional Past Surgical History / Comment(s): 3 left humerous surgery, ryder heal surgery, partial knee right, 7 back surgery, c4-c7 fusion, Lumbar fusion. Past Anesthesia/Blood Transfusion Reactions: No Reported Reaction Past Psychological History: Anxiety, Depression Smoking Status: Never smoker Past Alcohol Use History: None Reported Past Drug Use History: None Reported - Past Family History Father Family Medical History: AICD/Pacemaker, Coronary Artery Disease (CAD) Brother(s) Additional Family Medical History / Comment(s): brain surgery Son(s) Family Medical History: Cancer Additional Family Medical History / Comment(s): brain ca Daughter(s) Family Medical History: No Reported History Mother Family Medical History: AICD/Pacemaker Medications and Allergies Home Medications Medication Instructions Recorded Confirmed Type Baclofen 10 mg PO TID@0900,1300,209905/01/17 09/24/20 History DULoxetine HCL [Cymbalta] 60 mg PO BID@0900,209905/01/17 09/24/20 History Famotidine [Pepcid] 20 mg PO DAILY@89905/01/17 09/24/20 History Acetaminophen Tab [Tylenol] 650 mg PO Q6H PRN 04/10/18 09/24/20 History Atorvastatin [Lipitor] 10 mg PO HS@209904/10/18 09/24/20 History Docusate [Colace] 200 mg PO DAILY@89904/10/18 09/24/20 History Insulin Detemir [Levemir Flextouch] 12 units SQ HS@209904/10/18 09/24/20 History Magnesium Oxide [Mag-Ox] 400 mg PO DAILY@89904/10/18 09/24/20 History Metoprolol Tartrate 25 mg PO DAILY@89904/10/18 09/24/20 History Butalb/APAP/Caff 50-325-40Mg 1 tab PO Q6H PRN 09/24/20 09/24/20 History [Fioricet 50-325-40] Diclofenac Sodium Gel [Voltaren 1 applic TOPICAL TID@0900,1300,209909/24/20 History Gel] Difluprednate [Durezol] 1 drop RIGHT EYE HS@209909/24/20 09/24/20 History Docusate [Colace] 100 mg PO BID PRN 09/24/20 09/24/20 History Ergocalciferol [Vitamin D2 50,000 unit PO Q14D@89909/24/20 09/24/20 History (DRISDOL)] Fluticasone Nasal [place] [Flonase 1 spray EA NOSTRIL DAILY PRN 09/24/20 09/24/20 History Nasal [place]] Furosemide [Lasix] 40 mg PO DAILY@0600 09/24/20 09/24/20 History Insulin Aspart [NovoLOG Flexpen] 5 unit SQ AC-BRKFST@0800 09/24/20 09/24/20 History Insulin Aspart [NovoLOG Flexpen] 6 unit SQ AC-LUNCH@1200 09/24/20 09/24/20 H istory Insulin Aspart [NovoLOG Flexpen] 8 unit SQ AC-SUPPER@1800 09/24/20 09/24/20 History Loperamide [Imodium] 2 mg PO QID PRN 09/24/20 09/24/20 History Melatonin 6 mg PO HS@209909/24/20 09/24/20 History Mirabegron [Myrbetriq] 25 mg PO HS@209909/24/20 09/24/20 History Mirabegron [Myrbetriq] 50 mg PO DAILY@0600 09/24/20 09/24/20 History Oxymetazoline 0.05% Nasl [place] 1 spray EA NOSTRIL Q12HR PRN 09/24/20 09/24/20 History [Afrin 0.05% Nasal [place]] Potassium Citrate [Potassium 10 meq PO HS@209909/24/20 09/24/20 History Citrate ER] Pregabalin [Lyrica] 100 mg PO BID@0900,209909/24/20 09/24/20 History Semaglutide [Ozempic] 1 mg SQ WE@0900 09/24/20 09/24/20 History hydrALAZINE HCL [Apresoline] 50 mg PO TID@0600,1300,209909/24/20 09/24/20 History oxyCODONE HCL 5 mg PO Q4H PRN 09/24/20 09/24/20 History oxyCODONE HCL [OxyCONTIN] 20 mg PO Q12HR@0900,209909/24/20 09/24/20 History prednisoLONE ACETATE [Pred Forte 1 drop LEFT EYE DAILY@0900 09/24/20 09/24/20 History 1%] Allergies Allergy/AdvReac Type Severity Reaction Status Date / Time Iodinated Contrast Media Allergy Rash/Hives Verified 09/24/20 18:19 latex Allergy Anaphylaxis Verified 09/24/20 18:19 morphine Allergy Anaphylaxis Verified 09/24/20 18:19 Penicillins Allergy Anaphylaxis Verified 09/24/20 18:19 prochlorperazine AdvReac Seizure Verified 09/24/20 18:19 [From Compazine] Sulfa (Sulfonamide AdvReac Systemic Verified 09/24/20 18:19 Antibiotics) Lupus Flare Physical Exam Vitals: Vital Signs Temp Pulse Pulse Resp BP BP Pulse Ox 09/25/20 03:26 73 18 09/25/20 03:22 97.8 F 73 18 119/68 97 09/25/20 02:31 97.7 F 75 18 133/63 99 09/25/20 02:20 73 18 09/25/20 02:00 65 14 97/48 97 09/25/20 01:00 67 16 96/54 97 09/25/20 00:00 69 16 119/59 95 09/24/20 20:30 98.7 F 88 18 122/75 95 09/24/20 18:10 100.4 F H 96 18 148/70 94 L Intake and Output 09/24/20 09/25/20 09/25/20 22:59 06:59 14:59 Intake Total 10 Balance 10 Intake: IV 10 0.9 10 Other: Voiding Method Bedpan # Voids 1 Weight 86.183 kg 81.5 kg Results CBC & Chem 7: 09/25/20 09:45 09/25/20 09:45 Labs: Abnormal Lab Results - Last 24 Hours (Table) 09/24/20 09/24/20 09/24/20 Range/Units 18:15 18:15 18:15 Lymphocytes # 0.8 L (1.0-4.8) k/uL APTT 21.1 L (22.0-30.0) sec D-Dimer (<0.60) mg/L FEU Sodium (137-145) mmol/L BUN (7-17) mg/dL Glucose (74-99) mg/dL POC Glucose (mg/dL) (75-99) mg/dL AST (14-36) U/L Lactate Dehydrogenase (313-618) U/L C-Reactive Protein (<10.0) mg/L Procalcitonin (0.02-0.09) ng/mL Urine Protein 1+ H (Negative) Urine Ketones 1+ H (Negative) Urine Mucus Rare H (None) /hpf Coronavirus (PCR) (Not Detectd) 09/24/20 09/24/20 09/24/20 Range/Units 18:15 18:15 18:15 Lymphocytes # (1.0-4.8) k/uL APTT (22.0-30.0) sec D-Dimer (<0.60) mg/L FEU Sodium 135 L (137-145) mmol/L BUN 18 H (7-17) mg/dL Glucose 183 H (74-99) mg/dL POC Glucose (mg/dL) (75-99) mg/dL AST 37 H (14-36) U/L Lactate Dehydrogenase (313-618) U/L C-Reactive Protein (<10.0) mg/L Procalcitonin 0.15 H (0.02-0.09) ng/mL Urine Protein (Negative) Urine Ketones (Negative) Urine Mucus (None) /hpf Coronavirus (PCR) Detected A (Not Detectd) 09/24/20 09/24/20 09/24/20 Range/Units 20:49 20:49 22:32 Lymphocytes # (1.0-4.8) k/uL APTT (22.0-30.0) sec D-Dimer 1.79 H (<0.60) mg/L FEU Sodium (137-145) mmol/L BUN (7-17) mg/dL Glucose (74-99) mg/dL POC Glucose (mg/dL) 137 H (75-99) mg/dL AST (14-36) U/L Lactate Dehydrogenase 702 H (313-618) U/L C-Reactive Protein 84.9 H (<10.0) mg/L Procalcitonin (0.02-0.09) ng/mL Urine Protein (Negative) Urine Ketones (Negative) Urine Mucus (None) /hpf Coronavirus (PCR) (Not Detectd) 09/25/20 Range/Units 07:27 Lymphocytes # (1.0-4.8) k/uL APTT (22.0-30.0) sec D-Dimer (<0.60) mg/L FEU Sodium (137-145) mmol/L BUN (7-17) mg/dL Glucose (74-99) mg/dL POC Glucose (mg/dL) 135 H (75-99) mg/dL AST (14-36) U/L Lactate Dehydrogenase (313-618) U/L C-Reactive Protein (<10.0) mg/L Procalcitonin (0.02-0.09) ng/mL Urine Protein (Negative) Urine Ketones (Negative) Urine Mucus (None) /hpf Coronavirus (PCR) (Not Detectd) Thrombosis Risk Factor Assmnt - Choose All That Apply Any of the Below Risk Factors Present?: No Other Risk Factors: Yes Each Risk Factor Represents 3 Points: Age 75 years or older Other congenital or acquired thrombophilia - If yes, enter type in comment: No Thrombosis Risk Factor Assessment Total Risk Factor Score: 3 Thrombosis Risk Factor Assessment Level: Moderate Risk
--- NOTE | 2020-09-25 15:55 | P.CNNES ---
History of Present Illness Consult date: 09/25/20 Requesting physician: Abundio Choudhury Reason for Consult: TIA History of Present Illness: Patient is a 75-year-old female came to the hospital yesterday at 5:35 PM by ambulance from [facility]. It was reported patient had a expressive aphasia which started approximately an hour prior to arrival. Patient started to improve in route to the hospital. By the time patient arrived, she had no symptoms. She was speaking clearly and in complete sentences. No slurred speech. No facial droop. Patient could not tell how long it lasted but on guessing states the speech difficulty lasted around 10 minutes. There was no associated focal numbness tingling or weakness. Vital signs on arrival blood pressure 148/70, pulse rate 96, temperature 100.4. CBC, PT/PTT normal. Sodium 135 potassium 4.6, BUN 18, creatinine 0.93, AST is borderline 37 ALT 30. Troponin negative. UA negative. [place] virus PCR posit florin. Patient's last hemoglobin A1c 5.8 on 09/08/2020. CT head showed cerebral atrophy. Old lacunar infarct left parietal lobe. No acute intracranial abnormality. Chest x-ray showed mild subsegmental atelectasis right lung base is kneeling compared to old exam. No heart failure. EKG shows normal sinus rhythm, left axis deviation. Patient previously had an MRI of cervical spine on 09/13/2017 which revealed stable cervical spine MRI. There are postop changes, posterior extension endplate disc complex at C3 4 again shows a resulting spinal stenosis, anterior mass effect on the thecal sac with possible cord contact, there is bilateral foraminal encroachment. Multilevel foraminal encroachment present at the C4 5, C5 6 and C6 7 levels. MRI of the brain was normal with nonspecific white matter changes. Patient does not take any antiplatelet or anticoagulants at home as per home med ication list, although patient states that she does take aspirin 81 mg daily. Patient has history of diabetes since 1970s. Patient has hypertension. Also has history of paroxysmal atrial fibrillation although current EKGs are normal. Never smoked, drinks alcohol very seldom. Patient states that she has been living in [facility] after she had undergone back surgery. She denies any history of strokes or TIA. Review of Systems Denies chest pain shortness of breath wheezing or cough. Denies abdominal pain nausea vomiting diarrhea. Patient does have gait difficulty. No history of strokes. Denies fever or chills at this time. Patient has chronic back pain. All other review of systems noncontributory. Past Medical History Past Medical History: Diabetes Mellitus, GERD/Reflux, Hypertension, Pneumonia Additional Past Medical History / Comment(s): Lupus, HEARTBURN, ryder ankle fx-no sx wore medi boots. pt stated lt ankle and rt knee gives out on her at times-hx falls. uti-ecoli 04-29-17. pt stated takes cholesterol med as preventtive because of her diabetes", upper bridge. History of Any Multi-Drug Resistant Organisms: ESBL Date of last positivie culture/infection: 08/07/20 ESBL-E.coli MDRO Source:: URINE ESBL Past Surgical History: Adenoidectomy, Appendectomy, Back Surgery, Cholecystectomy, Heart Catheterization, Hysterectomy, Tonsillectomy Additional Past Surgical History / Comment(s): 3 left humerous surgery, ryder heal surgery, partial knee right, 7 back surgery, c4-c7 fusion, Lumbar fusion. Past Anesthesia/Blood Transfusion Reactions: No Reported Reaction Past Psychological History: Anxiety, Depression Smoking Status: Never smoker Past Alcohol Use History: None Reported Past Drug Use History: None Reported - Past Family History Father Family Medical History: AICD/Pacemaker, Coronary Artery Disease (CAD) Brother(s) Additional Family Medical History / Comment(s): brain surgery Son(s) Family Medical History: Cancer Additional Family Medical History / Comment(s): brain ca Daughter(s) Family Medical History: No Reported History Mother Family Medical History: AICD/Pacemaker Medications and Allergies Home Medications Medication Instructions Recorded Confirmed Type Baclofen 10 mg PO TID@0900,1300,209905/01/17 09/24/20 History DULoxetine HCL [Cymbalta] 60 mg PO BID@0900,209905/01/17 09/24/20 History Famotidine [Pepcid] 20 mg PO DAILY@89905/01/17 09/24/20 History Acetaminophen Tab [Tylenol] 650 mg PO Q6H PRN 04/10/18 09/24/20 History Atorvastatin [Lipitor] 10 mg PO HS@209904/10/18 09/24/20 History Docusate [Colace] 200 mg PO DAILY@0904/10/18 09/24/20 History Insulin Detemir [Levemir Flextouch] 12 units SQ HS@209904/10/18 09/24/20 History Magnesium Oxide [Mag-Ox] 400 mg PO DAILY@0904/10/18 09/24/20 History Metoprolol Tartrate 25 mg PO DAILY@0900 04/10/18 09/24/20 History Butalb/APAP/Caff 50-325-40Mg 1 tab PO Q6H PRN 09/24/20 09/24/20 History [Fioricet 50-325-40] Diclofenac Sodium Gel [Voltaren 1 applic TOPICAL TID@0900,1300,209909/24/20 09/24/20 History Gel] Difluprednate [Durezol] 1 drop RIGHT EYE HS@209909/24/20 09/24/20 History Docusate [Colace] 100 mg PO BID PRN 09/24/20 09/24/20 History Ergocalciferol [Vitamin D2 50,000 unit PO Q14D@89909/24/20 09/24/20 History (DRISDOL)] Fluticasone Nasal [place] [Flonase 1 spray EA NOSTRIL DAILY PRN 09/24/20 09/24/20 History Nasal [place]] Furosemide [Lasix] 40 mg PO DAILY@0609/24/20 09/24/20 History Insulin Aspart [NovoLOG Flexpen] 5 unit SQ AC-BRKFST@0809/24/20 09/24/20 History Insulin Aspart [NovoLOG Flexpen] 6 unit SQ AC-LUNCH@1200 09/24/20 09/24/20 History Insulin Aspart [NovoLOG Flexpen] 8 unit SQ AC-SUPPER@1800 09/24/20 09/24/20 History Loperamide [Imodium] 2 mg PO QID PRN 09/24/20 09/24/20 History Melatonin 6 mg PO HS@209909/24/20 09/24/20 History Mirabegron [Myrbetriq] 25 mg PO HS@209909/24/20 09/24/20 History Mirabegron [Myrbetriq] 50 mg PO DAILY@0609/24/20 09/24/20 History Oxymetazoline 0.05% Nasl [place] 1 spray EA NOSTRIL Q12HR PRN 09/24/20 09/24/20 History [Afrin 0.05% Nasal [place]] Potassium Citrate [Potassium 10 meq PO HS@209909/24/20 09/24/20 History Citrate ER] Pregabalin [Lyrica] 100 mg PO BID@0900,2100 09/24/20 09/24/20 History Semaglutide [Ozempic] 1 mg SQ WE@0900 09/24/20 09/24/20 History hydrALAZINE HCL [Apresoline] 50 mg PO TID@0600,1300,209909/24/20 09/24/20 History oxyCODONE HCL 5 mg PO Q4H PRN 09/24/20 09/24/20 History oxyCODONE HCL [OxyCONTIN] 20 mg PO Q12HR@0900,2100 09/24/20 09/24/20 History prednisoLONE ACETATE [Pred Forte 1 drop LEFT EYE DAILY@0900 09/24/20 09/24/20 History 1%] Allergies Allergy/AdvReac Type Severity Reaction Status Date / Time Iodinated Contrast Media Allergy Rash/Hives Verified 09/24/20 18:19 latex Allergy Anaphylaxis Verified 09/24/20 18:19 morphine Allergy Anaphylaxis Verified 09/24/20 18:19 Penicillins Allergy Anaphylaxis Verified 09/24/20 18:19 prochlorperazine AdvReac Seizure Verified 09/24/20 18:19 [From Compazine] Sulfa (Sulfonamide AdvReac Systemic Verified 09/24/20 18:19 Antibiotics) Lupus Flare Physical Examination - Vital Signs Vital Signs: Vital Signs Temp Pulse Pulse Resp BP BP Pulse Ox 09/25/20 03:26 73 18 09/25/20 03:22 97.8 F 73 18 119/68 97 09/25/20 02:31 97.7 F 75 18 133/63 99 09/25/20 02:20 73 18 09/25/20 02:00 65 14 97/48 97 09/25/20 01:00 67 16 96/54 97 09/25/20 00:00 69 16 119/59 95 09/24/20 20:30 98.7 F 88 18 122/75 95 09/24/20 18:10 100.4 F H 96 18 148/70 94 L Intake and Output 09/24/20 09/25/20 09/25/20 22:59 06:59 14:59 Intake Total 10 Balance 10 Intake: IV 10 0.9 10 Other: Voiding Method Bedpan # Voids 1 Weight 86.183 kg 81.5 kg On examination patient is an elderly female, laying comfortably in the bed. Patient is alert awake oriented to time place and person. Speech and language functions are normal. Attention and concentration fund of knowledge is adequate. On cranial nerve exam. Pupils are round and reactive to light, visual cordova are full, extraocular muscles are intact with no nystagmus. Face is symmetric, tongue protrudes to the midline. Palatal elevation and sensation normal hearing and shoulder shrug normal. Facial sensation is normal. On muscle strength testing there is no drift and the strength is normal in arms and legs distally and proximally. Reflexes are diminished and plantars downgoing. Sensory to touch is equal. No ataxia for finger to nose testing. Tone and bulk of muscles normal. Gait deferred. No obvious bruit, S1 and S2 audible. No peripheral edema. Abdomen soft nontender. Results - Laboratory Findings CBC and BMP: 09/25/20 09:45 09/25/20 09:45 Abnormal Lab Findings: Abnormal Labs 09/24/20 09/24/20 09/24/20 18:15 18:15 18:15 Lymphocytes # 0.8 L APTT 21.1 L D-Dimer Sodium BUN Glucose POC Glucose (mg/dL) AST Lactate Dehydrogenase C-Reactive Protein Procalcitonin Urine Protein 1+ H Urine Ketones 1+ H Urine Mucus Rare H Coronavirus (PCR) 09/24/20 09/24/20 09/24/20 18:15 18:15 18:15 Lymphocytes # APTT D-Dimer Sodium 135 L BUN 18 H Glucose 183 H POC Glucose (mg/dL) AST 37 H Lactate Dehydrogenase C-Reactive Protein Procalcitonin 0.15 H Urine Protein Urine Ketones Urine Mucus Coronavirus (PCR) Detected A 09/24/20 09/24/20 09/24/20 20:49 20:49 22:32 Lymphocytes # APTT D-Dimer 1.79 H Sodium BUN Glucose POC Glucose (mg/dL) 137 H AST Lactate Dehydrogenase 702 H C-Reactive Protein 84.9 H Procalcitonin Urine Protein Urine Ketones Urine Mucus Coronavirus (PCR) 09/25/20 07:27 Lymphocytes # APTT D-Dimer Sodium BUN Glucose POC Glucose (mg/dL) 135 H AST Lactate Dehydrogenase C-Reactive Protein Procalcitonin Urine Protein Urine Ketones Urine Mucus Coronavirus (PCR) Assessment and Plan Assessment: * TIA manifesting with expressive aphasia lasting for 10 minutes. * COVID-19 positive * Paroxysmal atrial fibrillation. * Diabetes by history although hemoglobin A1c 5.8 on 09/08/2020. * Hypertension * Hyperlipidemia * Chronic back pain, history of back surgery. Plan: * Patient had a TIA, possibly related to paroxysmal atrial fibrillation. * Patient has been seen by cardiology, started on Apixaban 5 mg twice a day. * Carotid Doppler was technically difficult, patient unable to move her neck. Velocity increased seen on right ICA, moderate plaque. Antegrade flow in both vertebral arteries. CTA of head and neck to rule out extracranial or intracranial stenosis. May add low-dose aspirin, if CTA shows significant stenosis. * 2-D echo showed normal left ventricle size. Mild concentric LVH. EF is 55- 60%. Mild mitral regurgitation. * Continue statins.
[2020-09-25 17:02] LABS: Glucose,Whole Blood 164 mg/dL (75-99)
[2020-09-25] MEDS: ACETAMINOPHEN TAB 325 MG TAB PO PRN (17:45)
[2020-09-25] MEDS: Difluprednate [Durezol] 5 ML Drops RIGHT EYE SCH (20:15)
[2020-09-25 20:41] LABS: Glucose,Whole Blood 150 mg/dL (75-99)
[2020-09-25] MEDS: ATORVASTATIN 40 MG TAB PO SCH (20:42)
[2020-09-25] MEDS: POTASSIUM CITRATE 10 MEQ TABLET.ER PO SCH (20:42)
[2020-09-25] MEDS: INSULIN DETEMIR (LEVEMIR) 100 UNIT/ML SYR SQ SCH (20:42)
[2020-09-25] MEDS ORDERED: ATORVASTATIN 10 MG TAB PO SCH (21:00)
[2020-09-25] MEDS: Mirabegron [Myrbetriq] 25 MG Tab.Er.24h PO SCH (21:56)
[2020-09-25] MEDS ORDERED: REMDESIVIR (EUA) 200 MG in SODIUM CHLORIDE 0.9% 250 ML IVPB ONE (22:45)
[2020-09-26] MEDS ORDERED: methylPREDNISolone SOD SUCCI 125 MG/2 ML VIAL IV STA (00:23)
[2020-09-26] MEDS ORDERED: FAMOTIDINE 20 MG/2 ML VIAL IV STA (00:23)
[2020-09-26] MEDS ORDERED: diphenhydrAMINE 50 MG/ML 1 ML VIAL IVP STA (00:23)
[2020-09-26] MEDS: oxyCODONE ER 20 MG TAB.ER.12H PO SCH ×3 (00:32→22:07)
[2020-09-26] MEDS: MELATONIN 3 MG TABLET PO SCH ×2 (00:32→22:02)
[2020-09-26 00:46] LABS: Glucose,Whole Blood 125 mg/dL (75-99)
--- NOTE | 2020-09-26 02:37 | CT ---
EXAM: CT Angiography Head With Intravenous Contrast CLINICAL HISTORY: ITS.REASON CT Reason: TIA, possible ICA stenosis TECHNIQUE: Axial computed tomographic angiography images of the head with intravenous contrast. CTDI is 10.47 mGy and DLP is 398 mGy-cm. This CT exam was performed using one or more of the following dose reduction techniques: automated exposure control, adjustment of the mA and/or kV according to patient size, and/or use of iterative reconstruction technique. MIP reconstructed images were created and reviewed. COMPARISON: Prior head CT from 09/24/2020, brain MRI, 01/17/2019 FINDINGS: Other: Atherosclerotic calcifications of the cavernous carotid and vertebral arteries. Right internal carotid artery: No acute findings. Intracranial segment is patent with no significant stenosis. No aneurysm. Right anterior cerebral artery: Unremarkable. No occlusion or significant stenosis. No aneurysm. Right middle cerebral artery: Unremarkable. No occlusion or significant stenosis. No aneurysm. Right posterior cerebral artery: Unremarkable. No occlusion or significant stenosis. No aneurysm. Right vertebral artery: Unremarkable as visualized. Left internal carotid artery: No acute findings. Intracranial segment is patent with no significant stenosis. No aneurysm. Left anterior cerebral artery: Unremarkable. No occlusion or significant stenosis. No aneurysm. Left middle cerebral artery: Unremarkable. No occlusion or significant stenosis. No aneurysm. Left posterior cerebral artery: Variant anatomy with origin of the left [employer]. No occlusion or significant stenosis. No aneurysm. Left vertebral artery: Unremarkable as visualized. Basilar artery: Unremarkable. No occlusion or significant stenosis. No aneurysm. IMPRESSION: Normal head CTA. EXAM: CT Angiography Neck With Intravenous Contrast CLINICAL HISTORY: ITS.REASON CT Reason: TIA, possible ICA stenosis TECHNIQUE: Axial computed tomographic angiography images of the neck with intravenous contrast. CTDI is 10 mGy and DLP is 300 mGy-cm. This CT exam was performed using one or more of the following dose reduction techniques: automated exposure control, adjustment of the mA and/or kV according to patient size, and/or use of iterative reconstruction technique. MIP reconstructed images were created and reviewed. COMPARISON: MRI C spine 01/17/2019 FINDINGS: VASCULATURE: Right common carotid artery: Unremarkable. No significant stenosis. No dissection or occlusion. Right internal carotid artery: Mild atherosclerotic calcifications of the carotid bulbs and proximal internal carotid arteries. Mild proximal right ICA stenosis. Retropharyngeal course of the right ICA. No dissection or occlusion. Right external carotid artery: Unremarkable. No occlusion. Right vertebral artery: Unremarkable. No significant stenosis. No dissection or occlusion. Left common carotid artery: Unremarkable. No significant stenosis. No dissection or occlusion. Left internal carotid artery: Mild left proximal ICA stenosis. Left external carotid artery: Unremarkable. No occlusion. Left vertebral artery: Unremarkable. No significant stenosis. No dissection or occlusion. NECK: Bones/joints: C3-4 ACDF. Interval removal of C-spine fusion hardware seen on the prior MRI. Mild fat stranding and edema left anterior neck at the mid to lower cervical spine level. Correlate for postop changes or infectious or inflammatory change. No acute fracture. No dislocation. Soft tissues: Unremarkable as visualized. No mass. Lung apices: Patchy airspace disease scattered bilaterally. CAROTID STENOSIS REFERENCE USING NASCET CRITERIA: % ICA stenosis = (1 - narrowest ICA diameter/diameter of distal cervical ICA) x 100. Mild - <50% stenosis. Moderate - 50-69% stenosis. Severe - 70-94% stenosis. Near occlusion - 95-99% stenosis. Occluded - 100% stenosis. IMPRESSION: 1. No occlusion or severe stenosis. No aneurysm or dissection. 2. Mild bilateral proximal ICA stenoses bilaterally. 3. Patchy airspace disease scattered bilaterally. Correlate for infectious or inflammatory process. 4. C3-4 ACDF. Interval removal of C-spine fusion hardware seen on the prior MRI. 5. Mild fat stranding and edema left anterior neck at the mid to lower cervical spine level. Correlate for postop changes or infectious or inflammatory change.
[2020-09-26] MEDS: dexAMETHasone 2 MG TAB PO SCH ×2 (04:29→09:38)
[2020-09-26] MEDS: ACETAMINOPHEN TAB 325 MG TAB PO PRN ×2 (04:30→22:01)
[2020-09-26] MEDS: Mirabegron [Myrbetriq] 50 MG Tab.Er.24h PO SCH (06:01)
[2020-09-26] MEDS: hydrALAZINE HCL 25 MG TAB PO SCH ×3 (06:19→22:02)
[2020-09-26] MEDS: FUROSEMIDE 40 MG TAB PO SCH (06:19)
[2020-09-26 06:42] LABS: Glucose,Whole Blood 260 mg/dL (75-99)
--- NOTE | 2020-09-26 07:28 | CONS ---
CONSULTATION DATE OF SERVICE: 09/25/2020 REASON FOR CONSULTATION: COVID-19 infection. HISTORY OF PRESENT ILLNESS: The patient is a 75-year-old female with a past medical history significant for diabetes mellitus, hypertension, lupus, in this patient who is status post revision of anterior cervical diskectomy, C3-C7 with removal of the hardware at [facility] on September 16. Subsequently the patient has been admitted to [facility] on the [place] for subacute rehab. The patient was sent to the ER yesterday after apparently the patient did have episodes of expressive aphasic and concern for possible CVA, TIA. On arrival of the patient to the ER, the patient did have resolution of expressive aphasia and no slurry speech and no facial droop was noticed. The patient was noticed to have a temperature of 100.4 degrees Fahrenheit. Further workup did include the patient did have a normal white count with lymphopenia. He did have elevated D-dimer, elevated CRP, LDH, as well as procalcitonin. Urine was negative. The appiah PCR came back positive. Patient did have a chest x-ray which did show some subsegmental atelectasis/new infiltrate. Infectious Disease was consulted for further management, especially of her underlying COVID-19. The patient is not a very good historian. Now specifically patient denies having any chest pain. She did have minimal cough but no sputum. No nausea, vomiting, abdominal pain, no diarrhea. Most information has been extracted with review of the chart. REVIEW OF SYSTEMS: Positive points have been mentioned in HPI. Rest of systems negative. PAST MEDICAL HISTORY: Diabetes mellitus, hypertension, lupus, pneumonia, SFA, reflux disease, UTI, possible ileus, adenoidectomy, appendectomy, back surgery, cholecystectomy, heart catheterization, hysterectomy, tonsillectomy, C4-C7 fusion and lumbar fusion. SOCIAL HISTORY: Denies smoking, drinking or drug use. FAMILY HISTORY: Father with history AICD and coronary artery disease. Mother with history of brain surgery. ALLERGIES: PENICILLIN, IODINATED CONTRAST DYE, SULFA. MEDICATIONS: The patient is currently on Tylenol, Eliquis, Lipitor, baclofen, Colace, Cymbalta, Pepcid, Lasix, hydralazine, NovoLog, Levemir, Imodium, mag oxide. PHYSICAL EXAMINATION: Blood pressure 159/66, pulse of 85, temperature 100.5. She is 98% on 2 L nasal cannula. GENERAL DESCRIPTION: An elderly female lying in bed in no distress. No tachypnea or accessory muscles of respiration use. HEENT: Examination shows no pallor or scleral icterus. Oral mucous membrane dry, no pharyngeal erythema or thrush. NECK: Trachea central, no thyromegaly. LUNGS: Unlabored breathing, decreased breath sounds in the base, with no wheeze or crackle. HEART: S1, S2. Regular rate and rhythm. ABDOMEN: Soft, no tenderness. EXTREMITIES: No edema of the feet. SKIN: No rash or mass palpable. NEUROLOGIC: The patient is awake, alert, oriented x1. Mood and affect normal. LABS: Hemoglobin 13.4, white count 3.8 with lymphopenia, elevated LDH, CRP, blood cultures, as well d-dimer and urine was negative. [place]iah PCR positive. IMAGING: Chest x-ray with acute infiltrate, as mentioned above. DIAGNOSTIC IMPRESSION: Patient admitted to hospital with aphasia and this patient who also has a low-grade fever with pulmonary infiltrate. Did have lymphopenia and elevated liver enzymes, LDH and CRP. High clinical suspicious for acute COVID-19 pneumonia in this patient with recent cervical spine surgery at [facility] and subsequently admitted to the assisted. High risk for exposure and subsequent . PLAN: 1. We will start the patient on dexamethasone and zinc. The patient is already on Eliquis. Anticoagulation to continue. 2. The patient was started on Remdesivir 200 mg followed by 100 mg daily. Discuss with the pharmacist. 3. We will follow on clinical condition and further adjust medication if needed. Thank you for this consultation. Will follow this patient along with you. MMODL / IJN: [id number] /
[2020-09-26] MEDS ORDERED: ASPIRIN 325 MG TAB PO SCH (09:00)
[2020-09-26] MEDS: MAGNESIUM OXIDE 400 MG TAB PO SCH (09:30)
[2020-09-26] MEDS: FAMOTIDINE 20 MG TAB PO SCH (09:30)
[2020-09-26] MEDS: DOCUSATE 100 MG CAP PO SCH (09:30)
[2020-09-26] MEDS: METOPROLOL TARTRATE 25 MG TAB PO SCH (09:31)
[2020-09-26] MEDS: ZINC SULFATE 220 MG CAP PO SCH (09:31)
[2020-09-26] MEDS: BACLOFEN 10 MG TAB PO SCH ×3 (09:31→22:02)
[2020-09-26] MEDS: APIXABAN 5 MG TAB PO SCH ×2 (09:31→22:01)
[2020-09-26] MEDS: DULoxetine HCL 60 MG CAPSULE.DR PO SCH ×2 (09:31→22:01)
[2020-09-26] MEDS: PREGABALIN 100 MG CAP PO SCH ×2 (09:31→22:02)
[2020-09-26] MEDS: prednisoLONE ACETATE 1% OPHTH DROPS 5 ML BTL LEFT EYE SCH ×3 (09:32→22:07)
[2020-09-26] MEDS: DICLOFENAC SODIUM GEL 100 GM TUBE TOPICAL SCH ×3 (09:32→22:06)
[2020-09-26] MEDS: INSULIN ASPART (NovoLOG) 100 UNIT/ML VIAL SQ SCH ×3 (09:33→17:31)
--- NOTE | 2020-09-26 11:01 | P.PN ---
Subjective Progress Note Date: 09/26/20 HISTORY OF PRESENT ILLNESS This is a 75-year-old female patient of Dr. Silver residing at [facility] for subacute rehab with past medical history of diabetes mellitus type 2, hypertensi on, gastroesophageal reflux disease, lupus, revision of anterior cervical discectomy C3 through C7 with removal of hardware, exploration of fusion, neural lysis at [facility] on September 16. Patient is maintained in a hard cervical collar. She also has history of paroxysmal atrial fibrillation and eliquis has been on hold for surgical intervention but at this point is cleared to resume eliquis. Patient had episode of expressive aphasia 1 hour before she arrived and resolved with EMS. Upon arrival to the emergency center, patient did not have any slurred speech, no facial droop him and no weakness or numbness. No recent fever or chills, no cough. Temperature 100.4, heart rate 96, blood pressure 140/70, pulse ox 94% on 2 L nasal cannula. Chest x-ray revealed mild subsegmental atelectasis right lung base is new. No heart failure.. Carotid ultrasound was difficult to test as patient was unable to move her neck. Velocity increasing and right ICA, moderate plaque. CAT scan of the brain revealed cerebral atrophy. Old lacunar infarct left parietal lobe. No acute intracranial abnormality. CBC were unremarkable except for repeat platelet count 142. Electrolytes normal, creatinine 0.98. Blood sugar 137. LDH 702. Liver function tests are normal. Pro-calcitonin 0.15. Triglycerides 103, cholesterol 121, LDL 64, HDL 36. Coronavirus is positive. Urinalysis negative for infection. Echocardiogram reveals EF of 55-60% with mild concentric left ventricle hypertrophy, mild mitral regurgitation, mild tricuspid regurgitation. Patient admitted to the cardiac stepdown unit and cardiology and neurology consults requested. EKG is a sinus rhythm. PT, OT, speech therapy consults. Patient has been seen by cardiology and resumed on eliquis. 09/26: CT angiography of the head was normal. CT angiogram of the neck revealed no severe stenosis. No aneurysm or dissection. Mild bilateral proximal ICA stenosis bilaterally. Patchy airspace disease scattered bilaterally correlate for infectious or inflammatory process. C3 through 4 ACDF. Interval removal of C-spine fusion hardware. Mild fat stranding and edema left anterior neck at the mid to lower cervical spine level. Correlate for postop changes or infectious inflammatory change. Patient was seen by neurology for TIA possibly related to paroxysmal atrial fibrillation and recommends continuing eliquis as well as statin. Patient has been seen by Dr. Albert and started on Remdesivir day 2 of 5 . No new complaints from the patient. Discharge planning will be complicated as she will not be able to return to the [facility] and [place]. Family is looking at placement at [facility] next week. REVIEW OF SYSTEMS Constitutional: Low-grade fever, no chills, no night sweats. No weight change. No weakness, fatigue or lethargy. No daytime sleepiness. EENT: No headache. No blurred vision or double vision, no loss of vision. No loss of Hearing, no ringing in the ears, no dizziness. No nasal drainage or congestion. No epistaxis. No sore throat. Lungs: No shortness of breath, occasional cough, no sputum production. No wheezing. Cardiovascular: No chest pain, no lower extremity edema. No palpitations. No paroxysmal nocturnal dyspnea. No orthopnea. No lightheadedness or dizziness. No syncopal episodes. Abdominal: No abdominal pain. No nausea, vomiting. No diarrhea. No constipation. No bloody or tarry stools.. No loss of appetite. Genitourinary: No dysuria, increased frequency, urgency. No urinary retention. Musculoskeletal: No myalgias. No muscle weakness, no gait dysfunction, no frequent falls. No back pain. No neck pain. Integumentary: No wounds, no lesions. No rash or pruritus. No unusual bruising. No change in hair or nails. Neurologic: Reports expressive aphasia, resolved. No facial droop. No change in mentation. No head injury. No headache. No paralysis. No paresthesia. Psychiatric: No depression. No anxiety. No mood swings. Endocrine: No abnormal blood sugars. No weight change. No excessive sweating or thirst. No cold intolerance. PHYSICAL EXAMINATION Gen: This is a 75-year-old female. She is resting in bed and appears to be comfortable and in no acute distress. HEENT: Head is atraumatic, normocephalic. Pupils equal, round. Sclerae is anicteric. Surgical scar left anterior neck area. Hard cervical collar in place. NECK: Supple. No JVD. No lymphadenopathy. No thyromegaly. LUNGS: Clear to auscultation. No wheezes or rhonchi. No intercostal retractions. HEART: Regular rate and rhythm. No murmur. ABDOMEN: Soft. Bowel sounds are present. No masses. No tenderness. EXTREMITIES: No pedal edema. No calf tenderness. NEUROLOGICAL: Patient is awake, alert and oriented x3. Cranial nerves 2 through 12 are grossly intact. No neural deficits. ASSESSMENT AND PLAN 1. Expressive aphasia due to TIA with resolution of symptoms. Consult with neurology, PT, OT, speech therapy. Patient will be resumed on eliquis. Continue Lipitor 40 mg daily 2. Diabetes mellitus type 2. Continue Levemir 12 units at bedtime, NovoLog 5 units with breakfast, 6 units with lunch, 8 units with supper, NovoLog scale. 3. Hypertension. Continue Lasix 40 mg daily, hydralazine 25 mg 3 times daily. 4. Paroxysmal atrial fibrillation. Cardiology consult appreciated. Patient has been resumed on eliquis, continue Lopressor 25 mg daily. 5. Recent cervical discectomy. Maintain hard cervical collar. Continue baclofen 10 mg 3 times daily, Voltaren gel times daily, Lyrica 100 mg twice daily. 6. Recurrent depression. Continue Cymbalta 60 mg twice daily. 7. Gastroesophageal reflux disease. Continue Pepcid. 8. Acute COVID-19 pneumonia. Consult with infectious disease appreciated. Patient has been started on Remdesivir and zinc. DISCHARGE PLAN To be determined. Patient will be unable to return to the [facility].. Impression and plan of care have been directed as dictated by the signing physician. Beatriz Barrera nurse practitioner acting as scribe for signing physician. Objective - Vital Signs Vital signs: Vital Signs Temp 98 F 09/26/20 04:00 Pulse 91 09/26/20 04:00 Resp 18 09/26/20 04:00 BP 154/109 09/26/20 04:00 Pulse Ox 96 09/26/20 04:00 Intake & Output 09/25/20 09/26/20 09/26/20 18:59 06:59 18:59 Intake Total 0 260 120 Output Total 400 Balance -400 260 120 Weight 79 kg Intake: IV 10 0.9 10 Intake, IV Titration 250 Amount Remdesivir (Eua) 100 mg 250 In Sodium Chloride 0.9% 250 ml @ 250 mls/hr IVPB HS [facility] Rx#:[id number] Oral 0 0 120 Output: Urine 400 Other: Voiding Method Bedpan Bedpan # Voids 0 1 0 # Bowel Movements 2 - Labs CBC & Chem 7: 09/25/20 09:45 09/25/20 09:45 Labs: Abnormal Lab Results - Last 24 Hours (Table) 09/25/20 09/25/20 09/25/20 Range/Units 09:45 09:45 11:53 Plt Count 142 L (150-450) k/uL Lymphocytes # 0.5 L (1.0-4.8) k/uL BUN 20 H (7-17) mg/dL Glucose 159 H (74-99) mg/dL POC Glucose (mg/dL) 103 H (75-99) mg/dL HDL Cholesterol 36 L (40-60) mg/dL 09/25/20 09/25/20 09/26/20 Range/Units 16:57 20:39 00:44 Plt Count (150-450) k/uL Lymphocytes # (1.0-4.8) k/uL BUN (7-17) mg/dL Glucose (74-99) mg/dL POC Glucose (mg/dL) 164 H 150 H 125 H (75-99) mg/dL HDL Cholesterol (40-60) mg/dL 09/26/20 Range/Units 06:21 Plt Count (150-450) k/uL Lymphocytes # (1.0-4.8) k/uL BUN (7-17) mg/dL Glucose (74-99) mg/dL POC Glucose (mg/dL) 260 H (75-99) mg/dL HDL Cholesterol (40-60) mg/dL Microbiology - Last 24 Hours (Table) 09/24/20 20:49 Blood Culture - Preliminary Blood No Growth after 24 hours
[2020-09-26 12:24] LABS: Glucose,Whole Blood 276 mg/dL (75-99)
--- NOTE | 2020-09-26 12:59 | P.PN ---
Subjective HISTORY OF PRESENT ILLNESS: This is a 75 -year old female with a past medical history significant for diabetes mellitus, hypertension, hyperlipidemia, GERD, and paroxysmal atrial fibrillation. Patient states she does not follow with a ca rdiologist. she is seen and examined resting comfortably in no acute distress. She denies symptoms of chest pain, shortness of breath, dizziness or palpitations. Telemetry tracings reveal she is currently maintaining sinus mechanism. Blood pressure 124/66 heart rate 72 afebrile maintaining oxygen saturation on nasal cannula. Echocardiogram obtained revealed preserved LV systolic function with ejection fraction 55-60%, mild MR and mild TR noted. Currently maintained on Eliquis 5 mg twice a day, atorvastatin 40 mg at that time, Lasix 40 mg by mouth daily, hydralazine 25 mg 3 times a day, metoprolol 25 mg in the morning and 12.5 mg at bedtime and daily potassium supplementation. PHYSICAL EXAM: GENERAL: Well-developed in no acute distress. HEENT: Head is normocephalic. Pupils are equal, round. Sclerae anicteric. Mucous membranes of the mouth are moist. Neck supple. No JVD or thyromegaly. Cervical collar noted. LUNGS: Respirations even and unlabored. Lungs essentially clear to auscultation bilaterally. HEART: Regular rate and rhythm. S1 and S2 heard. EXTREMITIES: Normal range of motion. No clubbing or cyanosis. Peripheral pulses intact. No lower extremity edema ASSESSMENT: Acute covid 19 Expressive aphasia, possible TIA Recent revision of anterior cervical discectomy C3-C7 and removal of hardware, 09/16/2020 Paroxysmal atrial fibrillation, on long-term anticoagulation with Eliquis Hypertension Hyperlipidemia Diabetes mellitus, type II PLAN: clinically stable from a cardiac perspective. We will follow along as needed. Follow-up in the office with Dr. Mukherjee upon discharge. Nurse practitioner note has been reviewed by physician. Signing provider agrees with the documented findings, assessment, and plan of care. Objective - Vital Signs Vital signs: Vital Signs Temp 97.8 F 09/26/20 12:00 Pulse 72 09/26/20 12:00 Resp 16 09/26/20 12:00 BP 124/66 09/26/20 12:00 Pulse Ox 95 09/26/20 12:00 Intake & Output 09/25/20 09/26/20 09/26/20 18:59 06:59 18:59 Intake Total 0 260 120 Output Total 400 100 Balance -400 260 20 Weight 79 kg Intake: IV 10 0.9 10 Intake, IV Titration 250 Amount Remdesivir (Eua) 100 mg 250 In Sodium Chloride 0.9% 250 ml @ 250 mls/hr IVPB HS [facility] Rx#:[id number] Oral 0 0 120 Output: Urine 400 100 Other: Voiding Method Bedpan Bedpan Bedpan # Voids 0 1 0 # Bowel Movements 2 1 - Labs CBC & Chem 7: 09/25/20 09:45 09/25/20 09:45 Labs: Abnormal Lab Results - Last 24 Hours (Table) 09/25/20 09/25/20 09/26/20 Range/Units 16:57 20:39 00:44 POC Glucose (mg/dL) 164 H 150 H 125 H (75-99) mg/dL 09/26/20 09/26/20 Range/Units 06:21 11:57 POC Glucose (mg/dL) 260 H 276 H (75-99) mg/dL Microbiology - Last 24 Hours (Table) 09/24/20 20:49 Blood Culture - Preliminary Blood No Growth after 24 hours
[2020-09-26 16:44] LABS: Glucose,Whole Blood 277 mg/dL (75-99)
[2020-09-26 20:53] LABS: Glucose,Whole Blood 234 mg/dL (75-99)
[2020-09-26] MEDS: POTASSIUM CITRATE 10 MEQ TABLET.ER PO SCH (22:00)
[2020-09-26] MEDS: ATORVASTATIN 40 MG TAB PO SCH (22:02)
[2020-09-26] MEDS: METOPROLOL TARTRATE 12.5 MG TAB PO SCH (22:02)
[2020-09-26] MEDS: INSULIN DETEMIR (LEVEMIR) 100 UNIT/ML SYR SQ SCH (22:02)
[2020-09-26] MEDS: REMDESIVIR (EUA) 100 MG in SODIUM CHLORIDE 0.9% 250 ML IVPB SCH (22:03)
[2020-09-26] MEDS: Difluprednate [Durezol] 5 ML Drops RIGHT EYE SCH (22:08)
[2020-09-26] MEDS: Mirabegron [Myrbetriq] 25 MG Tab.Er.24h PO SCH (22:09)
--- NOTE | 2020-09-26 22:57 | PN ---
PROGRESS NOTE DATE OF SERVICE: 09/26/2020 REASON FOR FOLLOWUP: Acute COVID-19 pneumonia. INTERVAL HISTORY: Patient is currently afebrile. The patient is breathing slightly comfortably today. The patient denies having any chest pain. Minimal cough. No nausea, no vomiting. No abdominal pain or diarrhea. PHYSICAL EXAMINATION: Blood pressure 115/72 with a pulse of 76, temperature 98.0. She is 98% on 2 L nasal cannula. General description is an elderly female up in the chair in no distress. Respiratory system: Unlabored breathing, decreased breath sounds at the base, no wheeze. Heart S1, S2. Regular rate and rhythm. Abdomen soft, no tenderness. LABS: No new labs have been obtained today. IMPRESSION/PLAN: Patient with acute COVID-19 pneumonia in this patient currently covered with Eliquis,dexamethasone and Remdesivir to continue along with respiratory support and monitor clinical course closely. MMODL / IJN: [id number] /
[2020-09-27] MEDS: Mirabegron [Myrbetriq] 50 MG Tab.Er.24h PO SCH (04:50)
[2020-09-27] MEDS: FUROSEMIDE 40 MG TAB PO SCH (06:33)
[2020-09-27] MEDS: hydrALAZINE HCL 25 MG TAB PO SCH ×3 (06:33→21:12)
[2020-09-27 07:02] LABS: Glucose,Whole Blood 161 mg/dL (75-99)
[2020-09-27] MEDS: oxyCODONE ER 20 MG TAB.ER.12H PO SCH ×2 (08:07→20:42)
[2020-09-27] MEDS: INSULIN ASPART (NovoLOG) 100 UNIT/ML VIAL SQ SCH ×3 (08:11→17:46)
[2020-09-27] MEDS: ZINC SULFATE 220 MG CAP PO SCH (08:12)
[2020-09-27] MEDS: METOPROLOL TARTRATE 25 MG TAB PO SCH (08:12)
[2020-09-27] MEDS: MAGNESIUM OXIDE 400 MG TAB PO SCH (08:12)
[2020-09-27] MEDS: DULoxetine HCL 60 MG CAPSULE.DR PO SCH ×2 (08:12→21:12)
[2020-09-27] MEDS: dexAMETHasone 2 MG TAB PO SCH (08:12)
[2020-09-27] MEDS: APIXABAN 5 MG TAB PO SCH ×2 (08:12→21:12)
[2020-09-27] MEDS: BACLOFEN 10 MG TAB PO SCH ×3 (08:12→21:12)
[2020-09-27] MEDS: FAMOTIDINE 20 MG TAB PO SCH (08:13)
[2020-09-27] MEDS: PREGABALIN 100 MG CAP PO SCH ×2 (08:13→21:13)
[2020-09-27] MEDS: DOCUSATE 100 MG CAP PO SCH (08:20)
[2020-09-27] MEDS: DICLOFENAC SODIUM GEL 100 GM TUBE TOPICAL SCH ×3 (08:21→21:13)
--- NOTE | 2020-09-27 12:08 | P.PN ---
Subjective Progress Note Date: 09/27/20 HISTORY OF PRESENT ILLNESS This is a 75-year-old female patient of Dr. Silver residing at [facility] for subacute rehab with past medical history of diabetes mellitus type 2, hypertensi on, gastroesophageal reflux disease, lupus, revision of anterior cervical discectomy C3 through C7 with removal of hardware, exploration of fusion, neural lysis at [facility] on September 16. Patient is maintained in a hard cervical collar. She also has history of paroxysmal atrial fibrillation and eliquis has been on hold for surgical intervention but at this point is cleared to resume eliquis. Patient had episode of expressive aphasia 1 hour before she arrived and resolved with EMS. Upon arrival to the emergency center, patient did not have any slurred speech, no facial droop him and no weakness or numbness. No recent fever or chills, no cough. Temperature 100.4, heart rate 96, blood pressure 140/70, pulse ox 94% on 2 L nasal cannula. Chest x-ray revealed mild subsegmental atelectasis right lung base is new. No heart failure.. Carotid ultrasound was difficult to test as patient was unable to move her neck. Velocity increasing and right ICA, moderate plaque. CAT scan of the brain revealed cerebral atrophy. Old lacunar infarct left parietal lobe. No acute intracranial abnormality. CBC were unremarkable except for repeat platelet count 142. Electrolytes normal, creatinine 0.98. Blood sugar 137. LDH 702. Liver function tests are normal. Pro-calcitonin 0.15. Triglycerides 103, cholesterol 121, LDL 64, HDL 36. Coronavirus is positive. Urinalysis negative for infection. Echocardiogram reveals EF of 55-60% with mild concentric left ventricle hypertrophy, mild mitral regurgitation, mild tricuspid regurgitation. Patient admitted to the cardiac stepdown unit and cardiology and neurology consults requested. EKG is a sinus rhythm. PT, OT, speech therapy consults. Patient has been seen by cardiology and resumed on eliquis. 09/26: CT angiography of the head was normal. CT angiogram of the neck revealed no severe stenosis. No aneurysm or dissection. Mild bilateral proximal ICA stenosis bilaterally. Patchy airspace disease scattered bilaterally correlate for infectious or inflammatory process. C3 through 4 ACDF. Interval removal of C-spine fusion hardware. Mild fat stranding and edema left anterior neck at the mid to lower cervical spine level. Correlate for postop changes or infectious inflammatory change. Patient was seen by neurology for TIA possibly related to paroxysmal atrial fibrillation and recommends continuing eliquis as well as statin. Patient has been seen by Dr. Albert and started on Remdesivir day 2 of 5 . No new complaints from the patient. Discharge planning will be complicated as she will not be able to return to the [facility] in [place]. Family is looking at placement at [facility] next week. 09/27: Patient is seen today sitting up in a chair. She denies having any shortness of breath. Pulse ox is 96% on 2 L nasal cannula. Patient's been afebrile, heart rate 79, blood pressure 126/61. Consult is in place with Dr. Navas for possible inpatient rehab. Blood sugars are running between 161-277. Patient is followed by Dr. Albert. Cardiology has signed off and following on an as-needed basis with plan for follow-up with Dr. Mukherjee after discharge. PT and OT have recommended subacute rehab. REVIEW OF SYSTEMS Constitutional: Low-grade fever, no chills, no night sweats. No weight change. No weakness, fatigue or lethargy. No daytime sleepiness. EENT: No headache. No blurred vision or double vision, no loss of vision. No loss of Hearing, no ringing in the ears, no dizziness. No nasal drainage or congestion. No sore throat. Lungs: No shortness of breath, occasional cough, no sputum production. No wheezing. Cardiovascular: No chest pain, no lower extremity edema. No palpitations. No paroxysmal nocturnal dyspnea. No orthopnea. No lightheadedness or dizziness. No syncopal episodes. Abdominal: No abdominal pain. No nausea, vomiting. No diarrhea. No constipation. No bloody or tarry stools.. No loss of appetite. Genitourinary: No dysuria, increased frequency, urgency. No urinary retention. Musculoskeletal: No myalgias. No muscle weakness, no gait dysfunction, no frequent falls. No back pain. No neck pain. Integumentary: No wounds, no lesions. No rash or pruritus. No unusual bruising. No change in hair or nails. Neurologic: Reports expressive aphasia, resolved. No facial droop. No change in mentation. No head injury. No headache. No paralysis. No paresthesia. Psychiatric: No depression. No anxiety. No mood swings. Endocrine: No abnormal blood sugars. No weight change. PHYSICAL EXAMINATION Gen: This is a 75-year-old female. She is resting in chair and appears to be comfortable and in no acute distress. HEENT: Head is atraumatic, normocephalic. Pupils equal, round. Sclerae is anicteric. Surgical scar left anterior neck area. NECK: Supple. No JVD. No lymphadenopathy. No thyromegaly. LUNGS: Clear to auscultation. No wheezes or rhonchi. No intercostal retractio ns. HEART: Regular rate and rhythm. No murmur. ABDOMEN: Soft. Bowel sounds are present. No masses. No tenderness. EXTREMITIES: No pedal edema. No calf tenderness. NEUROLOGICAL: Patient is awake, alert and oriented x3. Cranial nerves 2 through 12 are grossly intact. No neural deficits. ASSESSMENT AND PLAN 1. Expressive aphasia due to TIA with resolution of symptoms. Consult with neurology, PT, OT, speech therapy. Patient will be resumed on eliquis. Continue Lipitor 40 mg daily 2. Diabetes mellitus type 2. Continue Levemir 12 units at bedtime, NovoLog 5 units with breakfast, 6 units with lunch, 8 units with supper, NovoLog scale. 3. Hypertension. Continue Lasix 40 mg daily, hydralazine 25 mg 3 times daily. 4. Paroxysmal atrial fibrillation. Cardiology consult appreciated. Patient has been resumed on eliquis, continue Lopressor 25 mg daily. 5. Recent cervical discectomy. Maintain hard cervical collar. Continue baclofen 10 mg 3 times daily, Voltaren gel times daily, Lyrica 100 mg twice daily. 6. Recurrent depression. Continue Cymbalta 60 mg twice daily. 7. Gastroesophageal reflux disease. Continue Pepcid. 8. Acute COVID-19 pneumonia. Consult with infectious disease appreciated. Patient has been started on Remdesivir and zinc. DISCHARGE PLAN To be determined. Patient will be unable to return to the [facility]. Impression and plan of care have been directed as dictated by the signing physician. Beatriz Barrera nurse practitioner acting as scribe for signing physician. Objective - Vital Signs Vital signs: Vital Signs Temp 98.2 F 09/27/20 08:00 Pulse 79 09/27/20 08:00 Resp 18 09/27/20 08:00 BP 126/61 09/27/20 08:00 Pulse Ox 96 09/27/20 08:00 Intake & Output 09/26/20 09/27/20 09/27/20 18:59 06:59 18:59 Intake Total 480 80 240 Output Total 100 1 Balance 380 80 239 Weight 78.5 kg Intake: IV 80 0.9 80 Oral 480 240 Output: Urine 100 Stool 1 Other: Voiding Method Bedpan Bedpan # Voids 1 1 # Bowel Movements 1 - Labs CBC & Chem 7: 09/25/20 09:45 09/25/20 09:45 Labs: Abnormal Lab Results - Last 24 Hours (Table) 09/26/20 09/26/20 09/26/20 Range/Units 11:57 16:28 20:35 POC Glucose (mg/dL) 276 H 277 H 234 H (75-99) mg/dL 09/27/20 Range/Units 06:36 POC Glucose (mg/dL) 161 H (75-99) mg/dL Microbiology - Last 24 Hours (Table) 09/24/20 20:49 Blood Culture - Preliminary Blood No Growth after 48 hours
[2020-09-27 12:11] LABS: Glucose,Whole Blood 269 mg/dL (75-99)
[2020-09-27 16:54] LABS: Glucose,Whole Blood 280 mg/dL (75-99)
[2020-09-27] MEDS: Mirabegron [Myrbetriq] 25 MG Tab.Er.24h PO SCH (20:19)
[2020-09-27] MEDS: Difluprednate [Durezol] 5 ML Drops RIGHT EYE SCH (20:19)
[2020-09-27] MEDS: ATORVASTATIN 40 MG TAB PO SCH (21:12)
[2020-09-27] MEDS: MELATONIN 3 MG TABLET PO SCH (21:12)
[2020-09-27] MEDS: REMDESIVIR (EUA) 100 MG in SODIUM CHLORIDE 0.9% 250 ML IVPB SCH (21:13)
[2020-09-27] MEDS: POTASSIUM CITRATE 10 MEQ TABLET.ER PO SCH (21:13)
[2020-09-27] MEDS: METOPROLOL TARTRATE 12.5 MG TAB PO SCH (21:13)
[2020-09-27] MEDS: INSULIN DETEMIR (LEVEMIR) 100 UNIT/ML SYR SQ SCH (21:13)
[2020-09-27 21:15] LABS: Glucose,Whole Blood 285 mg/dL (75-99)
--- NOTE | 2020-09-28 01:39 | PN ---
PROGRESS NOTE DATE OF SERVICE: 09/27/2020 REASON FOR FOLLOWUP: COVID-19 pneumonia. INTERVAL HISTORY: The patient is currently afebrile. The patient is breathing more comfortably. The patient denies having any chest pain. She did have a cough, not bringing up any sputum. No nausea, no vomiting. No abdominal pain or diarrhea. PHYSICAL EXAMINATION: Blood pressure 132/71 with a pulse of 74, temperature of 97.8. She is 95% on 2 L nasal cannula. General description is an elderly female up in the chair in no distress. RESPIRATORY SYSTEM: Unlabored breathing, decreased breath sounds at the bases. No wheeze. HEART: S1, S2. Regular rate and rhythm. ABDOMEN: Soft, no tenderness. LABS: No new labs have been obtained today. DIAGNOSTIC IMPRESSION AND PLAN: Patient with acute COVID-19 pneumonia in this patient seemed to have shown some clinical response. Patient is currently covered with remdesivir, dexamethasone, zinc to continue and will monitor clinical course closely. MMODL / IJN: [id number] /
[2020-09-28] MEDS: Mirabegron [Myrbetriq] 50 MG Tab.Er.24h PO SCH (06:16)
[2020-09-28] MEDS: FUROSEMIDE 40 MG TAB PO SCH (06:19)
[2020-09-28] MEDS: hydrALAZINE HCL 25 MG TAB PO SCH ×3 (06:19→20:53)
--- NOTE | 2020-09-28 06:21 | P.CONS ---
History of Present Illness - Chief Complaint Medical debility - History of Present Illness I had the opportunity to see patient for inpatient rehab consultation with regard to medical debility. She was admitted to [facility] September 24 with a seizure for which she was seen by neurology, . her son. Head CT demonstrates atrophy and old left parietal infarct. Chest x-ray done. Angiogram CT demonstrates mild bilateral proximal ICA disease as well as ACDF at C3/4. Seen by cardiology for a to fibrillation. Patient Covid positive. PT reports minimal assistance for transfers and gait 5 feet with roller walker. OT reports minimal assistance for upper dressing, toileting and transfers and maximal as sistance for lower dressing and moderate assistance for bathing. Speech therapies as swallowing allows pured, chopped and thin liquids. Working on communication cognition. Previous functional history as elicited from patient: 75-year-old right-handed white female who is lives in one floor home alone. Retired. Describes independent with own cooking, laundry, driving, sitdown shower and gait with 4 wheeled walker. Patient may actually reside at [facility]. PMD Dr. Silver. Denies tobacco or alcohol. Family history father with heart disease. Review of Systems Review of systems: Reports that she thought she was getting GI on admission due to Covid. ENT: Denies sneezes or discharge. Eyes: Denies discharge or photophobia. Cardiac: Denies chest pain or palpitation. Pulmonary: Denies cough or shortness of breath. Breast: Denies discharge or lumps. Gastrointestinal: Denies nausea, emesis, constipation, diarrhea. Genitourinary: Denies discharge or frequency. Musculoskeletal: Denies muscle or bone aches. Neurologic: Gen. weakness. Endocrine: Denies shakes or sweats. Oncology: Denies cancers. Dermatologic: Denies rash, itching, pruritus. ALLERGY/immunology: Denies sneezes, rashes. Past Medical History Past Medical History: Diabetes Mellitus, GERD/Reflux, Hypertension, Pneumonia Additional Past Medical History / Comment(s): Lupus, HEARTBURN, ryder ankle fx-no sx wore medi boots. pt stated lt ankle and rt knee gives out on her at times-hx falls. uti-ecoli 04-29-17. pt stated takes cholesterol med as preventtive because of her diabetes", upper bridge. History of Any Multi-Drug Resistant Organisms: ESBL Year Discovered:: 08/07/20 ESBL-E.coli MDRO Source:: URINE ESBL Past Surgical History: Adenoidectomy, Appendectomy, Back Surgery, Cholecystectomy, Heart Catheterization, Hysterectomy, Tonsillectomy Additional Past Surgical History / Comment(s): 3 left humerous surgery, ryder heal surgery, partial knee right, 7 back surgery, c4-c7 fusion, Lumbar fusion. Past Anesthesia/Blood Transfusion Reactions: No Reported Reaction Past Psychological History: Anxiety, Depression Smoking Status: Never smoker Past Alcohol Use History: None Reported Past Drug Use History: None Reported - Past Family History Father Family Medical History: AICD/Pacemaker, Coronary Artery Disease (CAD) Brother(s) Additional Family Medical History / Comment(s): brain surgery Son(s) Family Medical History: Cancer Additional Family Medical History / Comment(s): brain ca Daughter(s) Family Medical History: No Reported History Mother Family Medical History: AICD/Pacemaker Medications and Allergies Home Medications Medication Instructions Recorded Confirmed Type Baclofen 10 mg PO TID@0900,1300,209905/01/17 09/24/20 History DULoxetine HCL [Cymbalta] 60 mg PO BID@0900,209905/01/17 09/24/20 History Famotidine [Pepcid] 20 mg PO DAILY@89905/01/17 09/24/20 History Acetaminophen Tab [Tylenol] 650 mg PO Q6H PRN 04/10/18 09/24/20 History Atorvastatin [Lipitor] 10 mg PO HS@209904/10/18 09/24/20 History Docusate [Colace] 200 mg PO DAILY@89904/10/18 09/24/20 History Insulin Detemir [Levemir Flextouch] 12 units SQ HS@209904/10/18 09/24/20 History Magnesium Oxide [Mag-Ox] 400 mg PO DAILY@89904/10/18 09/24/20 History Metoprolol Tartrate 25 mg PO DAILY@89904/10/18 09/24/20 History Butalb/APAP/Caff 50-325-40Mg 1 tab PO Q6H PRN 09/24/20 09/24/20 History [Fioricet 50-325-40] Diclofenac Sodium Gel [Voltaren 1 applic TOPICAL TID@0900,1300,209909/24/20 09/24/20 History Gel] Difluprednate [Durezol] 1 drop RIGHT EYE HS@209909/24/20 09/24/20 History Docusate [Colace] 100 mg PO BID PRN 09/24/20 09/24/20 History Ergocalciferol [Vitamin D2 50,000 unit PO Q14D@0909/24/20 09/24/20 History (DRISDOL)] Fluticasone Nasal [place] [Flonase 1 spray EA NOSTRIL DAILY PRN 09/24/20 09/24/20 History Nasal [place]] Furosemide [Lasix] 40 mg PO DAILY@0609/24/20 09/24/20 History Insulin Aspart [NovoLOG Flexpen] 5 unit SQ AC-BRKFST@0800 09/24/20 09/24/20 His tory Insulin Aspart [NovoLOG Flexpen] 6 unit SQ AC-LUNCH@1200 09/24/20 09/24/20 History Insulin Aspart [NovoLOG Flexpen] 8 unit SQ AC-SUPPER@1800 09/24/20 09/24/20 History Loperamide [Imodium] 2 mg PO QID PRN 09/24/20 09/24/20 History Melatonin 6 mg PO HS@209909/24/20 09/24/20 History Mirabegron [Myrbetriq] 25 mg PO HS@209909/24/20 09/24/20 History Mirabegron [Myrbetriq] 50 mg PO DAILY@0609/24/20 09/24/20 History Oxymetazoline 0.05% Nasl [place] 1 spray EA NOSTRIL Q12HR PRN 09/24/20 09/24/20 History [Afrin 0.05% Nasal [place]] Potassium Citrate [Potassium 10 meq PO HS@209909/24/20 09/24/20 History Citrate ER] Pregabalin [Lyrica] 100 mg PO BID@0900,209909/24/20 09/24/20 History Semaglutide [Ozempic] 1 mg SQ WE@0900 09/24/20 09/24/20 History hydrALAZINE HCL [Apresoline] 50 mg PO TID@0600,1300,209909/24/20 09/24/20 History oxyCODONE HCL 5 mg PO Q4H PRN 09/24/20 09/24/20 History oxyCODONE HCL [OxyCONTIN] 20 mg PO Q12HR@0900,2100 09/24/20 09/24/20 History prednisoLONE ACETATE [Pred Forte 1 drop LEFT EYE DAILY@0900 09/24/20 09/24/20 History 1%] Allergies Allergy/AdvReac Type Severity Reaction Status Date / Time Iodinated Contrast Media Allergy Rash/Hives Verified 09/24/20 18:19 latex Allergy Anaphylaxis Verified 09/24/20 18:19 morphine Allergy Anaphylaxis Verified 09/24/20 18:19 Penicillins Allergy Anaphylaxis Verified 09/24/20 18:19 prochlorperazine AdvReac Seizure Verified 09/24/20 18:19 [From Compazine] Sulfa (Sulfonamide AdvReac Systemic Verified 09/24/20 18:19 Antibiotics) Lupus Flare Physical Exam Vitals: Vital Signs Temp Pulse Resp BP Pulse Ox 09/28/20 04:00 98.1 F 99 18 157/88 91 L 09/27/20 23:26 69 18 09/27/20 23:24 98.1 F 69 18 136/71 91 L 09/27/20 20:00 97.4 F L 83 18 154/75 94 L 09/27/20 15:42 97.8 F 74 16 132/71 95 09/27/20 12:11 94 L 09/27/20 11:55 97.7 F 73 18 156/76 86 L 09/27/20 08:00 98.2 F 79 18 126/61 96 Intake and Output 09/27/20 09/27/20 09/28/20 14:59 22:59 06:59 Intake Total 360 200 Output Total 1 Balance 359 200 Intake: IV 80 0.9 80 Oral 360 120 Output: Stool 1 Other: Voiding Method Bedpan Toilet Toilet # Voids 1 1 # Bowel Movements 1 Weight 82 kg Skin: Atrophic, intact. General: Medium build and comfortable appearance. Head: Normocephalic, atraumatic. Eyes: Symmetric. Pupils equal round. Ears: Symmetric. Hearing within normal limits. Mouth: Clear. Neck: Supple. Carotid without bruit. Cardiac: Regular rate and rhythm. Lungs: Clear anteriorly and posteriorly. Abdomen: Soft active nontender. Extremities: Normal tone. Neurological: Mental status: Alert, cooperative, pleasant. Cranial nerves: Symmetric facial tone and trapezius. Motor: Can actively elevate all 4 limbs off of bed. Sensation: Intact throughout. DTRs: Symmetric and equal throughout. Mobility: Requires physical assist for bed mobility. Results CBC & Chem 7: 09/25/20 09:45 09/25/20 09:45 Labs: Abnormal Lab Results - Last 24 Hours (Table) 09/27/20 09/27/20 09/27/20 Range/Units 06:36 11:42 16:46 POC Glucose (mg/dL) 161 H 269 H 280 H (75-99) mg/dL 09/27/20 Range/Units 20:36 POC Glucose (mg/dL) 285 H (75-99) mg/dL Microbiology - Last 24 Hours (Table) 09/24/20 20:49 Blood Culture - Preliminary Blood No Growth after 72 hours Assessment and Plan (1) COVID-19 Current Visit: Yes Status: Acute Code(s): U07.1 - COVID-19 SNOMED Code(s): 454689923 (2) TIA (transient ischemic attack) Current Visit: Yes Status: Acute Code(s): G45.9 - TRANSIENT CEREBRAL ISCHEMIC ATTACK, UNSPECIFIED SNOMED Code(s): 332515175 Plan: Impression: 1. Medical debility. 2. Covid pneumonia. 3. Aphasia on admission now with possible TIA. 4. Possible fractures right and left ankle. 5. Diabetes. 6. Hypertension. Comments and plan: At this time PT, OT, [employer] ongoing. Follow therapies with yourself. Safety concerns obvious and does appear to be demonstrating some ability tolerate and benefit from therapies. We'll follow closely with yourself for possible need and benefit of inpatient rehab.
[2020-09-28 07:27] LABS: Glucose,Whole Blood 143 mg/dL (75-99)
[2020-09-28] MEDS: DULoxetine HCL 60 MG CAPSULE.DR PO SCH ×2 (09:36→20:53)
[2020-09-28] MEDS: APIXABAN 5 MG TAB PO SCH ×2 (09:36→20:52)
[2020-09-28] MEDS: ZINC SULFATE 220 MG CAP PO SCH (09:36)
[2020-09-28] MEDS: DOCUSATE 100 MG CAP PO SCH (09:36)
[2020-09-28] MEDS: FAMOTIDINE 20 MG TAB PO SCH (09:36)
[2020-09-28] MEDS: dexAMETHasone 2 MG TAB PO SCH (09:36)
[2020-09-28] MEDS: PREGABALIN 100 MG CAP PO SCH ×2 (09:36→20:53)
[2020-09-28] MEDS: DICLOFENAC SODIUM GEL 100 GM TUBE TOPICAL SCH ×3 (09:37→20:54)
[2020-09-28] MEDS: BACLOFEN 10 MG TAB PO SCH ×3 (09:37→20:52)
[2020-09-28] MEDS: INSULIN ASPART (NovoLOG) 100 UNIT/ML VIAL SQ SCH ×3 (09:37→18:39)
[2020-09-28] MEDS: METOPROLOL TARTRATE 25 MG TAB PO SCH (09:37)
[2020-09-28] MEDS: MAGNESIUM OXIDE 400 MG TAB PO SCH (09:37)
[2020-09-28 10:10] LABS: HCT 42.5 % (34.0-46.0); MCH 30.2 pg (25.0-35.0); MCHC 32.9 g/dL (31.0-37.0); MCV 91.8 fL (80.0-100.0); Mean Platelet Volume 9.6; Platelet Count 226 k/uL (150-450); RBC 4.63 m/uL (3.80-5.40); RDW 13.8 % (11.5-15.5); WBC 11.1 k/uL (3.8-10.6)
[2020-09-28 10:22] LABS: Albumin 3.5 g/dL (3.5-5.0); Total Bilirubin 0.5 mg/dL (0.2-1.3); Total Protein 6.5 g/dL (6.3-8.2)
[2020-09-28] MEDS: oxyCODONE ER 20 MG TAB.ER.12H PO SCH ×2 (11:00→20:52)
[2020-09-28 12:15] LABS: Glucose,Whole Blood 254 mg/dL (75-99)
--- NOTE | 2020-09-28 13:47 | P.PN ---
Subjective Progress Note Date: 09/28/20 HISTORY OF PRESENT ILLNESS This is a 75-year-old female patient of Dr. Silver residing at [facility] for subacute rehab with past medical history of diabetes mellitus type 2, hypertensi on, gastroesophageal reflux disease, lupus, revision of anterior cervical discectomy C3 through C7 with removal of hardware, exploration of fusion, neural lysis at [facility] on September 16. Patient is maintained in a hard cervical collar. She also has history of paroxysmal atrial fibrillation and eliquis has been on hold for surgical intervention but at this point is cleared to resume eliquis. Patient had episode of expressive aphasia 1 hour before she arrived and resolved with EMS. Upon arrival to the emergency center, patient did not have any slurred speech, no facial droop him and no weakness or numbness. No recent fever or chills, no cough. Temperature 100.4, heart rate 96, blood pressure 140/70, pulse ox 94% on 2 L nasal cannula. Chest x-ray revealed mild subsegmental atelectasis right lung base is new. No heart failure.. Carotid ultrasound was difficult to test as patient was unable to move her neck. Velocity increasing and right ICA, moderate plaque. CAT scan of the brain revealed cerebral atrophy. Old lacunar infarct left parietal lobe. No acute intracranial abnormality. CBC were unremarkable except for repeat platelet count 142. Electrolytes normal, creatinine 0.98. Blood sugar 137. LDH 702. Liver function tests are normal. Pro-calcitonin 0.15. Triglycerides 103, cholesterol 121, LDL 64, HDL 36. Coronavirus is positive. Urinalysis negative for infection. Echocardiogram reveals EF of 55-60% with mild concentric left ventricle hypertrophy, mild mitral regurgitation, mild tricuspid regurgitation. Patient admitted to the cardiac stepdown unit and cardiology and neurology consults requested. EKG is a sinus rhythm. PT, OT, speech therapy consults. Patient has been seen by cardiology and resumed on eliquis. 09/26: CT angiography of the head was normal. CT angiogram of the neck revealed no severe stenosis. No aneurysm or dissection. Mild bilateral proximal ICA stenosis bilaterally. Patchy airspace disease scattered bilaterally correlate for infectious or inflammatory process. C3 through 4 ACDF. Interval removal of C-spine fusion hardware. Mild fat stranding and edema left anterior neck at the mid to lower cervical spine level. Correlate for postop changes or infectious inflammatory change. Patient was seen by neurology for TIA possibly related to paroxysmal atrial fibrillation and recommends continuing eliquis as well as statin. Patient has been seen by Dr. Albert and started on Remdesivir day 2 of 5 . No new complaints from the patient. Discharge planning will be complicated as she will not be able to return to the [facility] in [place]. Family is looking at placement at [facility] next week. 09/27: Patient is seen today sitting up in a chair. She denies having any shortness of breath. Pulse ox is 96% on 2 L nasal cannula. Patient's been afebrile, heart rate 79, blood pressure 126/61. Consult is in place with Dr. Navas for possible inpatient rehab. Blood sugars are running between 161-277. Patient is followed by Dr. Albert. Cardiology has signed off and following on an as-needed basis with plan for follow-up with Dr. Mukherjee after discharge. PT and OT have recommended subacute rehab. 09/28: Patient denies any respiratory symptoms at this time. She is sitting in a chair and appears to be comfortable and in no acute distress. She is currently on 2 L nasal cannula, pulse ox 92%. Repeat lab work reveals 70 BC 11.2, hemoglobin 14. Electrolytes normal. BUN 33 and creatinine 1.03. Blood sugars 143-291. Patient is currently on low-dose 4 of 5 of Remdesivir. REVIEW OF SYSTEMS Constitutional: Low-grade fever, no chills, no night sweats. No weight change. No weakness, fatigue or lethargy. No daytime sleepiness. EENT: No headache. No blurred vision or double vision, no loss of vision. No loss of Hearing, no ringing in the ears, no dizziness. No nasal drainage or congestion. No sore throat. Lungs: No shortness of breath, occasional cough, no sputum production. No wheezing. Cardiovascular: No chest pain, no lower extremity edema. No palpitations. No paroxysmal nocturnal dyspnea. No orthopnea. No lightheadedness or dizziness. No syncopal episodes. Abdominal: No abdominal pain. No nausea, vomiting. No diarrhea. No constipation. No bloody or tarry stools.. No loss of appetite. Genitourinary: No dysuria, increased frequency, urgency. No urinary retention. Musculoskeletal: No myalgias. No muscle weakness, no gait dysfunction, no frequent falls. No back pain. No neck pain. Integumentary: No wounds, no lesions. No rash or pruritus. No unusual bruising. No change in hair or nails. Neurologic: Reports expressive aphasia, resolved. No facial droop. No change in mentation. No head injury. No headache. No paralysis. No paresthesia. Psychiatric: No depression. No anxiety. No mood swings. Endocrine: Reports abnormal blood sugars. No weight change. PHYSICAL EXAMINATION Gen: This is a 75-year-old female. She is resting in chair and appears to be comfortable and in no acute distress. HEENT: Head is atraumatic, normocephalic. Pupils equal, round. Sclerae is anic teric. Surgical scar left anterior neck area. NECK: Supple. No JVD. No lymphadenopathy. No thyromegaly. LUNGS: Clear to auscultation. No wheezes or rhonchi. No intercostal retractions. HEART: Regular rate and rhythm. No murmur. ABDOMEN: Soft. Bowel sounds are present. No masses. No tenderness. EXTREMITIES: No pedal edema. No calf tenderness. NEUROLOGICAL: Patient is awake, alert and oriented x3. Cranial nerves 2 through 12 are grossly intact. No neural deficits. ASSESSMENT AND PLAN 1. Expressive aphasia due to TIA with resolution of symptoms. Consult with n eurology, PT, OT, speech therapy. Patient will be resumed on eliquis. Continue Lipitor 40 mg daily 2. Diabetes mellitus type 2. Continue Levemir 12 units at bedtime, NovoLog increased to 6 units with breakfast, increase to 8 units with lunch, 8 units with supper, NovoLog scale. 3. Hypertension. Continue Lasix 40 mg daily, hydralazine 25 mg 3 times daily. 4. Paroxysmal atrial fibrillation. Cardiology consult appreciated. Patient has been resumed on eliquis, continue Lopressor 25 mg daily. 5. Recent cervical discectomy. Maintain hard cervical collar. Continue baclofen 10 mg 3 times daily, Voltaren gel times daily, Lyrica 100 mg twice daily. 6. Recurrent depression. Continue Cymbalta 60 mg twice daily. 7. Gastroesophageal reflux disease. Continue Pepcid. 8. Acute COVID-19 pneumonia. Consult with infectious disease appreciated. Patient has been started on Remdesivir 4/5 and zinc. DISCHARGE PLAN To be determined. Patient will be unable to return to the [facility]. Patient has been evaluated by Dr. Tinoco 9 May be candidate for inpatient rehab. Anticipate discharge tomorrow. Impression and plan of care have been directed as dictated by the signing physician. Beatriz Barrera nurse practitioner acting as scribe for signing physician. Objective - Vital Signs Vital signs: Vital Signs Temp 98.1 F 09/28/20 04:00 Pulse 99 09/28/20 04:00 Resp 18 09/28/20 04:00 BP 157/88 09/28/20 04:00 Pulse Ox 91 L 09/28/20 04:00 Intake & Output 09/27/20 09/28/20 09/28/20 18:59 06:59 18:59 Intake Total 480 80 Output Total 1 Balance 479 80 Weight 82 kg Intake: IV 80 0.9 80 Oral 480 Output: Stool 1 Other: Voiding Method Bedpan Toilet # Voids 1 1 # Bowel Movements 1 - Labs CBC & Chem 7: 09/28/20 09:36 09/28/20 09:36 Labs: Abnormal Lab Results - Last 24 Hours (Table) 09/27/20 09/27/20 09/27/20 Range/Units 11:42 16:46 20:36 POC Glucose (mg/dL) 269 H 280 H 285 H (75-99) mg/dL 09/28/20 Range/Units 07:25 POC Glucose (mg/dL) 143 H (75-99) mg/dL Microbiology - Last 24 Hours (Table) 09/24/20 20:49 Blood Culture - Preliminary Blood No Growth after 72 hours
[2020-09-28 16:55] LABS: Glucose,Whole Blood 223 mg/dL (75-99)
--- NOTE | 2020-09-28 18:32 | P.PN ---
Subjective Progress Note Date: 09/28/20 Patient was seen at bedside and she stated that she's feeling fairly well. She has no further episodes of transient ischemic attack. Nice of any slurring of the speech, any focal weakness or numbness or visual disturbance. She denies of any significant neck pain. Denies any workup in the neck. She said that the she had the the cervical ACDF by Dr. Xavier Araiza over at the [facility] and August 2020. Objective - Vital Signs Vital signs: Vital Signs Temp 97.8 F 09/28/20 16:00 Pulse 77 09/28/20 16:00 Resp 14 09/28/20 16:00 BP 146/75 09/28/20 16:00 Pulse Ox 94 L 09/28/20 16:00 Intake & Output 09/27/20 09/28/20 09/28/20 18:59 06:59 18:59 Intake Total 480 80 476 Output Total 1 Balance 479 80 476 Weight 82 kg Intake: IV 80 0.9 80 Oral 480 476 Output: Stool 1 Other: Voiding Method Bedpan Toilet # Voids 1 1 2 # Bowel Movements 1 2 - Exam Patient is alert awake oriented to time place and person. Speech and language functions are normal. Attention and concentration fund of knowledge is adequate . On cranial nerve exam. Pupils are round and reactive to light, visual cordova are full, extraocular muscles are intact with no nystagmus. Facial sensation is normal. Face is symmetric, tongue protrudes to the midline. Palatal elevation and sensation normal hearing and shoulder shrug normal. Gait deferred. On muscle strength testing there is no drift and the strength is normal in arms and legs distally and proximally. Tone and bulk of muscles normal. Sensory to touch is equal. No ataxia for finger to nose testing. Reflexes are diminished and plantars downgoing. - Labs CBC & Chem 7: 09/28/20 09:36 09/28/20 09:36 Labs: Abnormal Lab Results - Last 24 Hours (Table) 09/27/20 09/28/20 09/28/20 Range/Units 20:36 07:25 09:36 WBC 11.1 H (3.8-10.6) k/uL BUN (7-17) mg/dL Glucose (74-99) mg/dL POC Glucose (mg/dL) 285 H 143 H (75-99) mg/dL AST (14-36) U/L 09/28/20 09/28/20 09/28/20 Range/Units 09:36 12:14 16:54 WBC (3.8-10.6) k/uL BUN 33 H (7-17) mg/dL Glucose 291 H (74-99) mg/dL POC Glucose (mg/dL) 254 H 223 H (75-99) mg/dL AST 42 H (14-36) U/L Microbiology - Last 24 Hours (Table) 09/24/20 20:49 Blood Culture - Preliminary Blood No Growth after 72 hours Assessment and Plan Assessment: * TIA manifesting with expressive aphasia lasting for 10 minutes. * COVID-19 positive * Paroxysmal atrial fibrillation. * Diabetes by history although hemoglobin A1c 5.8 on 09/08/2020. * Hypertension * Hyperlipidemia * Chronic back pain, history of back surgery. Plan: * Patient had a TIA, possibly related to paroxysmal atrial fibrillation. * Patient has been seen by cardiology, started on Apixaban 5 mg twice a day. * Carotid Doppler was technically difficult, patient unable to move her neck. Velocity increased seen on right ICA, moderate plaque. Antegrade flow in both vertebral arteries. CTA of head and neck to rule out extracranial or intracranial stenosis. CTA of the head and neck was reported as no occlusion or severe stenosis at. No aneurysm or dissection. There is a mild bilateral proximal ICA stenosis bilaterally at. Patchy airspace disease scattered bilaterally. Correlate for infectious or inflammatory process. C3 to C4 ACDF. Interval removal of the C-spine and future hardware seen on the prior MRI. Mild fat stranding and edema in the left anterior neck at the mid that the lower cervical spine level. Correlate for postop changes or infectious or inflammatory changes. * 2-D echo showed normal left ventricle size. Mild concentric LVH. EF is 55- 60%. Mild mitral regurgitation. * Continue atorvastatin 40 mg daily. Regarding the patient the history of C3 to C4 ACDF patient to follow up as an outpatient with her Orthopedic surgeon (Dr. Xavier Araiza) in 1-2 weeks. Patient is also to follow-up with the neurology as an outpatient in the 2 weeks for the TIA presentation. Patient likely to be discharged to inpatient rehab tomorrow. Time with Patient: Less than 30
[2020-09-28 20:22] LABS: Glucose,Whole Blood 300 mg/dL (75-99)
[2020-09-28] MEDS: INSULIN DETEMIR (LEVEMIR) 100 UNIT/ML SYR SQ SCH (20:50)
[2020-09-28] MEDS: REMDESIVIR (EUA) 100 MG in SODIUM CHLORIDE 0.9% 250 ML IVPB SCH (20:51)
[2020-09-28] MEDS: MELATONIN 3 MG TABLET PO SCH (20:52)
[2020-09-28] MEDS: POTASSIUM CITRATE 10 MEQ TABLET.ER PO SCH (20:52)
[2020-09-28] MEDS: METOPROLOL TARTRATE 12.5 MG TAB PO SCH (20:52)
[2020-09-28] MEDS: ATORVASTATIN 40 MG TAB PO SCH (20:53)
[2020-09-28] MEDS: Difluprednate [Durezol] 5 ML Drops RIGHT EYE SCH (23:05)
[2020-09-28] MEDS: Mirabegron [Myrbetriq] 25 MG Tab.Er.24h PO SCH (23:06)
--- NOTE | 2020-09-29 00:29 | PN ---
PROGRESS NOTE DATE OF SERVICE: 09/28/2020 REASON FOR FOLLOWUP: Acute COVID-19 pneumonia. INTERVAL HISTORY: The patient is currently afebrile. The patient is breathing slightly comfortably. The patient denies having any chest pain. She did have a congested cough, not bringing up any sputum. No nausea, no vomiting. No abdominal pain or diarrhea. PHYSICAL EXAMINATION: Blood pressure 146/75 with a pulse of 77, temperature 97.8. She is 94% on room air. General description is an elderly female lying in bed in no distress. RESPIRATORY SYSTEM: Unlabored breathing, decreased breath sounds at the bases. No wheeze. HEART: S1, S2. Regular rate and rhythm. ABDOMEN: Soft, no tenderness. LABS: Hemoglobin is 14, white count 11.1, BUN of 33, creatinine 1.03. DIAGNOSTIC IMPRESSION AND PLAN: Patient with acute COVID-19 pneumonia, currently covered with dexamethasone, Eliquis, and remdesivir, to continue along with respiratory support and monitor clinical course closely. MMODL / IJN: [id number] /
[2020-09-29] MEDS: Mirabegron [Myrbetriq] 50 MG Tab.Er.24h PO SCH (06:01)
[2020-09-29] MEDS: hydrALAZINE HCL 25 MG TAB PO SCH ×3 (06:55→21:22)
[2020-09-29] MEDS: FUROSEMIDE 40 MG TAB PO SCH (06:55)
[2020-09-29] MEDS: INSULIN ASPART (NovoLOG) 100 UNIT/ML VIAL SQ SCH ×4 (07:03→22:19)
[2020-09-29 07:04] LABS: Glucose,Whole Blood 153 mg/dL (75-99)
[2020-09-29] MEDS ORDERED: INSULIN ASPART (NovoLOG) 100 UNIT/ML VIAL SQ SCH ×3 (08:00→18:00)
[2020-09-29] MEDS: dexAMETHasone 2 MG TAB PO SCH (09:16)
[2020-09-29] MEDS: DOCUSATE 100 MG CAP PO SCH (09:16)
[2020-09-29] MEDS: oxyCODONE ER 20 MG TAB.ER.12H PO SCH ×2 (09:17→21:20)
[2020-09-29] MEDS: PREGABALIN 100 MG CAP PO SCH ×2 (09:17→21:21)
[2020-09-29] MEDS: FAMOTIDINE 20 MG TAB PO SCH (09:17)
[2020-09-29] MEDS: MAGNESIUM OXIDE 400 MG TAB PO SCH (09:17)
[2020-09-29] MEDS: DULoxetine HCL 60 MG CAPSULE.DR PO SCH ×2 (09:17→21:21)
[2020-09-29] MEDS: BACLOFEN 10 MG TAB PO SCH ×3 (09:18→21:22)
[2020-09-29] MEDS: ZINC SULFATE 220 MG CAP PO SCH (09:18)
[2020-09-29] MEDS: APIXABAN 5 MG TAB PO SCH ×2 (09:18→21:21)
[2020-09-29] MEDS: METOPROLOL TARTRATE 25 MG TAB PO SCH (09:18)
[2020-09-29] MEDS: prednisoLONE ACETATE 1% OPHTH DROPS 5 ML BTL LEFT EYE SCH (09:19)
[2020-09-29] MEDS: DICLOFENAC SODIUM GEL 100 GM TUBE TOPICAL SCH ×3 (09:19→21:22)
[2020-09-29 11:50] LABS: Glucose,Whole Blood 156 mg/dL (75-99)
--- NOTE | 2020-09-29 13:26 | P.PN ---
Subjective Progress Note Date: 09/29/20 HISTORY OF PRESENT ILLNESS This is a 75-year-old female patient of Dr. Silver residing at [facility] for subacute rehab with past medical history of diabetes mellitus type 2, hypertensi on, gastroesophageal reflux disease, lupus, revision of anterior cervical discectomy C3 through C7 with removal of hardware, exploration of fusion, neural lysis at [facility] on September 16. Patient is maintained in a hard cervical collar. She also has history of paroxysmal atrial fibrillation and eliquis has been on hold for surgical intervention but at this point is cleared to resume eliquis. Patient had episode of expressive aphasia 1 hour before she arrived and resolved with EMS. Upon arrival to the emergency center, patient did not have any slurred speech, no facial droop him and no weakness or numbness. No recent fever or chills, no cough. Temperature 100.4, heart rate 96, blood pressure 140/70, pulse ox 94% on 2 L nasal cannula. Chest x-ray revealed mild subsegmental atelectasis right lung base is new. No heart failure.. Carotid ultrasound was difficult to test as patient was unable to move her neck. Velocity increasing and right ICA, moderate plaque. CAT scan of the brain revealed cerebral atrophy. Old lacunar infarct left parietal lobe. No acute intracranial abnormality. CBC were unremarkable except for repeat platelet count 142. Electrolytes normal, creatinine 0.98. Blood sugar 137. LDH 702. Liver function tests are normal. Pro-calcitonin 0.15. Triglycerides 103, cholesterol 121, LDL 64, HDL 36. Coronavirus is positive. Urinalysis negative for infection. Echocardiogram reveals EF of 55-60% with mild concentric left ventricle hypertrophy, mild mitral regurgitation, mild tricuspid regurgitation. Patient admitted to the cardiac stepdown unit and cardiology and neurology consults requested. EKG is a sinus rhythm. PT, OT, speech therapy consults. Patient has been seen by cardiology and resumed on eliquis. 09/26: CT angiography of the head was normal. CT angiogram of the neck revealed no severe stenosis. No aneurysm or dissection. Mild bilateral proximal ICA stenosis bilaterally. Patchy airspace disease scattered bilaterally correlate for infectious or inflammatory process. C3 through 4 ACDF. Interval removal of C-spine fusion hardware. Mild fat stranding and edema left anterior neck at the mid to lower cervical spine level. Correlate for postop changes or infectious inflammatory change. Patient was seen by neurology for TIA possibly related to paroxysmal atrial fibrillation and recommends continuing eliquis as well as statin. Patient has been seen by Dr. Albert and started on Remdesivir day 2 of 5 . No new complaints from the patient. Discharge planning will be complicated as she will not be able to return to the [facility] building in [place]. Family is looking at placement at [facility] next week. 09/27: Patient is seen today sitting up in a chair. She denies having any shortness of breath. Pulse ox is 96% on 2 L nasal cannula. Patient's been afebrile, heart rate 79, blood pressure 126/61. Consult is in place with Dr. Navas for possible inpatient rehab. Blood sugars are running between 161-277. Patient is followed by Dr. Albert. Cardiology has signed off and following on an as-needed basis with plan for follow-up with Dr. Mukherjee after discharge. PT and OT have recommended subacute rehab. 09/28: Patient denies any respiratory symptoms at this time. She is sitting in a chair and appears to be comfortable and in no acute distress. She is currently on 2 L nasal cannula, pulse ox 92%. Repeat lab work reveals 70 BC 11.2, hemoglobin 14. Electrolytes normal. BUN 33 and creatinine 1.03. Blood sugars 143-291. Patient is currently on dose 4/5 of Remdesivir. 09/29: Patient continues to deny any shortness of breath. No cough. However, pulse ox was low this morning at 88% on 2 L nasal cannula. She is currently on day #5/5 of Remdesivir. A shunt has been afebrile, heart rate 76, blood pressure 114/71. Blood sugars are running in the 150s today except for at be dtime at 300. Suppertime NovoLog will be increased. Discharge plan is now to return to [facility], [facility] will now take Covid positive patient's at the [place] location. REVIEW OF SYSTEMS Constitutional: No fever, no chills, no night sweats. No weight change. No weakness, reports fatigue. No daytime sleepiness. EENT: No headache. No blurred vision or double vision, no loss of vision. No loss of Hearing, no ringing in the ears, no dizziness. No nasal drainage or congestion. No sore throat. Lungs: No shortness of breath, occasional cough, no sputum production. No wheezing. Cardiovascular: No chest pain, no lower extremity edema. No palpitations. No paroxysmal nocturnal dyspnea. No orthopnea. No lightheadedness or dizziness. No syncopal episodes. Abdominal: No abdominal pain. No nausea, vomiting. No diarrhea. No constipation. No bloody or tarry stools.. No loss of appetite. Genitourinary: No dysuria, increased frequency, urgency. No urinary retention. Musculoskeletal: No myalgias. No muscle weakness, no gait dysfunction, no frequent falls. No back pain. No neck pain. Integumentary: No wounds, no lesions. No rash or pruritus. No unusual bruising. No change in hair or nails. Neurologic: Reports expressive aphasia, resolved. No facial droop. No change in mentation. No head injury. No headache. No paralysis. No paresthesia. Psychiatric: No depression. No anxiety. No mood swings. Endocrine: Reports abnormal blood sugars. No weight change. PHYSICAL EXAMINATION Gen: This is a 75-year-old female. She is resting in chair and appears to be comfortable and in no acute distress. HEENT: Head is atraumatic, normocephalic. Pupils equal, round. Sclerae is anicteric. NECK: Supple. No JVD. No lymphadenopathy. No thyromegaly. LUNGS: Clear to auscultation. No wheezes or rhonchi. No intercostal retractions. HEART: Regular rate and rhythm. No murmur. ABDOMEN: Soft. Bowel sounds are present. No masses. No tenderness. EXTREMITIES: No pedal edema. No calf tenderness. NEUROLOGICAL: Patient is awake, alert and oriented x3. Cranial nerves 2 through 12 are grossly intact. No neural deficits. ASSESSMENT AND PLAN 1. Expressive aphasia due to TIA with resolution of symptoms. Consult with neurology, PT, OT, speech therapy. Patient will be resumed on eliquis. Continue Lipitor 40 mg daily 2. Diabetes mellitus type 2. Continue Levemir 12 units at bedtime, NovoLog increased to 6 units with breakfast, increase to 8 units with lunch, 8 units with supper, NovoLog scale. 3. Hypertension. Continue Lasix 40 mg daily, hydralazine 25 mg 3 times daily. 4. Paroxysmal atrial fibrillation. Cardiology consult appreciated. Patient has been resumed on eliquis, continue Lopressor 25 mg daily. 5. Recent cervical discectomy. Maintain hard cervical collar. Continue baclofen 10 mg 3 times daily, Voltaren gel times daily, Lyrica 100 mg twice daily. 6. Recurrent depression. Continue Cymbalta 60 mg twice daily. 7. Gastroesophageal reflux disease. Continue Pepcid. 8. Acute COVID-19 pneumonia. Consult with infectious disease appreciated. Patient has been started on Remdesivir 5/5 and zinc. DISCHARGE PLAN Return to [facility] on Monday. Impression and plan of care have been directed as dictated by the signing physician. Beatriz Barrera nurse practitioner acting as scribe for signing physician. Objective - Vital Signs Vital signs: Vital Signs Temp 97.7 F 09/29/20 07:00 Pulse 65 09/29/20 07:00 Resp 17 09/29/20 07:00 BP 138/72 09/29/20 07:00 Pulse Ox 90 L 09/29/20 07:00 Intake & Output 09/28/20 09/29/20 09/29/20 18:59 06:59 18:59 Intake Total 716 118 Balance 716 118 Weight 81.5 kg Intake: Oral 716 118 Other: Voiding Method Toilet # Voids 1 1 # Bowel Movements 1 - Labs CBC & Chem 7: 09/28/20 09:36 09/28/20 09:36 Labs: Abnormal Lab Results - Last 24 Hours (Table) 09/28/20 09/28/20 09/28/20 Range/Units 09:36 09:36 12:14 WBC 11.1 H (3.8-10.6) k/uL BUN 33 H (7-17) mg/dL Glucose 291 H (74-99) mg/dL POC Glucose (mg/dL) 254 H (75-99) mg/dL AST 42 H (14-36) U/L 09/28/20 09/28/20 09/29/20 Range/Units 16:54 20:20 06:58 WBC (3.8-10.6) k/uL BUN (7-17) mg/dL Glucose (74-99) mg/dL POC Glucose (mg/dL) 223 H 300 H 153 H (75-99) mg/dL AST (14-36) U/L Microbiology - Last 24 Hours (Table) 11/19/20 20:49 Blood Culture - Preliminary Blood No Growth after 96 hours
[2020-09-29 16:41] LABS: Glucose,Whole Blood 122 mg/dL (75-99)
[2020-09-29 20:14] LABS: Glucose,Whole Blood 269 mg/dL (75-99)
[2020-09-29] MEDS: INSULIN DETEMIR (LEVEMIR) 100 UNIT/ML SYR SQ SCH (21:20)
[2020-09-29] MEDS: POTASSIUM CITRATE 10 MEQ TABLET.ER PO SCH (21:21)
[2020-09-29] MEDS: MELATONIN 3 MG TABLET PO SCH (21:21)
[2020-09-29] MEDS: METOPROLOL TARTRATE 12.5 MG TAB PO SCH (21:21)
[2020-09-29] MEDS: ATORVASTATIN 40 MG TAB PO SCH (21:22)
[2020-09-29] MEDS: REMDESIVIR (EUA) 100 MG in SODIUM CHLORIDE 0.9% 250 ML IVPB SCH (21:23)
[2020-09-29] MEDS: Difluprednate [Durezol] 5 ML Drops RIGHT EYE SCH (22:18)
[2020-09-29] MEDS: Mirabegron [Myrbetriq] 25 MG Tab.Er.24h PO SCH (22:19)
--- NOTE | 2020-09-30 00:09 | PN ---
PROGRESS NOTE DATE OF SERVICE: 09/29/2020 REASON FOR FOLLOWUP: Acute COVID-19 pneumonia. INTERVAL HISTORY: The patient is currently afebrile. Patient is breathing more comfortably. The patient denies having any chest pain. She did have a congested cough, not bringing up any sputum. No nausea, no vomiting. No abdominal pain or diarrhea. PHYSICAL EXAMINATION: Blood pressure 133/75 with the pulse 82, temperature 97.9. She is 90% on 3 L nasal cannula. General description is an elderly female up in the bed in no distress. RESPIRATORY SYSTEM: Unlabored breathing with decreased intensity of breath sounds. No wheeze. HEART: S1, S2. Regular rate and rhythm. ABDOMEN: Soft, no tenderness. LABS: No new labs have been obtained today. DIAGNOSTIC IMPRESSION AND PLAN: Patient with acute COVID-19 pneumonia in this patient who has receiving remdesivir, zinc, dexamethasone, and Eliquis, to continue. Will repeat a chest x-ray and inflammatory marker tomorrow. Continue with droplet isolation. MMODL / IJN: [id number] /
[2020-09-30] MEDS: Mirabegron [Myrbetriq] 50 MG Tab.Er.24h PO SCH (05:21)
[2020-09-30] MEDS: INSULIN ASPART (NovoLOG) 100 UNIT/ML VIAL SQ SCH (06:58)
[2020-09-30 06:59] LABS: Glucose,Whole Blood 83 mg/dL (75-99)
[2020-09-30] MEDS: hydrALAZINE HCL 25 MG TAB PO SCH (07:01)
[2020-09-30] MEDS: FUROSEMIDE 40 MG TAB PO SCH (07:01)
--- NOTE | 2020-09-30 08:41 | P.DS ---
Providers Date of admission: 09/24/20 20:46 Expected date of discharge: 09/30/20 Attending physician: Kelsy Silver Consults: 09/24/20 20:46 Consult Physician Routine Consulting Provider: Wes Fofana Consult Reason/Comments: TIA Do you want consulting provider notified?: Yes 09/24/20 20:55 Consult Physician Routine Consulting Provider: [facility] Consult Reason/Comments: History of A. fib Do you want consulting provider notified?: Yes 09/25/20 13:09 Consult Physician Routine Consulting Provider: Vincent Albert Consult Reason/Comments: covid Do you want consulting provider notified?: Yes 09/26/20 09:59 Consult Physician Routine Consulting Provider: Ezio Navas Consult Reason/Comments: inpat rehab, covid Do you want consulting provider notified?: Yes Primary care physician: Kelsy Silver [facility] Course: HISTORY OF PRESENT ILLNESS This is a 75-year-old female patient of Dr. Silver residing at [facility] for subacute rehab with past medical history of diabetes mellitus type 2, hypertension, gastroesophageal reflux disease, lupus, revision of anterior cervical discectomy C3 through C7 with removal of hardware, exploration of fusion, neural lysis at [facility] on September 16. Patient is maintained in a hard cervical collar. She also has history of paroxysmal atrial fibrillation and eliquis has been on hold for surgical intervention but at this point is cleared to resume eliquis. Patient had episode of expressive aphasia 1 hour before she arrived and resolved with EMS. Upon arrival to the [facility], patient did not have any slurred speech, no facial droop him and no weakness or numbness. No recent fever or chills, no cough. Temperature 100.4, heart rate 96, blood pressure 140/70, pulse ox 94% on 2 L nasal cannula. Chest x-ray revealed mild subsegmental atelectasis right lung base is new. No heart failure.. Carotid ultrasound was difficult to test as patient was unable to move her neck. Velocity increasing and right ICA, moderate plaque. CAT scan of the brain revealed cerebral atrophy. Old lacunar infarct left parietal lobe. No acute intracranial abnormality. CBC were unremarkable except for repeat platelet count 142. Electrolytes normal, creatinine 0.98. Blood sugar 137. LDH 702. Liver function tests are normal. Pro-calcitonin 0.15. Triglycerides 103, cholesterol 121, LDL 64, HDL 36. Coronavirus is positive. Urinalysis negative for infection. Echocardiogram reveals EF of 55-60% with mild concentric left ventricle hypertrophy, mild mitral regurgitation, mild tricuspid regurgitation. Patient admitted to the cardiac stepdown unit and cardiology and neurology consults requested. EKG is a sinus rhythm. PT, OT, speech therapy consults. Patient has been seen by cardiology and resumed on eliquis. 09/26: CT angiography of the head was normal. CT angiogram of the neck revealed no severe stenosis. No aneurysm or dissection. Mild bilateral proximal ICA stenosis bilaterally. Patchy airspace disease scattered bilaterally correlate for infectious or inflammatory process. C3 through 4 ACDF. Interval removal of C-spine fusion hardware. Mild fat stranding and edema left anterior neck at the mid to lower cervical spine level. Correlate for postop changes or infectious inflammatory change. Patient was seen by neurology for TIA possibly related to paroxysmal atrial fibrillation and recommends continuing eliquis as well as statin. Patient has been seen by Dr. Albert and started on Remdesivir day 2 of 5. No new complaints from the patient. Discharge planning will be complicated as she will not be able to return to the [facility] in [place]. Family is looking at placement at [facility] next week. 09/27: Patient is seen today sitting up in a chair. She denies having any shortness of breath. Pulse ox is 96% on 2 L nasal cannula. Patient's been afebrile, heart rate 79, blood pressure 126/61. Consult is in place with Dr. Navas for possible inpatient rehab. Blood sugars are running between 161-277. Patient is followed by Dr. Albert. Cardiology has signed off and following on an as-needed basis with plan for follow-up with Dr. Mukherjee after discharge. PT and OT have recommended subacute rehab. 09/28: Patient denies any respiratory symptoms at this time. She is sitting in a chair and appears to be comfortable and in no acute distress. She is currently on 2 L nasal cannula, pulse ox 92%. Repeat lab work reveals 70 BC 11.2, hemoglobin 14. Electrolytes normal. BUN 33 and creatinine 1.03. Blood sugars 143-291. Patient is currently on dose 4/5 of Remdesivir. 09/29: Patient continues to deny any shortness of breath. No cough. However, pulse ox was low this morning at 88% on 2 L nasal cannula. She is currently on day #5/5 of Remdesivir. A shunt has been afebrile, heart rate 76, blood pressure 114/71. Blood sugars are running in the 150s today except for at bedtime at 300. Suppertime NovoLog will be increased. Discharge plan is now to return to [facility], [facility] will now take Covid positive patient's at the [place] location. 09/30: Patient has completed course of Remdesivir. She has been afebrile, heart rate 65, blood pressure 119/89, pulse ox 90-93% on 2 L nasal cannula. Blood sugars are running between 83 and 269. Patient denies any new complaints. She denies having any cough or shortness of breath. Patient will be discharged back to [facility] today in stable condition. ASSESSMENT AND PLAN 1. Expressive aphasia due to TIA with resolution of symptoms. 2. Diabetes mellitus type 2. 3. Hypertension. 4. Paroxysmal atrial fibrillation. 5. Recent cervical discectomy. 6. Recurrent depression. 7. Gastroesophageal reflux disease. 8. Acute COVID-19 pneumonia. DISCHARGE PLAN Return to [facility] on Monday. Impression and plan of care have been directed as dictated by the signing physician. Beatriz Barrera nurse practitioner acting as scribe for signing physician. Patient Condition at Discharge: Good Plan - Discharge Summary New Discharge Prescriptions: New Apixaban [Eliquis] 5 mg PO BID tab dexAMETHasone [Hexadrol] 6 mg PO DAILY 5 Days tab Metoprolol Tartrate [Lopressor] 12.5 mg PO HS tab INSULIN ASPART (NovoLOG) [NovoLOG (formulary)] 0 unit SQ ACHS vial Zinc Sulfate [Orazinc] 220 mg PO DAILY cap Continue Famotidine [Pepcid] 20 mg PO DAILY@0900 DULoxetine HCL [Cymbalta] 60 mg PO BID@0900,2100 Baclofen 10 mg PO TID@0900,1300,2100 Metoprolol Tartrate 25 mg PO DAILY@0900 Magnesium Oxide [Mag-Ox] 400 mg PO DAILY@0900 Insulin Detemir [Levemir Flextouch] 12 units SQ HS@2100 Docusate [Colace] 200 mg PO DAILY@0900 Atorvastatin [Lipitor] 10 mg PO HS@2100 Acetaminophen Tab [Tylenol] 650 mg PO Q6H PRN PRN Reason: Fever And/ Or Pain Loperamide [Imodium] 2 mg PO QID PRN PRN Reason: Diarrhea Docusate [Colace] 100 mg PO BID PRN PRN Reason: Constipation Fluticasone Nasal [place] [Flonase Nasal [place]] 1 spray EA NOSTRIL DAILY PRN PRN Reason: seasonal allergies Butalb/APAP/Caff 50-325-40Mg [Fioricet 50-325-40] 1 tab PO Q6H PRN PRN Reason: Headache Diclofenac Sodium Gel [Voltaren Gel] 1 applic TOPICAL TID@0900,1300,2100 hydrALAZINE HCL [Apresoline] 50 mg PO TID@0600,1300,2100 Mirabegron [Myrbetriq] 25 mg PO HS@2100 prednisoLONE ACETATE [Pred Forte 1%] 1 drop LEFT EYE DAILY@0900 Semaglutide [Ozempic] 1 mg SQ WE@0900 Insulin Aspart [NovoLOG Flexpen] 5 unit SQ AC-BRKFST@0800 Insulin Aspart [NovoLOG Flexpen] 6 unit SQ AC-LUNCH@1200 Insulin Aspart [NovoLOG Flexpen] 8 unit SQ AC-SUPPER@1800 Mirabegron [Myrbetriq] 50 mg PO DAILY@0600 Difluprednate [Durezol] 1 drop RIGHT EYE HS@2100 Furosemide [Lasix] 40 mg PO DAILY@0600 Melatonin 6 mg PO HS@2100 Potassium Citrate [Potassium Citrate ER] 10 meq PO HS@2100 Ergocalciferol [Vitamin D2 (DRISDOL)] 50,000 unit PO Q14D@0900 Oxymetazoline 0.05% Nasl [place] [Afrin 0.05% Nasal [place]] 1 spray EA NOSTRIL Q12HR PRN PRN Reason: Congestion oxyCODONE HCL 5 mg PO Q4H PRN #18 cap PRN Reason: Severe Pain oxyCODONE HCL [OxyCONTIN] 20 mg PO Q12HR@0900,2100 #6 tab Changed Pregabalin [Lyrica] 100 mg PO BID@0900,2099 #6 cap Discharge Medication List Baclofen 10 mg PO TID@0900,1300,2100 05/01/17 [History] DULoxetine HCL [Cymbalta] 60 mg PO BID@0900,209905/01/17 [History] Famotidine [Pepcid] 20 mg PO DAILY@89905/01/17 [History] Acetaminophen Tab [Tylenol] 650 mg PO Q6H PRN 04/10/18 [History] Atorvastatin [Lipitor] 10 mg PO HS@209904/10/18 [History] Docusate [Colace] 200 mg PO DAILY@89904/10/18 [History] Insulin Detemir [Levemir Flextouch] 12 units SQ HS@209904/10/18 [History] Magnesium Oxide [Mag-Ox] 400 mg PO DAILY@89904/10/18 [History] Metoprolol Tartrate 25 mg PO DAILY@89904/10/18 [History] Butalb/APAP/Caff 50-325-40Mg [Fioricet 50-325-40] 1 tab PO Q6H PRN 09/24/20 [History] Diclofenac Sodium Gel [Voltaren Gel] 1 applic TOPICAL TID@0900,1300,209909/24/20 [History] Difluprednate [Durezol] 1 drop RIGHT EYE HS@209909/24/20 [History] Docusate [Colace] 100 mg PO BID PRN 09/24/20 [History] Ergocalciferol [Vitamin D2 (DRISDOL)] 50,000 unit PO Q14D@89909/24/20 [History] Fluticasone Nasal [place] [Flonase Nasal [place]] 1 spray EA NOSTRIL DAILY PRN 09/24/20 [History] Furosemide [Lasix] 40 mg PO DAILY@0609/24/20 [History] Insulin Aspart [NovoLOG Flexpen] 5 unit SQ AC-BRKFST@0809/24/20 [History] Insulin Aspart [NovoLOG Flexpen] 6 unit SQ AC-LUNCH@119909/24/20 [History] Insulin Aspart [NovoLOG Flexpen] 8 unit SQ AC-SUPPER@179909/24/20 [History] Loperamide [Imodium] 2 mg PO QID PRN 09/24/20 [History] Melatonin 6 mg PO HS@209909/24/20 [History] Mirabegron [Myrbetriq] 25 mg PO HS@209909/24/20 [History] Mirabegron [Myrbetriq] 50 mg PO DAILY@0600 09/24/20 [History] Oxymetazoline 0.05% Nasl [place] [Afrin 0.05% Nasal [place]] 1 spray EA NOSTRIL Q12HR PRN 09/24/20 [History] Potassium Citrate [Potassium Citrate ER] 10 meq PO HS@2100 09/24/20 [History] Semaglutide [Ozempic] 1 mg SQ WE@0900 09/24/20 [History] hydrALAZINE HCL [Apresoline] 50 mg PO TID@0600,1300,2100 09/24/20 [History] prednisoLONE ACETATE [Pred Forte 1%] 1 drop LEFT EYE DAILY@0900 09/24/20 [History] Apixaban [Eliquis] 5 mg PO BID tab 09/30/20 [Rx] INSULIN ASPART (NovoLOG) [NovoLOG (formulary)] 0 unit SQ ACHS vial 09/30/20 [Rx] Metoprolol Tartrate [Lopressor] 12.5 mg PO HS tab 09/30/20 [Rx] Pregabalin [Lyrica] 100 mg PO BID@0900,2100 #6 cap 09/30/20 [Rx] Zinc Sulfate [Orazinc] 220 mg PO DAILY cap 09/30/20 [Rx] dexAMETHasone [Hexadrol] 6 mg PO DAILY 5 Days tab 09/30/20 [Rx] oxyCODONE HCL 5 mg PO Q4H PRN #18 cap 09/30/20 [Rx] oxyCODONE HCL [OxyCONTIN] 20 mg PO Q12HR@0900,2100 #6 tab 09/30/20 [Rx] Follow up Appointment(s)/Referral(s): Hitesh Mukherjee MD [STAFF PHYSICIAN] - 4 Weeks Kelsy Silver MD [Primary Care Provider] - 1 Week (At [facility]) Discharge Disposition: TRANSFER TO SNF/ECF
[2020-09-30] MEDS ORDERED: Semaglutide [Ozempic] 1 MG/0.75 ML Pen.Injctr SQ SCH (09:00)
[2020-09-30] MEDS: FAMOTIDINE 20 MG TAB PO SCH (10:21)
[2020-09-30] MEDS: DOCUSATE 100 MG CAP PO SCH (10:21)
[2020-09-30] MEDS: oxyCODONE ER 20 MG TAB.ER.12H PO SCH (10:22)
[2020-09-30] MEDS: APIXABAN 5 MG TAB PO SCH (10:22)
[2020-09-30] MEDS: ZINC SULFATE 220 MG CAP PO SCH (10:22)
[2020-09-30] MEDS: DULoxetine HCL 60 MG CAPSULE.DR PO SCH (10:22)
[2020-09-30] MEDS: BACLOFEN 10 MG TAB PO SCH (10:23)
[2020-09-30] MEDS: MAGNESIUM OXIDE 400 MG TAB PO SCH (10:23)
[2020-09-30] MEDS: METOPROLOL TARTRATE 25 MG TAB PO SCH (10:23)
[2020-09-30] MEDS: DICLOFENAC SODIUM GEL 100 GM TUBE TOPICAL SCH (10:23)
[2020-09-30] MEDS: PREGABALIN 100 MG CAP PO SCH (10:23)
[2020-09-30] MEDS: dexAMETHasone 2 MG TAB PO SCH (10:23)
[2020-09-30 11:55] VITALS: BP 143/72; PULSE 102; RESP 20; TEMP 98.1
== END 2020-09-30 12:16 | DRG 177 ==
LOC: EC 17:35 → 3SCARD 20:46
PROVIDERS: ADMIT Family Medicine; ATTEND Family Medicine
PROC: XW033E5 Introduction of Remdesivir Anti-infective into Peripheral Vein, Percutaneous Approach, New Technology Group 5 (ICD-10-PCS; principal; 2020-09-25)
DX: U07.1 COVID-19 (principal); J12.89 Other viral pneumonia; G45.9 Transient cerebral ischemic attack, unspecified; F33.9 Major depressive disorder, recurrent, unspecified; I11.9 Hypertensive heart disease without heart failure; E11.9 Type 2 diabetes mellitus without complications; I48.0 Paroxysmal atrial fibrillation; D72.810 Lymphocytopenia; G31.9 Degenerative disease of nervous system, unspecified; G40.909 Epilepsy, unspecified, not intractable, without status epilepticus; Z79.4 Long term (current) use of insulin; I08.1 Rheumatic disorders of both mitral and tricuspid valves; E78.5 Hyperlipidemia, unspecified; K21.9 Gastro-esophageal reflux disease without esophagitis; I65.23 Occlusion and stenosis of bilateral carotid arteries; F41.9 Anxiety disorder, unspecified; M48.02 Spinal stenosis, cervical region; G89.29 Other chronic pain; M54.9 Dorsalgia, unspecified; Z79.899 Other long term (current) drug therapy; Z87.01 Personal history of pneumonia (recurrent); Z87.39 Personal history of other diseases of the musculoskeletal system and connective tissue; Z87.440 Personal history of urinary (tract) infections; Z86.19 Personal history of other infectious and parasitic diseases; Z90.49 Acquired absence of other specified parts of digestive tract; Z90.710 Acquired absence of both cervix and uterus; Z98.1 Arthrodesis status; Z87.19 Personal history of other diseases of the digestive system; Z87.81 Personal history of (healed) traumatic fracture; Z90.89 Acquired absence of other organs; Z98.890 Other specified postprocedural states; Z88.5 Allergy status to narcotic agent; Z88.0 Allergy status to penicillin; Z88.2 Allergy status to sulfonamides; Z91.041 Radiographic dye allergy status; Z91.040 Latex allergy status; Z82.49 Family history of ischemic heart disease and other diseases of the circulatory system; Z80.8 Family history of malignant neoplasm of other organs or systems
CPT/HCPCS: 36415; 70450; 70496; 70498; 71046; 80053; 80061; 81001; 82728; 83605; 83615; 83735; 84145; 84484; 85025; 85027; 85379; 85610; 85730; 86140; 87040; 87635; 93005; 93306; 93880; 99285